=== PATIENT | male | born 1945 | race Caucasian/White ===

== ENCOUNTER → 2019-05-07 | Outpatient (CLI) | payer MEDICARE, BC ==
[2019-05-07 08:10] LABS: Anisocytosis Slight; HCT 40.2 % (39.0-53.0); HGB 11.8 gm/dL (13.0-17.5); Hypochromasia Moderate; MCH 28.2 pg (25.0-35.0); MCHC 29.4 g/dL (31.0-37.0); MCV 95.9 fL (80.0-100.0); Mean Platelet Volume 6.4; Platelet Count 294 k/uL (150-450); RDW 16.8 % (11.5-15.5)
[2019-05-07 12:12] LABS: African American GFR (CKD) 97.9 (60.0-200.0); Albumin 3.9 g/dL (3.80-4.90); Albumin/Globulin Ratio 1.63 (1.60-3.17); Anion Gap 8.8 mmol/L (4.00-12.00); BUN/Creat Ratio 15.56 Ratio (12.00-20.00); Calcium 8.6 mg/dL (8.7-10.3); Carbon Dioxide 25.2 mmol/L (21.6-31.8); Chol/HDL Ratio 5.28; Globulin 2.4 g/dL (1.6-3.3); LDL Cholesterol,Calculated 55.4 mg/dL (0.0-131.0); Potassium 3.9 mmol/L (3.5-5.5); Total Bilirubin 0.5 mg/dL (0.2-1.2); Total Protein 6.3 g/dL (6.2-8.2); VLDL Calculation 51.6 mg/dL (5.00-40.00)
== END ==
LOC: LABWHC1 07:27
PROVIDERS: ATTEND Internal Medicine Interventional Cardiology
DX: E78.2 Mixed hyperlipidemia (principal); I25.10 Atherosclerotic heart disease of native coronary artery without angina pectoris
CPT/HCPCS: 36415; 80053; 80061; 85027

== ENCOUNTER → 2019-09-04 | Outpatient (CLI) | payer MEDICARE, BC ==
[2019-09-04 17:31] LABS: African American GFR (CKD) 86.2 (60.0-200.0); Albumin 3.8 g/dL (3.80-4.90); Albumin/Globulin Ratio 1.58 (1.60-3.17); Anion Gap 9.6 mmol/L (4.00-12.00); Calcium 8.8 mg/dL (8.7-10.3); Carbon Dioxide 25.4 mmol/L (21.6-31.8); Chol/HDL Ratio 4.71; Globulin 2.4 g/dL (1.6-3.3); LDL Cholesterol,Calculated 64.6 mg/dL (0.0-131.0); Non-African American GFR(CKD) 74.3 (60.0-200.0); Potassium 4.6 mmol/L (3.5-5.5); Total Bilirubin 0.4 mg/dL (0.2-1.2); Total Protein 6.2 g/dL (6.2-8.2); VLDL Calculation 39.4 mg/dL (5.00-40.00)
== END | disposition home or self-care (01) ==
LOC: LABWHC1 07:35
PROVIDERS: ATTEND Internal Medicine Interventional Cardiology
DX: E78.2 Mixed hyperlipidemia (principal)
CPT/HCPCS: 36415; 80053; 80061

== ENCOUNTER → 2020-02-24 | Outpatient (CLI) | payer MEDICARE, BC ==
[2020-02-24 17:16] LABS: African American GFR (CKD) 97.9 (60.0-200.0); Albumin 3.7 g/dL (3.80-4.90); Albumin/Globulin Ratio 1.42 (1.60-3.17); Anion Gap 3.1 mmol/L (4.00-12.00); BUN/Creat Ratio 17.78 Ratio (12.00-20.00); Calcium 8.7 mg/dL (8.7-10.3); Carbon Dioxide 25.9 mmol/L (21.6-31.8); Chol/HDL Ratio 8.1; Globulin 2.6 g/dL (1.6-3.3); LDL Cholesterol,Calculated 152.8 mg/dL (0.0-131.0); Non-African American GFR(CKD) 84.4 (60.0-200.0); Potassium 4.4 mmol/L (3.5-5.5); Total Bilirubin 0.4 mg/dL (0.3-1.2); Total Protein 6.3 g/dL (6.2-8.2); VLDL Calculation 53.2 mg/dL (5.00-40.00)
== END ==
LOC: LABWHC1 07:30
PROVIDERS: ATTEND Internal Medicine Interventional Cardiology
DX: E78.2 Mixed hyperlipidemia (principal)
CPT/HCPCS: 36415; 80053; 80061

== ENCOUNTER → 2020-04-17 | Outpatient (CLI) | payer MEDICARE, BC ==
[2020-04-17 11:32] LABS: Chol/HDL Ratio 5.5; LDL Cholesterol,Calculated 64.2 mg/dL (0.0-131.0); VLDL Calculation 43.8 mg/dL (5.00-40.00)
== END | disposition home or self-care (01) ==
LOC: LABWHC1 07:04
PROVIDERS: ATTEND Nurse Practitioner Adult Health
DX: E78.2 Mixed hyperlipidemia (principal)
CPT/HCPCS: 36415; 80061

== ENCOUNTER → 2021-03-08 | Outpatient (CLI) | payer MEDICARE, BC ==
[2021-03-08 11:55] LABS: African American GFR (CKD) 97.2 (60.0-200.0); Albumin 3.6 g/dL (3.80-4.90); Albumin/Globulin Ratio 1.5 (1.60-3.17); Anion Gap 5.3 mmol/L (4.00-12.00); BUN/Creat Ratio 14.44 Ratio (12.00-20.00); Calcium 8.3 mg/dL (8.7-10.3); Carbon Dioxide 28.7 mmol/L (21.6-31.8); Chol/HDL Ratio 4.14; Globulin 2.4 g/dL (1.6-3.3); LDL Cholesterol,Calculated 63.6 mg/dL (0.0-131.0); Non-African American GFR(CKD) 83.8 (60.0-200.0); Total Bilirubin 0.3 mg/dL (0.3-1.2); VLDL Calculation 27.4 mg/dL (5.00-40.00)
== END | disposition home or self-care (01) ==
LOC: LABWHC1 07:00
PROVIDERS: ATTEND Nurse Practitioner Adult Health
DX: I10 Essential (primary) hypertension (principal); E78.2 Mixed hyperlipidemia
CPT/HCPCS: 36415; 80053; 80061

== ENCOUNTER → 2021-04-13 | Outpatient (CLI) | payer MEDICARE, BC ==
[2021-04-13 18:16] LABS: Anion Gap 8.5 mmol/L (4.00-12.00); Calcium 8.6 mg/dL (8.7-10.3); Carbon Dioxide 23.5 mmol/L (21.6-31.8); Non-African American GFR(CKD) 73.3 (60.0-200.0); Potassium 3.9 mmol/L (3.5-5.5)
== END | disposition home or self-care (01) ==
LOC: LABWHC1 07:13
PROVIDERS: ATTEND Nurse Practitioner Adult Health
DX: I10 Essential (primary) hypertension (principal); I25.5 Ischemic cardiomyopathy
CPT/HCPCS: 36415; 80048

== ENCOUNTER → 2021-09-30 | Outpatient (CLI) | payer MEDICARE, BC ==
[2021-09-30 10:46] LABS: ALT 39 U/L (10-49); AST 34 U/L (14-35); African American GFR (CKD) 96.5 (60.0-200.0); Albumin 3.5 g/dL (3.8-4.9); Albumin/Globulin Ratio 1.09 (1.60-3.17); Alkaline Phosphatase 105 U/L (41-126); BUN/Creat Ratio 24.33 Ratio (12.00-20.00); Blood Urea Nitrogen 21.9 mg/dL (9.0-27.0); Calcium 9.1 mg/dL (8.7-10.3); Carbon Dioxide 20.6 mmol/L (20.0-27.5); Chloride 106 mmol/L (96-109); Chol/HDL Ratio 5.11 Ratio; Globulin 3.2 g/dL (1.6-3.3); Glucose 103 mg/dL (70-110); LDL Cholesterol,Calculated 56.1 mg/dL (0.0-131.0); Non-African American GFR(CKD) 83.3 (60.0-200.0); Potassium 3.8 mmol/L (3.5-5.5); Sodium 140 mmol/L (135-145); Total Protein 6.7 g/dL (6.2-8.2)
== END | disposition home or self-care (01) ==
LOC: LABWHC1 07:03
PROVIDERS: ATTEND Nurse Practitioner Adult Health
DX: I10 Essential (primary) hypertension (principal); E78.2 Mixed hyperlipidemia
CPT/HCPCS: 36415; 80053; 80061

== ENCOUNTER 2021-12-04 13:00 | Inpatient (IN) | payer BC, MEDICARE ==
--- NOTE | 2021-12-04 13:25 | ED ---
Weakness HPI - General Chief complaint: Weakness Stated complaint: Fall Time Seen by Provider: 12/04/21 13:03 Source: patient, EMS, RN notes reviewed Mode of arrival: EMS Limitations: no limitations - History of Present Illness Initial comments: 76-year-old male in by EMS with complaints of frequent falls generalized weakness for the past 5-6 weeks he states he does have a history of atrial fibrillation he does have a defibrillator. The defibrillator has not gone off he denies any overt fevers chills or sweats just progressive weakness he states he feels like his legs would give out on him. No complaints of chest pain palpitations he does get short of breath but denies history of COPD or emphysema. No cough no phlegm production. Patient denies any head trauma or headaches MD Complaint: generalized weakness - Related Data Home Medications Medication Instructions Recorded Confirmed Bisoprolol [Zebeta] 5 mg PO BID 08/26/19 12/04/21 Cholecalciferol [Vitamin D3 (25 2,000 unit PO DAILY 08/26/19 12/04/21 Mcg = 1000 Iu)] Folic Acid 1 mg PO DAILY 08/26/19 12/04/21 Leflunomide [Arava] 20 mg PO DAILY 08/26/19 12/04/21 Rivaroxaban [Xarelto] 20 mg PO W/SUPPER 08/26/19 12/04/21 Rosuvastatin [Crestor] 20 mg PO DAILY 08/26/19 12/04/21 metHOTREXate sodium [Methotrexate] 20 mg PO WE 08/26/19 12/04/21 Omeprazole 20 mg PO DAILY 12/04/21 12/04/21 Sacubitril/Valsartan [Entresto 49 1 tab PO BID 12/04/21 12/04/21 mg-51 mg Tablet] Spironolactone [Aldactone] 25 mg PO DAILY 12/04/21 12/04/21 icosapent ethyL [Icosapent Ethyl] 2 gm PO BID 12/04/21 12/04/21 Allergies Allergy/AdvReac Type Severity Reaction Status Date / Time No Known Allergies Allergy Verified 12/04/21 14:50 Review of Systems ROS Statement: Those systems with pertinent positive or pertinent negative responses have been documented in the HPI. ROS Other: All systems not noted in ROS Statement are negative. Past Medical History Past Medical History: Atrial Flutter, Prostate Disorder, Pulmonary Embolus (PE), Rheumatoid Arthritis (RA) History of Any Multi-Drug Resistant Organisms: None Reported Past Surgical History: Appendectomy, Heart Catheterization With Stent, Joint Replacement, Pacemaker, Prostate Surgery Additional Past Surgical History / Comment(s): dg knee replaced, dg shoulder surgery,turp, neck fusion Past Anesthesia/Blood Transfusion Reactions: No Reported Reaction Date of Last Stent Placement:: 2015 Type of Cardiac Device: AICD Device Placement Date:: 2015 Past Psychological History: No Psychological Hx Reported Past Alcohol Use History: None Reported Past Drug Use History: None Reported - Past Family History Brother(s) Family Medical History: Cancer Additional Family Medical History / Comment(s): testicular cancer General Exam - General Exam Comments Initial Comments: This is a well-developed well-nourished awake alert oriented times 3 male Limitations: no limitations General appearance: alert, in no apparent distress Head exam: Present: atraumatic, normocephalic, normal inspection Eye exam: Present: normal appearance, PERRL, EOMI. Absent: scleral icterus, conjunctival injection, periorbital swelling ENT exam: Present: mucous membranes dry Neck exam: Present: normal inspection. Absent: tenderness, meningismus, lymphadenopathy Respiratory exam: Present: normal lung sounds bilaterally. Absent: respiratory distress, wheezes, rales, rhonchi, stridor Cardiovascular Exam: Present: regular rate, normal rhythm, normal heart sounds. Absent: systolic murmur, diastolic murmur, rubs, gallop, clicks GI/Abdominal exam: Present: soft, normal bowel sounds. Absent: distended, tenderness, guarding, rebound, rigid Extremities exam: Present: normal inspection, full ROM, normal capillary refill. Absent: tenderness, pedal edema, joint swelling, calf tenderness Back exam: Present: normal inspection Neurological exam: Present: alert, oriented X3, CN II-XII intact Psychiatric exam: Present: normal affect, normal mood Skin exam: Present: warm, dry, intact, normal color. Absent: rash Course Vital Signs 12/04/21 12/04/21 12/04/21 13:02 14:49 16:03 Temperature 97.3 F L Pulse Rate 88 68 82 Respiratory 18 20 18 Rate Blood Pressure 105/83 92/57 91/50 O2 Sat by Pulse 0 L 93 L 96 Oximetry 12/04/21 12/04/21 18:52 19:28 Temperature Pulse Rate 84 94 Respiratory 18 25 H Rate Blood Pressure 89/51 94/52 O2 Sat by Pulse 94 L 93 L Oximetry - Reevaluation(s) Reevaluation #1: 12/04/21 19:29 I did repeat evaluation the patient states he does not feel too much different his is present now she states she did have a low-grade temperature last night and had several hours of chills starting last night. She also believes he is dehydrated. 12/04/21 19:41 Medical Decision Making - Medical Decision Making I did discuss findings the patient and with his as well as with Dr. Roman patient states he normally has a blood pressure in the 90 systolic over perhaps 70s diastolic. Patient is not been thriving well at home he did have chills and shakes last evening with a low-grade temperature per his - Lab Data Result diagrams: 12/04/21 13:21 12/04/21 13:21 Lab Results 12/04/21 12/04/21 12/04/21 Range/Units 13:21 13:21 13:21 WBC 10.4 (3.8-10.6) k/uL RBC 3.30 L (4.30-5.90) m/uL Hgb 10.9 L (13.0-17.5) gm/dL Hct 34.4 L (39.0-53.0) % MCV 104.3 H (80.0-100.0) fL MCH 32.9 (25.0-35.0) pg MCHC 31.5 (31.0-37.0) g/dL RDW 16.4 H (11.5-15.5) % Plt Count 270 (150-450) k/uL MPV 8.2 Neutrophils % 93 % Lymphocytes % 3 % Monocytes % 1 % Eosinophils % 1 % Basophils % 1 % Neutrophils # 9.7 H (1.3-7.7) k/uL Lymphocytes # 0.3 L (1.0-4.8) k/uL Monocytes # 0.1 (0-1.0) k/uL Eosinophils # 0.1 (0-0.7) k/uL Basophils # 0.1 (0-0.2) k/uL Anisocytosis Slight Macrocytosis Moderate Sodium 134 L (137-145) mmol/L Potassium 4.3 (3.5-5.1) mmol/L Chloride 106 (98-107) mmol/L Carbon Dioxide 18 L (22-30) mmol/L Anion Gap 10 mmol/L BUN 53 H (9-20) mg/dL Creatinine 1.48 H (0.66-1.25) mg/dL Est GFR (CKD-EPI)AfAm 53 (>60 ml/min/1.73 sqM) Est GFR (CKD-EPI)NonAf 46 (>60 ml/min/1.73 sqM) Glucose 118 H (74-99) mg/dL Plasma Lactic Acid Basim 1.8 (0.7-2.0) mmol/L Calcium 8.7 (8.4-10.2) mg/dL Magnesium 1.8 (1.6-2.3) mg/dL Total Bilirubin 1.2 (0.2-1.3) mg/dL AST 51 (17-59) U/L ALT 32 (4-49) U/L Alkaline Phosphatase 144 H (38-126) U/L Creatine Kinase 59 (55-170) U/L Troponin I (0.000-0.034) ng/mL Total Protein 6.2 L (6.3-8.2) g/dL Albumin 3.1 L (3.5-5.0) g/dL Lipase 69 (23-300) U/L Urine Color Urine Appearance (Clear) Urine pH (5.0-8.0) Ur Specific [place] (1.001-1.035) Urine Protein (Negative) Urine Glucose (UA) (Negative) Urine Ketones (Negative) Urine Blood (Negative) Urine Nitrite (Negative) Urine Bilirubin (Negative) Urine Urobilinogen (<2.0) mg/dL Ur Leukocyte Esterase (Negative) Urine RBC (0-5) /hpf Urine WBC (0-5) /hpf Amorphous Sediment (None) /hpf Urine Mucus (None) /hpf Serum Alcohol <10 mg/dL 12/04/21 12/04/21 Range/Units 13:21 13:21 WBC (3.8-10.6) k/uL RBC (4.30-5.90) m/uL Hgb (13.0-17.5) gm/dL Hct (39.0-53.0) % MCV (80.0-100.0) fL MCH (25.0-35.0) pg MCHC (31.0-37.0) g/dL RDW (11.5-15.5) % Plt Count (150-450) k/uL MPV Neutrophils % % Lymphocytes % % Monocytes % % Eosinophils % % Basophils % % Neutrophils # (1.3-7.7) k/uL Lymphocytes # (1.0-4.8) k/uL Monocytes # (0-1.0) k/uL Eosinophils # (0-0.7) k/uL Basophils # (0-0.2) k/uL Anisocytosis Macrocytosis Sodium (137-145) mmol/L Potassium (3.5-5.1) mmol/L Chloride (98-107) mmol/L Carbon Dioxide (22-30) mmol/L Anion Gap mmol/L BUN (9-20) mg/dL Creatinine (0.66-1.25) mg/dL Est GFR (CKD-EPI)AfAm (>60 ml/min/1.73 sqM) Est GFR (CKD-EPI)NonAf (>60 ml/min/1.73 sqM) Glucose (74-99) mg/dL Plasma Lactic Acid Basim (0.7-2.0) mmol/L Calcium (8.4-10.2) mg/dL Magnesium (1.6-2.3) mg/dL Total Bilirubin (0.2-1.3) mg/dL AST (17-59) U/L ALT (4-49) U/L Alkaline Phosphatase (38-126) U/L Creatine Kinase (55-170) U/L Troponin I <0.012 (0.000-0.034) ng/mL Total Protein (6.3-8.2) g/dL Albumin (3.5-5.0) g/dL Lipase (23-300) U/L Urine Color Yellow Urine Appearance Clear (Clear) Urine pH 5.0 (5.0-8.0) Ur Specific [place] 1.014 (1.001-1.035) Urine Protein Negative (Negative) Urine Glucose (UA) Negative (Negative) Urine Ketones Negative (Negative) Urine Blood Small H (Negative) Urine Nitrite Negative (Negative) Urine Bilirubin Negative (Negative) Urine Urobilinogen <2.0 (<2.0) mg/dL Ur Leukocyte Esterase Negative (Negative) Urine RBC 1 (0-5) /hpf Urine WBC 1 (0-5) /hpf Amorphous Sediment Rare H (None) /hpf Urine Mucus Rare H (None) /hpf Serum Alcohol mg/dL - Radiology Data Radiology results: report reviewed (Image reviewed evidence of a typical pneumonic infiltrates), image reviewed Disposition Clinical Impression: Pneumonia, Dehydration, Failure to thrive, Renal insufficiency syndrome Disposition: ADMITTED IP TO THIS [facility] Condition: Fair Referrals: None,Stated [REFERRING] - 1-2 days
[2021-12-04 13:29] LABS: Anisocytosis Slight; Basophils # (A) 0.1 k/uL (0-0.2); Basophils % (A) 1 %; Eosinophils # (A) 0.1 k/uL (0-0.7); Eosinophils % (A) 1 %; HCT 34.4 % (39.0-53.0); HGB 10.9 gm/dL (13.0-17.5); Lymphocytes # (A) 0.3 k/uL (1.0-4.8); Lymphocytes % (A) 3 %; MCH 32.9 pg (25.0-35.0); MCHC 31.5 g/dL (31.0-37.0); MCV 104.3 fL (80.0-100.0); Macrocytosis Moderate; Mean Platelet Volume 8.2; Monocytes # (A) 0.1 k/uL (0-1.0); Monocytes % (A) 1 %; Neutrophils # (A) 9.7 k/uL (1.3-7.7); Neutrophils % (A) 93 %; Platelet Count 270 k/uL (150-450); RDW 16.4 % (11.5-15.5); WBC 10.4 k/uL (3.8-10.6)
[2021-12-04 13:39] LABS: ALT 32 U/L (4-49); AST 51 U/L (17-59); African American GFR (CKD) 53 (>60 ml/min/1.73 sqM); Albumin 3.1 g/dL (3.5-5.0); Alcohol <10 mg/dL; Alkaline Phosphatase 144 U/L (38-126); Anion Gap 10 mmol/L; Blood Urea Nitrogen 53 mg/dL (9-20); Calcium 8.7 mg/dL (8.4-10.2); Carbon Dioxide 18 mmol/L (22-30); Chloride 106 mmol/L (98-107); Creatine Kinase 59 U/L (55-170); Glucose 118 mg/dL (74-99); Lipase 69 U/L (23-300); Magnesium 1.8 mg/dL (1.6-2.3); Non-African American GFR(CKD) 46 (>60 ml/min/1.73 sqM); Potassium 4.3 mmol/L (3.5-5.1); Sodium 134 mmol/L (137-145); Total Bilirubin 1.2 mg/dL (0.2-1.3); Total Protein 6.2 g/dL (6.3-8.2)
--- NOTE | 2021-12-04 13:44 | XR ---
EXAMINATION TYPE: XR chest 2V DATE OF EXAM: 12/04/2021 COMPARISON: None HISTORY: 76-year-old male fall, weakness TECHNIQUE: AP and lateral views FINDINGS: Heart mildly enlarged. Interstitial prominence. Left anterior chest wall ICD generator with right atr ial right ventricular leads. ACDF hardware. No or pleural effusion. IMPRESSION: Mild cardiomegaly and interstitial densities. Some of the interstitial densities are patchy within th e periphery of the lungs. Unusual for CHF changes. Correlation to exclude atypical pneumonia.
--- NOTE | 2021-12-04 13:56 | CT ---
EXAMINATION TYPE: CT brain wo con DATE OF EXAM: 12/04/2021 COMPARISON: None HISTORY: 76-year-old male with pain after Frequent falls. TECHNIQUE: Examination was done in axial plane without intravenous contrast. Coronal and sagittal r econstructions performed. CT DLP: 1090.4 mGycm Automated exposure control for dose reduction was used. FINDINGS: There is no evidence of acute intracranial hemorrhage, acute ischemic changes, mass, mass-effect, or extra-axial fluid collection. There is no effacement of cerebral sulci or basal subarachnoid cister ns. There is no hydrocephalus. There is no midline shift. Rodriguez-white matter distinction is preserv ed. Mild generalized supratentorial volume loss. Mild atherosclerotic calcifications bilateral carotid si phons. Lobulated mucosal thickening left maxillary sinus. Mastoid air cells well pneumatized. Orbits and audra bes are intact. IMPRESSION: Mild age-related cerebral atrophy. No acute intracranial abnormality seen.
[2021-12-04] MEDS ORDERED: SODIUM CHLORIDE 0.9% 1,000 ML IV STA ×2 (14:43→19:10)
[2021-12-04 17:26] LABS: Amorphous Sediment,Urine Rare /hpf; Appearance,Urine Clear (Clear); Bilirubin,Urine Negative (Negative); Blood,Urine Small (Negative); Color,Urine Yellow; Glucose,Urine (UA) Negative (Negative); Ketones,Urine Negative (Negative); Leukocyte Esterase,Urine Negative (Negative); Mucus,Urine Rare /hpf; Nitrite,Urine Negative (Negative); Protein,Urine Negative (Negative); RBC,Urine 1 /hpf (0-5); Specific Gravity,Urine 1.014 (1.001-1.035); Urobilinogen,Urine <2.0 mg/dL (<2.0); WBC,Urine 1 /hpf (0-5)
[2021-12-04] MEDS ORDERED: cefTRIAXone IN SWFI 1,000 MG/10 ML SYRINGE IVP STA (19:24)
[2021-12-04] MEDS ORDERED: AZITHROMYCIN 500 MG in SODIUM CHLORIDE 0.9% 250 ML IVPB STA (20:43)
[2021-12-04] MEDS ORDERED: PNEUMONIA PROTOCOL UTILIZED 1 EACH MISC PO PRN (20:43)
--- NOTE | 2021-12-04 20:47 | ED ---
Medical Decision Making - Lab Data Result diagrams: 12/04/21 13:21 12/04/21 13:21 Lab Results 12/04/21 12/04/21 12/04/21 Range/Units 13:21 13:21 13:21 WBC 10.4 (3.8-10.6) k/uL RBC 3.30 L (4.30-5.90) m/uL Hgb 10.9 L (13.0-17.5) gm/dL Hct 34.4 L (39.0-53.0) % MCV 104.3 H (80.0-100.0) fL MCH 32.9 (25.0-35.0) pg MCHC 31.5 (31.0-37.0) g/dL RDW 16.4 H (11.5-15.5) % Plt Count 270 (150-450) k/uL MPV 8.2 Neutrophils % 93 % Lymphocytes % 3 % Monocytes % 1 % Eosinophils % 1 % Basophils % 1 % Neutrophils # 9.7 H (1.3-7.7) k/uL Lymphocytes # 0.3 L (1.0-4.8) k/uL Monocytes # 0.1 (0-1.0) k/uL Eosinophils # 0.1 (0-0.7) k/uL Basophils # 0.1 (0-0.2) k/uL Anisocytosis Slight Macrocytosis Moderate Sodium 134 L (137-145) mmol/L Potassium 4.3 (3.5-5.1) mmol/L Chloride 106 (98-107) mmol/L Carbon Dioxide 18 L (22-30) mmol/L Anion Gap 10 mmol/L BUN 53 H (9-20) mg/dL Creatinine 1.48 H (0.66-1.25) mg/dL Est GFR (CKD-EPI)AfAm 53 (>60 ml/min/1.73 sqM) Est GFR (CKD-EPI)NonAf 46 (>60 ml/min/1.73 sqM) Glucose 118 H (74-99) mg/dL Plasma Lactic Acid Basim 1.8 (0.7-2.0) mmol/L Calcium 8.7 (8.4-10.2) mg/dL Magnesium 1.8 (1.6-2.3) mg/dL Total Bilirubin 1.2 (0.2-1.3) mg/dL AST 51 (17-59) U/L ALT 32 (4-49) U/L Alkaline Phosphatase 144 H (38-126) U/L Creatine Kinase 59 (55-170) U/L Troponin I (0.000-0.034) ng/mL Total Protein 6.2 L (6.3-8.2) g/dL Albumin 3.1 L (3.5-5.0) g/dL Lipase 69 (23-300) U/L Urine Color Urine Appearance (Clear) Urine pH (5.0-8.0) Ur Specific [place] (1.001-1.035) Urine Protein (Negative) Urine Glucose (UA) (Negative) Urine Ketones (Negative) Urine Blood (Negative) Urine Nitrite (Negative) Urine Bilirubin (Negative) Urine Urobilinogen (<2.0) mg/dL Ur Leukocyte Esterase (Negative) Urine RBC (0-5) /hpf Urine WBC (0-5) /hpf Amorphous Sediment (None) /hpf Urine Mucus (None) /hpf Serum Alcohol <10 mg/dL 12/04/21 12/04/21 Range/Units 13:21 13:21 WBC (3.8-10.6) k/uL RBC (4.30-5.90) m/uL Hgb (13.0-17.5) gm/dL Hct (39.0-53.0) % MCV (80.0-100.0) fL MCH (25.0-35.0) pg MCHC (31.0-37.0) g/dL RDW (11.5-15.5) % Plt Count (150-450) k/uL MPV Neutrophils % % Lymphocytes % % Monocytes % % Eosinophils % % Basophils % % Neutrophils # (1.3-7.7) k/uL Lymphocytes # (1.0-4.8) k/uL Monocytes # (0-1.0) k/uL Eosinophils # (0-0.7) k/uL Basophils # (0-0.2) k/uL Anisocytosis Macrocytosis Sodium (137-145) mmol/L Potassium (3.5-5.1) mmol/L Chloride (98-107) mmol/L Carbon Dioxide (22-30) mmol/L Anion Gap mmol/L BUN (9-20) mg/dL Creatinine (0.66-1.25) mg/dL Est GFR (CKD-EPI)AfAm (>60 ml/min/1.73 sqM) Est GFR (CKD-EPI)NonAf (>60 ml/min/1.73 sqM) Glucose (74-99) mg/dL Plasma Lactic Acid Basim (0.7-2.0) mmol/L Calcium (8.4-10.2) mg/dL Magnesium (1.6-2.3) mg/dL Total Bilirubin (0.2-1.3) mg/dL AST (17-59) U/L ALT (4-49) U/L Alkaline Phosphatase (38-126) U/L Creatine Kinase (55-170) U/L Troponin I <0.012 (0.000-0.034) ng/mL Total Protein (6.3-8.2) g/dL Albumin (3.5-5.0) g/dL Lipase (23-300) U/L Urine Color Yellow Urine Appearance Clear (Clear) Urine pH 5.0 (5.0-8.0) Ur Specific [place] 1.014 (1.001-1.035) Urine Protein Negative (Negative) Urine Glucose (UA) Negative (Negative) Urine Ketones Negative (Negative) Urine Blood Small H (Negative) Urine Nitrite Negative (Negative) Urine Bilirubin Negative (Negative) Urine Urobilinogen <2.0 (<2.0) mg/dL Ur Leukocyte Esterase Negative (Negative) Urine RBC 1 (0-5) /hpf Urine WBC 1 (0-5) /hpf Amorphous Sediment Rare H (None) /hpf Urine Mucus Rare H (None) /hpf Serum Alcohol mg/dL Disposition Clinical Impression: Pneumonia, Dehydration, Failure to thrive, Renal insufficiency syndrome Disposition: ADMITTED IP TO THIS [facility] Condition: Fair Referrals: None,Stated [REFERRING] - 1-2 days Decision Date: 12/04/21 Decision Time: 19:00
[2021-12-04] MEDS ORDERED: SACUBITRIL/VALSARTAN 49 MG-51 MG TABLET PO SCH (21:00)
[2021-12-04] MEDS: SODIUM CHLORIDE 0.9% 1,000 ML IV SCH (22:05)
[2021-12-04] MEDS: BISOPROLOL 5 MG TAB PO SCH (23:05)
[2021-12-05] MEDS: PATIENT'S OWN (Icosapent Ethyl [Icosapent Ethyl] 1 GM Capsule) PO SCH ×3 (00:12→20:25)
[2021-12-05] MEDS ORDERED: diphenhydrAMINE 25 MG CAP PO STA (01:07)
--- NOTE | 2021-12-05 03:02 | P.HPIM ---
History of Present Illness H&P Date: 12/04/21 Chief Complaint: generalized weakness 76 year old male with afib on xarelto s/p defibrilator RA patient comes in via EMS for a fall at home , his reports 4 weeks of pro gressive generalized weakness and fatigue , today , he fell after getting up from the toilet seat, hit his head, but denies passing out, he denies any dizizness palpitations or SOB prior to the fall, but felt his legs were giving out. reports some chills, , shakes and high temp last night , but no report of coughing or other URI symptoms, no report of urinary or bowel habit changes, no chest pain or abd pain, no nausea or vomiting, he denies any recent travel or hospital stay, he spends his day resting by his dog. he has bad rheumatoid arthritis and because of that does not do much he claims to be compliant with his meds. he is concerned as he has been declining over the past month or so. and would like to get some strength back workup in the ED , was suggestive of dehydration and ISABEL, CXR showed possible atypical infilterates. , CT brain no acute pathology Review of Systems Pertinent positives as noted in HPI. All other systems were reviewed and are negative Past Medical History Past Medical History: Atrial Flutter, Prostate Disorder, Pulmonary Embolus (PE), Rheumatoid Arthritis (RA) History of Any Multi-Drug Resistant Organisms: None Reported Past Surgical History: Appendectomy, Heart Catheterization With Stent, Joint Replacement, Pacemaker, Prostate Surgery Additional Past Surgical History / Comment(s): dg knee replaced, dg shoulder surgery,turp, neck fusion Past Anesthesia/Blood Transfusion Reactions: No Reported Reaction Date of Last Stent Placement:: 2015 Type of Cardiac Device: AICD Device Placement Date:: 2015 Past Psychological History: No Psychological Hx Reported Smoking Status: Former smoker Past Alcohol Use History: None Reported Additional Past Alcohol Use History / Comment(s): smoked for 40 years 1/2ppd quit 2009 Past Drug Use History: None Reported - Past Family History Brother(s) Family Medical History: Cancer Additional Family Medical History / Comment(s): testicular cancer Medications and Allergies Home Medications Medication Instructions Recorded Confirmed Type Bisoprolol [Zebeta] 5 mg PO BID 08/26/19 12/04/21 History Cholecalciferol [Vitamin D3 (25 2,000 unit PO DAILY 08/26/19 12/04/21 History Mcg = 1000 Iu)] Folic Acid 1 mg PO DAILY 08/26/19 12/04/21 History Leflunomide [Arava] 20 mg PO DAILY 08/26/19 12/04/21 History Rivaroxaban [Xarelto] 20 mg PO W/SUPPER 08/26/19 12/04/21 History Rosuvastatin [Crestor] 20 mg PO DAILY 08/26/19 12/04/21 History metHOTREXate sodium [Methotrexate] 20 mg PO WE 08/26/19 12/04/21 History Omeprazole 20 mg PO DAILY 12/04/21 12/04/21 History Sacubitril/Valsartan [Entresto 49 1 tab PO BID 12/04/21 12/04/21 History mg-51 mg Tablet] Spironolactone [Aldactone] 25 mg PO DAILY 12/04/21 12/04/21 History icosapent ethyL [Icosapent Ethyl] 2 gm PO BID 12/04/21 12/04/21 History Allergies Allergy/AdvReac Type Severity Reaction Status Date / Time No Known Allergies Allergy Verified 12/04/21 14:50 Physical Exam Vitals: Vital Signs Temp Pulse Resp BP Pulse Ox 12/04/21 21:00 87 18 103/59 94 L 12/04/21 20:00 90 16 117/59 93 L 12/04/21 19:28 94 25 H 94/52 93 L 12/04/21 18:52 84 18 89/51 94 L 12/04/21 16:03 82 18 91/50 96 12/04/21 14:49 68 20 92/57 93 L 12/04/21 13:02 97.3 F L 88 18 105/83 0 L Intake and Output 12/04/21 12/04/21 12/05/21 14:59 22:59 06:59 Other: Weight 79.379 kg 79.379 kg Constitutional: No acute distress, conversant, pleasant Eyes: Anicteric sclerae, moist conjunctiva, Pupils equal round reactive to light ENMT: NC/AT Oropharynx clear, no erythema, or exudates Neck: Supple, no masses, or JVD No carotid bruits No thyromegaly Lungs: Clear to auscultation Clear to percussion Normal respiratory effort, no accessory muscle use Cardiovascular: Heart irregular in rate and rhythm, No murmurs, gallops, or rubs No peripheral edema Abdominal: Soft Nontender, no guarding, rebound or rigidity Abdomen moving with respiration Normoactive bowel sounds No hepatomegaly, No splenomegaly No palpable mass No abdominal wall hernia noted Skin: Normal temperature, tone, texture, turgor No induration No subcutaneous nodules No rash, lesions No ulcers Extremities: No digital cyanosis No clubbing Pedal pulses intact and symmetrical Radial pulses intact and symmetrical No calf tenderness Psychiatric: Alert and oriented to person, place and time Appropriate affect fair judgement Neuro Muscles Strength 4/5 in all 4 extremities Sensation to light touch grossly present throughout Cranial nerves II-XII grossly intact No focal sensory deficits Lymphatics: no palpable cervical or supraclavicular , or inguinal lymph nodes Results CBC & Chem 7: 12/04/21 13:21 12/04/21 13:21 Labs: Abnormal Lab Results - Last 24 Hours (Table) 12/04/21 12/04/21 12/04/21 Range/Units 13:21 13:21 13:21 RBC 3.30 L (4.30-5.90) m/uL Hgb 10.9 L (13.0-17.5) gm/dL Hct 34.4 L (39.0-53.0) % MCV 104.3 H (80.0-100.0) fL RDW 16.4 H (11.5-15.5) % Neutrophils # 9.7 H (1.3-7.7) k/uL Lymphocytes # 0.3 L (1.0-4.8) k/uL Sodium 134 L (137-145) mmol/L Carbon Dioxide 18 L (22-30) mmol/L BUN 53 H (9-20) mg/dL Creatinine 1.48 H (0.66-1.25) mg/dL Glucose 118 H (74-99) mg/dL Alkaline Phosphatase 144 H (38-126) U/L Total Protein 6.2 L (6.3-8.2) g/dL Albumin 3.1 L (3.5-5.0) g/dL Urine Blood Small H (Negative) Amorphous Sediment Rare H (None) /hpf Urine Mucus Rare H (None) /hpf Thrombosis Risk Factor Assmnt - Choose All That Apply Each Risk Factor Represents 3 Points: Age 75 years or older, History of DVT/PE Thrombosis Risk Factor Assessment Total Risk Factor Score: 6 Thrombosis Risk Factor Assessment Level: High Risk Assessment and Plan Assessment: ISABEL , dehydration hold nephrotoxic meds IVF hydration with normal saline monitor renal function and urine output atypical pneumonia initiated empirically on rocephine and azithro follow up cultures supportive care Anemia denies GI bleeding monitor Hgb Afib continue with xarelto monitor for any evidence of GI bleeding failure to thrive supportive care PT eval full code DVT PPX on xarelto for afib anticipated length of stay > 2 midnights
[2021-12-05] MEDS: AZITHROMYCIN 500 MG TAB PO SCH (08:31)
[2021-12-05] MEDS: CHOLECALCIFEROL 25 MCG (1000 IU) TABLET PO SCH (08:31)
[2021-12-05] MEDS: BISOPROLOL 5 MG TAB PO SCH ×2 (08:31→20:24)
[2021-12-05] MEDS: ATORVASTATIN 40 MG TAB PO SCH (08:31)
[2021-12-05] MEDS: PANTOPRAZOLE 40 MG TABLET PO SCH (08:31)
[2021-12-05] MEDS: SODIUM CHLORIDE 0.9% 1,000 ML IV SCH ×3 (08:31→20:24)
[2021-12-05] MEDS: FOLIC ACID 1 MG TAB PO SCH (08:31)
[2021-12-05] MEDS: LEFLUNOMIDE 20 MG TAB PO SCH (08:31)
--- NOTE | 2021-12-05 08:48 | XR ---
EXAMINATION TYPE: XR chest 2V DATE OF EXAM: 12/05/2021 COMPARISON: 12/04/2021 HISTORY: 76-year-old male pneumonia TECHNIQUE: Frontal and lateral views FINDINGS: Left anterior chest wall AICD generator with right atrial and ventricular leads. Heart mildly enlarge d. Worsening multifocal patchy opacities. No pleural effusion. Partially visualized ACDF hardware. IMPRESSION: Worsening multifocal pneumonia.
[2021-12-05] MEDS ORDERED: SPIRONOLACTONE 25 MG TAB PO SCH (09:00)
[2021-12-05 09:11] LABS: African American GFR (CKD) 75.7 (60.0-200.0); Anion Gap 11.3 mmol/L (10.00-18.00); BUN/Creat Ratio 34.09 Ratio (12.00-20.00); Blood Urea Nitrogen 37.5 mg/dL (9.0-27.0); Calcium 7.9 mg/dL (8.7-10.3); Carbon Dioxide 14.7 mmol/L (20.0-27.5); Non-African American GFR(CKD) 65.3 (60.0-200.0); Potassium 4.8 mmol/L (3.5-5.5)
[2021-12-05 09:21] LABS: Basophils # (A) 0.07 X 10*3/uL (0.00-0.10); Basophils % (A) 0.8 %; Eosinophils # (A) 0.01 X 10*3/uL (0.04-0.35); Eosinophils % (A) 0.1 %; HCT 29.9 % (39.6-50.0); HGB 9.3 g/dL (13.0-17.0); Immature Grans, Automated 0.9 %; Lymphocytes # (A) 0.21 X 10*3/uL (0.90-5.00); Lymphocytes % (A) 2.5 %; MCH 32.4 pg (27.0-32.0); MCHC 31.1 g/dL (32.0-37.0); MCV 104.2 fL (80.0-97.0); Mean Platelet Volume 10.3 fL (9.5-12.2); Monocytes # (A) 0.22 X 10*3/uL (0.20-1.00); Monocytes % (A) 2.6 %; NRBC Per 100 WBC 0 /100 WBCS (0.0-0.0); Neutrophils # (A) 7.93 X 10*3/uL (1.80-7.70); Neutrophils % (A) 93.1 %; Platelet Count 223 X 10*3/uL (140-440); RBC 2.87 X 10*6/uL (4.40-5.60); RDW 15.8 % (11.5-14.5); WBC 8.52 X 10*3/uL (4.50-10.00)
--- NOTE | 2021-12-05 12:20 | P.PN ---
Subjective Progress Note Date: 12/05/21 Principal diagnosis: Atypical pneumonia Patient was seen and examined. No acute events overnight. He is currently on 5 L nasal cannula. He reports shortness of breath especially with exertion. He reports immense generalized weakness. His is at bedside. General: [non toxic], [no distress], [appears at stated age] Derm: [warm], [dry] Head: [atraumatic], [normocephalic], [symmetric] Eyes: [EOMI], [no lid lag], [anicteric sclera] Mouth: [no lip lesion], [mucus membranes moist] Cardiovascular: [S1S2 reg], [no murmur], [positive DP pulse bilateral] Lungs: [Decreased breath sounds bilateral], [no rhonchi, no rales] , [no accessory muscle use] Abdominal: [soft], [ nontender to palpation], [no guarding], [no appreciable organomegaly] Ext: [no gross muscle atrophy], [no edema], [no contractures] Neuro: [no focal neuro deficits] Psych: [Alert], [oriented], [appropriate affect] #Acute hypoxic respiratory failure #Atypical pneumonia #Generalized weakness and debility #Macrocytic anemia #Acute kidney injury Chronic conditions: Atrial flutter, history of PE, rheumatoid arthritis, CHF with AICD and pacemaker, CAD Patient presents with worsening respiratory distress complaining of generalized weakness and debility. Chest x-ray shows multifocal pneumonia. COVID-19 negative. Flu negative. RSV negative. He has been started on Rocephin and azithromycin for concerns a community acquired pneumonia. He will be given supplemental O2 to maintain O2 saturation greater than 92%. Telemetry monitoring has been ordered. Pro-calcitonin ordered. Sputum culture ordered. Legionella antigen ordered. Pulmonology has been consulted for further management of this patient. PT and OT will be consulted to work with this patient. His renal function is improving. Acute kidney injury likely related to dehydration. Continue normal saline at 100 mL/h. Avoid nephrotoxins. Repeat BMP tomorrow morning Restart bisoprolol for rate control of A. fib. Restart Xarelto for history of PE and stroke prevention and A. fib. Restart omeprazole for history of GERD. Restart Crestor for history of dyslipidemia. Restart Leflunomide for history of RA. Restart Entresto and Aldactone for history of CHF. DVT prophylaxis: [Xarelto] Discussed with: [Patient and ] Anticipated discharge: [2-3 days] Anticipated discharge place: [Home versus [facility]] A total of [25] minutes was spent on the care of this complex patient more than 50% of the time was spent in counseling and care coordination. Objective - Vital Signs Vital signs: Vital Signs Temp 98.1 F 12/05/21 08:00 Pulse 75 12/05/21 08:00 Resp 16 12/05/21 08:00 BP 133/52 12/05/21 08:00 Pulse Ox 92 L 12/05/21 08:00 Intake & Output 12/04/21 12/05/21 12/05/21 18:59 06:59 18:59 Output Total 2200 Balance -2200 Weight 79.379 kg 79.379 kg Output: Urine 2200 Straight 1100 Other: Voiding Method Urinal # Voids 1 - Labs CBC & Chem 7: 12/05/21 04:00 12/05/21 04:00 Labs: Abnormal Lab Results - Last 24 Hours (Table) 12/04/21 12/04/21 12/04/21 Range/Units 13:21 13:21 13:21 RBC 3.30 L (4.30-5.90) m/uL Hgb 10.9 L (13.0-17.5) gm/dL Hct 34.4 L (39.0-53.0) % MCV 104.3 H (80.0-100.0) fL MCH (27.0-32.0) pg MCHC (32.0-37.0) g/dL RDW 16.4 H (11.5-15.5) % Immature Gran # (0.00-0.04) X 10*3/uL Neutrophils # 9.7 H (1.3-7.7) k/uL Lymphocytes # 0.3 L (1.0-4.8) k/uL Eosinophils # (0.04-0.35) X 10*3/uL Sodium 134 L (137-145) mmol/L Chloride (96-109) mmol/L Carbon Dioxide 18 L (22-30) mmol/L BUN 53 H (9-20) mg/dL Creatinine 1.48 H (0.66-1.25) mg/dL BUN/Creatinine Ratio (12.00-20.00) Ratio Glucose 118 H (74-99) mg/dL Calcium (8.7-10.3) mg/dL Alkaline Phosphatase 144 H (38-126) U/L Total Protein 6.2 L (6.3-8.2) g/dL Albumin 3.1 L (3.5-5.0) g/dL Urine Blood Small H (Negative) Amorphous Sediment Rare H (None) /hpf Urine Mucus Rare H (None) /hpf 12/05/21 12/05/21 Range/Units 04:00 04:00 RBC 2.87 L (4.30-5.90) m/uL Hgb 9.3 L (13.0-17.5) gm/dL Hct 29.9 L (39.0-53.0) % MCV 104.2 H (80.0-100.0) fL MCH 32.4 H (27.0-32.0) pg MCHC 31.1 L (32.0-37.0) g/dL RDW 15.8 H (11.5-15.5) % Immature Gran # 0.08 H (0.00-0.04) X 10*3/uL Neutrophils # 7.93 H (1.3-7.7) k/uL Lymphocytes # 0.21 L (1.0-4.8) k/uL Eosinophils # 0.01 L (0.04-0.35) X 10*3/uL Sodium (137-145) mmol/L Chloride 111 H (96-109) mmol/L Carbon Dioxide 14.7 L (22-30) mmol/L BUN 37.5 H (9-20) mg/dL Creatinine (0.66-1.25) mg/dL BUN/Creatinine Ratio 34.09 H (12.00-20.00) Ratio Glucose (74-99) mg/dL Calcium 7.9 L (8.7-10.3) mg/dL Alkaline Phosphatase (38-126) U/L Total Protein (6.3-8.2) g/dL Albumin (3.5-5.0) g/dL Urine Blood (Negative) Amorphous Sediment (None) /hpf Urine Mucus (None) /hpf
--- NOTE | 2021-12-05 12:47 | P.CNPUL ---
History of Present Illness Consult date: 12/05/21 Requesting physician: Sergio Bethea Reason for consult: dyspnea, cough, hypoxemia, pneumonia, abnormal CXR/CT Chief complaint: Shortness breath, cough, weakness. History of present illness: Pulmonary consult dated 12/05/2021. 76-year-old male, brought into the emergency room, on December 04, by EMS. The patient apparently had been frequently falling, has had generalized weakness, and is also had increasing shortness of breath, and cough. The patient has not been feeling well for at least 3 weeks, and maybe longer. The patient states that he is having a difficult time coughing up any phlegm although he does feel like his chest is congested. The patient denies any chest pain or chest di scomfort. There is no nausea, vomiting, or diarrhea. He was evaluated in the emergency department admitted with a diagnosis of pneumonia. We are seeing him in consultation. White count 8.52, hemoglobin 9.3, hematocrit 29.9, and platelet count 223,000. Sodium 137, potassium 4.8, chlorides 111, CO2 15, anion gap 11, BUN 38, creatinine 1.1. Glucose 98. N-terminal proBNP is 1150. Chest x-ray shows patchy bilateral infiltrates, which are worse on the subsequent chest x-ray. The patient has a history of atrial flutter, pulmonary embolism, rheumatoid arthritis, and previous prostate surgery. The patient is also had heart catheterization with stent placement. Review of Systems REVIEW OF SYSTEMS: CONSTITUTIONAL: Weakness. NEUROLOGIC: [ Negative.] HEENT: [ Negative.] CARDIAC: [Negative.] PULMONARY: Shortness of breath, cough, chest congestion, without phlegm production. GI: [Poor oral intake. : [Negative.] RHEUMATOLOGIC: [ Negative.] IMMUNOLOGIC: [ Negative.] ENDOCRINE: [Negative. ] DERMATOLOGIC: [Negative.] Past Medical History Past Medical History: Atrial Flutter, Prostate Disorder, Pulmonary Embolus (PE), Rheumatoid Arthritis (RA) History of Any Multi-Drug Resistant Organisms: None Reported Past Surgical History: Appendectomy, Heart Catheterization With Stent, Joint Replacement, Pacemaker, Prostate Surgery Additional Past Surgical History / Comment(s): dg knee replaced, dg shoulder surgery,turp, neck fusion Past Anesthesia/Blood Transfusion Reactions: No Reported Reaction Date of Last Stent Placement:: 2015 Type of Cardiac Device: AICD Device Placement Date:: 2015 Past Psychological History: No Psychological Hx Reported Smoking Status: Former smoker Past Alcohol Use History: None Reported Additional Past Alcohol Use History / Comment(s): smoked for 40 years 1/2ppd quit 2009 Past Drug Use History: None Reported - Past Family History Brother(s) Family Medical History: Cancer Additional Family Medical History / Comment(s): testicular cancer Medications and Allergies Home Medications Medication Instructions Recorded Confirmed Type Bisoprolol [Zebeta] 5 mg PO BID 08/26/19 12/04/21 History Cholecalciferol [Vitamin D3 (25 2,000 unit PO DAILY 08/26/19 12/04/21 History Mcg = 1000 Iu)] Folic Acid 1 mg PO DAILY 08/26/19 12/04/21 History Leflunomide [Arava] 20 mg PO DAILY 08/26/19 12/04/21 History Rivaroxaban [Xarelto] 20 mg PO W/SUPPER 08/26/19 12/04/21 History Rosuvastatin [Crestor] 20 mg PO DAILY 08/26/19 12/04/21 History metHOTREXate sodium [Methotrexate] 20 mg PO WE 08/26/19 12/04/21 History Omeprazole 20 mg PO DAILY 12/04/21 12/04/21 History Sacubitril/Valsartan [Entresto 49 1 tab PO BID 12/04/21 12/04/21 History mg-51 mg Tablet] Spironolactone [Aldactone] 25 mg PO DAILY 12/04/21 12/04/21 History icosapent ethyL [Icosapent Ethyl] 2 gm PO BID 12/04/21 12/04/21 History Allergies Allergy/AdvReac Type Severity Reaction Status Date / Time No Known Allergies Allergy Verified 12/04/21 14:50 Physical Exam Osteopathic Statement: *. No significant issues noted on an osteopathic structural exam other than those noted in the History and Physical/Consult. Vitals: Vital Signs Temp Pulse Pulse Resp BP BP Pulse Ox 12/05/21 08:00 98.1 F 75 16 133/52 92 L 12/05/21 01:58 97.9 F 92 19 99/52 94 L 12/04/21 21:00 87 18 103/59 94 L 12/04/21 20:00 90 16 117/59 93 L 12/04/21 19:28 94 25 H 94/52 93 L 12/04/21 18:52 84 18 89/51 94 L 12/04/21 16:03 82 18 91/50 96 12/04/21 14:49 68 20 92/57 93 L 12/04/21 13:02 97.3 F L 88 18 105/83 0 L Intake and Output 12/04/21 12/05/21 12/05/21 22:59 06:59 14:59 Output Total 2200 Balance -2200 Output: Urine 2200 Straight 1100 Other: Voiding Method Urinal # Voids 1 Weight 79.379 kg No acute distress, oriented 3. Not a particularly good historian. HEENT examination is grossly unremarkable. Neck supple. Full range of motion. No adenopathy thyromegaly or neck vein distention. Cardiovascular examination reveals regular rhythm rate. S1-S2 normal. No S3 or S4. No discernible murmur noted. Heart rate 75 bpm. Lungs reveal coarse bilateral rhonchi. Bilateral crackles appreciated. Breath sounds equal bilaterally. 4 L saturation is 94%. Abdomen soft bowel sounds are heard. No masses or tenderness. Extremities are intact. No cyanosis clubbing or edema. Skin is without rash or lesion. Neurologic examination is brief but nonfocal. Results - Laboratory Findings CBC and BMP: 12/05/21 04:00 12/05/21 04:00 Abnormal lab findings: Abnormal Labs 12/04/21 12/04/21 12/04/21 13:21 13:21 13:21 RBC 3.30 L Hgb 10.9 L Hct 34.4 L MCV 104.3 H MCH MCHC RDW 16.4 H Immature Gran # Neutrophils # 9.7 H Lymphocytes # 0.3 L Eosinophils # Sodium 134 L Chloride Carbon Dioxide 18 L BUN 53 H Creatinine 1.48 H BUN/Creatinine Ratio Glucose 118 H Calcium Alkaline Phosphatase 144 H Total Protein 6.2 L Albumin 3.1 L Urine Blood Small H Amorphous Sediment Rare H Urine Mucus Rare H 12/05/21 12/05/21 04:00 04:00 RBC 2.87 L Hgb 9.3 L Hct 29.9 L MCV 104.2 H MCH 32.4 H MCHC 31.1 L RDW 15.8 H Immature Gran # 0.08 H Neutrophils # 7.93 H Lymphocytes # 0.21 L Eosinophils # 0.01 L Sodium Chloride 111 H Carbon Dioxide 14.7 L BUN 37.5 H Creatinine BUN/Creatinine Ratio 34.09 H Glucose Calcium 7.9 L Alkaline Phosphatase Total Protein Albumin Urine Blood Amorphous Sediment Urine Mucus - Diagnostic Findings Chest x-ray: image reviewed Assessment and Plan Assessment: Shortness of breath, with hypoxemic respiratory failure, secondary to bilateral pneumonia. History of atrial flutter, status post pacemaker implantation. History of pulmonary embolism. History of rheumatoid arthritis. History of gastroesophageal reflux disease. History of hyperlipidemia. Previous history of heart catheterization with stent placement. Plan: Plan dated 12/05/2021. The patient is seen and examined, in room 463. The patient is currently on Rocephin, and Zithromax for community-acquired pneumonia. In addition, the patient is on his usual medications. We will add some updrafts to the regimen. Additional recommendations and suggestions are forthcoming. Labs, x-rays, medications are reviewed. Prognosis is guarded. We'll continue to follow the patient and make recommendations where appropriate. Time with Patient: Greater than 30
[2021-12-05] MEDS: IPRATROPIUM-ALBUTEROL 3 ML NEB INHALATION SCH ×2 (15:54→20:39)
[2021-12-05] MEDS: RIVAROXABAN 20 MG TAB PO SCH (18:13)
[2021-12-06] MEDS ORDERED: VANCOMYCIN IV PER PHARMACY 1 EACH MISC MISCELLANE PRN ×2 (02:15→08:19)
[2021-12-06] MEDS ORDERED: VANCOMYCIN 1,750 MG in SODIUM CHLORIDE 0.9% 500 ML 500 ML IVPB ONE (03:00)
[2021-12-06] MEDS: SODIUM CHLORIDE 0.9% 1,000 ML IV SCH ×2 (03:33→22:26)
[2021-12-06] MEDS: IPRATROPIUM-ALBUTEROL 3 ML NEB INHALATION SCH ×4 (07:33→20:14)
[2021-12-06] MEDS ORDERED: FUROSEMIDE 10 MG/ML 10 ML VIAL IV STA (08:20)
--- NOTE | 2021-12-06 08:44 | XR ---
EXAMINATION TYPE: XR chest 1V portable DATE OF EXAM: 12/06/2021 Comparison: 12/05/2021 Clinical History: 76 year-old male shortness of breath Findings: Left anterior chest wall AICD generator with right atrial and right ventricular leads. Heart upper li mits of normal in size. Diffuse interstitial and patchy peripheral and bibasilar densities persist wi thout significant change. Impression: Continued extensive interstitial and patchy peripheral infiltrates.
[2021-12-06] MEDS ORDERED: LORazepam 2 MG/ML INJ IV STA (09:02)
[2021-12-06 09:41] LABS: ABG Base Excess -11.5 mmol/L; ABG HCO3 14 mmol/L (21-25); ABG PCO2 24 mmHg (35-45); ABG PH 7.37 (7.35-7.45); ABG PO2 68 mmHg (83-108); ABG TCO2 15 mmol/L (19-24); Allen Test Performed? Yes
[2021-12-06 10:07] LABS: Glucose,Whole Blood 103 mg/dL (75-99)
[2021-12-06] MEDS: AZITHROMYCIN 500 MG TAB PO SCH (10:41)
[2021-12-06] MEDS: PANTOPRAZOLE 40 MG TABLET PO SCH (10:41)
[2021-12-06] MEDS: BISOPROLOL 5 MG TAB PO SCH ×3 (10:41→22:53)
[2021-12-06] MEDS: FOLIC ACID 1 MG TAB PO SCH (10:41)
[2021-12-06] MEDS: PATIENT'S OWN (Icosapent Ethyl [Icosapent Ethyl] 1 GM Capsule) PO SCH ×2 (10:41→20:09)
[2021-12-06] MEDS: LEFLUNOMIDE 20 MG TAB PO SCH (10:41)
[2021-12-06] MEDS: CHOLECALCIFEROL 25 MCG (1000 IU) TABLET PO SCH (10:41)
[2021-12-06] MEDS: ATORVASTATIN 40 MG TAB PO SCH (10:41)
[2021-12-06] MEDS ORDERED: FUROSEMIDE 10 MG/ML 4 ML VIAL IV SCH (11:00)
[2021-12-06] MEDS: PIPERACILLIN-TAZOBACTAM 3.375 GM in SODIUM CHLORIDE 0.9% 100 ML IVPB SCH ×3 (11:07→23:01)
--- NOTE | 2021-12-06 11:08 | P.PN ---
Subjective Progress Note Date: 12/06/21 Principal diagnosis: Weakness, bacteremia, acute kidney injury 76-year-old male, brought into the emergency room, on December 04, by EMS. The patient apparently had been frequently falling, has had generalized weakness, and is also had increasing shortness of breath, and cough. The patient has not been feeling well for at least 3 weeks, and maybe longer. The patient states that he is having a difficult time coughing up any phlegm although he does feel like his chest is congested. The patient denies any chest pain or chest discomfort. There is no nausea, vomiting, or diarrhea. He was evaluated in the emergency department admitted with a diagnosis of pneumonia. We are seeing him in consultation. White count 8.52, hemoglobin 9.3, hematocrit 29.9, and platelet count 223,000. Sodium 137, potassium 4.8, chlorides 111, CO2 15, anion gap 11, BUN 38, creatinine 1.1. Glucose 98. N-terminal proBNP is 1150. Chest x-ray shows patchy bilateral infiltrates, which are worse on the subsequent chest x-ray. The patient has a history of atrial flutter, pulmonary embolism, rheumatoid arthritis, and previous prostate surgery. The patient is also had heart catheterization with stent placement. On 12/06/2021 we received a phone call from the nursing staff with a concern ab out worsening hypoxia, and patient was satting only 87% on 100% nonrebreather, tachypnea, and increased work of breathing. Stat chest x-ray was obtained showing contained extensive interstitial and patchy peripheral infiltrates. Patient has been afebrile. Blood pressure is 110/64, however he is tachypneic, with a respiratory rate in the 30s. Denies any chest discomfort, denies any cough or phlegm production. Patient was found to be bacteremic, his blood cultures show gram-positive cocci in groups, he is currently on Zosyn and vancomycin for antibiotic coverage. We were unable to obtain a sputum culture. Blood gas was obtained on 100% nonrebreather showing pO2 of 68, pCO2 of 24, and pH of 7.37. Subsequently patient was placed on BiPAP support with a pressure of 15/5, and FiO2 100%. Neurologically patient is awake and alert, he is answering questions appropriately, he is oriented 3. He is achieving over 1000 mL of tidal volume on the BiPAP support. Still remains quite tachycardic, his minute ventilation is increased. Patient was given a dose of IV Lasix 60 mg times one, he has produced 1.1 L and urine output since then, we'll continue with IV diuretics, we ordered an echocardiogram which is pending at this point. His pro calcitonin level is elevated at 0.87, proBNP was 1150. Objective - Vital Signs Vital signs: Vital Signs Temp 98.4 F 12/06/21 07:41 Pulse 99 12/06/21 07:41 Resp 20 12/06/21 07:41 BP 110/64 12/06/21 07:41 Pulse Ox 90 L 12/06/21 07:41 Intake & Output 12/05/21 12/06/21 12/06/21 18:59 06:59 18:59 Intake Total 1800 Output Total 1403 1100 Balance 397 -1100 Intake: Intake, IV Titration 1750 Amount Sodium Chloride 0.9% 1, 1200 000 ml @ 100 mls/hr IV . Q10H [facility] Rx#:[id number] Vancomycin 1,750 mg In 500 Sodium Chloride 0.9% 500 ml 500 ml @ 167 mls/hr IVPB ONCE ONE Rx#: [id number] cefTRIAXone 2 gm In 50 Sodium Chloride 0.9% 50 ml @ 100 mls/hr IVPB Q24HR [facility] Rx#:[id number] Oral 50 Output: Urine 1400 1100 Stool 3 Other: Voiding Method Urinal Urinal # Voids 1 # Bowel Movements 1 - Exam GENERAL EXAM: Alert, very pleasant, 76-year-old white male, currently on BiPAP support with pressures of 15 and 5 and FiO2 100%, tachypneic and dyspneic HEAD: Normocephalic/atraumatic. EYES: Normal reaction of pupils, equal size. Conjunctiva pink, sclera white. NOSE: Clear with pink turbinates. THROAT: No erythema or exudates. NECK: No masses, no JVD, no thyroid enlargement, no adenopathy. CHEST: No chest wall deformity. Symmetrical expansion. LUNGS: Equal air entry with diffuse coarse crackles CVS: Regular rate and rhythm, normal S1 and S2, no gallops, no murmurs, no rubs ABDOMEN: Soft, nontender. No hepatosplenomegaly, normal bowel sounds, no guarding or rigidity. EXTREMITIES: No clubbing, no edema, no cyanosis, 2+ pulses and upper and lower extremities. MUSCULOSKELETAL: Muscle strength and tone normal. SPINE: No scoliosis or deformity SKIN: No rashes CENTRAL NERVOUS SYSTEM: Alert and oriented -3. No focal deficits, tone is normal in all 4 extremities. PSYCHIATRIC: Alert and oriented -3. Appropriate affect. Intact judgment and insight. - Labs CBC & Chem 7: 12/05/21 04:00 12/05/21 04:00 Labs: Abnormal Lab Results - Last 24 Hours (Table) 12/05/21 12/06/21 12/06/21 Range/Units 04:00 08:42 10:06 ABG pCO2 24 L (35-45) mmHg ABG pO2 68 L (83-108) mmHg ABG HCO3 14 L (21-25) mmol/L ABG Total CO2 15 L (19-24) mmol/L ABG O2 Saturation 92.0 L (94-97) % POC Glucose (mg/dL) 103 H (75-99) mg/dL Procalcitonin 0.87 H (0.02-0.09) ng/mL Microbiology - Last 24 Hours (Table) 12/04/21 19:40 Blood Culture Gram Stain - Preliminary Blood 12/04/21 19:40 Blood Culture - Final Blood 12/04/21 19:21 Blood Culture - Preliminary Blood No Growth after 24 hours Assessment and Plan Plan: Assessment: #1. Acute hypoxic respiratory failure related to acute exacerbation of CHF, presumably systolic based on the history of AICD placement, and possibility of pneumonia is not entirely excluded. Patient is an immunosuppressed host related to history of rheumatoid arthritis. Patient tested negative for coronary with 19, influenza A and B and RSV. Chest x-ray showing mild cardiomegaly and patchy interstitial densities, with the possibility of atypical pneumonia #2. Gram-positive cocci bacteremia, patient is covered with Zosyn and vanc omycin, follow up cultures pending #3. Weakness, falls at home, acute kidney injury, related to sepsis #4. Acute kidney injury related to ATN, improving #5. History of atrial flutter on Xarelto #6. History of pulmonary embolism on Xarelto #7. History of coronary artery disease with previous PCI and stent placement #8. Ischemic cardiomyopathy, status post AICD placement in 2016 #9. Former smoker, carries 40 years of smoking, has been in remission since 2009 #10. History of rheumatoid arthritis on Leflunomide and methotrexate #11. Chronic CHF with preserved systolic dysfunction Plan: Patient has been placed on BiPAP support Blood gas has been reviewed We'll drop the pressure 12/5, wean FiO2 to keep O2 sats ration sat 92-94% Continue with IV diuretics Lasix 40 mg every 8 hours Continue current antibiotics Hold methotrexate and leflunomide Obtain follow-up blood cultures Obtain echocardiogram Continue monitoring his clinical course in the intensive care unit We'll continue to follow I have personally seen and examined the patient, performed the documentation and the assessment and plan as written. Number of minutes spent on the visit: [10] Time with Patient: Less than 30
[2021-12-06] MEDS ORDERED: DEXMEDETOMIDINE/0.9% NACL(PMX) 400 MCG in EMPTY BAG 1 BAG IV SCH (12:30)
--- NOTE | 2021-12-06 12:31 | P.PN ---
Subjective Patient was examined at bedside today was completed shortness of breath was D satting on nonrebreather. Decision was made to transfer the patient to intensive care unit for close monitoring. Patient was examined in the ICU currently on BiPAP with a setting of 12/6 FiO2 60% saturating above 92% comfortably. Objective - Vital Signs Vital signs: Vital Signs Temp 98.4 F 12/06/21 07:41 Pulse 110 H 12/06/21 11:29 Resp 45 H 12/06/21 11:00 BP 123/82 12/06/21 11:00 Pulse Ox 95 12/06/21 11:00 Intake & Output 12/05/21 12/06/21 12/06/21 18:59 06:59 18:59 Intake Total 1800 Output Total 1403 1525 Balance 397 -1525 Intake: Intake, IV Titration 1750 Amount Sodium Chloride 0.9% 1, 1200 000 ml @ 100 mls/hr IV . Q10H [facility] Rx#:[id number] Vancomycin 1,750 mg In 500 Sodium Chloride 0.9% 500 ml 500 ml @ 167 mls/hr IVPB ONCE ONE Rx#: [id number] cefTRIAXone 2 gm In 50 Sodium Chloride 0.9% 50 ml @ 100 mls/hr IVPB Q24HR [facility] Rx#:[id number] Oral 50 Output: Urine 1400 1525 Stool 3 Other: Voiding Method Urinal Urinal Indwelling Catheter # Voids 1 # Bowel Movements 1 - Exam General: [non toxic], [no distress], [appears at stated age] currently on BiPAP Derm: [warm], [dry] Head: [atraumatic], [normocephalic], [symmetric] Eyes: [EOMI], [no lid lag], [anicteric sclera] Mouth: [no lip lesion], [mucus membranes moist] Cardiovascular: [S1S2 reg], [no murmur], [positive DP pulse bilateral] Lungs: [Decreased breath sounds bilateral], [no rhonchi, no rales] , [no access ory muscle use] Abdominal: [soft], [ nontender to palpation], [no guarding], [no appreciable organomegaly] Ext: [no gross muscle atrophy], [no edema], [no contractures] Neuro: [no focal neuro deficits] Psych: [Alert], [oriented], [appropriate affect] - Labs CBC & Chem 7: 12/05/21 04:00 12/05/21 04:00 Labs: Abnormal Lab Results - Last 24 Hours (Table) 12/05/21 12/06/21 12/06/21 Range/Units 04:00 08:42 10:06 ABG pCO2 24 L (35-45) mmHg ABG pO2 68 L (83-108) mmHg ABG HCO3 14 L (21-25) mmol/L ABG Total CO2 15 L (19-24) mmol/L ABG O2 Saturation 92.0 L (94-97) % POC Glucose (mg/dL) 103 H (75-99) mg/dL Procalcitonin 0.87 H (0.02-0.09) ng/mL Microbiology - Last 24 Hours (Table) 12/04/21 19:40 Blood Culture Gram Stain - Preliminary Blood Blood Culture - Preliminary Staphylococcus epidermidis 12/04/21 19:40 Blood Culture - Final Blood 12/04/21 19:21 Blood Culture - Preliminary Blood No Growth after 24 hours Assessment and Plan Assessment: Assessment: #Acute hypoxic respiratory failure secondary to community acquired pneumonia #Community acquired pneumonia #Generalized weakness and debility #Macrocytic anemia #Acute kidney injury resolved #Chronic conditions: Atrial flutter, history of PE, rheumatoid arthritis, CHF with AICD and pacemaker, CAD Plan: -Admit to medicine for close monitoring -Aspiration/fall precaution -Patient had episodes of desaturation in the morning. Chest x-ray showing worsening infiltrates bilaterally. -Given extensive bilateral infiltrates we'll escalate antibiotic coverage to Zosyn vancomycin and azithromycin -Obtain sputum cultures- -We'll start the patient on BiPAP 12/6 FiO2 60% -Pulmonary on board pending further recommendations -DVT prophylaxis Xaralto
[2021-12-06] MEDS ORDERED: NOREPINEPHRIN 4 MG-0.9% NS PMX 4 MG/250 ML ML IV ONE (13:45)
[2021-12-06] MEDS ORDERED: SODIUM CHLORIDE 0.9% 1,000 ML IV ONE (13:46)
[2021-12-06] MEDS: NOREPINEPHRINE 4 MG in SODIUM CHLORIDE 0.9% 250 ML IV SCH ×2 (13:52→22:21)
[2021-12-06 13:56] LABS: ABG HCO3 18 mmol/L (21-25); ABG Oxygen Saturation 97.4 % (94-97); ABG PCO2 32 mmHg (35-45); ABG PH 7.37 (7.35-7.45); ABG PO2 113 mmHg (83-108); ABG TCO2 19 mmol/L (19-24); Allen Test Performed? Yes
[2021-12-06] MEDS ORDERED: SODIUM BICARB 8.4% 50 ML SYR (1 MEQ/ML) IV STA (13:57)
[2021-12-06] MEDS ORDERED: VANCOMYCIN 1,500 MG in SODIUM CHLORIDE 0.9% 250 ML IVPB SCH (16:00)
[2021-12-06] MEDS: RIVAROXABAN 20 MG TAB PO SCH (17:51)
--- NOTE | 2021-12-06 18:11 | OP ---
OPERATIVE REPORT OPERATIVE REPORT: Placement of right femoral triple-lumen catheter. PREOPERATIVE DIAGNOSIS: Hypotension and congestive heart failure. POSTOPERATIVE DIAGNOSIS: Hypotension and congestive heart failure. ANESTHESIA USED: Two mL of 1% lidocaine. PROCEDURE DESCRIPTION: The patient was placed in supine position. The right groin was prepared in a sterile fashion and drapes were applied. The area was locally anesthetized with lidocaine. Then the right femoral vein was cannulated and a guidewire was placed. The area around the guidewire was dilated with a dilator. Then a triple-lumen catheter was inserted over the guidewire, and the guidewire was removed. Good blood flow was noted in the 3 different ports of the triple-lumen catheter. No evidence of complications. Line was secured using 3.0 silk sutures. MMODL / IJN: [id number] /
[2021-12-06] MEDS ORDERED: propofoL 100 ML IV ONE (21:07)
--- NOTE | 2021-12-06 22:07 | XR ---
EXAMINATION TYPE: XR chest 1V portable DATE OF EXAM: 12/06/2021 9:54 PM COMPARISON: Chest radiograph from same day. TECHNIQUE: XR chest 1V portable Frontal view of the chest. CLINICAL INDICATION:Male, 76 years old with history of Tube placement; FINDINGS: Lungs/Pleura: Similar multifocal airspace opacities. No evidence of pneumothorax or pleural effusion. Pulmonary vascularity: Unremarkable. Heart/mediastinum: Cardiomediastinal silhouette is unremarkable. Two lead cardiac conduction device o verlying the left hemithorax with lead tips projecting over the right ventricle and right atrium. Musculoskeletal: No acute osseous pathology. Lines/Tubes: Endotracheal tube with distal tip 4. Cm above the missy Nasogastric tube with its distal tip and side-port projecting under the diaphragm. IMPRESSION: Unchanged extensive interstitial and patchy peripheral infiltrates.
[2021-12-06 22:31] LABS: ABG Base Excess -4.5 mmol/L; ABG HCO3 23 mmol/L (21-25); ABG Oxygen Saturation 99.2 % (94-97); ABG PCO2 53 mmHg (35-45); ABG PH 7.24 (7.35-7.45); ABG PO2 379 mmHg (83-108); ABG TCO2 25 mmol/L (19-24); Allen Test Performed? Yes
[2021-12-07] MEDS: NOREPINEPHRINE 4 MG in SODIUM CHLORIDE 0.9% 250 ML IV SCH ×3 (02:56→09:46)
[2021-12-07 06:03] LABS: ABG Base Excess -3.9 mmol/L; ABG HCO3 22 mmol/L (21-25); ABG Oxygen Saturation 95.6 % (94-97); ABG PCO2 42 mmHg (35-45); ABG PH 7.33 (7.35-7.45); ABG PO2 90 mmHg (83-108); ABG TCO2 23 mmol/L (19-24); Allen Test Performed? Yes
[2021-12-07] MEDS: IPRATROPIUM-ALBUTEROL 3 ML NEB INHALATION SCH ×4 (07:29→19:27)
--- NOTE | 2021-12-07 07:38 | XR ---
EXAMINATION TYPE: XR chest 1V portable DATE OF EXAM: 12/07/2021 Comparison: 12/06/2021 Clinical History: 76-year-old male Tube placement Findings: ET tube satisfactory. NG tube courses below the diaphragm. Left anterior chest wall AICD generator wi th right atrial and ventricular leads. Heart upper limits of normal in size. Mild hyperinflation. Dif fuse interstitial change and patchy confluent peripheral groundglass is not significantly changed. Impression: Overall stable bilateral interstitial changes and groundglass infiltrates.
[2021-12-07 08:11] LABS: Anisocytosis Slight; Basophils # (A) 0.1 k/uL (0-0.2); Basophils % (A) 1 %; Eosinophils # (A) 0.3 k/uL (0-0.7); Eosinophils % (A) 2 %; HCT 32.3 % (39.0-53.0); HGB 9.9 gm/dL (13.0-17.5); Hypochromasia Slight; Lymphocytes # (A) 0.3 k/uL (1.0-4.8); Lymphocytes % (A) 3 %; MCH 32.5 pg (25.0-35.0); MCHC 30.5 g/dL (31.0-37.0); MCV 106.3 fL (80.0-100.0); Macrocytosis Moderate; Mean Platelet Volume 7.8; Monocytes # (A) 0.6 k/uL (0-1.0); Monocytes % (A) 5 %; Neutrophils # (A) 9.7 k/uL (1.3-7.7); Neutrophils % (A) 87 %; Platelet Count 223 k/uL (150-450); RBC 3.03 m/uL (4.30-5.90); RDW 16.3 % (11.5-15.5); WBC 11.2 k/uL (3.8-10.6)
[2021-12-07 08:31] LABS: ALT 23 U/L (4-49); AST 49 U/L (17-59); African American GFR (CKD) >90 (>60 ml/min/1.73 sqM); Albumin 2.5 g/dL (3.5-5.0); Alkaline Phosphatase 154 U/L (38-126); Anion Gap 8 mmol/L; Blood Urea Nitrogen 30 mg/dL (9-20); Calcium 7.9 mg/dL (8.4-10.2); Carbon Dioxide 21 mmol/L (22-30); Chloride 116 mmol/L (98-107); Glucose 121 mg/dL (74-99); Non-African American GFR(CKD) 83 (>60 ml/min/1.73 sqM); Potassium 3.6 mmol/L (3.5-5.1); Sodium 145 mmol/L (137-145); Total Bilirubin 3.2 mg/dL (0.2-1.3); Total Protein 5.4 g/dL (6.3-8.2)
[2021-12-07] MEDS ORDERED: ACETAMINOPHEN IV (For NPO) 1,000 MG in EMPTY BAG 1 BAG IVPB PRN (08:39)
[2021-12-07] MEDS ORDERED: Potassium Replacement Protocol 1 EACH MISC MISCELLANE PRN (08:40)
[2021-12-07] MEDS ORDERED: DEXTROSE 5% IN WATER 1,000 ML IV ONE (08:57)
[2021-12-07] MEDS ORDERED: FUROSEMIDE 10 MG/ML 4 ML VIAL IV SCH (09:00)
[2021-12-07] MEDS ORDERED: POTASSIUM BICARBONATE/CIT AC 20 MEQ TABLET.EFF NG-TUBE SCH (09:00)
--- NOTE | 2021-12-07 09:11 | CA ---
Transthoracic Echo Report Name: Tang Pratt Age: 76 Gender: M : 1945 Exam Date: 12/06/2021 11:42 Exam Location: [facility] Ht (in): 74 Wt (lb): 175 Ordering Physician: Yelitza Roger Attending/Referring Phys: [id number], Kana Weather Observer Yodit Gil, JENISE Procedure CPT: Indications: bacteremia Cardiac Hx: Technical Quality: Fair Contrast 1: Total Dose (mL): Contrast 2: Total Dose (mL): MEASUREMENTS (Male / Female) Normal Values 2D ECHO LV Diastolic Diameter PLAX 4.6 cm 4.2 - 5.9 / 3.9 - 5.3 cm LV Systolic Diameter PLAX 3.5 cm IVS Diastolic Thickness 1.2 cm 0.6 - 1.0 / 0.6 - 0.9 cm LVPW Diastolic Thickness 1.1 cm 0.6 - 1.0 / 0.6 - 0.9 cm LV Relative Wall Thickness 0.5 RV Internal Dim ED PLAX 2.9 cm LA Systolic Diameter LX 3.3 cm 3.0 - 4.0 / 2.7 - 3.8 cm M-MODE Aortic Root Diameter MM 3.2 cm MV E Point Septal Separation 0.3 cm AV Cusp Separation MM 2.1 cm DOPPLER AV Peak Velocity 99.8 cm/s AV Peak Gradient 4.0 mmHg MV Area PHT 7.6 cm??? Mitral E Point Velocity 44.9 cm/s Mitral A Point Velocity 67.1 cm/s Mitral E to A Ratio 0.7 MV Deceleration Time 99.5 ms MV E' Velocity 6.9 cm/s Mitral E to MV E' Ratio 6.5 TR Peak Velocity 353.3 cm/s TR Peak Gradient 49.9 mmHg Right Ventricular Systolic Press 51.5 mmHg FINDINGS Left Ventricle Left ventricular ejection fraction is estimated at 35-40 %. Left ventricular cavity size normal. Mildly increased septal wall thickness. Right Ventricle Normal right ventricular size. Moderate to severe pulmonary hypertension. Right Atrium Normal right atrial size. Left Atrium Normal left atrial size. Mitral Valve Structurally normal mitral valve. No mitral stenosis, regurgitation or prolapse. Structurally normal mitral valve. No mitral stenosis, regurgitation or prolapse. Aortic Valve Trileaflet aortic valve. Tricuspid Valve Mild tricuspid regurgitation. Pulmonic Valve Pulmonic valve not well visualized. Pericardium Normal pericardium. Aorta Normal size aortic root and proximal ascending aorta. CONCLUSIONS Technically difficult study for interpretation The ejection fraction is difficult to assess because of the heart rhythm but the EF is probably around 40% Please see above finding for more details Previewed by: Dr. Froy Alvarez MD (Electronically Signed) Final Date: 07 Dec 2021 09:10
[2021-12-07] MEDS: PATIENT'S OWN (Icosapent Ethyl [Icosapent Ethyl] 1 GM Capsule) PO SCH ×2 (09:37→22:59)
[2021-12-07] MEDS: ATORVASTATIN 40 MG TAB PO SCH (10:10)
[2021-12-07] MEDS: FOLIC ACID 1 MG TAB PO SCH (10:10)
[2021-12-07] MEDS: CHLORHEXIDINE GLUCONATE 15 ML CUP MUCOUS MEM SCH ×2 (10:10→22:58)
[2021-12-07] MEDS: CHOLECALCIFEROL 25 MCG (1000 IU) TABLET PO SCH (10:10)
[2021-12-07] MEDS: PANTOPRAZOLE 40 MG TABLET PO SCH (10:11)
[2021-12-07] MEDS: PIPERACILLIN-TAZOBACTAM 3.375 GM in SODIUM CHLORIDE 0.9% 100 ML IVPB SCH ×2 (10:30→16:45)
--- NOTE | 2021-12-07 10:59 | P.CRDCN ---
History of Present Illness History of present illness: HISTORY OF PRESENTING ILLNESS Patient is a pleasant 76-year-old male with history of atrial flutter, atrial fibrillation, pulmonary embolism on anticoagulation, rheumatoid arthritis, coronary artery disease with prior PCI, cardiomyopathy with prior AICD, anemia. Patient currently intubated and sedated and therefore history is supplied by chart. Patient had presented for 5-6 weeks of generalized fatigue and weakness. Apparently he is feeling like his legs would give out from under him. No chest pain or pressure. No history of COPD or emphysema or cough. If it stated he did have low-grade fever and some chills and believed he was dehydrated. He apparently had a number of frequent falls. He also has been having increased cough and feels congested. Chest x-ray shows patchy infiltrates bilaterally. Initial workup hemoglobin 10.9, platelets 270, sodium 134, creatinine 1.48, troponin less than 0.012, proBNP the next day 12/05 after receiving IV fluids 1100 with creatinine 1.1, pro-calcitonin 0.87, TSH 0.4, albumin 3.1 and repeat 2.5. He was found to have staph epidermidis bacteremia one of 2 blood cultures and repeat serum been obtained. He is on antibiotics. Echo shows EF 35-40% with RVSP 51 mild tricuspid regurgitation and no significant mitral disease. Patient initially was given IV fluids with improvement in creatinine from 1.5 to 1.1.9. This was however discontinued and patient placed on IV Lasix this morning, given Lasix 60 mg IV and approximately 1.1 L out. He did have increasing respiratory distress and therefore patient was intubated. Initially EKG shows normal sinus rhythm, left bundle branch block. Patient became tachycardic over the last 4-5 hours with heart rates 120s and 130s. There do appear to be P waves however irregular and likely atrial flutter with RVR. REVIEW OF SYSTEMS At the time of my exam: Unable to obtain secondary to patient being sedated and intubated PHYSICAL EXAMINATION Vital signs reviewed. CONSTITUTIONAL: No apparent distress, ill appearing, sedated and intubated HEENT: Head is normocephalic. Pupils are equal, round. Sclerae anicteric. No JVD. No carotid bruit. +ETT CHEST EXAMINATION: Diffuse rhonchi HEART EXAMINATION: Tachycardic rate and irregular rhythm. S1, S2 heard. No murmurs, gallops or rub. ABDOMEN: Soft, nontender. Positive bowel sounds. EXTREMITIES: 2+ peripheral pulses, no lower extremity edema and no calf tenderness. NEUROLOGIC EXAMINATION: Patient sedated and intubated. ASSESSMENT 1. Acute on chronic respiratory failure related to bilateral pneumonia plus component of heart failure 2. Acute on chronic systolic heart failure exacerbated by atrial flutter with RVR 3. Cardiomyopathy EF 35-40% status post AICD 4. Coronary artery disease with history of PCI, no evidence of acute coronary syndrome 5. Atrial flutter with RVR 6. Staph epidermidis bacteremia one of 2 blood cultures 7. Rheumatoid arthritis on immunosuppressants 8. Initial dehydration with acute kidney injury improved with IV fluids 9. Generalized weakness 5-6 weeks, possibly related to pneumonia versus other. 10. Septic shock on vasopressors 11. Anemia 12. Acute kidney injury improved with IV fluids initially 13. Protein calorie malnutrition albumin 2.5. PLAN Patient initially presented with weakness, fatigue, dyspnea and found to have bilateral pneumonia. Per chart it appears he may have been initially dehydrated improved with IV fluids with improvement in creatinine. Patient now however with atrial flutter with RVR and possible decompensation of heart failure additionally. Monitor response of Lasix. Check CVP and if elevated would continue diuresis. We will start amiodarone for improved rate and rhythm control. Continue with pressors as needed. Continue to monitor blood cultures as patient is immunocompromised with AICD in place. No significant vegetation noted on echo. Further recommendations to follow. Past Medical History Past Medical History: Atrial Flutter, Prostate Disorder, Pulmonary Embolus (PE), Rheumatoid Arthritis (RA) History of Any Multi-Drug Resistant Organisms: None Reported Past Surgical History: Appendectomy, Heart Catheterization With Stent, Joint Replacement, Pacemaker, Prostate Surgery Additional Past Surgical History / Comment(s): dg knee replaced, dg shoulder surgery,turp, neck fusion Past Anesthesia/Blood Transfusion Reactions: No Reported Reaction Date of Last Stent Placement:: 2015 Type of Cardiac Device: AICD Device Placement Date:: 2015 Past Psychological History: No Psychological Hx Reported Smoking Status: Former smoker Past Alcohol Use History: None Reported Additional Past Alcohol Use History / Comment(s): smoked for 40 years 1/2ppd quit 2009 Past Drug Use History: None Reported - Past Family History Brother(s) Family Medical History: Cancer Additional Family Medical History / Comment(s): testicular cancer Medications and Allergies Home Medications Medication Instructions Recorded Confirmed Type Bisoprolol [Zebeta] 5 mg PO BID 08/26/19 12/04/21 History Cholecalciferol [Vitamin D3 (25 2,000 unit PO DAILY 08/26/19 12/04/21 History Mcg = 1000 Iu)] Folic Acid 1 mg PO DAILY 08/26/19 12/04/21 History Leflunomide [Arava] 20 mg PO DAILY 08/26/19 12/04/21 History Rivaroxaban [Xarelto] 20 mg PO W/SUPPER 08/26/19 12/04/21 History Rosuvastatin [Crestor] 20 mg PO DAILY 08/26/19 12/04/21 History metHOTREXate sodium [Methotrexate] 20 mg PO WE 08/26/19 12/04/21 History Omeprazole 20 mg PO DAILY 12/04/21 12/04/21 History Sacubitril/Valsartan [Entresto 49 1 tab PO BID 12/04/21 12/04/21 History mg-51 mg Tablet] Spironolactone [Aldactone] 25 mg PO DAILY 12/04/21 12/04/21 History icosapent ethyL [Icosapent Ethyl] 2 gm PO BID 12/04/21 12/04/21 History Allergies Allergy/AdvReac Type Severity Reaction Status Date / Time No Known Allergies Allergy Verified 12/04/21 14:50 Physical Exam Vitals: Vital Signs Temp Pulse Resp BP Pulse Ox 12/07/21 09:45 128 H 27 H 98/49 93 L 12/07/21 09:30 133 H 29 H 98/54 93 L 12/07/21 09:15 128 H 29 H 106/57 92 L 12/07/21 09:00 125 H 29 H 112/54 93 L 12/07/21 08:45 123 H 29 H 104/61 96 12/07/21 08:30 131 H 28 H 109/61 96 12/07/21 08:15 121 H 28 H 103/60 95 12/07/21 08:00 100.0 F H 120 H 28 H 93/55 96 12/07/21 07:45 118 H 29 H 105/59 96 12/07/21 07:40 120 H 12/07/21 07:30 125 H 12/07/21 07:00 122 H 29 H 107/68 96 12/07/21 06:45 113 H 27 H 117/65 96 12/07/21 06:30 112 H 29 H 101/58 96 12/07/21 06:15 110 H 29 H 102/53 96 12/07/21 06:00 111 H 27 H 111/58 95 12/07/21 05:45 112 H 29 H 109/57 97 12/07/21 05:30 111 H 30 H 103/50 97 12/07/21 05:15 109 H 27 H 100/55 97 12/07/21 05:00 107 H 26 H 104/53 96 12/07/21 04:45 108 H 26 H 103/55 96 12/07/21 04:30 106 H 25 H 88/52 95 12/07/21 04:15 102 H 26 H 103/62 95 12/07/21 04:00 98.4 F 113 H 27 H 108/62 96 12/07/21 03:45 105 H 28 H 105/62 95 12/07/21 03:30 103 H 27 H 104/71 96 12/07/21 03:15 99 24 104/61 96 12/07/21 03:00 97 24 101/59 96 12/07/21 02:45 98 24 103/59 96 12/07/21 02:30 103 H 24 106/57 96 12/07/21 02:15 101 H 24 109/61 96 12/07/21 02:00 103 H 24 111/64 95 12/07/21 01:45 108 H 26 H 68/39 95 12/07/21 01:30 101 H 24 94/57 96 12/07/21 01:15 105 H 24 94/55 96 12/07/21 01:00 105 H 23 90/52 96 12/07/21 00:45 109 H 24 86/59 96 12/07/21 00:30 107 H 24 87/48 95 12/07/21 00:15 108 H 24 83/49 94 L 12/07/21 00:00 98.1 F 108 H 24 102/53 92 L 12/06/21 23:45 117 H 24 101/51 89 L 12/06/21 23:30 118 H 24 86/50 90 L 12/06/21 23:15 115 H 24 84/50 89 L 12/06/21 23:01 117 H 24 87/49 91 L 12/06/21 23:00 120 H 24 87/47 91 L 12/06/21 22:45 121 H 26 H 90/51 92 L 12/06/21 22:30 117 H 25 H 110/56 97 12/06/21 22:15 129 H 21 120/61 97 12/06/21 22:00 125 H 20 126/64 97 12/06/21 21:45 100 15 92/54 97 12/06/21 21:30 112 H 6 L 116/78 12/06/21 21:15 112 H 35 H 104/59 12/06/21 21:00 105 H 43 H 102/63 93 L 12/06/21 20:45 101 H 55 H 90/56 93 L 12/06/21 20:30 98 44 H 99/67 96 12/06/21 20:29 92 12/06/21 20:15 84 47 H 116/69 94 L 12/06/21 20:14 84 12/06/21 20:00 98.5 F 77 24 108/65 95 12/06/21 19:45 80 24 112/62 96 12/06/21 19:30 78 26 H 113/63 96 12/06/21 19:15 80 26 H 112/61 95 12/06/21 19:00 78 25 H 111/58 96 12/06/21 18:45 80 26 H 110/59 96 12/06/21 18:30 81 26 H 109/61 96 12/06/21 18:15 82 27 H 106/58 95 12/06/21 18:00 89 51 H 98/57 92 L 12/06/21 17:45 99 50 H 93/57 90 L 12/06/21 17:30 86 27 H 104/62 95 12/06/21 17:15 87 28 H 109/57 96 12/06/21 17:00 85 28 H 103/66 96 12/06/21 16:45 77 31 H 104/60 96 12/06/21 16:30 93 26 H 96/59 96 12/06/21 16:15 88 31 H 89/44 96 12/06/21 16:00 98.6 F 96 27 H 90/60 95 12/06/21 15:48 96 12/06/21 15:45 93 29 H 95/55 95 12/06/21 15:41 92 12/06/21 15:30 92 33 H 99/53 93 L 12/06/21 15:15 93 30 H 97/56 91 L 12/06/21 15:00 94 34 H 102/53 93 L 12/06/21 14:45 96 34 H 113/57 95 12/06/21 14:30 103 H 33 H 107/61 97 12/06/21 14:15 100 30 H 87/48 96 12/06/21 14:00 95 32 H 93/55 97 12/06/21 13:45 96 41 H 72/40 96 12/06/21 13:30 97 42 H 57/33 96 12/06/21 13:15 104 H 34 H 60/38 92 L 12/06/21 13:00 106 H 33 H 130/99 90 L 12/06/21 12:30 113 H 53 H 115/61 94 L 12/06/21 12:00 98.6 F 126 H 53 H 128/74 94 L 12/06/21 11:30 112 H 47 H 108/65 95 12/06/21 11:29 110 H 12/06/21 11:20 112 H 12/06/21 11:00 106 H 45 H 123/82 95 Intake and Output 12/06/21 12/07/21 12/07/21 22:59 06:59 14:59 Intake Total 380.148 717.246 383.302 Output Total 1075 415 150 Balance -694.852 302.246 233.302 Intake: IV 80 80 40 0.9 KVO 80 80 40 Intake, IV Titration 300.148 637.246 343.302 Amount Dexmedetomidine/0.9% NaCl 25.930 (Pmx) 400 mcg In Empty Bag 1 bag @ 0.2 MCG/KG/HR 3.969 mls/hr IV .Q24H [facility] Rx#:[id number] Norepinephrine 4 mg In 268.265 486.426 254 Sodium Chloride 0.9% 250 ml @ 0.05 MCG/KG/MIN 15. 122 mls/hr IV .[id number] [facility] Rx#:[id number] propofoL 1,000 mg In 5.953 150.820 89.302 Empty Bag 1 bag @ 5 MCG/ KG/MIN 2.381 mls/hr IV . Q24H [facility] Rx#:[id number] Output: Urine 1075 415 150 Other: Voiding Method Indwelling Catheter Indwelling Catheter Weight 81.6 kg ABP, PAP, CO, CI - Last 8 Hours Arterial Blood Pressure 101/43 Arterial Blood Pressure 108/43 Arterial Blood Pressure 102/41 Results 12/07/21 07:20 12/07/21 07:20 Cardiac Enzymes 12/07/21 Range/Units 07:20 AST 49 (17-59) U/L CBC 12/07/21 Range/Units 07:20 WBC 11.2 H (3.8-10.6) k/uL RBC 3.03 L (4.30-5.90) m/uL Hgb 9.9 L (13.0-17.5) gm/dL Hct 32.3 L (39.0-53.0) % Plt Count 223 (150-450) k/uL Comprehensive Metabolic Panel 12/07/21 Range/Units 07:20 Sodium 145 (137-145) mmol/L Potassium 3.6 (3.5-5.1) mmol/L Chloride 116 H (98-107) mmol/L Carbon Dioxide 21 L (22-30) mmol/L BUN 30 H (9-20) mg/dL Creatinine 0.90 (0.66-1.25) mg/dL Glucose 121 H (74-99) mg/dL Calcium 7.9 L (8.4-10.2) mg/dL AST 49 (17-59) U/L ALT 23 (4-49) U/L Alkaline Phosphatase 154 H (38-126) U/L Total Protein 5.4 L (6.3-8.2) g/dL Albumin 2.5 L (3.5-5.0) g/dL Current Medications Generic Name Dose Route Start Last Admin Trade Name Freq PRN Reason Stop Dose Admin Albuterol/Ipratropium 3 ml 12/05/21 16:00 12/07/21 07:29 Ipratropium-Albuterol 3 Ml Neb INHALATION 3 ml RT-QID [facility] Administration Atorvastatin Calcium 40 mg 12/05/21 09:00 12/07/21 10:10 Atorvastatin 40 Mg Tab PO 40 mg DAILY [facility] Administration Chlorhexidine Gluconate 15 ml 12/07/21 09:00 12/07/21 10:10 Chlorhexidine Gluconate 15 Ml Cup MUCOUS MEM 15 ml BID [facility] Administration Cholecalciferol 50 mcg 12/05/21 09:00 12/07/21 10:10 Cholecalciferol 25 Mcg (1000 Iu) Tablet PO 50 mcg DAILY [facility] Administration Folic Acid 1 mg 12/05/21 09:00 12/07/21 10:10 Folic Acid 1 Mg Tab PO 1 mg DAILY [facility] Administration Furosemide 40 mg 12/07/21 09:00 Furosemide 10 Mg/Ml 4 Ml Vial IV Q12HR [facility] Sodium Chloride 1,000 mls @ 10 mls/hr 12/04/21 20:45 12/06/21 22:26 Saline 0.9% IV Not Given .Q24H [facility] Piperacillin Sod/Tazobactam 100 mls @ 25 mls/hr 12/06/21 08:45 12/07/21 10:30 Sod 3.375 gm/ Sodium Chloride IVPB 25 mls/hr Q8HR [facility] Administration Protocol Propofol 1,000 mg/ IV Solution 100 mls @ 2.381 mls/hr 12/06/21 21:15 12/07/21 10:46 IV 50 mcg/kg/min .Q24H [facility] 23.814 mls/hr Administration Protocol 5 MCG/KG/MIN Acetaminophen 1,000 mg/ IV 100 mls @ 400 mls/hr 12/07/21 08:39 12/07/21 09:25 Solution IVPB 12/08/21 06:14 400 mls/hr Q6HR PRN Administration Fever Dextrose/Water 1,000 mls @ 20 mls/hr 12/07/21 08:57 Dextrose 5%-Water Iv Soln IV 12/08/21 08:56 .Q24H ONE Norepinephrine Bitartrate 32 250 mls @ 1.913 mls/hr 12/07/21 10:00 mg/ Sodium Chloride IV .Q24H [facility] Protocol 0.05 MCG/KG/MIN Amiodarone HCl 150 mg/ 103 mls @ 618 mls/hr 12/07/21 11:00 Dextrose/Water IV 12/07/21 11:09 .Q10M ONE Amiodarone HCl 360 mg/ 200 mls @ 33.333 mls/hr 12/07/21 11:15 Dextrose/Water IV 12/07/21 17:14 .Q6H ONE Protocol 1 MG/MIN Amiodarone HCl 450 mg/ 250 mls @ 16.667 mls/hr 12/07/21 17:15 Dextrose/Water IV 12/08/21 11:14 .Q15H [facility] Protocol 0.5 MG/MIN Miscellaneous Information 1 each 12/04/21 20:43 Pneumonia Protocol Utilized 1 Each Misc PO ONCE PRN Per Protocol Miscellaneous Information 1 each 12/07/21 08:40 Potassium Replacement Protocol 1 Each Misc MISCELLANE DAILY PRN Per Protocol Protocol Morphine Sulfate 4 mg 12/06/21 09:58 Morphine Sulfate 4 Mg/Ml Syringe IVP Q4HR PRN Pain Patient's Own ( 2 gm 12/04/21 21:00 12/07/21 09:37 Icosapent Ethyl [ PO Not Given Icosapent Ethyl] 1 BID [facility] Gm Capsule) Pantoprazole Sodium 40 mg 12/05/21 09:00 12/07/21 10:11 Pantoprazole 40 Mg Tablet PO 40 mg DAILY [facility] Administration Rivaroxaban 20 mg 12/05/21 17:30 12/06/21 17:51 Rivaroxaban 20 Mg Tab PO Not Given W/SUPPER [facility] Protocol Intake and Output 12/06/21 12/07/21 12/07/21 22:59 06:59 14:59 Intake Total 380.148 717.246 383.302 Output Total 1075 415 150 Balance -694.852 302.246 233.302 Intake: IV 80 80 40 0.9 KVO 80 80 40 Intake, IV Titration 300.148 637.246 343.302 Amount Dexmedetomidine/0.9% NaCl 25.930 (Pmx) 400 mcg In Empty Bag 1 bag @ 0.2 MCG/KG/HR 3.969 mls/hr IV .Q24H [facility] Rx#:[id number] Norepinephrine 4 mg In 268.265 486.426 254 Sodium Chloride 0.9% 250 ml @ 0.05 MCG/KG/MIN 15. 122 mls/hr IV .[id number] [facility] Rx#:[id number] propofoL 1,000 mg In 5.953 150.820 89.302 Empty Bag 1 bag @ 5 MCG/ KG/MIN 2.381 mls/hr IV . Q24H [facility] Rx#:[id number] Output: Urine 1075 415 150 Other: Voiding Method Indwelling Catheter Indwelling Catheter Weight 81.6 kg 12/07/21 07:20 12/07/21 07:20
[2021-12-07] MEDS ORDERED: DEXTROSE 5% IN WATER 100 ML with AMIODARONE 150 MG IV ONE (11:00)
[2021-12-07] MEDS: NOREPINEPHRINE 32 MG in SODIUM CHLORIDE 0.9% 218 ML IV SCH (11:04)
[2021-12-07] MEDS ORDERED: AMIODARONE 360 MG in DEXTROSE 5% IN WATER 200 ML IV ONE ×2 (11:15)
[2021-12-07 11:50] LABS: Glucose,Whole Blood 160 mg/dL (75-99)
[2021-12-07] MEDS: SODIUM CHLORIDE 0.9% 1,000 ML IV SCH ×2 (12:00→18:43)
--- NOTE | 2021-12-07 12:27 | OP ---
OPERATIVE REPORT OPERATIVE REPORT: Placement of a left radial arterial line. PREOPERATIVE DIAGNOSIS: Acute hypoxic respiratory failure and hypotension requiring norepinephrine. POSTOPERATIVE DIAGNOSIS: Acute hypoxic respiratory failure and hypotension requiring norepinephrine. ANESTHESIA USED: None deployed. PROCEDURE DESCRIPTION: The left wrist was prepared in a sterile fashion and drapes were applied. The left radial artery was palpated, cannulated easily, and a guidewire was placed. A Cook's catheter was inserted over the guidewire, and the guidewire was removed. Good blood flow and good waveform were noted. No complications. Line was secured using 3.0 silk sutures. MMODL / IJN: [id number] /
--- NOTE | 2021-12-07 13:00 | P.PN ---
Subjective Progress Note Date: 12/07/21 Principal diagnosis: Acute hypoxic respiratory failure requiring intubation and mechanical ventilation, multifactorial. 76-year-old male, brought into the emergency room, on December 04, by EMS. The patient apparently had been frequently falling, has had generalized weakness, and is also had increasing shortness of breath, and cough. The patient has not been feeling well for at least 3 weeks, and maybe longer. The patient states that he is having a difficult time coughing up any phlegm although he does feel like his chest is congested. The patient denies any chest pain or chest discomfort. There is no nausea, vomiting, or diarrhea. He was evaluated in the emergency department admitted with a diagnosis of pneumonia. We are seeing him in consultation. White count 8.52, hemoglobin 9.3, hematocrit 29.9, and platelet count 223,000. Sodium 137, potassium 4.8, chlorides 111, CO2 15, anion gap 11, BUN 38, creatinine 1.1. Glucose 98. N-terminal proBNP is 1150. Chest x-ray shows patchy bilateral infiltrates, which are worse on the subsequent chest x-ray. The patient has a history of atrial flutter, pulmonary embolism, rheumatoid arthritis, and previous prostate surgery. The patient is also had heart catheterization with stent placement. On 12/06/2021 we received a phone call from the nursing staff with a concern about worsening hypoxia, and patient was satting only 87% on 100% nonrebreather, tachypnea, and increased work of breathing. Stat chest x-ray was obtained showing contained extensive interstitial and patchy peripheral infiltrates. Patient has been afebrile. Blood pressure is 110/64, however he is tachypneic, with a respiratory rate in the 30s. Denies any chest discomfort, denies any cough or phlegm production. Patient was found to be bacteremic, his blood cultures show gram-positive cocci in groups, he is currently on Zosyn and vancom ycin for antibiotic coverage. We were unable to obtain a sputum culture. Blood gas was obtained on 100% nonrebreather showing pO2 of 68, pCO2 of 24, and pH of 7.37. Subsequently patient was placed on BiPAP support with a pressure of 15/5, and FiO2 100%. Neurologically patient is awake and alert, he is answering questions appropriately, he is oriented 3. He is achieving over 1000 mL of tidal volume on the BiPAP support. Still remains quite tachycardic, his minute ventilation is increased. Patient was given a dose of IV Lasix 60 mg times one, he has produced 1.1 L and urine output since then, we'll continue with IV diuretics, we ordered an echocardiogram which is pending at this point. His pro calcitonin level is elevated at 0.87, proBNP was 1150. Reevaluated today on 12/07/2021, patient's condition deteriorated few hours after he was admitted to the ICU yesterday, patient was getting more tachypneic, more tachycardic, and he was developing worsening respiratory distress. His re spiratory rate was up in the 50s according to the nurse will call be about the patient, and the patient was getting extremely agitated and restless, as I recommended immediate intubation and mechanical ventilation. Patient is now intubated, mechanically ventilated, he is sedated and he is on propofol. Patient is on assist control rate of 24 tidal volume 450 FiO2 60% and PEEP of 5. ABG showed a pO2 of 90 pCO2 of 42 pH of 7.33. His FiO2 was cut down. The rest of the vent settings exactly the same. Patient is on IV fluid at KVO, he is requiring norepinephrine at 0.26 mcg/kg/m, he is also on propofol at 50 mcg/kg/m. Again I cut down his FiO2 to 50%. Patient was on Lasix, we cut down the Lasix mostly because of his hypotension and requiring norepinephrine his blood cultures basically showed contamination, positive for staph epidermidis which implies contamination, not true positive blood cultures. Patient remains on Zosyn empirically, and vancomycin was discontinued. Chest x-ray continues to show bilateral interstitial infiltrates/edema and confluent groundglass opacities bilaterally. Not much of a change since admission. Patient remains on Zosyn empirically for presumptive underlying pneumonia especially with his elevated pro calcitonin level. It is not clear to me whether the patient had history of interstitial lung disease related to his rheumatoid arthritis in the past, no old x-rays for comparison to determine whether the findings are new or chronic. Nonetheless the patient remains on antibiotics and on diuretics. Amiodarone was added today by cardiology for his atrial fibrillation with RVR. Patient remains on Xarelto and he has been on Xarelto all along. His echocardiogram showed LV dysfunction with ejection fraction of 35%, and right- sided pressures seems to be elevated at 51.5. Labs today showed WBC count of 11.2 hemoglobin is 9.9. Electrolytes are normal renal profile is normal, pro calcitonin is up to 4.29 Objective - Vital Signs Vital signs: Vital Signs Temp 98.9 F 12/07/21 10:45 Pulse 138 H 12/07/21 11:23 Resp 29 H 12/07/21 11:00 BP 104/53 12/07/21 10:15 Pulse Ox 95 12/07/21 11:00 Intake & Output 12/06/21 12/07/21 12/07/21 18:59 06:59 18:59 Intake Total 0229.171 4718.394 413.371 Output Total 2875 890 190 Balance -1786.313 157.394 223.371 Weight 81.6 kg 81.6 kg Intake: IV 1070 110 50 0.9 KVO 1070 110 50 Intake, IV Titration 18.687 937.394 363.371 Amount Dexmedetomidine/0.9% NaCl 11.378 25.930 (Pmx) 400 mcg In Empty Bag 1 bag @ 0.2 MCG/KG/HR 3.969 mls/hr IV .Q24H [facility] Rx#:[id number] Norepinephrine 32 mg In 20.069 Sodium Chloride 0.9% 218 ml @ 0.05 MCG/KG/MIN 1. 913 mls/hr IV .Q24H [facility] Rx#:[id number] Norepinephrine 4 mg In 7.309 754.691 254 Sodium Chloride 0.9% 250 ml @ 0.05 MCG/KG/MIN 15. 122 mls/hr IV .[id number] [facility] Rx#:[id number] propofoL 1,000 mg In 156.773 89.302 Empty Bag 1 bag @ 5 MCG/ KG/MIN 2.381 mls/hr IV . Q24H [facility] Rx#:[id number] Output: Urine 2875 890 190 Other: Voiding Method Indwelling Catheter Indwelling Catheter Indwelling Catheter ABP, PAP, CO, CI - Last Documented Arterial Blood Pressure 106/47 - Exam Physical Exam: Revealed a 76-year-old white male intubated sedated and mechanically ventilated on propofol, calm, in no distress. Head: Atraumatic, normocephalic. Endotracheal tube and orogastric tube are intact. Dry mucous membranes noted. HEENT:[Neck is supple.] [No neck masses.] [No thyromegaly.] [No JVD.] Chest: [Symmetrical chest expansion, crackles at the bases bilaterally.] Cardiac Exam: Irregular irregular rhythm, no S3 gallop. Abdomen: [Soft, nontender, no megaly, no rebound, no guarding, normal bowel sounds.] Extremities: [No clubbing, no edema, no cyanosis.] Neurological Exam: Could not assess, patient is fully sedated. Psychiatric: Could not assess, patient is sedated. - Labs CBC & Chem 7: 12/07/21 07:20 12/07/21 07:20 Labs: Abnormal Lab Results - Last 24 Hours (Table) 12/06/21 12/06/21 12/07/21 Range/Units 13:54 22:24 05:54 WBC (3.8-10.6) k/uL RBC (4.30-5.90) m/uL Hgb (13.0-17.5) gm/dL Hct (39.0-53.0) % MCV (80.0-100.0) fL MCHC (31.0-37.0) g/dL RDW (11.5-15.5) % Neutrophils # (1.3-7.7) k/uL Lymphocytes # (1.0-4.8) k/uL ABG pH 7.24 L 7.33 L (7.35-7.45) ABG pCO2 32 L 53 H (35-45) mmHg ABG pO2 113 H 379 H (83-108) mmHg ABG HCO3 18 L (21-25) mmol/L ABG Total CO2 25 H (19-24) mmol/L ABG O2 Saturation 97.4 H 99.2 H (94-97) % Chloride (98-107) mmol/L Carbon Dioxide (22-30) mmol/L BUN (9-20) mg/dL Glucose (74-99) mg/dL POC Glucose (mg/dL) (75-99) mg/dL Calcium (8.4-10.2) mg/dL Total Bilirubin (0.2-1.3) mg/dL Alkaline Phosphatase (38-126) U/L Total Protein (6.3-8.2) g/dL Albumin (3.5-5.0) g/dL Procalcitonin (0.02-0.09) ng/mL 12/07/21 12/07/21 12/07/21 Range/Units 07:20 07:20 07:20 WBC 11.2 H (3.8-10.6) k/uL RBC 3.03 L (4.30-5.90) m/uL Hgb 9.9 L (13.0-17.5) gm/dL Hct 32.3 L (39.0-53.0) % MCV 106.3 H (80.0-100.0) fL MCHC 30.5 L (31.0-37.0) g/dL RDW 16.3 H (11.5-15.5) % Neutrophils # 9.7 H (1.3-7.7) k/uL Lymphocytes # 0.3 L (1.0-4.8) k/uL ABG pH (7.35-7.45) ABG pCO2 (35-45) mmHg ABG pO2 (83-108) mmHg ABG HCO3 (21-25) mmol/L ABG Total CO2 (19-24) mmol/L ABG O2 Saturation (94-97) % Chloride 116 H (98-107) mmol/L Carbon Dioxide 21 L (22-30) mmol/L BUN 30 H (9-20) mg/dL Glucose 121 H (74-99) mg/dL POC Glucose (mg/dL) (75-99) mg/dL Calcium 7.9 L (8.4-10.2) mg/dL Total Bilirubin 3.2 H (0.2-1.3) mg/dL Alkaline Phosphatase 154 H (38-126) U/L Total Protein 5.4 L (6.3-8.2) g/dL Albumin 2.5 L (3.5-5.0) g/dL Procalcitonin 4.29 H (0.02-0.09) ng/mL 12/07/21 Range/Units 11:49 WBC (3.8-10.6) k/uL RBC (4.30-5.90) m/uL Hgb (13.0-17.5) gm/dL Hct (39.0-53.0) % MCV (80.0-100.0) fL MCHC (31.0-37.0) g/dL RDW (11.5-15.5) % Neutrophils # (1.3-7.7) k/uL Lymphocytes # (1.0-4.8) k/uL ABG pH (7.35-7.45) ABG pCO2 (35-45) mmHg ABG pO2 (83-108) mmHg ABG HCO3 (21-25) mmol/L ABG Total CO2 (19-24) mmol/L ABG O2 Saturation (94-97) % Chloride (98-107) mmol/L Carbon Dioxide (22-30) mmol/L BUN (9-20) mg/dL Glucose (74-99) mg/dL POC Glucose (mg/dL) 160 H (75-99) mg/dL Calcium (8.4-10.2) mg/dL Total Bilirubin (0.2-1.3) mg/dL Alkaline Phosphatase (38-126) U/L Total Protein (6.3-8.2) g/dL Albumin (3.5-5.0) g/dL Procalcitonin (0.02-0.09) ng/mL Microbiology - Last 24 Hours (Table) 12/06/21 23:54 Sputum Culture - Preliminary Sputum 12/04/21 19:21 Blood Culture - Preliminary Blood No Growth after 48 hours 12/04/21 19:40 Blood Culture Gram Stain - Preliminary Blood Blood Culture - Preliminary Staphylococcus epidermidis Assessment and Plan Assessment: Impression: Acute hypoxic respiratory failure secondary to pneumonia, community-acquired, however the patient is relatively immunocompromised on methotrexate and leflunomide for underlying rheumatoid arthritis. Possibility of interstitial lung disease is not entirely ruled out. Possibility of acute on chronic systolic congestive heart failure is also in the differential. Blood cultures positive for staph epidermidis, contaminated blood cultures, we will recheck and repeat blood cultures. In the meantime continue Zosyn, but no need for vancomycin. Chronic atrial fibrillation and now the patient has atrial fibrillation with RVR. History of pulmonary embolism, on Xarelto. History of underlying coronary artery disease and previous PCI and stent placement. Ischemic cardiomyopathy and LV dysfunction previous AICD placement in 2016. Former smoker. Rheumatoid arthritis, maintained on methotrexate and leflunomide. Hypotension secondary to sepsis, septic shock, and profound LV dysfunction with ischemic cardiomyopathy. Recommendation: Continue ventilatory support. Patient was intubated on 12/06/2021 because of worsening pulmonary status. Continue antibiotics/Zosyn. Cut down Lasix to 20 mg daily. Patient clinically improved after he received Lasix yesterday, however later on in the ICU he was noted to be hypotensive and we had to give him fluid boluses. And eventually required norepinephrine. Continue to hold methotrexate and leflunomide. Repeat the blood cultures as the previous ones were contaminated with staph epidermidis. Review the results of the echocardiogram. Established a central line and arterial line in this patient since he was admitted to the ICU. No plans to address any weaning trials at this point. May consider trials of steroids considering his underlying interstitial lung disease Sputum cultures were ordered may even consider bronchoscopy on this patient. However he is unstable now to tolerate bronchoscopy being hypotensive. We will continue to follow. Prognosis is extremely poor and guarded. Critical care time is over 30 minutes, not including the time spent on procedures. Time with Patient: Greater than 30
[2021-12-07] MEDS ORDERED: HYDROCORTISONE SUCCINATE 100 MG/2 ML VIAL IV STA (13:23)
--- NOTE | 2021-12-07 14:44 | CDI ---
Documentation Clarification Form Date: 12/07/2021 01:51:26 PM From: Shelli Zamora RN CCDS Admit Date: 12/04/2021 08:43:00 PM Patient Name: Tang Pratt Visit Number: [id number] Discharge Date: ATTENTION: The Clinical Documentation Specialists (CDI) and [facility] Coding Staff appreciate your assistance in clarifying documentation. Please respond to the clarification below the line at the bottom and electronically sign. The CDI & [facility] Coding staff will review the response and follow-up if needed. Please note: Queries are made part of the Legal Health Record. If you have any questions, please contact the author of this message via ITS. Dr. Sim Stevenson Sepsis is documented 12/06, Pulmonary progress note. For each diagnosis, documentation must be clear to determine if the condition was present at the time of the patients inpatient admission or developed during the hospital stay. Additional clarification regarding the Sepsis is requested. History/Risk Factors: 76-year-old male presents to the ED with shortness of breath, cough, weakness and falls at home. reported patient had chills, shakes and high temp the evening prior to ED presentation. Medical history: RA , CHF, Atrial Flutter and Defibrillator. Clinical Indicators: Admitting diagnoses: ISABEL, dehydration and atypical pneumonia VSS: 12/04 B/P 92/57; HR 68; RR 20; SpO2 93% 3L nasal cannula LABS: 12/04 Wbc 10.4; Neutrophils 9.7; Na 134; BUN 53; CR 1.48. CXR: 12/04 Mild cardiomegaly and interstitial densities. Some of the interstitial densities are patchy within the periphery of the lungs. CXR: 12/05 Worsening multifocal patchy opacities. Pulmonary PN: 12/06 Weakness, falls at home, acute kidney injury, related to sepsis. Pulmonary PN: 12/07 Repeat the blood cultures as the previous ones were contaminated with staph epidermidis. Repeat Cultures 12/06 pending. Pulmonary PN: 12/07 Hypotension secondary to sepsis, septic shock and profound LV dysfunction with ischemic cardiomyopathy. Treatment: 12/04 0.9NS 1L bolus x 2; 12/04 Ceftriaxone 2,000mg IVP x 1; 12/04 Azithromycin 500mg IVPB x 1; 12/05 Ceftriaxone 2gm IVPB Q24HR x 4 bags; 12/06 Vancomycin 1,750mg IVPB x 1; 12/06 Zosyn 3.375gm IVPB Q8HR; 12/06 to current Norepinephrine IV ; 12/07 Acetaminophen 1,000mg IVPB Q6HR x 4 bags. Definition of Present on Admission (POA): A diagnosis present at the time the order for admission to inpatient status was written. Please clarify if the Sepsis was POA [ y] Y = Yes, the condition was present at the time of the order for inpatient admission. [ ] N = No, the condition was not present at the time of the order for inpatient admission. [ ] W = Clinically undetermined if the condition was present at the time of the order for inpatient admission. (Template Last Revised: September 2020) PAYAM
--- NOTE | 2021-12-07 16:11 | P.PN ---
Subjective Patient was examined at bedside today not complaining of any new symptoms otology. He was intubated in the ICU. Case discussed with RN present at bedside. Objective - Vital Signs Vital signs: Vital Signs Temp 98.4 F 12/07/21 12:00 Pulse 117 H 12/07/21 15:45 Resp 24 12/07/21 15:45 BP 112/58 12/07/21 15:15 Pulse Ox 95 12/07/21 15:45 Intake & Output 12/06/21 12/07/21 12/07/21 18:59 06:59 18:59 Intake Total 1789.177 5040.394 1518.038 Output Total 2875 890 380 Balance -1786.313 044.443 2808.038 Weight 81.6 kg 81.6 kg Intake: IV 0084 779 5853 0.9 KVO 1070 110 150 Sodium Chloride 0.9% 1, 1000 000 ml @ 10 mls/hr IV . Q24H [facility] Rx#:[id number] Intake, IV Titration 18.687 937.394 368.038 Amount Dexmedetomidine/0.9% NaCl 11.378 25.930 (Pmx) 400 mcg In Empty Bag 1 bag @ 0.2 MCG/KG/HR 3.969 mls/hr IV .Q24H [facility] Rx#:[id number] Norepinephrine 32 mg In 24.736 Sodium Chloride 0.9% 218 ml @ 0.05 MCG/KG/MIN 1. 913 mls/hr IV .Q24H [facility] Rx#:[id number] Norepinephrine 4 mg In 7.309 754.691 254 Sodium Chloride 0.9% 250 ml @ 0.05 MCG/KG/MIN 15. 122 mls/hr IV .[id number] [facility] Rx#:[id number] propofoL 1,000 mg In 156.773 89.302 Empty Bag 1 bag @ 5 MCG/ KG/MIN 2.381 mls/hr IV . Q24H [facility] Rx#:[id number] Output: Urine 2875 890 380 Other: Voiding Method Indwelling Catheter Indwelling Catheter Indwelling Catheter ABP, PAP, CO, CI - Last Documented Arterial Blood Pressure 109/46 - Exam General: Intubated Derm: [warm], [dry] Head: [atraumatic], [normocephalic], [symmetric] Eyes: [EOMI], [no lid lag], [anicteric sclera] Mouth: [no lip lesion], [mucus membranes moist] Cardiovascular: [S1S2 reg], [no murmur], Lungs: [Decreased breath sounds bilateral], [no rhonchi, no rales] , [no accessory muscle use] Abdominal: [soft], [ nontender to palpation], [no guarding], [no appreciable organomegaly] Ext: [no gross muscle atrophy], [no edema], [no contractures] Neuro: [no focal neuro deficits] Psych: Intubated - Labs CBC & Chem 7: 12/07/21 07:20 12/07/21 07:20 Labs: Abnormal Lab Results - Last 24 Hours (Table) 12/06/21 12/07/21 12/07/21 Range/Units 22:24 05:54 07:20 WBC (3.8-10.6) k/uL RBC (4.30-5.90) m/uL Hgb (13.0-17.5) gm/dL Hct (39.0-53.0) % MCV (80.0-100.0) fL MCHC (31.0-37.0) g/dL RDW (11.5-15.5) % Neutrophils # (1.3-7.7) k/uL Lymphocytes # (1.0-4.8) k/uL ABG pH 7.24 L 7.33 L (7.35-7.45) ABG pCO2 53 H (35-45) mmHg ABG pO2 379 H (83-108) mmHg ABG Total CO2 25 H (19-24) mmol/L ABG O2 Saturation 99.2 H (94-97) % Chloride (98-107) mmol/L Carbon Dioxide (22-30) mmol/L BUN (9-20) mg/dL Glucose (74-99) mg/dL POC Glucose (mg/dL) (75-99) mg/dL Calcium (8.4-10.2) mg/dL Total Bilirubin (0.2-1.3) mg/dL Alkaline Phosphatase (38-126) U/L Total Protein (6.3-8.2) g/dL Albumin (3.5-5.0) g/dL Procalcitonin 4.29 H (0.02-0.09) ng/mL 12/07/21 12/07/21 12/07/21 Range/Units 07:20 07:20 11:49 WBC 11.2 H (3.8-10.6) k/uL RBC 3.03 L (4.30-5.90) m/uL Hgb 9.9 L (13.0-17.5) gm/dL Hct 32.3 L (39.0-53.0) % MCV 106.3 H (80.0-100.0) fL MCHC 30.5 L (31.0-37.0) g/dL RDW 16.3 H (11.5-15.5) % Neutrophils # 9.7 H (1.3-7.7) k/uL Lymphocytes # 0.3 L (1.0-4.8) k/uL ABG pH (7.35-7.45) ABG pCO2 (35-45) mmHg ABG pO2 (83-108) mmHg ABG Total CO2 (19-24) mmol/L ABG O2 Saturation (94-97) % Chloride 116 H (98-107) mmol/L Carbon Dioxide 21 L (22-30) mmol/L BUN 30 H (9-20) mg/dL Glucose 121 H (74-99) mg/dL POC Glucose (mg/dL) 160 H (75-99) mg/dL Calcium 7.9 L (8.4-10.2) mg/dL Total Bilirubin 3.2 H (0.2-1.3) mg/dL Alkaline Phosphatase 154 H (38-126) U/L Total Protein 5.4 L (6.3-8.2) g/dL Albumin 2.5 L (3.5-5.0) g/dL Procalcitonin (0.02-0.09) ng/mL Microbiology - Last 24 Hours (Table) 12/06/21 10:25 Blood Culture - Preliminary Blood No Growth after 24 hours 12/06/21 10:31 Blood Culture - Preliminary Blood No Growth after 24 hours 12/06/21 23:54 Sputum Culture - Preliminary Sputum 12/04/21 19:21 Blood Culture - Preliminary Blood No Growth after 48 hours 12/04/21 19:40 Blood Culture Gram Stain - Preliminary Blood Blood Culture - Preliminary Staphylococcus epidermidis Assessment and Plan Assessment: Assessment: #Acute hypoxic respiratory failure secondary to community acquired pneumonia #Septic shock secondary to Community acquired pneumonia #Generalized weakness and debility #Macrocytic anemia #Acute kidney injury resolved #Chronic conditions: Atrial flutter, history of PE, rheumatoid arthritis, CHF with AICD and pacemaker, CAD Plan: -Admit to medicine for close monitoring -Aspiration/fall precaution -Intubated in the morning. Mechanical ventilation protocol as per ICU. -Antimicrobials she is to Zosyn and vancomycin. Obtain MRSA surveillance. -Obtain sputum cultures -Cardio to consult for possible arrhythmia/atrial flutter. -Pulmonary on board pending further recommendations -DVT prophylaxis Xaralto
[2021-12-07] MEDS: methylPREDNISolone SOD SUCCI 40 MG/ML 1 ML VIAL IV SCH (16:45)
[2021-12-07 17:32] LABS: Glucose,Whole Blood 152 mg/dL (75-99)
[2021-12-07] MEDS: RIVAROXABAN 20 MG TAB PO SCH (18:42)
[2021-12-07] MEDS: AMIODARONE 450 MG in DEXTROSE 5% IN WATER 250 ML IV SCH ×2 (18:42)
--- NOTE | 2021-12-07 23:01 | P.CONS ---
History of Present Illness - Reason for Consult Consult date: 12/07/21 Sepsis Requesting physician: Levy Sims - Chief Complaint Weakness and falls x few days - History of Present Illness 76-year-old male presenting to the hospital 3 days ago for evaluation of frequent falls generalized weakness in this patient symptom has been going on for 5 to 6 weeks before presentation to the hospital patient on arrival to the ER was afebrile he did have a low-grade fever 100 F this morning, patient initial work-up including a chest x-ray mild cardiomegaly and interstitial density and has been treated by pulmonary and cardiology services patient did have worsening of his respiratory status last night and the patient with a more tachycardic and tachypneic with worsening respiratory distress the patient is getting intubated however no significant purulent secretion through the ET has been reported by the nursing staff patient is currently on no pressor support in the form of Levophed however the dose is currently cut down to 36 mics patient did have mildly elevated of 11.2 today creatinine has been normal liver exams are normal urine has been negative daly influenza PCR were negative patient did have blood culture on the showing staph epidermidis patient is currently being treated with the [facility] infectious disease was consulted concerning for sepsis most information has been obtained from review the chart talking to nursing staff the patient is currently intubated on the vent and unable to provide any history Review of Systems Positive points has been mentioned in HPI complete review could not be obtained because of his underlying mental status Past Medical History Past Medical History: Atrial Flutter, Prostate Disorder, Pulmonary Embolus (PE), Rheumatoid Arthritis (RA) History of Any Multi-Drug Resistant Organisms: None Reported Past Surgical History: Appendectomy, Heart Catheterization With Stent, Joint Replacement, Pacemaker, Prostate Surgery Additional Past Surgical History / Comment(s): dg knee replaced, dg shoulder surgery,turp, neck fusion Past Anesthesia/Blood Transfusion Reactions: No Reported Reaction Date of Last Stent Placement:: 2015 Type of Cardiac Device: AICD Device Placement Date:: 2015 Past Psychological History: No Psychological Hx Reported Smoking Status: Former smoker Past Alcohol Use History: None Reported Additional Past Alcohol Use History / Comment(s): smoked for 40 years 1/2ppd quit 2009 Past Drug Use History: None Reported - Past Family History Brother(s) Family Medical History: Cancer Additional Family Medical History / Comment(s): testicular cancer Medications and Allergies Home Medications Medication Instructions Recorded Confirmed Type Bisoprolol [Zebeta] 5 mg PO BID 08/26/19 12/04/21 History Cholecalciferol [Vitamin D3 (25 2,000 unit PO DAILY 08/26/19 12/04/21 History Mcg = 1000 Iu)] Folic Acid 1 mg PO DAILY 08/26/19 12/04/21 History Leflunomide [Arava] 20 mg PO DAILY 08/26/19 12/04/21 History Rivaroxaban [Xarelto] 20 mg PO W/SUPPER 08/26/19 12/04/21 History Rosuvastatin [Crestor] 20 mg PO DAILY 08/26/19 12/04/21 History metHOTREXate sodium [Methotrexate] 20 mg PO WE 08/26/19 12/04/21 History Omeprazole 20 mg PO DAILY 12/04/21 12/04/21 History Sacubitril/Valsartan [Entresto 49 1 tab PO BID 12/04/21 12/04/21 History mg-51 mg Tablet] Spironolactone [Aldactone] 25 mg PO DAILY 12/04/21 12/04/21 History icosapent ethyL [Icosapent Ethyl] 2 gm PO BID 12/04/21 12/04/21 History Allergies Allergy/AdvReac Type Severity Reaction Status Date / Time No Known Allergies Allergy Verified 12/04/21 14:50 Physical Exam Vitals: Vital Signs Temp Pulse Resp BP Pulse Ox 12/07/21 14:00 120 H 26 H 95 12/07/21 13:45 129 H 26 H 95 12/07/21 13:30 129 H 32 H 94 L 12/07/21 13:15 123 H 29 H 101/64 94 L 12/07/21 13:00 134 H 27 H 94 L 12/07/21 12:45 129 H 29 H 94 L 12/07/21 12:30 130 H 27 H 94 L 12/07/21 12:15 130 H 27 H 115/66 94 L 12/07/21 12:00 98.4 F 128 H 30 H 94 L 12/07/21 11:45 135 H 28 H 94 L 12/07/21 11:30 161 H 27 H 94 L 12/07/21 11:23 138 H 12/07/21 11:15 135 H 26 H 106/58 95 12/07/21 11:00 135 H 29 H 95 12/07/21 10:45 98.9 F 134 H 27 H 94 L 12/07/21 10:30 131 H 26 H 94 L 12/07/21 10:15 135 H 28 H 104/53 94 L 12/07/21 10:00 124 H 26 H 99/62 93 L 12/07/21 09:45 128 H 27 H 98/49 93 L 12/07/21 09:30 133 H 29 H 98/54 93 L 12/07/21 09:15 128 H 29 H 106/57 92 L 12/07/21 09:00 125 H 29 H 112/54 93 L 12/07/21 08:45 123 H 29 H 104/61 96 12/07/21 08:30 131 H 28 H 109/61 96 12/07/21 08:15 121 H 28 H 103/60 95 12/07/21 08:00 100.0 F H 120 H 28 H 93/55 96 12/07/21 07:45 118 H 29 H 105/59 96 12/07/21 07:40 120 H 12/07/21 07:30 125 H 12/07/21 07:00 122 H 29 H 107/68 96 12/07/21 06:45 113 H 27 H 117/65 96 12/07/21 06:30 112 H 29 H 101/58 96 12/07/21 06:15 110 H 29 H 102/53 96 12/07/21 06:00 111 H 27 H 111/58 95 12/07/21 05:45 112 H 29 H 109/57 97 12/07/21 05:30 111 H 30 H 103/50 97 12/07/21 05:15 109 H 27 H 100/55 97 12/07/21 05:00 107 H 26 H 104/53 96 12/07/21 04:45 108 H 26 H 103/55 96 12/07/21 04:30 106 H 25 H 88/52 95 12/07/21 04:15 102 H 26 H 103/62 95 12/07/21 04:00 98.4 F 113 H 27 H 108/62 96 12/07/21 03:45 105 H 28 H 105/62 95 12/07/21 03:30 103 H 27 H 104/71 96 12/07/21 03:15 99 24 104/61 96 12/07/21 03:00 97 24 101/59 96 12/07/21 02:45 98 24 103/59 96 12/07/21 02:30 103 H 24 106/57 96 12/07/21 02:15 101 H 24 109/61 96 12/07/21 02:00 103 H 24 111/64 95 12/07/21 01:45 108 H 26 H 68/39 95 12/07/21 01:30 101 H 24 94/57 96 12/07/21 01:15 105 H 24 94/55 96 12/07/21 01:00 105 H 23 90/52 96 12/07/21 00:45 109 H 24 86/59 96 12/07/21 00:30 107 H 24 87/48 95 12/07/21 00:15 108 H 24 83/49 94 L 12/07/21 00:00 98.1 F 108 H 24 102/53 92 L 12/06/21 23:45 117 H 24 101/51 89 L 12/06/21 23:30 118 H 24 86/50 90 L 12/06/21 23:15 115 H 24 84/50 89 L 12/06/21 23:01 117 H 24 87/49 91 L 12/06/21 23:00 120 H 24 87/47 91 L 12/06/21 22:45 121 H 26 H 90/51 92 L 12/06/21 22:30 117 H 25 H 110/56 97 12/06/21 22:15 129 H 21 120/61 97 12/06/21 22:00 125 H 20 126/64 97 12/06/21 21:45 100 15 92/54 97 12/06/21 21:30 112 H 6 L 116/78 12/06/21 21:15 112 H 35 H 104/59 12/06/21 21:00 105 H 43 H 102/63 93 L 12/06/21 20:45 101 H 55 H 90/56 93 L 12/06/21 20:30 98 44 H 99/67 96 12/06/21 20:29 92 12/06/21 20:15 84 47 H 116/69 94 L 12/06/21 20:14 84 12/06/21 20:00 98.5 F 77 24 108/65 95 12/06/21 19:45 80 24 112/62 96 12/06/21 19:30 78 26 H 113/63 96 12/06/21 19:15 80 26 H 112/61 95 12/06/21 19:00 78 25 H 111/58 96 12/06/21 18:45 80 26 H 110/59 96 12/06/21 18:30 81 26 H 109/61 96 12/06/21 18:15 82 27 H 106/58 95 12/06/21 18:00 89 51 H 98/57 92 L 12/06/21 17:45 99 50 H 93/57 90 L 12/06/21 17:30 86 27 H 104/62 95 12/06/21 17:15 87 28 H 109/57 96 12/06/21 17:00 85 28 H 103/66 96 12/06/21 16:45 77 31 H 104/60 96 12/06/21 16:30 93 26 H 96/59 96 12/06/21 16:15 88 31 H 89/44 96 12/06/21 16:00 98.6 F 96 27 H 90/60 95 12/06/21 15:48 96 12/06/21 15:45 93 29 H 95/55 95 12/06/21 15:41 92 12/06/21 15:30 92 33 H 99/53 93 L 12/06/21 15:15 93 30 H 97/56 91 L 12/06/21 15:00 94 34 H 102/53 93 L 12/06/21 14:45 96 34 H 113/57 95 Intake and Output 12/06/21 12/07/21 12/07/21 22:59 06:59 14:59 Intake Total 380.148 717.246 478.038 Output Total 1075 415 300 Balance -694.852 302.246 178.038 Intake: IV 80 80 110 0.9 KVO 80 80 110 Intake, IV Titration 300.148 637.246 368.038 Amount Dexmedetomidine/0.9% NaCl 25.930 (Pmx) 400 mcg In Empty Bag 1 bag @ 0.2 MCG/KG/HR 3.969 mls/hr IV .Q24H [facility] Rx#:[id number] Norepinephrine 32 mg In 24.736 Sodium Chloride 0.9% 218 ml @ 0.05 MCG/KG/MIN 1. 913 mls/hr IV .Q24H [facility] Rx#:[id number] Norepinephrine 4 mg In 268.265 486.426 254 Sodium Chloride 0.9% 250 ml @ 0.05 MCG/KG/MIN 15. 122 mls/hr IV .[id number] [facility] Rx#:[id number] propofoL 1,000 mg In 5.953 150.820 89.302 Empty Bag 1 bag @ 5 MCG/ KG/MIN 2.381 mls/hr IV . Q24H [facility] Rx#:[id number] Output: Urine 1075 415 300 Other: Voiding Method Indwelling Catheter Indwelling Catheter Indwelling Catheter Weight 81.6 kg 81.6 kg ABP, PAP, CO, CI - Last 8 Hours Arterial Blood Pressure 102/45 Arterial Blood Pressure 106/47 Arterial Blood Pressure 105/49 Arterial Blood Pressure 109/46 Arterial Blood Pressure 106/48 Arterial Blood Pressure 110/49 Arterial Blood Pressure 119/52 Arterial Blood Pressure 119/53 Arterial Blood Pressure 118/53 Arterial Blood Pressure 117/51 Arterial Blood Pressure 111/49 Arterial Blood Pressure 129/56 Arterial Blood Pressure 106/47 Arterial Blood Pressure 93/44 Arterial Blood Pressure 94/43 Arterial Blood Pressure 102/45 Arterial Blood Pressure 96/43 Arterial Blood Pressure 101/43 Arterial Blood Pressure 108/43 Arterial Blood Pressure 102/41 GENERAL DESCRIPTION: Elderly male intubated on the vent. HEENT: Shows Pallor , no scleral icterus. Oral mucous membrane is dry. NECK: Trachea central, no thyromegaly. LUNGS: Unlabored breathing. Decreased breath sound at bases. No wheeze or crackle. HEART: S1, S2, regular rate and rhythm. No loud murmur ABDOMEN: Soft, no tenderness , guarding or rigidity, no organomegaly EXTREMITIES: No edema of feet. SKIN: No rash, no masses palpable. NEUROLOGICAL: The patient is sedated on the vent Results CBC & Chem 7: 12/14/21 04:55 12/14/21 12:11 Labs: Abnormal Lab Results - Last 24 Hours (Table) 12/06/21 12/07/21 12/07/21 Range/Units 22:24 05:54 07:20 WBC (3.8-10.6) k/uL RBC (4.30-5.90) m/uL Hgb (13.0-17.5) gm/dL Hct (39.0-53.0) % MCV (80.0-100.0) fL MCHC (31.0-37.0) g/dL RDW (11.5-15.5) % Neutrophils # (1.3-7.7) k/uL Lymphocytes # (1.0-4.8) k/uL ABG pH 7.24 L 7.33 L (7.35-7.45) ABG pCO2 53 H (35-45) mmHg ABG pO2 379 H (83-108) mmHg ABG Total CO2 25 H (19-24) mmol/L ABG O2 Saturation 99.2 H (94-97) % Chloride (98-107) mmol/L Carbon Dioxide (22-30) mmol/L BUN (9-20) mg/dL Glucose (74-99) mg/dL POC Glucose (mg/dL) (75-99) mg/dL Calcium (8.4-10.2) mg/dL Total Bilirubin (0.2-1.3) mg/dL Alkaline Phosphatase (38-126) U/L Total Protein (6.3-8.2) g/dL Albumin (3.5-5.0) g/dL Procalcitonin 4.29 H (0.02-0.09) ng/mL 12/07/21 12/07/21 12/07/21 Range/Units 07:20 07:20 11:49 WBC 11.2 H (3.8-10.6) k/uL RBC 3.03 L (4.30-5.90) m/uL Hgb 9.9 L (13.0-17.5) gm/dL Hct 32.3 L (39.0-53.0) % MCV 106.3 H (80.0-100.0) fL MCHC 30.5 L (31.0-37.0) g/dL RDW 16.3 H (11.5-15.5) % Neutrophils # 9.7 H (1.3-7.7) k/uL Lymphocytes # 0.3 L (1.0-4.8) k/uL ABG pH (7.35-7.45) ABG pCO2 (35-45) mmHg ABG pO2 (83-108) mmHg ABG Total CO2 (19-24) mmol/L ABG O2 Saturation (94-97) % Chloride 116 H (98-107) mmol/L Carbon Dioxide 21 L (22-30) mmol/L BUN 30 H (9-20) mg/dL Glucose 121 H (74-99) mg/dL POC Glucose (mg/dL) 160 H (75-99) mg/dL Calcium 7.9 L (8.4-10.2) mg/dL Total Bilirubin 3.2 H (0.2-1.3) mg/dL Alkaline Phosphatase 154 H (38-126) U/L Total Protein 5.4 L (6.3-8.2) g/dL Albumin 2.5 L (3.5-5.0) g/dL Procalcitonin (0.02-0.09) ng/mL Microbiology - Last 24 Hours (Table) 12/06/21 10:25 Blood Culture - Preliminary Blood No Growth after 24 hours 12/06/21 10:31 Blood Culture - Preliminary Blood No Growth after 24 hours 12/06/21 23:54 Sputum Culture - Preliminary Sputum 12/04/21 19:21 Blood Culture - Preliminary Blood No Growth after 48 hours 12/04/21 19:40 Blood Culture Gram Stain - Preliminary Blood Blood Culture - Preliminary Staphylococcus epidermidis Assessment and Plan (1) Bacteremia Status: Acute Code(s): R78.81 - BACTEREMIA SNOMED Code(s): 6532922 (2) Pneumonia Status: Acute Code(s): J18.9 - PNEUMONIA, UNSPECIFIED ORGANISM SNOMED Code(s): 046879054 Plan: 1patient with acute respiratory failure which is likely multifactorial in this patient admitted to the hospital with frequent falls and weakness now with concern for possible pneumonia and a question of aspiration etiology. 2we will try to obtain a sputum for gram stain and culture. 3check inflammatory markers. 4obtain a sputum for gram stain and culture. 5continue the patient on Zosyn 3.375 g every 8 hours We will follow on clinical condition and cultures to further adjust medication if needed Thank you for this consultation will follow this patient along with you Time with Patient: Greater than 30
[2021-12-08] MEDS: PIPERACILLIN-TAZOBACTAM 3.375 GM in SODIUM CHLORIDE 0.9% 100 ML IVPB SCH ×3 (00:22→15:47)
[2021-12-08] MEDS: methylPREDNISolone SOD SUCCI 40 MG/ML 1 ML VIAL IV SCH ×3 (00:22→15:46)
[2021-12-08] MEDS: NOREPINEPHRINE 32 MG in SODIUM CHLORIDE 0.9% 218 ML IV SCH ×2 (00:30→14:15)
[2021-12-08 05:01] LABS: Anisocytosis Slight; Basophils # (A) 0.1 k/uL (0-0.2); Basophils % (A) 1 %; Eosinophils % (A) 0 %; HGB 9.6 gm/dL (13.0-17.5); Hypochromasia Moderate; Lymphocytes # (A) 0.2 k/uL (1.0-4.8); Lymphocytes % (A) 2 %; MCH 33.4 pg (25.0-35.0); MCHC 31.2 g/dL (31.0-37.0); Macrocytosis Marked; Mean Platelet Volume 7.8; Monocytes # (A) 0.3 k/uL (0-1.0); Monocytes % (A) 3 %; Neutrophils % (A) 94 %; Platelet Count 213 k/uL (150-450); RBC 2.89 m/uL (4.30-5.90); RDW 17.4 % (11.5-15.5); WBC 10.6 k/uL (3.8-10.6)
[2021-12-08 05:18] LABS: Albumin 2.4 g/dL (3.5-5.0); Calcium 7.6 mg/dL (8.4-10.2); Potassium 3.3 mmol/L (3.5-5.1); Total Bilirubin 2.1 mg/dL (0.2-1.3); Total Protein 5.1 g/dL (6.3-8.2)
[2021-12-08 05:59] LABS: ABG Base Excess -5.3 mmol/L; ABG HCO3 21 mmol/L (21-25); ABG Oxygen Saturation 97.1 % (94-97); ABG PCO2 44 mmHg (35-45); ABG PO2 109 mmHg (83-108); ABG TCO2 23 mmol/L (19-24); Allen Test Performed? Yes
[2021-12-08 05:59] LABS: Glucose,Whole Blood 211 mg/dL (75-99)
[2021-12-08] MEDS: IPRATROPIUM-ALBUTEROL 3 ML NEB INHALATION SCH ×4 (07:41→19:19)
[2021-12-08] MEDS: ATORVASTATIN 40 MG TAB PO SCH (08:09)
[2021-12-08] MEDS: FOLIC ACID 1 MG TAB PO SCH (08:09)
[2021-12-08] MEDS: PANTOPRAZOLE 40 MG TABLET PO SCH (08:09)
[2021-12-08] MEDS: CHOLECALCIFEROL 25 MCG (1000 IU) TABLET PO SCH (08:09)
[2021-12-08] MEDS: POTASSIUM BICARBONATE/CIT AC 20 MEQ TABLET.EFF NG-TUBE SCH ×7 (08:09→22:04)
[2021-12-08] MEDS: CHLORHEXIDINE GLUCONATE 15 ML CUP MUCOUS MEM SCH ×2 (08:09→22:04)
[2021-12-08] MEDS ORDERED: INSULIN ASPART (NovoLOG) 100 UNIT/ML VIAL SQ SCH (09:15)
[2021-12-08] MEDS ORDERED: SODIUM CHLORIDE 0.9% 500 ML 500 ML IV ONE (09:37)
[2021-12-08] MEDS: DEXTROSE 5%-0.45% NACL 1,000 ML IV SCH (09:44)
[2021-12-08] MEDS: PATIENT'S OWN (Icosapent Ethyl [Icosapent Ethyl] 1 GM Capsule) PO SCH ×2 (09:50→21:38)
--- NOTE | 2021-12-08 10:06 | XR ---
EXAMINATION TYPE: XR chest 1V portable DATE OF EXAM: 12/08/2021 COMPARISON: 12/07/2021 INDICATION: Tube placement TECHNIQUE: Single frontal view of the chest is obtained. FINDINGS: The heart size is normal. The pulmonary vasculature is upper limits of normal. Mild diffuse increased lung markings are present. This is similar to comparison. Endotracheal tube tip is above the missy. Nasogastric tube transverses the thorax. Pacemaker overlie s left chest. Minimal right pleural effusion may be present. IMPRESSION: 1. Bibasilar infiltrates with minimal right pleural effusion.
--- NOTE | 2021-12-08 10:32 | P.PN ---
Subjective HISTORY OF PRESENTING ILLNESS Patient is a pleasant 76-year-old male with history of atrial flutter, atrial fibrillation, pulmonary embolism on anticoagulation, rheumatoid arthritis, coronary artery disease with prior PCI, cardiomyopathy with prior AICD, anemia. Patient currently intubated and sedated and therefore history is supplied by chart. Patient had presented for 5-6 weeks of generalized fatigue and weakness. Apparently he is feeling like his legs would give out from under him. No chest pain or pressure. No history of COPD or emphysema or cough. If it stated he did have low-grade fever and some chills and believed he was dehydrated. He apparently had a number of frequent falls. He also has been having increased cough and feels congested. Chest x-ray shows patchy infiltrates bilaterally. Initial workup hemoglobin 10.9, platelets 270, sodium 134, creatinine 1.48, troponin less than 0.012, proBNP the next day 12/05 after receiving IV fluids 1100 with creatinine 1.1, pro-calcitonin 0.87, TSH 0.4, albumin 3.1 and repeat 2 .5. He was found to have staph epidermidis bacteremia one of 2 blood cultures and repeat serum been obtained. He is on antibiotics. Echo shows EF 35-40% with RVSP 51 mild tricuspid regurgitation and no significant mitral disease. Patient initially was given IV fluids with improvement in creatinine from 1.5 to 1.1.9. This was however discontinued and patient placed on IV Lasix this morning, given Lasix 60 mg IV and approximately 1.1 L out. He did have increasing respiratory distress and therefore patient was intubated. Initially EKG shows normal sinus rhythm, left bundle branch block. Patient became tachycardic over the last 4-5 hours with heart rates 120s and 130s. There do appear to be P waves however irregular and likely atrial flutter with RVR. 12/08 Patient seen and examined. CVP reading low 1-3 however this is from the femoral approach. Lasix however were discontinued and he was given IV fluid bolus with improvement in pressure demand. Creatinine has been stable. Remains intubated and sedated. Telemetry reviewed with continued tachycardia with what appears to be P waves unclear sinus versus atrial tachycardia, atrial flutter. Repeat EKG pending. Amiodarone was started however no significant change in HR's 110- 120's. REVIEW OF SYSTEMS At the time of my exam: Unable to obtain secondary to patient being sedated and intubated PHYSICAL EXAMINATION Vital signs reviewed. CONSTITUTIONAL: No apparent distress, ill appearing, sedated and intubated HEENT: Head is normocephalic. Pupils are equal, round. Sclerae anicteric. No JVD. No carotid bruit. +ETT CHEST EXAMINATION: Diffuse rhonchi HEART EXAMINATION: Tachycardic rate and irregular rhythm. S1, S2 heard. No murmurs, gallops or rub. ABDOMEN: Soft, nontender. Positive bowel sounds. EXTREMITIES: 2+ peripheral pulses, no lower extremity edema and no calf tenderness. NEUROLOGIC EXAMINATION: Patient sedated and intubated. ASSESSMENT 1. Acute on chronic respiratory failure related to bilateral 2. Chronic systolic heart failure exacerbated by atrial flutter with RVR 3. Cardiomyopathy EF 35-40% status post AICD 4. Coronary artery disease with history of PCI, no evidence of acute coronary syndrome 5. Atrial flutter 6. Staph epidermidis bacteremia one of 2 blood cultures 7. Rheumatoid arthritis on immunosuppressants 8. Initial dehydration with acute kidney injury improved with IV fluids 9. Generalized weakness 5-6 weeks, possibly related to pneumonia versus other. 10. Septic shock on vasopressors 11. Anemia 12. Acute kidney injury improved with IV fluids initially 13. Protein calorie malnutrition albumin 2.5. 14. SVT with RVR. Unclear sinus tachycardia related to sepsis, possible dehydration versus atrial flutter, atrial tachycardia. PLAN Patient initially presented with weakness, fatigue, dyspnea and found to have bilateral pneumonia. Per chart it appears he may have been initially dehydrated improved with IV fluids with improvement in creatinine initially. Continue with amiodarone. Check repeat EKG. SVT may be sinus tachycardia with PACs related to sepsis, intubation, dehydration. If unclear we may need to interrogate AICD to further delineate if there is an atrial flutter or adenosine. Further recommendations to follow. Objective - Vital Signs Vital signs: Vital Signs Temp 98.9 F 12/08/21 04:00 Pulse 128 H 12/08/21 09:00 Resp 29 H 12/08/21 09:00 BP 110/64 12/08/21 08:00 Pulse Ox 94 L 12/08/21 09:00 Intake & Output 12/07/21 12/08/21 12/08/21 18:59 06:59 18:59 Intake Total 5334.289 9507.377 939.531 Output Total 460 760 255 Balance 1315.126 672.377 684.531 Weight 81.6 kg 84 kg Intake: IV 1190 420 140 0.9 KVO 170 10 Dextrose 5% in Water 1, 20 240 80 000 ml @ 20 mls/hr IV . Q24H [facility] Rx#:[id number] Piperacillin-Tazobactam 3 100 50 .375 gm In Sodium Chloride 0.9% 100 ml @ 25 mls/hr IVPB Q8HR [facility] Rx# :[id number] Sodium Chloride 0.9% 1, 1000 70 10 000 ml @ 10 mls/hr IV . Q24H [facility] Rx#:[id number] Intake, IV Titration 575.126 402.377 659.531 Amount Norepinephrine 32 mg In 131.824 202.377 60.703 Sodium Chloride 0.9% 218 ml @ 0.05 MCG/KG/MIN 1. 913 mls/hr IV .Q24H [facility] Rx#:[id number] Norepinephrine 4 mg In 254 Sodium Chloride 0.9% 250 ml @ 0.05 MCG/KG/MIN 15. 122 mls/hr IV .[id number] [facility] Rx#:[id number] Sodium Chloride 0.9% 500 500 ml 500 ml @ 999 mls/hr IV .Q31M [facility] Rx#:[id number] propofoL 1,000 mg In 189.302 200 98.828 Empty Bag 1 bag @ 5 MCG/ KG/MIN 2.381 mls/hr IV . Q24H [facility] Rx#:[id number] Tube Feeding 10 210 140 Other 400 Output: Urine 460 760 255 Other: Voiding Method Indwelling Catheter Indwelling Catheter ABP, PAP, CO, CI - Last Documented Arterial Blood Pressure 121/46 - Labs CBC & Chem 7: 12/08/21 04:30 12/08/21 04:30 Labs: Abnormal Lab Results - Last 24 Hours (Table) 12/07/21 12/07/21 12/07/21 Range/Units 07:20 11:49 17:30 RBC (4.30-5.90) m/uL Hgb (13.0-17.5) gm/dL Hct (39.0-53.0) % MCV (80.0-100.0) fL RDW (11.5-15.5) % Neutrophils # (1.3-7.7) k/uL Lymphocytes # (1.0-4.8) k/uL Macrocytosis ABG pH (7.35-7.45) ABG pO2 (83-108) mmHg ABG O2 Saturation (94-97) % Potassium (3.5-5.1) mmol/L Chloride (98-107) mmol/L Carbon Dioxide (22-30) mmol/L BUN (9-20) mg/dL Glucose (74-99) mg/dL POC Glucose (mg/dL) 160 H 152 H (75-99) mg/dL Calcium (8.4-10.2) mg/dL Total Bilirubin (0.2-1.3) mg/dL Alkaline Phosphatase (38-126) U/L Total Protein (6.3-8.2) g/dL Albumin (3.5-5.0) g/dL Procalcitonin 4.29 H (0.02-0.09) ng/mL 12/08/21 12/08/21 12/08/21 Range/Units 04:30 04:30 05:54 RBC 2.89 L (4.30-5.90) m/uL Hgb 9.6 L (13.0-17.5) gm/dL Hct 31.0 L (39.0-53.0) % MCV 107.0 H (80.0-100.0) fL RDW 17.4 H (11.5-15.5) % Neutrophils # 10.0 H (1.3-7.7) k/uL Lymphocytes # 0.2 L (1.0-4.8) k/uL Macrocytosis Marked A ABG pH 7.30 L (7.35-7.45) ABG pO2 109 H (83-108) mmHg ABG O2 Saturation 97.1 H (94-97) % Potassium 3.3 L (3.5-5.1) mmol/L Chloride 115 H (98-107) mmol/L Carbon Dioxide 21 L (22-30) mmol/L BUN 28 H (9-20) mg/dL Glucose 212 H (74-99) mg/dL POC Glucose (mg/dL) (75-99) mg/dL Calcium 7.6 L (8.4-10.2) mg/dL Total Bilirubin 2.1 H (0.2-1.3) mg/dL Alkaline Phosphatase 186 H (38-126) U/L Total Protein 5.1 L (6.3-8.2) g/dL Albumin 2.4 L (3.5-5.0) g/dL Procalcitonin (0.02-0.09) ng/mL 12/08/21 Range/Units 05:57 RBC (4.30-5.90) m/uL Hgb (13.0-17.5) gm/dL Hct (39.0-53.0) % MCV (80.0-100.0) fL RDW (11.5-15.5) % Neutrophils # (1.3-7.7) k/uL Lymphocytes # (1.0-4.8) k/uL Macrocytosis ABG pH (7.35-7.45) ABG pO2 (83-108) mmHg ABG O2 Saturation (94-97) % Potassium (3.5-5.1) mmol/L Chloride (98-107) mmol/L Carbon Dioxide (22-30) mmol/L BUN (9-20) mg/dL Glucose (74-99) mg/dL POC Glucose (mg/dL) 211 H (75-99) mg/dL Calcium (8.4-10.2) mg/dL Total Bilirubin (0.2-1.3) mg/dL Alkaline Phosphatase (38-126) U/L Total Protein (6.3-8.2) g/dL Albumin (3.5-5.0) g/dL Procalcitonin (0.02-0.09) ng/mL Microbiology - Last 24 Hours (Table) 12/07/21 20:16 Nasal Screen MRSA/MSSA - Preliminary Nasal Swab 12/04/21 19:21 Blood Culture - Preliminary Blood No Growth after 72 hours 12/06/21 23:54 Gram Stain - Preliminary Sputum Sputum Culture - Preliminary 12/06/21 10:25 Blood Culture - Preliminary Blood No Growth after 24 hours 12/06/21 10:31 Blood Culture - Preliminary Blood No Growth after 24 hours
[2021-12-08] MEDS: AMIODARONE 450 MG in DEXTROSE 5% IN WATER 250 ML IV SCH ×2 (11:12)
--- NOTE | 2021-12-08 11:46 | P.PN ---
Subjective Progress Note Date: 12/08/21 Principal diagnosis: Acute hypoxic respiratory failure requiring intubation and mechanical ventilation, multifactorial. 76-year-old male, brought into the emergency room, on December 04, by EMS. The patient apparently had been frequently falling, has had generalized weakness, and is also had increasing shortness of breath, and cough. The patient has not been feeling well for at least 3 weeks, and maybe longer. The patient states that he is having a difficult time coughing up any phlegm although he does feel like his chest is congested. The patient denies any chest pain or chest discomfort. There is no nausea, vomiting, or diarrhea. He was evaluated in the emergency department admitted with a diagnosis of pneumonia. We are seeing him in consultation. White count 8.52, hemoglobin 9.3, hematocrit 29.9, and platelet count 223,000. Sodium 137, potassium 4.8, chlorides 111, CO2 15, anion gap 11, BUN 38, creatinine 1.1. Glucose 98. N-terminal proBNP is 1150. Chest x-ray shows patchy bilateral infiltrates, which are worse on the subsequent chest x-ray. The patient has a history of atrial flutter, pulmonary embolism, rheumatoid arthritis, and previous prostate surgery. The patient is also had heart catheterization with stent placement. On 12/06/2021 we received a phone call from the nursing staff with a concern about worsening hypoxia, and patient was satting only 87% on 100% nonrebreather, tachypnea, and increased work of breathing. Stat chest x-ray was obtained showing contained extensive interstitial and patchy peripheral infiltrates. Patient has been afebrile. Blood pressure is 110/64, however he is tachypneic, with a respiratory rate in the 30s. Denies any chest discomfort, denies any cough or phlegm production. Patient was found to be bacteremic, his blood cultures show gram-positive cocci in groups, he is currently on Zosyn and vancom ycin for antibiotic coverage. We were unable to obtain a sputum culture. Blood gas was obtained on 100% nonrebreather showing pO2 of 68, pCO2 of 24, and pH of 7.37. Subsequently patient was placed on BiPAP support with a pressure of 15/5, and FiO2 100%. Neurologically patient is awake and alert, he is answering questions appropriately, he is oriented 3. He is achieving over 1000 mL of tidal volume on the BiPAP support. Still remains quite tachycardic, his minute ventilation is increased. Patient was given a dose of IV Lasix 60 mg times one, he has produced 1.1 L and urine output since then, we'll continue with IV diuretics, we ordered an echocardiogram which is pending at this point. His pro calcitonin level is elevated at 0.87, proBNP was 1150. Reevaluated today on 12/07/2021, patient's condition deteriorated few hours after he was admitted to the ICU yesterday, patient was getting more tachypneic, more tachycardic, and he was developing worsening respiratory distress. His re spiratory rate was up in the 50s according to the nurse will call be about the patient, and the patient was getting extremely agitated and restless, as I recommended immediate intubation and mechanical ventilation. Patient is now intubated, mechanically ventilated, he is sedated and he is on propofol. Patient is on assist control rate of 24 tidal volume 450 FiO2 60% and PEEP of 5. ABG showed a pO2 of 90 pCO2 of 42 pH of 7.33. His FiO2 was cut down. The rest of the vent settings exactly the same. Patient is on IV fluid at KVO, he is requiring norepinephrine at 0.26 mcg/kg/m, he is also on propofol at 50 mcg/kg/m. Again I cut down his FiO2 to 50%. Patient was on Lasix, we cut down the Lasix mostly because of his hypotension and requiring norepinephrine his blood cultures basically showed contamination, positive for staph epidermidis which implies contamination, not true positive blood cultures. Patient remains on Zosyn empirically, and vancomycin was discontinued. Chest x-ray continues to show bilateral interstitial infiltrates/edema and confluent groundglass opacities bilaterally. Not much of a change since admission. Patient remains on Zosyn empirically for presumptive underlying pneumonia especially with his elevated pro calcitonin level. It is not clear to me whether the patient had history of interstitial lung disease related to his rheumatoid arthritis in the past, no old x-rays for comparison to determine whether the findings are new or chronic. Nonetheless the patient remains on antibiotics and on diuretics. Amiodarone was added today by cardiology for his atrial fibrillation with RVR. Patient remains on Xarelto and he has been on Xarelto all along. His echocardiogram showed LV dysfunction with ejection fraction of 35%, and right- sided pressures seems to be elevated at 51.5. Labs today showed WBC count of 11.2 hemoglobin is 9.9. Electrolytes are normal renal profile is normal, pro calcitonin is up to 4.29 Reevaluated today on 12/08/21, patient remains in the ICU, intubated and mechanically ventilated. His norepinephrine is down to 0.38 mcg/kg/m, it was as high as 0.6 mcg/kg/m last night. Patient received fluids received fluid boluses, and his main IV fluid was increased today to 75 mL per hour. Patient remains on assist control rate of 24 tidal volume 450 FiO2 50% and PEEP of 5. Chest x-ray continues to show bilateral interstitial infiltrates. ABG showed a pO2 of 109 pCO2 44 pH of 7.30, hence I increased his rate to 26 cut down her FiO2 to 45%, and increase the flow rate to 65 L/m repeat blood cultures remain negative. His initial blood culture that admission showed contamination/staph epidermidis..In the meantime the patient remains on antibiotics empirically/Zosyn. Patient remains tachycardic, he is on amiodarone, not much change noted in heart rate, ranging anywhere between 120-130, presently 126. This morning went ahead and give another fluid bolus 500 mL, and I changed his IV fluid to D5 45, and discontinued water flushes. All labs were reviewed WBC count is 10.6 hemoglobin is 9.6. Renal profile is normal with a BUN of 28 creatinine 1.05. White carbs 21. Potassium is a bit low at 3.3. Patient remains sedated, and I have no plans to wean and extubate anytime soon a long as he seems to be hemodynamically unstable. Patient is receiving enteral feeding via orogastric tube. Objective - Vital Signs Vital signs: Vital Signs Temp 98.9 F 12/08/21 04:00 Pulse 109 H 12/08/21 11:00 Resp 25 H 12/08/21 11:00 BP 110/64 12/08/21 08:00 Pulse Ox 95 12/08/21 11:00 Intake & Output 12/07/21 12/08/21 12/08/21 18:59 06:59 18:59 Intake Total 0628.695 1198.377 1028.630 Output Total 460 760 355 Balance 1315.126 672.377 673.630 Weight 81.6 kg 84 kg Intake: IV 1190 420 120 0.9 KVO 170 10 Dextrose 5% in Water 1, 20 240 60 000 ml @ 20 mls/hr IV . Q24H [facility] Rx#:[id number] Piperacillin-Tazobactam 3 100 50 .375 gm In Sodium Chloride 0.9% 100 ml @ 25 mls/hr IVPB Q8HR [facility] Rx# :[id number] Sodium Chloride 0.9% 1, 1000 70 10 000 ml @ 10 mls/hr IV . Q24H [facility] Rx#:[id number] Intake, IV Titration 575.126 402.377 728.630 Amount Dextrose 5%-0.45% NaCl 1, 50 000 ml @ 50 mls/hr IV . Q20H [facility] Rx#:[id number] Norepinephrine 32 mg In 131.824 202.377 79.802 Sodium Chloride 0.9% 218 ml @ 0.05 MCG/KG/MIN 1. 913 mls/hr IV .Q24H [facility] Rx#:[id number] Norepinephrine 4 mg In 254 Sodium Chloride 0.9% 250 ml @ 0.05 MCG/KG/MIN 15. 122 mls/hr IV .[id number] [facility] Rx#:[id number] Sodium Chloride 0.9% 500 500 ml 500 ml @ 999 mls/hr IV .Q31M [facility] Rx#:[id number] propofoL 1,000 mg In 189.302 200 98.828 Empty Bag 1 bag @ 5 MCG/ KG/MIN 2.381 mls/hr IV . Q24H [facility] Rx#:[id number] Tube Feeding 10 210 180 Other 400 Output: Urine 460 760 355 Other: Voiding Method Indwelling Catheter Indwelling Catheter ABP, PAP, CO, CI - Last Documented Arterial Blood Pressure 121/46 - Exam Physical Exam: Revealed a 76-year-old white male intubated sedated and mechanically ventilated on propofol, not in distress Head: Atraumatic, normocephalic. Endotracheal tube and orogastric tube are intact. Dry mucous membranes noted. HEENT:[Neck is supple.] [No neck masses.] [No thyromegaly.] [No JVD.] Chest: [Symmetrical chest expansion, crackles at the bases bilaterally.] Cardiac Exam: Irregular irregular rhythm, no S3 gallop. Abdomen: [Soft, nontender, no megaly, no rebound, no guarding, normal bowel sounds.] Extremities: [No clubbing, no edema, no cyanosis.] Neurological Exam: Could not assess, patient is fully sedated. Psychiatric: Could not assess, patient is sedated. - Labs CBC & Chem 7: 12/08/21 04:30 12/08/21 04:30 Labs: Abnormal Lab Results - Last 24 Hours (Table) 12/07/21 12/07/21 12/08/21 Range/Units 11:49 17:30 04:30 RBC (4.30-5.90) m/uL Hgb (13.0-17.5) gm/dL Hct (39.0-53.0) % MCV (80.0-100.0) fL RDW (11.5-15.5) % Neutrophils # (1.3-7.7) k/uL Lymphocytes # (1.0-4.8) k/uL Macrocytosis ABG pH (7.35-7.45) ABG pO2 (83-108) mmHg ABG O2 Saturation (94-97) % Potassium (3.5-5.1) mmol/L Chloride (98-107) mmol/L Carbon Dioxide (22-30) mmol/L BUN (9-20) mg/dL Glucose (74-99) mg/dL POC Glucose (mg/dL) 160 H 152 H (75-99) mg/dL Calcium (8.4-10.2) mg/dL Total Bilirubin (0.2-1.3) mg/dL Alkaline Phosphatase (38-126) U/L Total Protein (6.3-8.2) g/dL Albumin (3.5-5.0) g/dL Procalcitonin 4.11 H (0.02-0.09) ng/mL 12/08/21 12/08/21 12/08/21 Range/Units 04:30 04:30 05:54 RBC 2.89 L (4.30-5.90) m/uL Hgb 9.6 L (13.0-17.5) gm/dL Hct 31.0 L (39.0-53.0) % MCV 107.0 H (80.0-100.0) fL RDW 17.4 H (11.5-15.5) % Neutrophils # 10.0 H (1.3-7.7) k/uL Lymphocytes # 0.2 L (1.0-4.8) k/uL Macrocytosis Marked A ABG pH 7.30 L (7.35-7.45) ABG pO2 109 H (83-108) mmHg ABG O2 Saturation 97.1 H (94-97) % Potassium 3.3 L (3.5-5.1) mmol/L Chloride 115 H (98-107) mmol/L Carbon Dioxide 21 L (22-30) mmol/L BUN 28 H (9-20) mg/dL Glucose 212 H (74-99) mg/dL POC Glucose (mg/dL) (75-99) mg/dL Calcium 7.6 L (8.4-10.2) mg/dL Total Bilirubin 2.1 H (0.2-1.3) mg/dL Alkaline Phosphatase 186 H (38-126) U/L Total Protein 5.1 L (6.3-8.2) g/dL Albumin 2.4 L (3.5-5.0) g/dL Procalcitonin (0.02-0.09) ng/mL 12/08/21 Range/Units 05:57 RBC (4.30-5.90) m/uL Hgb (13.0-17.5) gm/dL Hct (39.0-53.0) % MCV (80.0-100.0) fL RDW (11.5-15.5) % Neutrophils # (1.3-7.7) k/uL Lymphocytes # (1.0-4.8) k/uL Macrocytosis ABG pH (7.35-7.45) ABG pO2 (83-108) mmHg ABG O2 Saturation (94-97) % Potassium (3.5-5.1) mmol/L Chloride (98-107) mmol/L Carbon Dioxide (22-30) mmol/L BUN (9-20) mg/dL Glucose (74-99) mg/dL POC Glucose (mg/dL) 211 H (75-99) mg/dL Calcium (8.4-10.2) mg/dL Total Bilirubin (0.2-1.3) mg/dL Alkaline Phosphatase (38-126) U/L Total Protein (6.3-8.2) g/dL Albumin (3.5-5.0) g/dL Procalcitonin (0.02-0.09) ng/mL Microbiology - Last 24 Hours (Table) 12/07/21 20:16 Nasal Screen MRSA/MSSA - Preliminary Nasal Swab 12/04/21 19:21 Blood Culture - Preliminary Blood No Growth after 72 hours 12/06/21 23:54 Gram Stain - Preliminary Sputum Sputum Culture - Preliminary 12/06/21 10:25 Blood Culture - Preliminary Blood No Growth after 24 hours 12/06/21 10:31 Blood Culture - Preliminary Blood No Growth after 24 hours Assessment and Plan Assessment: Impression: Acute hypoxic respiratory failure secondary to pneumonia, community-acquired, however the patient is relatively immunocompromised on methotrexate and leflunomide for underlying rheumatoid arthritis. Possibility of interstitial lung disease is not entirely ruled out. Possibility of acute on chronic systolic congestive heart failure is also in the differential. Blood cultures positive for staph epidermidis, repeat blood cultures have been negative and the patient remains on Zosyn. He is off vancomycin. Chronic atrial fibrillation and now the patient has atrial fibrillation with RVR. History of pulmonary embolism, on Xarelto. History of underlying coronary artery disease and previous PCI and stent placement. Ischemic cardiomyopathy and LV dysfunction previous AICD placement in 2016. Former smoker. Rheumatoid arthritis, maintained on methotrexate and leflunomide. Hypotension secondary to sepsis, septic shock, and profound LV dysfunction with ischemic cardiomyopathy. Recommendation: Continue ventilatory support. No plans to wean today, [facility] The day after his admission Continue antibiotics/Zosyn. Continue nutritional support. Continue GI and DVT prophylaxis. Continue hemodynamic support/norepinephrine. Fluid boluses to be given intermittently and IV fluid maintenance was increased. Continue to hold diuretics for now. Continue to hold methotrexate and leflunomide. Continue to monitor blood cultures again. Results of the echocardiogram showed LV dysfunction with ejection fraction around 40% Continue Solu-Medrol Sputum cultures are pending, patient is not an ideal candidate to perform bronchoscopy at this time. But that is to be considered We will continue to follow. Prognosis is extremely poor and guarded. Critical care time is over 30 minutes Time with Patient: Greater than 30
[2021-12-08 12:20] LABS: Glucose,Whole Blood 257 mg/dL (75-99)
[2021-12-08] MEDS: INSULIN ASPART (NovoLOG) 100 UNIT/ML VIAL SQ SCH ×2 (12:29→18:34)
[2021-12-08] MEDS ORDERED: CISATRACURIUM 2 MG/ML 5 ML VIAL IV ONE (15:23)
--- NOTE | 2021-12-08 15:46 | P.PN ---
Subjective She was examined at bedside today not complaining of any new symptomatology as he continues to be intubated and on pressors. Family/ present at bedside all questions were answered. She was unfortunately very tearful I did go over assessment and Hospital course she is agreeable. We will continue to follow along. Continue management as per ICU protocol. Objective - Vital Signs Vital signs: Vital Signs Temp 97.9 F 12/08/21 15:00 Pulse 128 H 12/08/21 15:00 Resp 29 H 12/08/21 15:00 BP 107/59 12/08/21 12:00 Pulse Ox 95 12/08/21 15:00 Intake & Output 12/07/21 12/08/21 12/08/21 18:59 06:59 18:59 Intake Total 9976.107 4230.377 1528.196 Output Total 460 760 605 Balance 1315.126 672.377 923.196 Weight 81.6 kg 84 kg Intake: IV 1190 420 155 0.9 KVO 170 10 Dextrose 5% in Water 1, 20 240 60 000 ml @ 20 mls/hr IV . Q24H [facility] Rx#:[id number] Piperacillin-Tazobactam 3 100 75 .375 gm In Sodium Chloride 0.9% 100 ml @ 25 mls/hr IVPB Q8HR [facility] Rx# :[id number] Sodium Chloride 0.9% 1, 1000 70 20 000 ml @ 10 mls/hr IV . Q24H [facility] Rx#:[id number] Intake, IV Titration 575.126 997.211 5266.196 Amount Dextrose 5%-0.45% NaCl 1, 200 000 ml @ 50 mls/hr IV . Q20H [facility] Rx#:[id number] Norepinephrine 32 mg In 131.824 202.377 114.992 Sodium Chloride 0.9% 218 ml @ 0.05 MCG/KG/MIN 1. 913 mls/hr IV .Q24H [facility] Rx#:[id number] Norepinephrine 4 mg In 254 Sodium Chloride 0.9% 250 ml @ 0.05 MCG/KG/MIN 15. 122 mls/hr IV .[id number] [facility] Rx#:[id number] Sodium Chloride 0.9% 500 500 ml 500 ml @ 999 mls/hr IV .Q31M [facility] Rx#:[id number] propofoL 1,000 mg In 189.302 200 258.204 Empty Bag 1 bag @ 5 MCG/ KG/MIN 2.381 mls/hr IV . Q24H [facility] Rx#:[id number] Tube Feeding 10 210 300 Other 400 Output: Urine 460 760 605 Other: Voiding Method Indwelling Catheter Indwelling Catheter Indwelling Catheter ABP, PAP, CO, CI - Last Documented Arterial Blood Pressure 115/47 - Exam General: Intubated Derm: [warm], [dry] Head: [atraumatic], [normocephalic], [symmetric] Eyes: [EOMI], [no lid lag], [anicteric sclera] Mouth: [no lip lesion], [mucus membranes moist] Cardiovascular: [S1S2 reg], [no murmur], Lungs: [Decreased breath sounds bilateral], [no rhonchi, no rales] , [no acces agusto muscle use] Abdominal: [soft], [ nontender to palpation], [no guarding], [no appreciable organomegaly] Ext: [no gross muscle atrophy], [no edema], [no contractures] Neuro: [no focal neuro deficits] Psych: Intubated - Labs CBC & Chem 7: 12/08/21 04:30 12/08/21 12:15 Labs: Abnormal Lab Results - Last 24 Hours (Table) 12/07/21 12/08/21 12/08/21 Range/Units 17:30 04:30 04:30 RBC 2.89 L (4.30-5.90) m/uL Hgb 9.6 L (13.0-17.5) gm/dL Hct 31.0 L (39.0-53.0) % MCV 107.0 H (80.0-100.0) fL RDW 17.4 H (11.5-15.5) % Neutrophils # 10.0 H (1.3-7.7) k/uL Lymphocytes # 0.2 L (1.0-4.8) k/uL Macrocytosis Marked A ABG pH (7.35-7.45) ABG pO2 (83-108) mmHg ABG O2 Saturation (94-97) % Potassium (3.5-5.1) mmol/L Chloride (98-107) mmol/L Carbon Dioxide (22-30) mmol/L BUN (9-20) mg/dL Glucose (74-99) mg/dL POC Glucose (mg/dL) 152 H (75-99) mg/dL Calcium (8.4-10.2) mg/dL Total Bilirubin (0.2-1.3) mg/dL Alkaline Phosphatase (38-126) U/L Total Protein (6.3-8.2) g/dL Albumin (3.5-5.0) g/dL Procalcitonin 4.11 H (0.02-0.09) ng/mL 12/08/21 12/08/21 12/08/21 Range/Units 04:30 05:54 05:57 RBC (4.30-5.90) m/uL Hgb (13.0-17.5) gm/dL Hct (39.0-53.0) % MCV (80.0-100.0) fL RDW (11.5-15.5) % Neutrophils # (1.3-7.7) k/uL Lymphocytes # (1.0-4.8) k/uL Macrocytosis ABG pH 7.30 L (7.35-7.45) ABG pO2 109 H (83-108) mmHg ABG O2 Saturation 97.1 H (94-97) % Potassium 3.3 L (3.5-5.1) mmol/L Chloride 115 H (98-107) mmol/L Carbon Dioxide 21 L (22-30) mmol/L BUN 28 H (9-20) mg/dL Glucose 212 H (74-99) mg/dL POC Glucose (mg/dL) 211 H (75-99) mg/dL Calcium 7.6 L (8.4-10.2) mg/dL Total Bilirubin 2.1 H (0.2-1.3) mg/dL Alkaline Phosphatase 186 H (38-126) U/L Total Protein 5.1 L (6.3-8.2) g/dL Albumin 2.4 L (3.5-5.0) g/dL Procalcitonin (0.02-0.09) ng/mL 12/08/21 12/08/21 Range/Units 12:15 12:16 RBC (4.30-5.90) m/uL Hgb (13.0-17.5) gm/dL Hct (39.0-53.0) % MCV (80.0-100.0) fL RDW (11.5-15.5) % Neutrophils # (1.3-7.7) k/uL Lymphocytes # (1.0-4.8) k/uL Macrocytosis ABG pH (7.35-7.45) ABG pO2 (83-108) mmHg ABG O2 Saturation (94-97) % Potassium 2.9 L (3.5-5.1) mmol/L Chloride (98-107) mmol/L Carbon Dioxide (22-30) mmol/L BUN (9-20) mg/dL Glucose (74-99) mg/dL POC Glucose (mg/dL) 257 H (75-99) mg/dL Calcium (8.4-10.2) mg/dL Total Bilirubin (0.2-1.3) mg/dL Alkaline Phosphatase (38-126) U/L Total Protein (6.3-8.2) g/dL Albumin (3.5-5.0) g/dL Procalcitonin (0.02-0.09) ng/mL Microbiology - Last 24 Hours (Table) 12/04/21 19:40 Blood Culture Gram Stain - Final Blood Blood Culture - Final Staphylococcus epidermidis 12/06/21 23:54 Gram Stain - Preliminary Sputum Sputum Culture - Preliminary 12/06/21 10:31 Blood Culture - Preliminary Blood No Growth after 48 hours 12/06/21 10:25 Blood Culture - Preliminary Blood No Growth after 48 hours 12/07/21 10:30 Blood Culture - Preliminary Blood No Growth after 24 hours 12/07/21 10:30 Blood Culture - Preliminary Blood No Growth after 24 hours 12/07/21 20:16 Nasal Screen MRSA/MSSA - Preliminary Nasal Swab 12/04/21 19:21 Blood Culture - Preliminary Blood No Growth after 72 hours Assessment and Plan Assessment: Assessment: #Acute hypoxic respiratory failure secondary to community acquired pneumonia #Septic shock secondary to Community acquired pneumonia #Generalized weakness and debility #Macrocytic anemia #Acute kidney injury resolved #Chronic conditions: Atrial flutter, history of PE, rheumatoid arthritis, CHF with AICD and pacemaker, CAD Plan: -Admit to medicine for close monitoring -Aspiration/fall precaution -Intubated in the morning. Mechanical ventilation protocol as per ICU. -Antimicrobials she is to Zosyn. Obtain MRSA surveillance. -Obtain sputum cultures -Patient continues to be on amiodarone. -DVT prophylaxis Xaralto
[2021-12-08] MEDS: RIVAROXABAN 20 MG TAB PO SCH (18:26)
[2021-12-08 18:31] LABS: Glucose,Whole Blood 279 mg/dL (75-99)
[2021-12-08] MEDS: SODIUM CHLORIDE 0.9% 1,000 ML IV SCH (19:13)
[2021-12-08] MEDS ORDERED: AMIODARONE 50 MG/ML 3 ML VIAL IV ONE (19:39)
[2021-12-08] MEDS ORDERED: DEXTROSE 5% IN WATER 50 ML BAG ONE (19:39)
[2021-12-08] MEDS ORDERED: LIDOCAINE 2% SYG (PF) 100 MG/5 ML ONE (19:39)
[2021-12-08] MEDS ORDERED: POTASSIUM CHLORIDE 20 MEQ in WATER FOR INJECTION 1 100ML.BAG IVPB STA (19:49)
[2021-12-08 19:50] LABS: Glucose,Whole Blood 280 mg/dL (75-99)
[2021-12-08] MEDS ORDERED: AMIODARONE 360 MG in DEXTROSE 5% IN WATER 200 ML IV ONE ×2 (19:53)
[2021-12-08] MEDS ORDERED: SODIUM CHLORIDE 0.9% 1,000 ML IV ONE (19:55)
[2021-12-08] MEDS ORDERED: LIDOCAINE-D5W PMX 2G/250ML 2,000 MG in DEXTROSE/WATER 1 250ML.BAG IV SCH (20:00)
[2021-12-08 20:03] LABS: Phosphorus 1.7 mg/dL (2.5-4.5)
[2021-12-08 20:31] LABS: ABG HCO3 21 mmol/L (21-25); ABG Oxygen Saturation 93.8 % (94-97); ABG PCO2 39 mmHg (35-45); ABG PH 7.34 (7.35-7.45); ABG PO2 73 mmHg (83-108); ABG TCO2 22 mmol/L (19-24)
[2021-12-08] MEDS ORDERED: Phosphorus Replacement Protoco 1 EACH MISC MISCELLANE PRN (20:31)
[2021-12-08 20:33] LABS: Allen Test Performed? no
--- NOTE | 2021-12-08 21:03 | XR ---
EXAMINATION TYPE: XR chest 1V portable DATE OF EXAM: 12/08/2021 COMPARISON: Same-day HISTORY: Postcode TECHNIQUE: Single frontal view of the chest is obtained. FINDINGS: There is persistent mild interstitial prominence with superimposed hazy opacity. No pleura l effusion, or pneumothorax seen. The cardiac silhouette size and left AICD are stable. The osseou s structures are intact. Stable tubes. IMPRESSION: Mild interstitial edema with superimposed infiltrates not excluded.
[2021-12-08] MEDS: POTASSIUM PHOSPHATE 10 MMOL in SODIUM CHLORIDE 0.9% 100 ML IV SCH ×2 (21:28→23:30)
[2021-12-08] MEDS: HEPARIN SOD,PORK IN 0.45% NACL 25,000 UNIT in 0.45% NACL 1 250ML.BAG IV SCH (21:45)
[2021-12-08] MEDS ORDERED: POTASSIUM CHLORIDE 20 MEQ in WATER FOR INJECTION 1 100ML.BAG IVPB ONE (22:00)
[2021-12-08] MEDS: METOPROLOL TARTRATE 25 MG TAB PO SCH ×2 (22:05→22:27)
[2021-12-08] MEDS: MORPHINE SULFATE 4 MG/ML SYRINGE IVP PRN (22:34)
--- NOTE | 2021-12-09 00:19 | P.PN ---
Progress Note - Text Progress Note Date: 12/09/21 76 year old male admitted for septic shock 2/2 pneumonia patient went into pulseless Vtach , CODE blue activated, ACLS protocol followed , patient was shocked twice to successful ROSC then patient went into recurrent Vtachs, without losing pulse, requiring multiple cardioversions with no benefit, as he kept going into Vtachs, despite 150 mg bolus of amio patient was started on lidocaine with 80 mg bolus then started on a drip of 1 mg /min patient was stablized after this, blood pressure improved. cardiology notified,
[2021-12-09 00:23] LABS: Glucose,Whole Blood 230 mg/dL (75-99)
[2021-12-09] MEDS: METOPROLOL TARTRATE 5 MG/5 ML VIAL IVP SCH ×5 (00:34→23:41)
[2021-12-09] MEDS: methylPREDNISolone SOD SUCCI 40 MG/ML 1 ML VIAL IV SCH ×4 (00:34→23:41)
[2021-12-09] MEDS: INSULIN ASPART (NovoLOG) 100 UNIT/ML VIAL SQ SCH ×5 (00:35→23:41)
[2021-12-09] MEDS: PIPERACILLIN-TAZOBACTAM 3.375 GM in SODIUM CHLORIDE 0.9% 100 ML IVPB SCH ×4 (00:36→23:41)
[2021-12-09] MEDS ORDERED: INSULIN DETEMIR (LEVEMIR) 100 UNIT/ML SYR SQ ONE (01:26)
[2021-12-09 05:32] LABS: ABG Base Excess -2.2 mmol/L; ABG HCO3 23 mmol/L (21-25); ABG Oxygen Saturation 97.5 % (94-97); ABG PCO2 41 mmHg (35-45); ABG PH 7.36 (7.35-7.45); ABG PO2 110 mmHg (83-108); ABG TCO2 25 mmol/L (19-24)
[2021-12-09 05:33] LABS: Allen Test Performed? no
[2021-12-09 06:20] LABS: Glucose,Whole Blood 196 mg/dL (75-99)
[2021-12-09 06:46] LABS: Anisocytosis Slight; Basophils % (A) 0 %; Eosinophils # (A) 0.1 k/uL (0-0.7); Eosinophils % (A) 0 %; HCT 28.1 % (39.0-53.0); HGB 8.8 gm/dL (13.0-17.5); Hypochromasia Slight; Lymphocytes # (A) 0.4 k/uL (1.0-4.8); Lymphocytes % (A) 2 %; MCH 32.8 pg (25.0-35.0); MCHC 31.4 g/dL (31.0-37.0); MCV 104.6 fL (80.0-100.0); Macrocytosis Moderate; Mean Platelet Volume 8.2; Monocytes # (A) 1.2 k/uL (0-1.0); Monocytes % (A) 7 %; Neutrophils # (A) 14.6 k/uL (1.3-7.7); Neutrophils % (A) 89 %; Platelet Count 273 k/uL (150-450); RBC 2.68 m/uL (4.30-5.90); RDW 16.9 % (11.5-15.5); WBC 16.4 k/uL (3.8-10.6)
[2021-12-09] MEDS: DEXTROSE 5%-0.45% NACL 1,000 ML IV SCH ×2 (06:46→23:46)
[2021-12-09] MEDS ORDERED: AMIODARONE 360 MG in DEXTROSE 5% IN WATER 200 ML IV ONE ×2 (07:00)
[2021-12-09] MEDS: IPRATROPIUM-ALBUTEROL 3 ML NEB INHALATION SCH ×4 (07:21→20:04)
[2021-12-09 07:55] LABS: Albumin 2.2 g/dL (3.5-5.0); Calcium 7.5 mg/dL (8.4-10.2); Magnesium 2.1 mg/dL (1.6-2.3); Phosphorus 2.2 mg/dL (2.5-4.5); Potassium 3.5 mmol/L (3.5-5.1); Total Bilirubin 0.8 mg/dL (0.2-1.3); Total Protein 4.7 g/dL (6.3-8.2)
[2021-12-09] MEDS: POTASSIUM CHLORIDE 20 MEQ in WATER FOR INJECTION 1 100ML.BAG IVPB SCH ×2 (08:19→10:26)
[2021-12-09] MEDS: PANTOPRAZOLE 40 MG TABLET PO SCH (08:25)
[2021-12-09] MEDS: CHOLECALCIFEROL 25 MCG (1000 IU) TABLET PO SCH (08:25)
[2021-12-09] MEDS: ATORVASTATIN 40 MG TAB PO SCH (08:25)
[2021-12-09] MEDS: CHLORHEXIDINE GLUCONATE 15 ML CUP MUCOUS MEM SCH ×2 (08:25→20:00)
[2021-12-09] MEDS: FOLIC ACID 1 MG TAB PO SCH (08:25)
[2021-12-09] MEDS: PATIENT'S OWN (Icosapent Ethyl [Icosapent Ethyl] 1 GM Capsule) PO SCH ×2 (08:52→20:02)
--- NOTE | 2021-12-09 08:55 | XR ---
EXAMINATION TYPE: XR chest 1V portable DATE OF EXAM: 12/09/2021 Comparison: 12/08/2021 Clinical History: 76-year-old male tube placement Findings: ACDF hardware. ET tube satisfactory. NG tube courses below the diaphragm. Left anterior chest wall AI CD generator with right atrial and right ventricular leads. Heart upper limits of normal in size. Int erstitial densities persist with patchy mid and lower lung opacities, relatively unchanged. Possible trace pleural effusion on the right. Impression: Similar interstitial and patchy groundglass infiltrates.
--- NOTE | 2021-12-09 09:29 | CDI ---
Documentation Clarification Form Date: 12/09/2021 09:03:10 AM From: Shelli Zamora RN CCDS Admit Date: 12/04/2021 08:43:00 PM Patient Name: Tang Pratt Visit Number: [id number] Discharge Date: ATTENTION: The Clinical Documentation Specialists (CDI) and [facility] Coding Staff appreciate your assistance in clarifying documentation. Please respond to the clarification below the line at the bottom and electronically sign. The CDI & [facility] Coding staff will review the response and follow-up if needed. Please note: Queries are made part of the Legal Health Record. If you have any questions, please contact the author of this message via ITS. Dr. Shanae Winn DO. Malnutrition is documented 12/07,Cardiology progress note. Additional clarification regarding the severity of malnutrition is requested. History/Risk Factors: 76-year-old male presents to the ED with shortness of breath, cough, weakness and falls at home. reported patient had chills, shakes and high temp the evening prior to ED presentation. Medical history: RA , CHF, Atrial Flutter and Defibrillator. H&P, 12/04 Clinical Indicators: Admitting diagnoses: ISABEL, Dehydration, Sepsis and Atypical pneumonia. RD Consult Assessment: Current BMI: 23.1 Weight: 81.6kg Calculated [place] body weight: 86.183kg Estimated Protein Needs: Estimated protein range (grams/kg) 1.2-2.0. Estimated protein needs (grams/day) 103-107. Estimated Nutritional Needs in Kcals: Energy needs (Kcal) 1920 Nutrition Diagnosis Intake: Intake Energy balance: Predicted suboptimal energy intake. Diagnostic Statement Diagnosis #1 related to intubation, As evidenced by NPO. Treatment: Dietary Consult: See above TPN: Started 12/07 current. Vital High Protein with additional free water flush. Lab monitoring: Chemistry and Hematology Please clarify the type of malnutrition, if known: [ ] Mild Protein-Calorie Malnutrition [ ] Moderate Protein-Calorie Malnutrition [ ] Severe Protein-Calorie Malnutrition [ ] Other condition, please specify [ ] Unable to Determine Moderate Protein-Calorie Malnutrition (Template Last Revised: September 2020) MTDD
--- NOTE | 2021-12-09 10:25 | P.PN ---
Subjective Patient was examined at bedside today. Unfortunately had CODE BLUE last night. Patient was found to be in ventricle tachycardia ACLS protocol was followed. Case discussed with RN present at bedside, was not present today. Patient continues to be intubated, sedated and on pressors. Objective - Vital Signs Vital signs: Vital Signs Temp 98.7 F 12/09/21 08:00 Pulse 80 12/09/21 09:00 Resp 26 H 12/09/21 09:00 BP 114/68 12/09/21 08:00 Pulse Ox 95 12/09/21 09:00 Intake & Output 12/08/21 12/09/21 12/09/21 18:59 06:59 18:59 Intake Total 2189.652 2326.260 371.548 Output Total 883 1400 140 Balance 1306.652 926.260 231.548 Weight 91.8 kg Intake: IV 265 1710 180 0.9 KVO 20 30 Dextrose 5% in Water 1, 60 000 ml @ 20 mls/hr IV . Q24H [facility] Rx#:[id number] Dextrose 5%-0.45% NaCl 1, 550 150 000 ml @ 50 mls/hr IV . Q20H [facility] Rx#:[id number] Piperacillin-Tazobactam 3 175 100 .375 gm In Sodium Chloride 0.9% 100 ml @ 25 mls/hr IVPB Q8HR [facility] Rx# :[id number] Sodium Chloride 0.9% 1, 30 40 000 ml @ 10 mls/hr IV . Q24H [facility] Rx#:[id number] Sodium Chloride 0.9% 1, 1000 000 ml @ 999 mls/hr IV . Q1H1M [facility] Rx#:[id number] Intake, IV Titration 1402.652 560.260 191.548 Amount Dextrose 5%-0.45% NaCl 1, 400 50 000 ml @ 50 mls/hr IV . Q20H [facility] Rx#:[id number] Heparin Sod,Pork in 0.45% 74.088 NaCl 25,000 unit In 0.45 % NaCl 1 250ml.bag @ 12 UNITS/KG/HR 10.08 mls/hr IV .Q24H [facility] Rx#: [id number] Norepinephrine 32 mg In 134.308 136.172 30.409 Sodium Chloride 0.9% 218 ml @ 0.05 MCG/KG/MIN 1. 913 mls/hr IV .Q24H [facility] Rx#:[id number] Sodium Chloride 0.9% 500 500 ml 500 ml @ 999 mls/hr IV .Q31M [facility] Rx#:[id number] propofoL 1,000 mg In 368.344 300.000 161.139 Empty Bag 1 bag @ 5 MCG/ KG/MIN 2.381 mls/hr IV . Q24H [facility] Rx#:[id number] Tube Feeding 492 56 Other 30 Output: Gastric Drainage 650 Urine 880 750 140 Stool 3 Other: Voiding Method Indwelling Catheter Indwelling Catheter ABP, PAP, CO, CI - Last Documented Arterial Blood Pressure 121/52 - Exam General: Intubated Derm: [warm], [dry] Head: [atraumatic], [normocephalic], [symmetric] Eyes: [EOMI], [no lid lag], [anicteric sclera] Mouth: [no lip lesion], [mucus membranes moist] Cardiovascular: [S1S2 reg], [no murmur], Lungs: [Decreased breath sounds bilateral], [no rhonchi, no rales] , [no accessory muscle use] Abdominal: [soft], [ nontender to palpation], [no guarding], [no appreciable organomegaly] Ext: [no gross muscle atrophy], [no edema], [no contractures] Neuro: [no focal neuro deficits] Psych: Intubated Vasques catheter - Labs CBC & Chem 7: 12/09/21 06:20 12/09/21 06:20 Labs: Abnormal Lab Results - Last 24 Hours (Table) 12/08/21 12/08/21 12/08/21 Range/Units 04:30 12:15 12:16 WBC (3.8-10.6) k/uL RBC (4.30-5.90) m/uL Hgb (13.0-17.5) gm/dL Hct (39.0-53.0) % MCV (80.0-100.0) fL RDW (11.5-15.5) % Neutrophils # (1.3-7.7) k/uL Lymphocytes # (1.0-4.8) k/uL Monocytes # (0-1.0) k/uL APTT (22.0-30.0) sec ABG pH (7.35-7.45) ABG pO2 (83-108) mmHg ABG Total CO2 (19-24) mmol/L ABG O2 Saturation (94-97) % Potassium 2.9 L (3.5-5.1) mmol/L Chloride (98-107) mmol/L Carbon Dioxide (22-30) mmol/L BUN (9-20) mg/dL Glucose (74-99) mg/dL POC Glucose (mg/dL) 257 H (75-99) mg/dL Calcium (8.4-10.2) mg/dL Phosphorus (2.5-4.5) mg/dL Alkaline Phosphatase (38-126) U/L Troponin I (0.000-0.034) ng/mL Total Protein (6.3-8.2) g/dL Albumin (3.5-5.0) g/dL Procalcitonin 4.11 H (0.02-0.09) ng/mL 12/08/21 12/08/21 12/08/21 Range/Units 18:28 18:30 19:48 WBC (3.8-10.6) k/uL RBC (4.30-5.90) m/uL Hgb (13.0-17.5) gm/dL Hct (39.0-53.0) % MCV (80.0-100.0) fL RDW (11.5-15.5) % Neutrophils # (1.3-7.7) k/uL Lymphocytes # (1.0-4.8) k/uL Monocytes # (0-1.0) k/uL APTT (22.0-30.0) sec ABG pH (7.35-7.45) ABG pO2 (83-108) mmHg ABG Total CO2 (19-24) mmol/L ABG O2 Saturation (94-97) % Potassium 3.1 L (3.5-5.1) mmol/L Chloride (98-107) mmol/L Carbon Dioxide (22-30) mmol/L BUN (9-20) mg/dL Glucose (74-99) mg/dL POC Glucose (mg/dL) 279 H 280 H (75-99) mg/dL Calcium (8.4-10.2) mg/dL Phosphorus (2.5-4.5) mg/dL Alkaline Phosphatase (38-126) U/L Troponin I (0.000-0.034) ng/mL Total Protein (6.3-8.2) g/dL Albumin (3.5-5.0) g/dL Procalcitonin (0.02-0.09) ng/mL 12/08/21 12/08/21 12/08/21 Range/Units 19:55 19:55 20:29 WBC (3.8-10.6) k/uL RBC (4.30-5.90) m/uL Hgb (13.0-17.5) gm/dL Hct (39.0-53.0) % MCV (80.0-100.0) fL RDW (11.5-15.5) % Neutrophils # (1.3-7.7) k/uL Lymphocytes # (1.0-4.8) k/uL Monocytes # (0-1.0) k/uL APTT (22.0-30.0) sec ABG pH 7.34 L (7.35-7.45) ABG pO2 73 L (83-108) mmHg ABG Total CO2 (19-24) mmol/L ABG O2 Saturation 93.8 L (94-97) % Potassium (3.5-5.1) mmol/L Chloride (98-107) mmol/L Carbon Dioxide (22-30) mmol/L BUN (9-20) mg/dL Glucose (74-99) mg/dL POC Glucose (mg/dL) (75-99) mg/dL Calcium (8.4-10.2) mg/dL Phosphorus 1.7 L (2.5-4.5) mg/dL Alkaline Phosphatase (38-126) U/L Troponin I 0.095 H* (0.000-0.034) ng/mL Total Protein (6.3-8.2) g/dL Albumin (3.5-5.0) g/dL Procalcitonin (0.02-0.09) ng/mL 12/09/21 12/09/21 12/09/21 Range/Units 00:21 02:25 04:08 WBC (3.8-10.6) k/uL RBC (4.30-5.90) m/uL Hgb (13.0-17.5) gm/dL Hct (39.0-53.0) % MCV (80.0-100.0) fL RDW (11.5-15.5) % Neutrophils # (1.3-7.7) k/uL Lymphocytes # (1.0-4.8) k/uL Monocytes # (0-1.0) k/uL APTT 40.5 H (22.0-30.0) sec ABG pH (7.35-7.45) ABG pO2 (83-108) mmHg ABG Total CO2 (19-24) mmol/L ABG O2 Saturation (94-97) % Potassium (3.5-5.1) mmol/L Chloride (98-107) mmol/L Carbon Dioxide (22-30) mmol/L BUN (9-20) mg/dL Glucose (74-99) mg/dL POC Glucose (mg/dL) 230 H (75-99) mg/dL Calcium (8.4-10.2) mg/dL Phosphorus (2.5-4.5) mg/dL Alkaline Phosphatase (38-126) U/L Troponin I 0.223 H* (0.000-0.034) ng/mL Total Protein (6.3-8.2) g/dL Albumin (3.5-5.0) g/dL Procalcitonin (0.02-0.09) ng/mL 12/09/21 12/09/21 12/09/21 Range/Units 05:30 06:18 06:20 WBC 16.4 H (3.8-10.6) k/uL RBC 2.68 L (4.30-5.90) m/uL Hgb 8.8 L (13.0-17.5) gm/dL Hct 28.1 L (39.0-53.0) % MCV 104.6 H (80.0-100.0) fL RDW 16.9 H (11.5-15.5) % Neutrophils # 14.6 H (1.3-7.7) k/uL Lymphocytes # 0.4 L (1.0-4.8) k/uL Monocytes # 1.2 H (0-1.0) k/uL APTT (22.0-30.0) sec ABG pH (7.35-7.45) ABG pO2 110 H (83-108) mmHg ABG Total CO2 25 H (19-24) mmol/L ABG O2 Saturation 97.5 H (94-97) % Potassium (3.5-5.1) mmol/L Chloride (98-107) mmol/L Carbon Dioxide (22-30) mmol/L BUN (9-20) mg/dL Glucose (74-99) mg/dL POC Glucose (mg/dL) 196 H (75-99) mg/dL Calcium (8.4-10.2) mg/dL Phosphorus (2.5-4.5) mg/dL Alkaline Phosphatase (38-126) U/L Troponin I (0.000-0.034) ng/mL Total Protein (6.3-8.2) g/dL Albumin (3.5-5.0) g/dL Procalcitonin (0.02-0.09) ng/mL 12/09/21 12/09/21 Range/Units 06:20 08:44 WBC (3.8-10.6) k/uL RBC (4.30-5.90) m/uL Hgb (13.0-17.5) gm/dL Hct (39.0-53.0) % MCV (80.0-100.0) fL RDW (11.5-15.5) % Neutrophils # (1.3-7.7) k/uL Lymphocytes # (1.0-4.8) k/uL Monocytes # (0-1.0) k/uL APTT (22.0-30.0) sec ABG pH (7.35-7.45) ABG pO2 (83-108) mmHg ABG Total CO2 (19-24) mmol/L ABG O2 Saturation (94-97) % Potassium (3.5-5.1) mmol/L Chloride 117 H (98-107) mmol/L Carbon Dioxide 21 L (22-30) mmol/L BUN 27 H (9-20) mg/dL Glucose 172 H (74-99) mg/dL POC Glucose (mg/dL) (75-99) mg/dL Calcium 7.5 L (8.4-10.2) mg/dL Phosphorus 2.2 L (2.5-4.5) mg/dL Alkaline Phosphatase 173 H (38-126) U/L Troponin I 0.158 H* (0.000-0.034) ng/mL Total Protein 4.7 L (6.3-8.2) g/dL Albumin 2.2 L (3.5-5.0) g/dL Procalcitonin (0.02-0.09) ng/mL Microbiology - Last 24 Hours (Table) 12/06/21 23:54 Gram Stain - Final Sputum Sputum Culture - Final 12/04/21 19:40 Blood Culture Gram Stain - Final Blood Blood Culture - Final Staphylococcus epidermidis 12/04/21 19:21 Blood Culture - Preliminary Blood No Growth after 96 hours 12/06/21 10:31 Blood Culture - Preliminary Blood No Growth after 48 hours 12/06/21 10:25 Blood Culture - Preliminary Blood No Growth after 48 hours 12/07/21 10:30 Blood Culture - Preliminary Blood No Growth after 24 hours 12/07/21 10:30 Blood Culture - Preliminary Blood No Growth after 24 hours Assessment and Plan Assessment: Assessment: #Acute hypoxic respiratory failure secondary to community acquired pneumonia #Septic shock secondary to Community acquired pneumonia #Congestive heart failure with reduced ejection fraction NYHA class III stage C status post AICD #Atrial flutter versus SVT with RVR #History of PE on xaralto at home. #Rheumatoid arthritis on immunosuppressants #CAD Plan: -Admit to medicine for close monitoring -Aspiration/fall precaution -Patient continues to be intubated, on pressors. -Underwent ACLS protocol yesterday for CODE BLUE. Patient was found to be in V. tach without pulse. Was started on lidocaine drip which has been switched back to amiodarone drip today. -I personally reviewed the AICD interrogation with the intake man unlikely that this was V. tach more atrial activity noted. -Continue with IV Zosyn, follow sputum cultures. -Replace electro lites when necessary. -DVT prophylaxis heparin drip - was not present at bedside today. I did have a discussion with her yesterday regarding patient's medical course.
--- NOTE | 2021-12-09 11:11 | P.PN ---
Subjective HISTORY OF PRESENTING ILLNESS Patient is a pleasant 76-year-old male with history of atrial flutter, atrial fibrillation, pulmonary embolism on anticoagulation, rheumatoid arthritis, coronary artery disease with prior PCI, cardiomyopathy with prior AICD, anemia. Patient currently intubated and sedated and therefore history is supplied by chart. Patient had presented for 5-6 weeks of generalized fatigue and weakness. Apparently he is feeling like his legs would give out from under him. No chest pain or pressure. No history of COPD or emphysema or cough. If it stated he did have low-grade fever and some chills and believed he was dehydrated. He apparently had a number of frequent falls. He also has been having increased cough and feels congested. Chest x-ray shows patchy infiltrates bilaterally. Initial workup hemoglobin 10.9, platelets 270, sodium 134, creatinine 1.48, troponin less than 0.012, proBNP the next day 12/05 after receiving IV fluids 1100 with creatinine 1.1, pro-calcitonin 0.87, TSH 0.4, albumin 3.1 and repeat 2 .5. He was found to have staph epidermidis bacteremia one of 2 blood cultures and repeat serum been obtained. He is on antibiotics. Echo shows EF 35-40% with RVSP 51 mild tricuspid regurgitation and no significant mitral disease. Patient initially was given IV fluids with improvement in creatinine from 1.5 to 1.1.9. This was however discontinued and patient placed on IV Lasix this morning, given Lasix 60 mg IV and approximately 1.1 L out. He did have increasing respiratory distress and therefore patient was intubated. Initially EKG shows normal sinus rhythm, left bundle branch block. Patient became tachycardic over the last 4-5 hours with heart rates 120s and 130s. There do appear to be P waves however irregular and likely atrial flutter with RVR. 12/08 Patient seen and examined. CVP reading low 1-3 however this is from the femoral approach. Lasix however were discontinued and he was given IV fluid bolus with improvement in pressure demand. Creatinine has been stable. Remains intubated and sedated. Telemetry reviewed with continued tachycardia with what appears to be P waves unclear sinus versus atrial tachycardia, atrial flutter. Repeat EKG pending. Amiodarone was started however no significant change in HR's 110- 120's. 12/09 Patient seen and examined. Patient with a number of wide-complex tachycardia arrhythmias in the 190s to 200 range with drop in blood pressures down in the 50s requiring cardioversion. Initially patient placed on amiodarone however continue to have episodes and concern of possible ischemic etiology and therefore placed on lidocaine. Additionally given IV pushes of metoprolol with some improvement and also given IV fluids. His AICD was interrogated which did show a number of episodes of tachycardia most of which appeared to be A. fib and atrial flutter with very rapid conduction. One of these was attempted at ATP out of the rhythm however appeared to be AFib with RVR and therefore ATP did not succeed. Additional episodes had P wave prior to his QRS noted on intracrdiac monitors consistent with an atrial flutter/ tachycardia with rapid conduction vs VT with retrograde conduction. Given concern of more of an atrial flutter/fib with RVR he was changed back to amiodarone with the Metorpolol pushes. Current interrogation has shown clear sinus rhythm with 1:1 conduction on intracardiac recording with PAC's. He was given IVF with some improvement in tachycardia. His hypokalemia was replaced. REVIEW OF SYSTEMS At the time of my exam: Unable to obtain secondary to patient being sedated and intubated PHYSICAL EXAMINATION Vital signs reviewed. CONSTITUTIONAL: No apparent distress, ill appearing, sedated and intubated HEENT: Head is normocephalic. Pupils are equal, round. Sclerae anicteric. No JVD. No carotid bruit. +ETT CHEST EXAMINATION: Diffuse rhonchi HEART EXAMINATION: Tachycardic rate and irregular rhythm. S1, S2 heard. No murmurs, gallops or rub. ABDOMEN: Soft, nontender. Positive bowel sounds. EXTREMITIES: 2+ peripheral pulses, no lower extremity edema and no calf tendern ess. NEUROLOGIC EXAMINATION: Patient sedated and intubated. ASSESSMENT 1. Acute on chronic respiratory failure related to bilateral 2. Chronic systolic heart failure exacerbated by atrial flutter with RVR 3. Cardiomyopathy EF 35-40% status post AICD 4. Coronary artery disease with history of PCI, no evidence of acute coronary syndrome 5. Atrial flutter 6. Staph epidermidis bacteremia one of 2 blood cultures 7. Rheumatoid arthritis on immunosuppressants 8. Initial dehydration with acute kidney injury improved with IV fluids 9. Generalized weakness 5-6 weeks, possibly related to pneumonia versus other. 10. Septic shock on vasopressors 11. Anemia 12. Acute kidney injury improved with IV fluids initially 13. Protein calorie malnutrition albumin 2.5. 14. Sinus tachycardia 15. Wide complex tachycardia, some of which were Afib with RVR very fast in the 200's and others which appear to be Atrial flutter with RVR. Possible accessory pathway given high conduction. PLAN Underlying rhythm on interrogation of AICD does show sinus tachycardia with PACs with 1-1 conduction of every P wave, no underlying atrial flutter. Sinus tachycardia somewhat improved with IV fluid hydration. Unfortunately he had a number of episodes of wide-complex tachycardia overnight. Interrogation one of these appears atrial fibrillation with very fast conduction which may be concerning for possible accessory pathway. Other episodes appear 1:1 conduction of an atrial flutter vs VT with retrograde P waves. We will therefore continue amiodarone and BBlocker. May need to male adjustments to AICD programming however continue with current regimen. Replace electrolytes as needed. Continue with supportive care. Prognosis guarded. Objective - Vital Signs Vital signs: Vital Signs Temp 98.7 F 12/09/21 08:00 Pulse 91 12/09/21 10:30 Resp 26 H 12/09/21 10:30 BP 114/68 12/09/21 08:00 Pulse Ox 95 12/09/21 10:30 Intake & Output 12/08/21 12/09/21 12/09/21 18:59 06:59 18:59 Intake Total 2189.652 2326.260 673.771 Output Total 883 1400 170 Balance 1306.652 926.260 503.771 Weight 91.8 kg Intake: IV 265 1710 280 0.9 KVO 20 30 Dextrose 5% in Water 1, 60 000 ml @ 20 mls/hr IV . Q24H [facility] Rx#:[id number] Dextrose 5%-0.45% NaCl 1, 550 150 000 ml @ 50 mls/hr IV . Q20H [facility] Rx#:[id number] Piperacillin-Tazobactam 3 175 100 100 .375 gm In Sodium Chloride 0.9% 100 ml @ 25 mls/hr IVPB Q8HR [facility] Rx# :[id number] Sodium Chloride 0.9% 1, 30 40 000 ml @ 10 mls/hr IV . Q24H [facility] Rx#:[id number] Sodium Chloride 0.9% 1, 1000 000 ml @ 999 mls/hr IV . Q1H1M [facility] Rx#:[id number] Intake, IV Titration 1402.652 560.260 393.771 Amount Dextrose 5%-0.45% NaCl 1, 400 50 000 ml @ 50 mls/hr IV . Q20H [facility] Rx#:[id number] Heparin Sod,Pork in 0.45% 74.088 NaCl 25,000 unit In 0.45 % NaCl 1 250ml.bag @ 12 UNITS/KG/HR 10.08 mls/hr IV .Q24H [facility] Rx#: [id number] Norepinephrine 32 mg In 134.308 136.172 30.409 Sodium Chloride 0.9% 218 ml @ 0.05 MCG/KG/MIN 1. 913 mls/hr IV .Q24H [facility] Rx#:[id number] Potassium Chloride 20 meq 200 In Water For Injection 1 100ml.bag @ 50 mls/hr IVPB Q2H [facility] Rx#: [id number] Sodium Chloride 0.9% 500 500 ml 500 ml @ 999 mls/hr IV .Q31M [facility] Rx#:[id number] propofoL 1,000 mg In 368.344 300.000 163.362 Empty Bag 1 bag @ 5 MCG/ KG/MIN 2.381 mls/hr IV . Q24H [facility] Rx#:[id number] Tube Feeding 492 56 Other 30 Output: Gastric Drainage 650 Urine 880 750 170 Stool 3 Other: Voiding Method Indwelling Catheter Indwelling Catheter ABP, PAP, CO, CI - Last Documented Arterial Blood Pressure 103/49 - Labs CBC & Chem 7: 12/09/21 06:20 12/09/21 06:20 Labs: Abnormal Lab Results - Last 24 Hours (Table) 12/08/21 12/08/21 12/08/21 Range/Units 04:30 12:15 12:16 WBC (3.8-10.6) k/uL RBC (4.30-5.90) m/uL Hgb (13.0-17.5) gm/dL Hct (39.0-53.0) % MCV (80.0-100.0) fL RDW (11.5-15.5) % Neutrophils # (1.3-7.7) k/uL Lymphocytes # (1.0-4.8) k/uL Monocytes # (0-1.0) k/uL APTT (22.0-30.0) sec ABG pH (7.35-7.45) ABG pO2 (83-108) mmHg ABG Total CO2 (19-24) mmol/L ABG O2 Saturation (94-97) % Potassium 2.9 L (3.5-5.1) mmol/L Chloride (98-107) mmol/L Carbon Dioxide (22-30) mmol/L BUN (9-20) mg/dL Glucose (74-99) mg/dL POC Glucose (mg/dL) 257 H (75-99) mg/dL Calcium (8.4-10.2) mg/dL Phosphorus (2.5-4.5) mg/dL Alkaline Phosphatase (38-126) U/L Troponin I (0.000-0.034) ng/mL Total Protein (6.3-8.2) g/dL Albumin (3.5-5.0) g/dL Procalcitonin 4.11 H (0.02-0.09) ng/mL 12/08/21 12/08/21 12/08/21 Range/Units 18:28 18:30 19:48 WBC (3.8-10.6) k/uL RBC (4.30-5.90) m/uL Hgb (13.0-17.5) gm/dL Hct (39.0-53.0) % MCV (80.0-100.0) fL RDW (11.5-15.5) % Neutrophils # (1.3-7.7) k/uL Lymphocytes # (1.0-4.8) k/uL Monocytes # (0-1.0) k/uL APTT (22.0-30.0) sec ABG pH (7.35-7.45) ABG pO2 (83-108) mmHg ABG Total CO2 (19-24) mmol/L ABG O2 Saturation (94-97) % Potassium 3.1 L (3.5-5.1) mmol/L Chloride (98-107) mmol/L Carbon Dioxide (22-30) mmol/L BUN (9-20) mg/dL Glucose (74-99) mg/dL POC Glucose (mg/dL) 279 H 280 H (75-99) mg/dL Calcium (8.4-10.2) mg/dL Phosphorus (2.5-4.5) mg/dL Alkaline Phosphatase (38-126) U/L Troponin I (0.000-0.034) ng/mL Total Protein (6.3-8.2) g/dL Albumin (3.5-5.0) g/dL Procalcitonin (0.02-0.09) ng/mL 12/08/21 12/08/21 12/08/21 Range/Units 19:55 19:55 20:29 WBC (3.8-10.6) k/uL RBC (4.30-5.90) m/uL Hgb (13.0-17.5) gm/dL Hct (39.0-53.0) % MCV (80.0-100.0) fL RDW (11.5-15.5) % Neutrophils # (1.3-7.7) k/uL Lymphocytes # (1.0-4.8) k/uL Monocytes # (0-1.0) k/uL APTT (22.0-30.0) sec ABG pH 7.34 L (7.35-7.45) ABG pO2 73 L (83-108) mmHg ABG Total CO2 (19-24) mmol/L ABG O2 Saturation 93.8 L (94-97) % Potassium (3.5-5.1) mmol/L Chloride (98-107) mmol/L Carbon Dioxide (22-30) mmol/L BUN (9-20) mg/dL Glucose (74-99) mg/dL POC Glucose (mg/dL) (75-99) mg/dL Calcium (8.4-10.2) mg/dL Phosphorus 1.7 L (2.5-4.5) mg/dL Alkaline Phosphatase (38-126) U/L Troponin I 0.095 H* (0.000-0.034) ng/mL Total Protein (6.3-8.2) g/dL Albumin (3.5-5.0) g/dL Procalcitonin (0.02-0.09) ng/mL 12/09/21 12/09/21 12/09/21 Range/Units 00:21 02:25 04:08 WBC (3.8-10.6) k/uL RBC (4.30-5.90) m/uL Hgb (13.0-17.5) gm/dL Hct (39.0-53.0) % MCV (80.0-100.0) fL RDW (11.5-15.5) % Neutrophils # (1.3-7.7) k/uL Lymphocytes # (1.0-4.8) k/uL Monocytes # (0-1.0) k/uL APTT 40.5 H (22.0-30.0) sec ABG pH (7.35-7.45) ABG pO2 (83-108) mmHg ABG Total CO2 (19-24) mmol/L ABG O2 Saturation (94-97) % Potassium (3.5-5.1) mmol/L Chloride (98-107) mmol/L Carbon Dioxide (22-30) mmol/L BUN (9-20) mg/dL Glucose (74-99) mg/dL POC Glucose (mg/dL) 230 H (75-99) mg/dL Calcium (8.4-10.2) mg/dL Phosphorus (2.5-4.5) mg/dL Alkaline Phosphatase (38-126) U/L Troponin I 0.223 H* (0.000-0.034) ng/mL Total Protein (6.3-8.2) g/dL Albumin (3.5-5.0) g/dL Procalcitonin (0.02-0.09) ng/mL 12/09/21 12/09/21 12/09/21 Range/Units 05:30 06:18 06:20 WBC 16.4 H (3.8-10.6) k/uL RBC 2.68 L (4.30-5.90) m/uL Hgb 8.8 L (13.0-17.5) gm/dL Hct 28.1 L (39.0-53.0) % MCV 104.6 H (80.0-100.0) fL RDW 16.9 H (11.5-15.5) % Neutrophils # 14.6 H (1.3-7.7) k/uL Lymphocytes # 0.4 L (1.0-4.8) k/uL Monocytes # 1.2 H (0-1.0) k/uL APTT (22.0-30.0) sec ABG pH (7.35-7.45) ABG pO2 110 H (83-108) mmHg ABG Total CO2 25 H (19-24) mmol/L ABG O2 Saturation 97.5 H (94-97) % Potassium (3.5-5.1) mmol/L Chloride (98-107) mmol/L Carbon Dioxide (22-30) mmol/L BUN (9-20) mg/dL Glucose (74-99) mg/dL POC Glucose (mg/dL) 196 H (75-99) mg/dL Calcium (8.4-10.2) mg/dL Phosphorus (2.5-4.5) mg/dL Alkaline Phosphatase (38-126) U/L Troponin I (0.000-0.034) ng/mL Total Protein (6.3-8.2) g/dL Albumin (3.5-5.0) g/dL Procalcitonin (0.02-0.09) ng/mL 12/09/21 12/09/21 Range/Units 06:20 08:44 WBC (3.8-10.6) k/uL RBC (4.30-5.90) m/uL Hgb (13.0-17.5) gm/dL Hct (39.0-53.0) % MCV (80.0-100.0) fL RDW (11.5-15.5) % Neutrophils # (1.3-7.7) k/uL Lymphocytes # (1.0-4.8) k/uL Monocytes # (0-1.0) k/uL APTT (22.0-30.0) sec ABG pH (7.35-7.45) ABG pO2 (83-108) mmHg ABG Total CO2 (19-24) mmol/L ABG O2 Saturation (94-97) % Potassium (3.5-5.1) mmol/L Chloride 117 H (98-107) mmol/L Carbon Dioxide 21 L (22-30) mmol/L BUN 27 H (9-20) mg/dL Glucose 172 H (74-99) mg/dL POC Glucose (mg/dL) (75-99) mg/dL Calcium 7.5 L (8.4-10.2) mg/dL Phosphorus 2.2 L (2.5-4.5) mg/dL Alkaline Phosphatase 173 H (38-126) U/L Troponin I 0.158 H* (0.000-0.034) ng/mL Total Protein 4.7 L (6.3-8.2) g/dL Albumin 2.2 L (3.5-5.0) g/dL Procalcitonin (0.02-0.09) ng/mL Microbiology - Last 24 Hours (Table) 12/06/21 23:54 Gram Stain - Final Sputum Sputum Culture - Final 12/04/21 19:40 Blood Culture Gram Stain - Final Blood Blood Culture - Final Staphylococcus epidermidis 12/04/21 19:21 Blood Culture - Preliminary Blood No Growth after 96 hours 12/06/21 10:31 Blood Culture - Preliminary Blood No Growth after 48 hours 12/06/21 10:25 Blood Culture - Preliminary Blood No Growth after 48 hours 12/07/21 10:30 Blood Culture - Preliminary Blood No Growth after 24 hours 12/07/21 10:30 Blood Culture - Preliminary Blood No Growth after 24 hours
[2021-12-09 12:06] LABS: Glucose,Whole Blood 183 mg/dL (75-99)
[2021-12-09] MEDS: NOREPINEPHRINE 32 MG in SODIUM CHLORIDE 0.9% 218 ML IV SCH (12:10)
--- NOTE | 2021-12-09 12:32 | P.PN ---
Subjective Progress Note Date: 12/09/21 Principal diagnosis: Acute hypoxic respiratory failure requiring intubation and mechanical ventilation, multifactorial. 76-year-old male, brought into the emergency room, on December 04, by EMS. The patient apparently had been frequently falling, has had generalized weakness, and is also had increasing shortness of breath, and cough. The patient has not been feeling well for at least 3 weeks, and maybe longer. The patient states that he is having a difficult time coughing up any phlegm although he does feel like his chest is congested. The patient denies any chest pain or chest discomfort. There is no nausea, vomiting, or diarrhea. He was evaluated in the emergency department admitted with a diagnosis of pneumonia. We are seeing him in consultation. White count 8.52, hemoglobin 9.3, hematocrit 29.9, and platelet count 223,000. Sodium 137, potassium 4.8, chlorides 111, CO2 15, anion gap 11, BUN 38, creatinine 1.1. Glucose 98. N-terminal proBNP is 1150. Chest x-ray shows patchy bilateral infiltrates, which are worse on the subsequent chest x-ray. The patient has a history of atrial flutter, pulmonary embolism, rheumatoid arthritis, and previous prostate surgery. The patient is also had heart catheterization with stent placement. On 12/06/2021 we received a phone call from the nursing staff with a concern about worsening hypoxia, and patient was satting only 87% on 100% nonrebreather, tachypnea, and increased work of breathing. Stat chest x-ray was obtained showing contained extensive interstitial and patchy peripheral infiltrates. Patient has been afebrile. Blood pressure is 110/64, however he is tachypneic, with a respiratory rate in the 30s. Denies any chest discomfort, denies any cough or phlegm production. Patient was found to be bacteremic, his blood cultures show gram-positive cocci in groups, he is currently on Zosyn and vancom ycin for antibiotic coverage. We were unable to obtain a sputum culture. Blood gas was obtained on 100% nonrebreather showing pO2 of 68, pCO2 of 24, and pH of 7.37. Subsequently patient was placed on BiPAP support with a pressure of 15/5, and FiO2 100%. Neurologically patient is awake and alert, he is answering questions appropriately, he is oriented 3. He is achieving over 1000 mL of tidal volume on the BiPAP support. Still remains quite tachycardic, his minute ventilation is increased. Patient was given a dose of IV Lasix 60 mg times one, he has produced 1.1 L and urine output since then, we'll continue with IV diuretics, we ordered an echocardiogram which is pending at this point. His pro calcitonin level is elevated at 0.87, proBNP was 1150. Reevaluated today on 12/07/2021, patient's condition deteriorated few hours after he was admitted to the ICU yesterday, patient was getting more tachypneic, more tachycardic, and he was developing worsening respiratory distress. His re spiratory rate was up in the 50s according to the nurse will call be about the patient, and the patient was getting extremely agitated and restless, as I recommended immediate intubation and mechanical ventilation. Patient is now intubated, mechanically ventilated, he is sedated and he is on propofol. Patient is on assist control rate of 24 tidal volume 450 FiO2 60% and PEEP of 5. ABG showed a pO2 of 90 pCO2 of 42 pH of 7.33. His FiO2 was cut down. The rest of the vent settings exactly the same. Patient is on IV fluid at KVO, he is requiring norepinephrine at 0.26 mcg/kg/m, he is also on propofol at 50 mcg/kg/m. Again I cut down his FiO2 to 50%. Patient was on Lasix, we cut down the Lasix mostly because of his hypotension and requiring norepinephrine his blood cultures basically showed contamination, positive for staph epidermidis which implies contamination, not true positive blood cultures. Patient remains on Zosyn empirically, and vancomycin was discontinued. Chest x-ray continues to show bilateral interstitial infiltrates/edema and confluent groundglass opacities bilaterally. Not much of a change since admission. Patient remains on Zosyn empirically for presumptive underlying pneumonia especially with his elevated pro calcitonin level. It is not clear to me whether the patient had history of interstitial lung disease related to his rheumatoid arthritis in the past, no old x-rays for comparison to determine whether the findings are new or chronic. Nonetheless the patient remains on antibiotics and on diuretics. Amiodarone was added today by cardiology for his atrial fibrillation with RVR. Patient remains on Xarelto and he has been on Xarelto all along. His echocardiogram showed LV dysfunction with ejection fraction of 35%, and right- sided pressures seems to be elevated at 51.5. Labs today showed WBC count of 11.2 hemoglobin is 9.9. Electrolytes are normal renal profile is normal, pro calcitonin is up to 4.29 Reevaluated today on 12/08/21, patient remains in the ICU, intubated and mechanically ventilated. His norepinephrine is down to 0.38 mcg/kg/m, it was as high as 0.6 mcg/kg/m last night. Patient received fluids received fluid boluses, and his main IV fluid was increased today to 75 mL per hour. Patient remains on assist control rate of 24 tidal volume 450 FiO2 50% and PEEP of 5. Chest x-ray continues to show bilateral interstitial infiltrates. ABG showed a pO2 of 109 pCO2 44 pH of 7.30, hence I increased his rate to 26 cut down her FiO2 to 45%, and increase the flow rate to 65 L/m repeat blood cultures remain negative. His initial blood culture that admission showed contamination/staph epidermidis..In the meantime the patient remains on antibiotics empirically/Zosyn. Patient remains tachycardic, he is on amiodarone, not much change noted in heart rate, ranging anywhere between 120-130, presently 126. This morning went ahead and give another fluid bolus 500 mL, and I changed his IV fluid to D5 45, and discontinued water flushes. All labs were reviewed WBC count is 10.6 hemoglobin is 9.6. Renal profile is normal with a BUN of 28 creatinine 1.05. White carbs 21. Potassium is a bit low at 3.3. Patient remains sedated, and I have no plans to wean and extubate anytime soon a long as he seems to be hemodynamically unstable. Patient is receiving enteral feeding via orogastric tube. Reevaluated today on 12/09/2021, patient remains in the ICU, intubated and mechanically ventilated. Sedated on propofol. Patient had an episode of ventricular tachycardia yesterday, with drop in his blood pressure, required cardioversion 4. Patient was also placed on lidocaine last night after a brief course of CPR and cardioversion, 4. Potassium was noted to be low, being corrected. Patient received fluids during his episode of cardiac arrest. Apparently his AICD was interrogated, and showed a number of episodes of tachycardia mostly appeared to be A. fib and atrial flutter with a very rapid conduction. Patient was placed back on amiodarone, and his lidocaine was discontinued. His hypokalemia is being corrected. Apparently the patient had a relatively downhill course yesterday, but seems to have stabilized today. He is on assist control rate of 26, tidal volume 450 FiO2 45% PEEP of 5. ABG showed a pO2 of 110 pCO2 41 pH of 7.36. Basic metabolic profile is relatively unremarkable, potassium remains a bit low at 3.5. WBC count is 16.4 hemoglobin is 8.8, PTT is 49.4, patient is now off Xarelto and he is receiving IV heparin. Pro calcitonin remains high at 2.40. Chest x-ray continues to show evidence of bilateral interstitial infiltrates sputum cultures are nondiagnostic. Repeat blood cultures since admission have been negative while along. Objective - Vital Signs Vital signs: Vital Signs Temp 98.7 F 12/09/21 12:00 Pulse 81 12/09/21 12:00 Resp 26 H 12/09/21 12:00 BP 106/63 12/09/21 12:00 Pulse Ox 95 12/09/21 12:00 Intake & Output 12/08/21 12/09/21 12/09/21 18:59 06:59 18:59 Intake Total 2189.652 2326.260 861.016 Output Total 883 1400 260 Balance 1306.652 926.260 601.016 Weight 91.8 kg Intake: IV 265 1710 380 0.9 KVO 20 30 Dextrose 5% in Water 1, 60 000 ml @ 20 mls/hr IV . Q24H [facility] Rx#:[id number] Dextrose 5%-0.45% NaCl 1, 550 250 000 ml @ 50 mls/hr IV . Q20H [facility] Rx#:[id number] Piperacillin-Tazobactam 3 175 100 100 .375 gm In Sodium Chloride 0.9% 100 ml @ 25 mls/hr IVPB Q8HR [facility] Rx# :[id number] Sodium Chloride 0.9% 1, 30 40 000 ml @ 10 mls/hr IV . Q24H [facility] Rx#:[id number] Sodium Chloride 0.9% 1, 1000 000 ml @ 999 mls/hr IV . Q1H1M [facility] Rx#:[id number] Intake, IV Titration 1402.652 560.260 411.016 Amount Dextrose 5%-0.45% NaCl 1, 400 50 000 ml @ 50 mls/hr IV . Q20H [facility] Rx#:[id number] Heparin Sod,Pork in 0.45% 74.088 NaCl 25,000 unit In 0.45 % NaCl 1 250ml.bag @ 12 UNITS/KG/HR 10.08 mls/hr IV .Q24H [facility] Rx#: [id number] Norepinephrine 32 mg In 134.308 136.172 47.654 Sodium Chloride 0.9% 218 ml @ 0.05 MCG/KG/MIN 1. 913 mls/hr IV .Q24H [facility] Rx#:[id number] Potassium Chloride 20 meq 200 In Water For Injection 1 100ml.bag @ 50 mls/hr IVPB Q2H [facility] Rx#: [id number] Sodium Chloride 0.9% 500 500 ml 500 ml @ 999 mls/hr IV .Q31M [facility] Rx#:[id number] propofoL 1,000 mg In 368.344 300.000 163.362 Empty Bag 1 bag @ 5 MCG/ KG/MIN 2.381 mls/hr IV . Q24H [facility] Rx#:[id number] Tube Feeding 492 56 40 Other 30 30 Output: Gastric Drainage 650 Urine 880 750 260 Stool 3 Other: Voiding Method Indwelling Catheter Indwelling Catheter ABP, PAP, CO, CI - Last Documented Arterial Blood Pressure 109/49 - Exam Physical Exam: Revealed a 76-year-old white male intubated sedated and mec hanically ventilated on propofol, not in distress, is at bedside. Head: Atraumatic, normocephalic. Endotracheal tube and orogastric tube are intact. Dry mucous membranes noted. HEENT:[Neck is supple.] [No neck masses.] [No thyromegaly.] [No JVD.] Chest: [Symmetrical chest expansion, crackles at the bases bilaterally.] Cardiac Exam: Irregular irregular rhythm, no S3 gallop. Abdomen: [Soft, nontender, no megaly, no rebound, no guarding, normal bowel sounds.] Extremities: [No clubbing, no edema, no cyanosis.] Neurological Exam: Could not assess, patient is fully sedated. Psychiatric: Could not assess, patient is sedated. - Labs CBC & Chem 7: 12/09/21 06:20 12/09/21 06:20 Labs: Abnormal Lab Results - Last 24 Hours (Table) 12/08/21 12/08/21 12/08/21 Range/Units 12:15 18:28 18:30 WBC (3.8-10.6) k/uL RBC (4.30-5.90) m/uL Hgb (13.0-17.5) gm/dL Hct (39.0-53.0) % MCV (80.0-100.0) fL RDW (11.5-15.5) % Neutrophils # (1.3-7.7) k/uL Lymphocytes # (1.0-4.8) k/uL Monocytes # (0-1.0) k/uL APTT (22.0-30.0) sec ABG pH (7.35-7.45) ABG pO2 (83-108) mmHg ABG Total CO2 (19-24) mmol/L ABG O2 Saturation (94-97) % Potassium 2.9 L 3.1 L (3.5-5.1) mmol/L Chloride (98-107) mmol/L Carbon Dioxide (22-30) mmol/L BUN (9-20) mg/dL Glucose (74-99) mg/dL POC Glucose (mg/dL) 279 H (75-99) mg/dL Calcium (8.4-10.2) mg/dL Phosphorus (2.5-4.5) mg/dL Alkaline Phosphatase (38-126) U/L Troponin I (0.000-0.034) ng/mL Total Protein (6.3-8.2) g/dL Albumin (3.5-5.0) g/dL Procalcitonin (0.02-0.09) ng/mL 12/08/21 12/08/21 12/08/21 Range/Units 19:48 19:55 19:55 WBC (3.8-10.6) k/uL RBC (4.30-5.90) m/uL Hgb (13.0-17.5) gm/dL Hct (39.0-53.0) % MCV (80.0-100.0) fL RDW (11.5-15.5) % Neutrophils # (1.3-7.7) k/uL Lymphocytes # (1.0-4.8) k/uL Monocytes # (0-1.0) k/uL APTT (22.0-30.0) sec ABG pH (7.35-7.45) ABG pO2 (83-108) mmHg ABG Total CO2 (19-24) mmol/L ABG O2 Saturation (94-97) % Potassium (3.5-5.1) mmol/L Chloride (98-107) mmol/L Carbon Dioxide (22-30) mmol/L BUN (9-20) mg/dL Glucose (74-99) mg/dL POC Glucose (mg/dL) 280 H (75-99) mg/dL Calcium (8.4-10.2) mg/dL Phosphorus 1.7 L (2.5-4.5) mg/dL Alkaline Phosphatase (38-126) U/L Troponin I 0.095 H* (0.000-0.034) ng/mL Total Protein (6.3-8.2) g/dL Albumin (3.5-5.0) g/dL Procalcitonin (0.02-0.09) ng/mL 12/08/21 12/09/21 12/09/21 Range/Units 20:29 00:21 02:25 WBC (3.8-10.6) k/uL RBC (4.30-5.90) m/uL Hgb (13.0-17.5) gm/dL Hct (39.0-53.0) % MCV (80.0-100.0) fL RDW (11.5-15.5) % Neutrophils # (1.3-7.7) k/uL Lymphocytes # (1.0-4.8) k/uL Monocytes # (0-1.0) k/uL APTT (22.0-30.0) sec ABG pH 7.34 L (7.35-7.45) ABG pO2 73 L (83-108) mmHg ABG Total CO2 (19-24) mmol/L ABG O2 Saturation 93.8 L (94-97) % Potassium (3.5-5.1) mmol/L Chloride (98-107) mmol/L Carbon Dioxide (22-30) mmol/L BUN (9-20) mg/dL Glucose (74-99) mg/dL POC Glucose (mg/dL) 230 H (75-99) mg/dL Calcium (8.4-10.2) mg/dL Phosphorus (2.5-4.5) mg/dL Alkaline Phosphatase (38-126) U/L Troponin I 0.223 H* (0.000-0.034) ng/mL Total Protein (6.3-8.2) g/dL Albumin (3.5-5.0) g/dL Procalcitonin (0.02-0.09) ng/mL 12/09/21 12/09/21 12/09/21 Range/Units 04:08 05:30 06:18 WBC (3.8-10.6) k/uL RBC (4.30-5.90) m/uL Hgb (13.0-17.5) gm/dL Hct (39.0-53.0) % MCV (80.0-100.0) fL RDW (11.5-15.5) % Neutrophils # (1.3-7.7) k/uL Lymphocytes # (1.0-4.8) k/uL Monocytes # (0-1.0) k/uL APTT 40.5 H (22.0-30.0) sec ABG pH (7.35-7.45) ABG pO2 110 H (83-108) mmHg ABG Total CO2 25 H (19-24) mmol/L ABG O2 Saturation 97.5 H (94-97) % Potassium (3.5-5.1) mmol/L Chloride (98-107) mmol/L Carbon Dioxide (22-30) mmol/L BUN (9-20) mg/dL Glucose (74-99) mg/dL POC Glucose (mg/dL) 196 H (75-99) mg/dL Calcium (8.4-10.2) mg/dL Phosphorus (2.5-4.5) mg/dL Alkaline Phosphatase (38-126) U/L Troponin I (0.000-0.034) ng/mL Total Protein (6.3-8.2) g/dL Albumin (3.5-5.0) g/dL Procalcitonin (0.02-0.09) ng/mL 12/09/21 12/09/21 12/09/21 Range/Units 06:20 06:20 06:20 WBC 16.4 H (3.8-10.6) k/uL RBC 2.68 L (4.30-5.90) m/uL Hgb 8.8 L (13.0-17.5) gm/dL Hct 28.1 L (39.0-53.0) % MCV 104.6 H (80.0-100.0) fL RDW 16.9 H (11.5-15.5) % Neutrophils # 14.6 H (1.3-7.7) k/uL Lymphocytes # 0.4 L (1.0-4.8) k/uL Monocytes # 1.2 H (0-1.0) k/uL APTT (22.0-30.0) sec ABG pH (7.35-7.45) ABG pO2 (83-108) mmHg ABG Total CO2 (19-24) mmol/L ABG O2 Saturation (94-97) % Potassium (3.5-5.1) mmol/L Chloride 117 H (98-107) mmol/L Carbon Dioxide 21 L (22-30) mmol/L BUN 27 H (9-20) mg/dL Glucose 172 H (74-99) mg/dL POC Glucose (mg/dL) (75-99) mg/dL Calcium 7.5 L (8.4-10.2) mg/dL Phosphorus 2.2 L (2.5-4.5) mg/dL Alkaline Phosphatase 173 H (38-126) U/L Troponin I (0.000-0.034) ng/mL Total Protein 4.7 L (6.3-8.2) g/dL Albumin 2.2 L (3.5-5.0) g/dL Procalcitonin 2.40 H (0.02-0.09) ng/mL 12/09/21 12/09/21 12/09/21 Range/Units 08:44 11:00 12:05 WBC (3.8-10.6) k/uL RBC (4.30-5.90) m/uL Hgb (13.0-17.5) gm/dL Hct (39.0-53.0) % MCV (80.0-100.0) fL RDW (11.5-15.5) % Neutrophils # (1.3-7.7) k/uL Lymphocytes # (1.0-4.8) k/uL Monocytes # (0-1.0) k/uL APTT 49.4 H (22.0-30.0) sec ABG pH (7.35-7.45) ABG pO2 (83-108) mmHg ABG Total CO2 (19-24) mmol/L ABG O2 Saturation (94-97) % Potassium (3.5-5.1) mmol/L Chloride (98-107) mmol/L Carbon Dioxide (22-30) mmol/L BUN (9-20) mg/dL Glucose (74-99) mg/dL POC Glucose (mg/dL) 183 H (75-99) mg/dL Calcium (8.4-10.2) mg/dL Phosphorus (2.5-4.5) mg/dL Alkaline Phosphatase (38-126) U/L Troponin I 0.158 H* (0.000-0.034) ng/mL Total Protein (6.3-8.2) g/dL Albumin (3.5-5.0) g/dL Procalcitonin (0.02-0.09) ng/mL Microbiology - Last 24 Hours (Table) 12/07/21 20:16 Nasal Screen MRSA/MSSA - Final Nasal Swab 12/06/21 23:54 Gram Stain - Final Sputum Sputum Culture - Final 12/04/21 19:40 Blood Culture Gram Stain - Final Blood Blood Culture - Final Staphylococcus epidermidis 12/04/21 19:21 Blood Culture - Preliminary Blood No Growth after 96 hours 12/06/21 10:31 Blood Culture - Preliminary Blood No Growth after 48 hours 12/06/21 10:25 Blood Culture - Preliminary Blood No Growth after 48 hours 12/07/21 10:30 Blood Culture - Preliminary Blood No Growth after 24 hours 12/07/21 10:30 Blood Culture - Preliminary Blood No Growth after 24 hours Assessment and Plan Assessment: Impression: Acute hypoxic respiratory failure secondary to pneumonia, community-acquired, however the patient is relatively immunocompromised on methotrexate and leflunomide for underlying rheumatoid arthritis. Possibility of interstitial lung disease is not entirely ruled out. Possibility of acute on chronic systolic congestive heart failure is also in the differential. Clearly the presentation was a pulmonary presentation/pneumonia and sepsis., Also septic shock. Blood cultures positive for staph epidermidis, repeat blood cultures have been negative and the patient remains on Zosyn. He is off vancomycin. Chronic atrial fibrillation , paroxysmal atrial flutter with RVR History of pulmonary embolism, patient was on Xarelto now on heparin. History of underlying coronary artery disease and previous PCI and stent placement. Ischemic cardiomyopathy and LV dysfunction previous AICD placement in 2016. Former smoker. Rheumatoid arthritis, maintained on methotrexate and leflunomide. Hypotension secondary to sepsis, septic shock, and profound LV dysfunction with ischemic cardiomyopathy. Wide-complex tachycardia, requiring CPR and cardioversion 4. This was on 12/08/21 Recommendation: Discussed and updated his today at bedside on his condition, and explained to her that the patient is critically ill, but relatively stable at this point. Continue ventilatory support. Not ready for any form of weaning Continue antibiotics/Zosyn. Patient is being followed by infectious disease Continue nutritional support. Continue GI and DVT prophylaxis. Continue hemodynamic support/norepinephrine. Patient is now on 0.18 mcg/kg/m Continue amiodarone as per protocol. Patient is on amiodarone drip at present Continue IV fluids. Continue to hold methotrexate and leflunomide. Results of the echocardiogram showed LV dysfunction with ejection fraction around 40% Continue Solu-Medrol Sputum cultures have been nondiagnostic. We will continue to follow. Prognosis remains poor and guarded Critical care time is over 30 minutes Time with Patient: Greater than 30
[2021-12-09] MEDS: AMIODARONE 450 MG in DEXTROSE 5% IN WATER 250 ML IV SCH ×2 (13:51)
[2021-12-09] MEDS ORDERED: POTASSIUM CHLORIDE 20 MEQ in WATER FOR INJECTION 1 100ML.BAG IVPB ONE (16:00)
[2021-12-09] MEDS: HYDROmorphone 1 MG/ML 1 ML SYRINGE IVP PRN ×2 (16:14→22:34)
[2021-12-09 17:44] LABS: Glucose,Whole Blood 184 mg/dL (75-99)
[2021-12-09] MEDS: SODIUM CHLORIDE 0.9% 1,000 ML IV SCH (17:46)
[2021-12-09] MEDS: HEPARIN SOD,PORK IN 0.45% NACL 25,000 UNIT in 0.45% NACL 1 250ML.BAG IV SCH (17:51)
[2021-12-09 23:41] LABS: Glucose,Whole Blood 204 mg/dL (75-99)
[2021-12-10] MEDS: AMIODARONE 450 MG in DEXTROSE 5% IN WATER 250 ML IV SCH ×2 (03:55)
[2021-12-10 04:10] LABS: Anisocytosis Slight; Basophils % (A) 0 %; Eosinophils % (A) 0 %; HCT 28.8 % (39.0-53.0); HGB 9.2 gm/dL (13.0-17.5); Hypochromasia Slight; Lymphocytes # (A) 0.3 k/uL (1.0-4.8); Lymphocytes % (A) 2 %; MCH 33.4 pg (25.0-35.0); MCHC 31.8 g/dL (31.0-37.0); Macrocytosis Moderate; Mean Platelet Volume 8.8; Monocytes # (A) 1.6 k/uL (0-1.0); Monocytes % (A) 8 %; Neutrophils # (A) 16.3 k/uL (1.3-7.7); Neutrophils % (A) 88 %; Platelet Count 255 k/uL (150-450); RBC 2.75 m/uL (4.30-5.90); RDW 16.9 % (11.5-15.5); WBC 18.5 k/uL (3.8-10.6)
[2021-12-10 04:26] LABS: African American GFR (CKD) >90 (>60 ml/min/1.73 sqM); Anion Gap 3 mmol/L; Blood Urea Nitrogen 28 mg/dL (9-20); Calcium 7.3 mg/dL (8.4-10.2); Carbon Dioxide 22 mmol/L (22-30); Chloride 113 mmol/L (98-107); Glucose 214 mg/dL (74-99); Non-African American GFR(CKD) 84 (>60 ml/min/1.73 sqM); Potassium 4.2 mmol/L (3.5-5.1); Sodium 138 mmol/L (137-145)
[2021-12-10] MEDS: HYDROmorphone 1 MG/ML 1 ML SYRINGE IVP PRN ×3 (04:30→23:45)
[2021-12-10 05:17] LABS: Glucose,Whole Blood 225 mg/dL (75-99)
[2021-12-10] MEDS: METOPROLOL TARTRATE 5 MG/5 ML VIAL IVP SCH (05:18)
[2021-12-10] MEDS: INSULIN ASPART (NovoLOG) 100 UNIT/ML VIAL SQ SCH ×4 (05:18→23:45)
[2021-12-10 05:45] LABS: ABG Base Excess -3.8 mmol/L; ABG HCO3 22 mmol/L (21-25); ABG Oxygen Saturation 97.7 % (94-97); ABG PCO2 43 mmHg (35-45); ABG PH 7.33 (7.35-7.45); ABG PO2 122 mmHg (83-108); ABG TCO2 24 mmol/L (19-24)
[2021-12-10 05:48] LABS: Allen Test Performed? No
--- NOTE | 2021-12-10 07:07 | XR ---
EXAMINATION TYPE: XR chest 1V portable DATE OF EXAM: 12/10/2021 COMPARISON: 12/09/2021 HISTORY: SOB, Follow Up FINDINGS: Indwelling tubes and catheters are unchanged. Scattered reticulonodular infiltrates persist essentially unchanged. Stable appearance of the cardio-mediastinal structures at this time. IMPRESSION: 1. Stable portable chest. Clinical correlation and follow up until resolution is recommended.
[2021-12-10] MEDS: IPRATROPIUM-ALBUTEROL 3 ML NEB INHALATION SCH ×4 (08:03→19:56)
[2021-12-10] MEDS: CHLORHEXIDINE GLUCONATE 15 ML CUP MUCOUS MEM SCH ×2 (08:23→19:46)
[2021-12-10] MEDS: methylPREDNISolone SOD SUCCI 40 MG/ML 1 ML VIAL IV SCH ×3 (08:23→23:45)
[2021-12-10] MEDS: CHOLECALCIFEROL 25 MCG (1000 IU) TABLET PO SCH (08:24)
[2021-12-10] MEDS: ATORVASTATIN 40 MG TAB PO SCH (08:25)
[2021-12-10] MEDS: FOLIC ACID 1 MG TAB PO SCH (08:25)
[2021-12-10] MEDS: PANTOPRAZOLE 40 MG TABLET PO SCH (08:26)
[2021-12-10] MEDS: PIPERACILLIN-TAZOBACTAM 3.375 GM in SODIUM CHLORIDE 0.9% 100 ML IVPB SCH ×3 (08:26→23:45)
[2021-12-10] MEDS: PATIENT'S OWN (Icosapent Ethyl [Icosapent Ethyl] 1 GM Capsule) PO SCH ×2 (08:30→19:41)
[2021-12-10] MEDS: NOREPINEPHRINE 32 MG in SODIUM CHLORIDE 0.9% 218 ML IV SCH (08:33)
[2021-12-10] MEDS: AMIODARONE 200 MG TAB PO SCH ×2 (11:45→19:46)
[2021-12-10] MEDS: METOPROLOL TARTRATE 25 MG TAB PO SCH ×2 (11:45→19:46)
[2021-12-10 11:54] LABS: Glucose,Whole Blood 202 mg/dL (75-99)
--- NOTE | 2021-12-10 12:37 | P.PN ---
Subjective Progress Note Date: 12/10/21 Principal diagnosis: Acute hypoxic respiratory failure requiring intubation and mechanical ventilation, multifactorial. 76-year-old male, brought into the emergency room, on December 04, by EMS. The patient apparently had been frequently falling, has had generalized weakness, and is also had increasing shortness of breath, and cough. The patient has not been feeling well for at least 3 weeks, and maybe longer. The patient states that he is having a difficult time coughing up any phlegm although he does feel like his chest is congested. The patient denies any chest pain or chest discomfort. There is no nausea, vomiting, or diarrhea. He was evaluated in the emergency department admitted with a diagnosis of pneumonia. We are seeing him in consultation. White count 8.52, hemoglobin 9.3, hematocrit 29.9, and platelet count 223,000. Sodium 137, potassium 4.8, chlorides 111, CO2 15, anion gap 11, BUN 38, creatinine 1.1. Glucose 98. N-terminal proBNP is 1150. Chest x-ray shows patchy bilateral infiltrates, which are worse on the subsequent chest x-ray. The patient has a history of atrial flutter, pulmonary embolism, rheumatoid arthritis, and previous prostate surgery. The patient is also had heart catheterization with stent placement. On 12/06/2021 we received a phone call from the nursing staff with a concern about worsening hypoxia, and patient was satting only 87% on 100% nonrebreather, tachypnea, and increased work of breathing. Stat chest x-ray was obtained showing contained extensive interstitial and patchy peripheral infiltrates. Patient has been afebrile. Blood pressure is 110/64, however he is tachypneic, with a respiratory rate in the 30s. Denies any chest discomfort, denies any cough or phlegm production. Patient was found to be bacteremic, his blood cultures show gram-positive cocci in groups, he is currently on Zosyn and vancom ycin for antibiotic coverage. We were unable to obtain a sputum culture. Blood gas was obtained on 100% nonrebreather showing pO2 of 68, pCO2 of 24, and pH of 7.37. Subsequently patient was placed on BiPAP support with a pressure of 15/5, and FiO2 100%. Neurologically patient is awake and alert, he is answering questions appropriately, he is oriented 3. He is achieving over 1000 mL of tidal volume on the BiPAP support. Still remains quite tachycardic, his minute ventilation is increased. Patient was given a dose of IV Lasix 60 mg times one, he has produced 1.1 L and urine output since then, we'll continue with IV diuretics, we ordered an echocardiogram which is pending at this point. His pro calcitonin level is elevated at 0.87, proBNP was 1150. Reevaluated today on 12/07/2021, patient's condition deteriorated few hours after he was admitted to the ICU yesterday, patient was getting more tachypneic, more tachycardic, and he was developing worsening respiratory distress. His re spiratory rate was up in the 50s according to the nurse will call be about the patient, and the patient was getting extremely agitated and restless, as I recommended immediate intubation and mechanical ventilation. Patient is now intubated, mechanically ventilated, he is sedated and he is on propofol. Patient is on assist control rate of 24 tidal volume 450 FiO2 60% and PEEP of 5. ABG showed a pO2 of 90 pCO2 of 42 pH of 7.33. His FiO2 was cut down. The rest of the vent settings exactly the same. Patient is on IV fluid at KVO, he is requiring norepinephrine at 0.26 mcg/kg/m, he is also on propofol at 50 mcg/kg/m. Again I cut down his FiO2 to 50%. Patient was on Lasix, we cut down the Lasix mostly because of his hypotension and requiring norepinephrine his blood cultures basically showed contamination, positive for staph epidermidis which implies contamination, not true positive blood cultures. Patient remains on Zosyn empirically, and vancomycin was discontinued. Chest x-ray continues to show bilateral interstitial infiltrates/edema and confluent groundglass opacities bilaterally. Not much of a change since admission. Patient remains on Zosyn empirically for presumptive underlying pneumonia especially with his elevated pro calcitonin level. It is not clear to me whether the patient had history of interstitial lung disease related to his rheumatoid arthritis in the past, no old x-rays for comparison to determine whether the findings are new or chronic. Nonetheless the patient remains on antibiotics and on diuretics. Amiodarone was added today by cardiology for his atrial fibrillation with RVR. Patient remains on Xarelto and he has been on Xarelto all along. His echocardiogram showed LV dysfunction with ejection fraction of 35%, and right- sided pressures seems to be elevated at 51.5. Labs today showed WBC count of 11.2 hemoglobin is 9.9. Electrolytes are normal renal profile is normal, pro calcitonin is up to 4.29 Reevaluated today on 12/08/21, patient remains in the ICU, intubated and mechanically ventilated. His norepinephrine is down to 0.38 mcg/kg/m, it was as high as 0.6 mcg/kg/m last night. Patient received fluids received fluid boluses, and his main IV fluid was increased today to 75 mL per hour. Patient remains on assist control rate of 24 tidal volume 450 FiO2 50% and PEEP of 5. Chest x-ray continues to show bilateral interstitial infiltrates. ABG showed a pO2 of 109 pCO2 44 pH of 7.30, hence I increased his rate to 26 cut down her FiO2 to 45%, and increase the flow rate to 65 L/m repeat blood cultures remain negative. His initial blood culture that admission showed contamination/staph epidermidis..In the meantime the patient remains on antibiotics empirically/Zosyn. Patient remains tachycardic, he is on amiodarone, not much change noted in heart rate, ranging anywhere between 120-130, presently 126. This morning went ahead and give another fluid bolus 500 mL, and I changed his IV fluid to D5 45, and discontinued water flushes. All labs were reviewed WBC count is 10.6 hemoglobin is 9.6. Renal profile is normal with a BUN of 28 creatinine 1.05. White carbs 21. Potassium is a bit low at 3.3. Patient remains sedated, and I have no plans to wean and extubate anytime soon a long as he seems to be hemodynamically unstable. Patient is receiving enteral feeding via orogastric tube. Reevaluated today on 12/09/2021, patient remains in the ICU, intubated and mechanically ventilated. Sedated on propofol. Patient had an episode of ventricular tachycardia yesterday, with drop in his blood pressure, required cardioversion 4. Patient was also placed on lidocaine last night after a brief course of CPR and cardioversion, 4. Potassium was noted to be low, being corrected. Patient received fluids during his episode of cardiac arrest. Apparently his AICD was interrogated, and showed a number of episodes of tachycardia mostly appeared to be A. fib and atrial flutter with a very rapid conduction. Patient was placed back on amiodarone, and his lidocaine was discontinued. His hypokalemia is being corrected. Apparently the patient had a relatively downhill course yesterday, but seems to have stabilized today. He is on assist control rate of 26, tidal volume 450 FiO2 45% PEEP of 5. ABG showed a pO2 of 110 pCO2 41 pH of 7.36. Basic metabolic profile is relatively unremarkable, potassium remains a bit low at 3.5. WBC count is 16.4 hemoglobin is 8.8, PTT is 49.4, patient is now off Xarelto and he is receiving IV heparin. Pro calcitonin remains high at 2.40. Chest x-ray continues to show evidence of bilateral interstitial infiltrates sputum cultures are nondiagnostic. Repeat blood cultures since admission have been negative while along. Reevaluated today on 12/10/21 patient remains in the ICU, intubated and mechanically ventilated. Patient is on assist control rate of 26 to 07/27/1948 FiO2 45% PEEP of 5 ABG showed a pO2 of 122 pCO2 43 pH of 7.33 hence the patient FiO2 was cut down to 40%. Patient remains on norepinephrine at 0.2 mcg/kg/m, propofol at 6:00 ventricular per minute amiodarone at 0.5 mg/m patient is sedated, and today I have recommended sedation interruption, and assessment of mental status at least. Chest x-ray continues to bilateral interstitial infiltrates, clinically the patient is not ready for weaning. But I would recommend sedation interruption and assessment of mental status today. Patient is in atrial fibrillation rate is controlled about 90. No further episodes of cardiac arrest since the last episode he had 2 days ago. Remains on heparin dr ip. Patient is also on enteral feeding for nutritional support. He is on GI and DVT prophylaxis WBC count is 18.5 hemoglobin 9.2. PTT is 51. Basic metabolic profile is normal renal profile is normal. Objective - Vital Signs Vital signs: Vital Signs Temp 98.2 F 12/10/21 12:00 Pulse 115 H 12/10/21 12:00 Resp 24 12/10/21 12:00 BP 107/57 12/10/21 12:00 Pulse Ox 94 L 12/10/21 12:00 Intake & Output 12/09/21 12/10/21 12/10/21 18:59 06:59 18:59 Intake Total 3353.942 9027.592 1037.405 Output Total 705 1035 325 Balance 3460.157 4490.592 712.405 Weight 91.8 kg 93.894 kg 93.894 kg Intake: IV 780 770 260 0.9 KVO 30 Dextrose 5%-0.45% NaCl 1, 550 650 250 000 ml @ 50 mls/hr IV . Q20H [facility] Rx#:[id number] Piperacillin-Tazobactam 3 200 .375 gm In Sodium Chloride 0.9% 100 ml @ 25 mls/hr IVPB Q8HR [facility] Rx# :[id number] Sodium Chloride 0.9% 1, 120 10 000 ml @ 10 mls/hr IV . Q24H [facility] Rx#:[id number] Intake, IV Titration 900.946 719.592 587.405 Amount Amiodarone 450 mg In 234.449 129.725 Dextrose 5% in Water 250 ml @ 0.5 MG/MIN 16.667 mls/hr IV .Q15H [facility] Rx#: [id number] Heparin Sod,Pork in 0.45% 149.94 NaCl 25,000 unit In 0.45 % NaCl 1 250ml.bag @ 12 UNITS/KG/HR 10.08 mls/hr IV .Q24H [facility] Rx#: [id number] Lidocaine-D5w Pmx 2G/ 177 250Ml 2,000 mg In Dextrose/Water 1 250ml. bag @ 1 MG/MIN 7.5 mls/hr IV .Q24H [facility] Rx#: [id number] Norepinephrine 32 mg In 98.382 17.054 157.680 Sodium Chloride 0.9% 218 ml @ 0.05 MCG/KG/MIN 1. 913 mls/hr IV .Q24H [facility] Rx#:[id number] Piperacillin-Tazobactam 3 100 .375 gm In Sodium Chloride 0.9% 100 ml @ 25 mls/hr IVPB Q8HR [facility] Rx# :[id number] Potassium Chloride 20 meq 100 In Water For Injection 1 100ml.bag @ 50 mls/hr IVPB ONCE ONE Rx#: [id number] Potassium Chloride 20 meq 200 In Water For Injection 1 100ml.bag @ 50 mls/hr IVPB Q2H [facility] Rx#: [id number] propofoL 1,000 mg In 352.624 291.089 200.000 Empty Bag 1 bag @ 5 MCG/ KG/MIN 2.381 mls/hr IV . Q24H [facility] Rx#:[id number] Tube Feeding 160 476 190 Other 60 90 Output: Urine 705 1035 325 Other: Voiding Method Indwelling Catheter Indwelling Catheter Indwelling Catheter ABP, PAP, CO, CI - Last Documented Arterial Blood Pressure 130/55 - Exam Physical Exam: Revealed a 76-year-old white male intubated sedated and mechanically ventilated on propofol, in no distress patient is sedated. Head: Atraumatic, normocephalic. Endotracheal tube and orogastric tube are intact. Dry mucous membranes noted. HEENT:[Neck is supple.] [No neck masses.] [No thyromegaly.] [No JVD.] Chest: [Symmetrical chest expansion, crackles at the bases bilaterally.] Cardiac Exam: Irregular irregular rhythm, no S3 gallop. 2/6 systolic murmur thought the precordium. Abdomen: [Soft, nontender, no megaly, no rebound, no guarding, normal bowel sounds.] Extremities: [No clubbing, no edema, no cyanosis.] Neurological Exam: Could not assess, patient is fully sedated. Psychiatric: Could not assess, patient is sedated. - Labs CBC & Chem 7: 12/10/21 04:00 12/10/21 04:00 Labs: Abnormal Lab Results - Last 24 Hours (Table) 12/09/21 12/09/21 12/10/21 Range/Units 17:43 23:38 04:00 WBC 18.5 H (3.8-10.6) k/uL RBC 2.75 L (4.30-5.90) m/uL Hgb 9.2 L (13.0-17.5) gm/dL Hct 28.8 L (39.0-53.0) % MCV 105.0 H (80.0-100.0) fL RDW 16.9 H (11.5-15.5) % Neutrophils # 16.3 H (1.3-7.7) k/uL Lymphocytes # 0.3 L (1.0-4.8) k/uL Monocytes # 1.6 H (0-1.0) k/uL APTT (22.0-30.0) sec ABG pH (7.35-7.45) ABG pO2 (83-108) mmHg ABG O2 Saturation (94-97) % Chloride (98-107) mmol/L BUN (9-20) mg/dL Glucose (74-99) mg/dL POC Glucose (mg/dL) 184 H 204 H (75-99) mg/dL Calcium (8.4-10.2) mg/dL 12/10/21 12/10/21 12/10/21 Range/Units 04:00 04:00 05:16 WBC (3.8-10.6) k/uL RBC (4.30-5.90) m/uL Hgb (13.0-17.5) gm/dL Hct (39.0-53.0) % MCV (80.0-100.0) fL RDW (11.5-15.5) % Neutrophils # (1.3-7.7) k/uL Lymphocytes # (1.0-4.8) k/uL Monocytes # (0-1.0) k/uL APTT 50.6 H (22.0-30.0) sec ABG pH (7.35-7.45) ABG pO2 (83-108) mmHg ABG O2 Saturation (94-97) % Chloride 113 H (98-107) mmol/L BUN 28 H (9-20) mg/dL Glucose 214 H (74-99) mg/dL POC Glucose (mg/dL) 225 H (75-99) mg/dL Calcium 7.3 L (8.4-10.2) mg/dL 12/10/21 12/10/21 Range/Units 05:21 11:52 WBC (3.8-10.6) k/uL RBC (4.30-5.90) m/uL Hgb (13.0-17.5) gm/dL Hct (39.0-53.0) % MCV (80.0-100.0) fL RDW (11.5-15.5) % Neutrophils # (1.3-7.7) k/uL Lymphocytes # (1.0-4.8) k/uL Monocytes # (0-1.0) k/uL APTT (22.0-30.0) sec ABG pH 7.33 L (7.35-7.45) ABG pO2 122 H (83-108) mmHg ABG O2 Saturation 97.7 H (94-97) % Chloride (98-107) mmol/L BUN (9-20) mg/dL Glucose (74-99) mg/dL POC Glucose (mg/dL) 202 H (75-99) mg/dL Calcium (8.4-10.2) mg/dL Microbiology - Last 24 Hours (Table) 12/04/21 19:40 Blood Culture Gram Stain - Final Blood Blood Culture - Final Staphylococcus epidermidis 12/04/21 19:21 Blood Culture - Preliminary Blood No Growth after 120 hours 12/06/21 10:25 Blood Culture - Preliminary Blood No Growth after 72 hours 12/06/21 10:31 Blood Culture - Preliminary Blood No Growth after 72 hours 12/07/21 10:30 Blood Culture - Preliminary Blood No Growth after 48 hours 12/07/21 10:30 Blood Culture - Preliminary Blood No Growth after 48 hours 12/07/21 20:16 Nasal Screen MRSA/MSSA - Final Nasal Swab 12/06/21 23:54 Gram Stain - Final Sputum Sputum Culture - Final Assessment and Plan Assessment: Impression: Acute hypoxic respiratory failure secondary to pneumonia, community-acquired, however the patient is relatively immunocompromised on methotrexate and leflunomide for underlying rheumatoid arthritis. Possibility of interstitial lung disease is not entirely ruled out. Possibility of acute on chronic systolic congestive heart failure is also in the differential. Clearly the presentation was a pulmonary presentation/pneumonia and sepsis., Also septic shock. Blood cultures positive for staph epidermidis, repeat blood cultures have been negative and the patient remains on Zosyn. He is off vancomycin. Chronic atrial fibrillation , paroxysmal atrial flutter with RVR History of pulmonary embolism, patient was on Xarelto now on heparin. History of underlying coronary artery disease and previous PCI and stent placement. Ischemic cardiomyopathy and LV dysfunction previous AICD placement in 2016. Former smoker. Rheumatoid arthritis, maintained on methotrexate and leflunomide. Hypotension secondary to sepsis, septic shock, and profound LV dysfunction with ischemic cardiomyopathy. Patient remains on norepinephrine for Wide-complex tachycardia, requiring CPR and cardioversion 4. This was on 12/08/21 Recommendation: Continue ventilatory support. Not ready for any form of weaning however the patient would have interruption of sedation today, and assessment of mental status. Continue antibiotics/Zosyn. Patient is being followed by infectious disease cultures have been nondiagnostic. Continue nutritional support. Continue GI and DVT prophylaxis. Continue hemodynamic support/norepinephrine. Patient is now on 0.2 mcg/kg/m Continue amiodarone as per protocol. Patient is on amiodarone drip at present Continue IV fluids. Continue to hold methotrexate and leflunomide. Results of the echocardiogram showed LV dysfunction with ejection fraction around 40% Continue Solu-Medrol Sputum cultures have been nondiagnostic. We will continue to follow. Prognosis remains poor and guarded Critical care time is over 30 minutes Time with Patient: Greater than 30
--- NOTE | 2021-12-10 15:45 | P.PN ---
Subjective Progress Note Date: 12/08/21 Principal diagnosis: Sepsis Patient is 76 year old male presenting to the hospital with generalized weakness and fall symptom has been going on for a few weeks before presentation hospital patient did have a worsening of respiratory status requiring intubation Fosamax and on today's evaluation that is 12/08/2021, the patient is afebrile, the patient is hemodynamically stable, FiO2 is currently at 50%, no significant purulent secretions with 80 diarrhea or any other changes reported by the nursing staff Objective - Vital Signs Vital signs: Vital Signs Temp 98.3 F 12/08/21 12:00 Pulse 130 H 12/08/21 14:30 Resp 30 H 12/08/21 14:30 BP 107/59 12/08/21 12:00 Pulse Ox 95 12/08/21 14:30 Intake & Output 12/07/21 12/08/21 12/08/21 18:59 06:59 18:59 Intake Total 1925.055 7853.377 1468.820 Output Total 460 760 605 Balance 1315.126 672.377 863.820 Weight 81.6 kg 84 kg Intake: IV 1190 420 155 0.9 KVO 170 10 Dextrose 5% in Water 1, 20 240 60 000 ml @ 20 mls/hr IV . Q24H [facility] Rx#:[id number] Piperacillin-Tazobactam 3 100 75 .375 gm In Sodium Chloride 0.9% 100 ml @ 25 mls/hr IVPB Q8HR [facility] Rx# :[id number] Sodium Chloride 0.9% 1, 1000 70 20 000 ml @ 10 mls/hr IV . Q24H [facility] Rx#:[id number] Intake, IV Titration 575.126 690.402 1781.820 Amount Dextrose 5%-0.45% NaCl 1, 200 000 ml @ 50 mls/hr IV . Q20H [facility] Rx#:[id number] Norepinephrine 32 mg In 131.824 202.377 114.992 Sodium Chloride 0.9% 218 ml @ 0.05 MCG/KG/MIN 1. 913 mls/hr IV .Q24H [facility] Rx#:[id number] Norepinephrine 4 mg In 254 Sodium Chloride 0.9% 250 ml @ 0.05 MCG/KG/MIN 15. 122 mls/hr IV .[id number] [facility] Rx#:[id number] Sodium Chloride 0.9% 500 500 ml 500 ml @ 999 mls/hr IV .Q31M [facility] Rx#:[id number] propofoL 1,000 mg In 189.302 200 198.828 Empty Bag 1 bag @ 5 MCG/ KG/MIN 2.381 mls/hr IV . Q24H [facility] Rx#:[id number] Tube Feeding 10 210 300 Other 400 Output: Urine 460 760 605 Other: Voiding Method Indwelling Catheter Indwelling Catheter Indwelling Catheter ABP, PAP, CO, CI - Last Documented Arterial Blood Pressure 113/47 - Exam GENERAL DESCRIPTION: An elderly male intubated on the vent RESPIRATORY SYSTEM: Unlabored breathing , decreased breath sounds at bases HEART: S1 S2 regular rate and rhythm , ABDOMEN: Soft , no tenderness EXTREMITIES: No edema feet - Labs CBC & Chem 7: 12/10/21 04:00 12/10/21 04:00 Labs: Abnormal Lab Results - Last 24 Hours (Table) 12/07/21 12/08/21 12/08/21 Range/Units 17:30 04:30 04:30 RBC 2.89 L (4.30-5.90) m/uL Hgb 9.6 L (13.0-17.5) gm/dL Hct 31.0 L (39.0-53.0) % MCV 107.0 H (80.0-100.0) fL RDW 17.4 H (11.5-15.5) % Neutrophils # 10.0 H (1.3-7.7) k/uL Lymphocytes # 0.2 L (1.0-4.8) k/uL Macrocytosis Marked A ABG pH (7.35-7.45) ABG pO2 (83-108) mmHg ABG O2 Saturation (94-97) % Potassium (3.5-5.1) mmol/L Chloride (98-107) mmol/L Carbon Dioxide (22-30) mmol/L BUN (9-20) mg/dL Glucose (74-99) mg/dL POC Glucose (mg/dL) 152 H (75-99) mg/dL Calcium (8.4-10.2) mg/dL Total Bilirubin (0.2-1.3) mg/dL Alkaline Phosphatase (38-126) U/L Total Protein (6.3-8.2) g/dL Albumin (3.5-5.0) g/dL Procalcitonin 4.11 H (0.02-0.09) ng/mL 12/08/21 12/08/21 12/08/21 Range/Units 04:30 05:54 05:57 RBC (4.30-5.90) m/uL Hgb (13.0-17.5) gm/dL Hct (39.0-53.0) % MCV (80.0-100.0) fL RDW (11.5-15.5) % Neutrophils # (1.3-7.7) k/uL Lymphocytes # (1.0-4.8) k/uL Macrocytosis ABG pH 7.30 L (7.35-7.45) ABG pO2 109 H (83-108) mmHg ABG O2 Saturation 97.1 H (94-97) % Potassium 3.3 L (3.5-5.1) mmol/L Chloride 115 H (98-107) mmol/L Carbon Dioxide 21 L (22-30) mmol/L BUN 28 H (9-20) mg/dL Glucose 212 H (74-99) mg/dL POC Glucose (mg/dL) 211 H (75-99) mg/dL Calcium 7.6 L (8.4-10.2) mg/dL Total Bilirubin 2.1 H (0.2-1.3) mg/dL Alkaline Phosphatase 186 H (38-126) U/L Total Protein 5.1 L (6.3-8.2) g/dL Albumin 2.4 L (3.5-5.0) g/dL Procalcitonin (0.02-0.09) ng/mL 12/08/21 12/08/21 Range/Units 12:15 12:16 RBC (4.30-5.90) m/uL Hgb (13.0-17.5) gm/dL Hct (39.0-53.0) % MCV (80.0-100.0) fL RDW (11.5-15.5) % Neutrophils # (1.3-7.7) k/uL Lymphocytes # (1.0-4.8) k/uL Macrocytosis ABG pH (7.35-7.45) ABG pO2 (83-108) mmHg ABG O2 Saturation (94-97) % Potassium 2.9 L (3.5-5.1) mmol/L Chloride (98-107) mmol/L Carbon Dioxide (22-30) mmol/L BUN (9-20) mg/dL Glucose (74-99) mg/dL POC Glucose (mg/dL) 257 H (75-99) mg/dL Calcium (8.4-10.2) mg/dL Total Bilirubin (0.2-1.3) mg/dL Alkaline Phosphatase (38-126) U/L Total Protein (6.3-8.2) g/dL Albumin (3.5-5.0) g/dL Procalcitonin (0.02-0.09) ng/mL Microbiology - Last 24 Hours (Table) 12/04/21 19:40 Blood Culture Gram Stain - Final Blood Blood Culture - Final Staphylococcus epidermidis 12/06/21 23:54 Gram Stain - Preliminary Sputum Sputum Culture - Preliminary 12/06/21 10:31 Blood Culture - Preliminary Blood No Growth after 48 hours 12/06/21 10:25 Blood Culture - Preliminary Blood No Growth after 48 hours 12/07/21 10:30 Blood Culture - Preliminary Blood No Growth after 24 hours 12/07/21 10:30 Blood Culture - Preliminary Blood No Growth after 24 hours 12/07/21 20:16 Nasal Screen MRSA/MSSA - Preliminary Nasal Swab 12/04/21 19:21 Blood Culture - Preliminary Blood No Growth after 72 hours Assessment and Plan (1) Pneumonia Current Visit: Yes Status: Acute Code(s): J18.9 - PNEUMONIA, UNSPECIFIED ORGANISM SNOMED Code(s): 767955106 Plan: 1patient with acute respiratory failure which is likely multifactorial in this patient admitted to the hospital with frequent falls and weakness now with concern for possible pneumonia and a question of aspiration etiology. 2 sputum for gram stain and culture has been obtained and is also followed. 3positive blood culture with staph epi likely skin contamination, repeat blood culture negative so far 4obtain a sputum for gram stain and culture. 5patient to continue the patient on Zosyn 3.375 g every 8 hours Time with Patient: Less than 30
--- NOTE | 2021-12-10 15:48 | P.PN ---
Subjective Progress Note Date: 12/09/21 Principal diagnosis: Sepsis Patient is 76 year old male presenting to the hospital with generalized weakness and fall symptom has been going on for a few weeks before presentation hospital patient did have a worsening of respiratory status requiring intubation, patient did have a pulseless V. tach CODE BLUE after midnight on 12/09/2021 for the patient has received shock IV fluid on today's evaluation that is 12/09/2021, the patient remains to be afebrile, the patient is requiring pressor support, the patient FiO2 is currently stable at 50%, no significant purulent secretions through the ET or diarrhea or any other changes reported by the nursing staff Objective - Vital Signs Vital signs: Vital Signs Temp 98.7 F 12/09/21 12:00 Pulse 101 H 12/09/21 15:00 Resp 34 H 12/09/21 15:00 BP 106/63 12/09/21 12:00 Pulse Ox 95 12/09/21 15:00 Intake & Output 12/08/21 12/09/21 12/09/21 18:59 06:59 18:59 Intake Total 2189.652 2326.260 1233.995 Output Total 883 1400 510 Balance 1306.652 926.260 723.995 Weight 91.8 kg 91.8 kg Intake: IV 265 1710 530 0.9 KVO 20 30 Dextrose 5% in Water 1, 60 000 ml @ 20 mls/hr IV . Q24H [facility] Rx#:[id number] Dextrose 5%-0.45% NaCl 1, 550 400 000 ml @ 50 mls/hr IV . Q20H [facility] Rx#:[id number] Piperacillin-Tazobactam 3 175 100 100 .375 gm In Sodium Chloride 0.9% 100 ml @ 25 mls/hr IVPB Q8HR [facility] Rx# :[id number] Sodium Chloride 0.9% 1, 30 40 000 ml @ 10 mls/hr IV . Q24H [facility] Rx#:[id number] Sodium Chloride 0.9% 1, 1000 000 ml @ 999 mls/hr IV . Q1H1M [facility] Rx#:[id number] Intake, IV Titration 1402.652 560.260 573.995 Amount Dextrose 5%-0.45% NaCl 1, 400 50 000 ml @ 50 mls/hr IV . Q20H [facility] Rx#:[id number] Heparin Sod,Pork in 0.45% 74.088 NaCl 25,000 unit In 0.45 % NaCl 1 250ml.bag @ 12 UNITS/KG/HR 10.08 mls/hr IV .Q24H [facility] Rx#: [id number] Norepinephrine 32 mg In 134.308 136.172 61.361 Sodium Chloride 0.9% 218 ml @ 0.05 MCG/KG/MIN 1. 913 mls/hr IV .Q24H [facility] Rx#:[id number] Potassium Chloride 20 meq 200 In Water For Injection 1 100ml.bag @ 50 mls/hr IVPB Q2H [facility] Rx#: [id number] Sodium Chloride 0.9% 500 500 ml 500 ml @ 999 mls/hr IV .Q31M [facility] Rx#:[id number] propofoL 1,000 mg In 368.344 300.000 312.634 Empty Bag 1 bag @ 5 MCG/ KG/MIN 2.381 mls/hr IV . Q24H [facility] Rx#:[id number] Tube Feeding 492 56 100 Other 30 30 Output: Gastric Drainage 650 Urine 880 750 510 Stool 3 Other: Voiding Method Indwelling Catheter Indwelling Catheter Indwelling Catheter ABP, PAP, CO, CI - Last Documented Arterial Blood Pressure 119/51 - Exam GENERAL DESCRIPTION: An elderly male intubated on the vent RESPIRATORY SYSTEM: Unlabored breathing , decreased breath sounds at bases HEART: S1 S2 regular rate and rhythm , ABDOMEN: Soft , no tenderness EXTREMITIES: No edema feet - Labs CBC & Chem 7: 12/10/21 04:00 12/10/21 04:00 Labs: Abnormal Lab Results - Last 24 Hours (Table) 12/08/21 12/08/21 12/08/21 Range/Units 18:28 18:30 19:48 WBC (3.8-10.6) k/uL RBC (4.30-5.90) m/uL Hgb (13.0-17.5) gm/dL Hct (39.0-53.0) % MCV (80.0-100.0) fL RDW (11.5-15.5) % Neutrophils # (1.3-7.7) k/uL Lymphocytes # (1.0-4.8) k/uL Monocytes # (0-1.0) k/uL APTT (22.0-30.0) sec ABG pH (7.35-7.45) ABG pO2 (83-108) mmHg ABG Total CO2 (19-24) mmol/L ABG O2 Saturation (94-97) % Potassium 3.1 L (3.5-5.1) mmol/L Chloride (98-107) mmol/L Carbon Dioxide (22-30) mmol/L BUN (9-20) mg/dL Glucose (74-99) mg/dL POC Glucose (mg/dL) 279 H 280 H (75-99) mg/dL Calcium (8.4-10.2) mg/dL Phosphorus (2.5-4.5) mg/dL Alkaline Phosphatase (38-126) U/L Troponin I (0.000-0.034) ng/mL Total Protein (6.3-8.2) g/dL Albumin (3.5-5.0) g/dL Procalcitonin (0.02-0.09) ng/mL 12/08/21 12/08/21 12/08/21 Range/Units 19:55 19:55 20:29 WBC (3.8-10.6) k/uL RBC (4.30-5.90) m/uL Hgb (13.0-17.5) gm/dL Hct (39.0-53.0) % MCV (80.0-100.0) fL RDW (11.5-15.5) % Neutrophils # (1.3-7.7) k/uL Lymphocytes # (1.0-4.8) k/uL Monocytes # (0-1.0) k/uL APTT (22.0-30.0) sec ABG pH 7.34 L (7.35-7.45) ABG pO2 73 L (83-108) mmHg ABG Total CO2 (19-24) mmol/L ABG O2 Saturation 93.8 L (94-97) % Potassium (3.5-5.1) mmol/L Chloride (98-107) mmol/L Carbon Dioxide (22-30) mmol/L BUN (9-20) mg/dL Glucose (74-99) mg/dL POC Glucose (mg/dL) (75-99) mg/dL Calcium (8.4-10.2) mg/dL Phosphorus 1.7 L (2.5-4.5) mg/dL Alkaline Phosphatase (38-126) U/L Troponin I 0.095 H* (0.000-0.034) ng/mL Total Protein (6.3-8.2) g/dL Albumin (3.5-5.0) g/dL Procalcitonin (0.02-0.09) ng/mL 12/09/21 12/09/21 12/09/21 Range/Units 00:21 02:25 04:08 WBC (3.8-10.6) k/uL RBC (4.30-5.90) m/uL Hgb (13.0-17.5) gm/dL Hct (39.0-53.0) % MCV (80.0-100.0) fL RDW (11.5-15.5) % Neutrophils # (1.3-7.7) k/uL Lymphocytes # (1.0-4.8) k/uL Monocytes # (0-1.0) k/uL APTT 40.5 H (22.0-30.0) sec ABG pH (7.35-7.45) ABG pO2 (83-108) mmHg ABG Total CO2 (19-24) mmol/L ABG O2 Saturation (94-97) % Potassium (3.5-5.1) mmol/L Chloride (98-107) mmol/L Carbon Dioxide (22-30) mmol/L BUN (9-20) mg/dL Glucose (74-99) mg/dL POC Glucose (mg/dL) 230 H (75-99) mg/dL Calcium (8.4-10.2) mg/dL Phosphorus (2.5-4.5) mg/dL Alkaline Phosphatase (38-126) U/L Troponin I 0.223 H* (0.000-0.034) ng/mL Total Protein (6.3-8.2) g/dL Albumin (3.5-5.0) g/dL Procalcitonin (0.02-0.09) ng/mL 12/09/21 12/09/21 12/09/21 Range/Units 05:30 06:18 06:20 WBC (3.8-10.6) k/uL RBC (4.30-5.90) m/uL Hgb (13.0-17.5) gm/dL Hct (39.0-53.0) % MCV (80.0-100.0) fL RDW (11.5-15.5) % Neutrophils # (1.3-7.7) k/uL Lymphocytes # (1.0-4.8) k/uL Monocytes # (0-1.0) k/uL APTT (22.0-30.0) sec ABG pH (7.35-7.45) ABG pO2 110 H (83-108) mmHg ABG Total CO2 25 H (19-24) mmol/L ABG O2 Saturation 97.5 H (94-97) % Potassium (3.5-5.1) mmol/L Chloride (98-107) mmol/L Carbon Dioxide (22-30) mmol/L BUN (9-20) mg/dL Glucose (74-99) mg/dL POC Glucose (mg/dL) 196 H (75-99) mg/dL Calcium (8.4-10.2) mg/dL Phosphorus (2.5-4.5) mg/dL Alkaline Phosphatase (38-126) U/L Troponin I (0.000-0.034) ng/mL Total Protein (6.3-8.2) g/dL Albumin (3.5-5.0) g/dL Procalcitonin 2.40 H (0.02-0.09) ng/mL 12/09/21 12/09/21 12/09/21 Range/Units 06:20 06:20 08:44 WBC 16.4 H (3.8-10.6) k/uL RBC 2.68 L (4.30-5.90) m/uL Hgb 8.8 L (13.0-17.5) gm/dL Hct 28.1 L (39.0-53.0) % MCV 104.6 H (80.0-100.0) fL RDW 16.9 H (11.5-15.5) % Neutrophils # 14.6 H (1.3-7.7) k/uL Lymphocytes # 0.4 L (1.0-4.8) k/uL Monocytes # 1.2 H (0-1.0) k/uL APTT (22.0-30.0) sec ABG pH (7.35-7.45) ABG pO2 (83-108) mmHg ABG Total CO2 (19-24) mmol/L ABG O2 Saturation (94-97) % Potassium (3.5-5.1) mmol/L Chloride 117 H (98-107) mmol/L Carbon Dioxide 21 L (22-30) mmol/L BUN 27 H (9-20) mg/dL Glucose 172 H (74-99) mg/dL POC Glucose (mg/dL) (75-99) mg/dL Calcium 7.5 L (8.4-10.2) mg/dL Phosphorus 2.2 L (2.5-4.5) mg/dL Alkaline Phosphatase 173 H (38-126) U/L Troponin I 0.158 H* (0.000-0.034) ng/mL Total Protein 4.7 L (6.3-8.2) g/dL Albumin 2.2 L (3.5-5.0) g/dL Procalcitonin (0.02-0.09) ng/mL 12/09/21 12/09/21 Range/Units 11:00 12:05 WBC (3.8-10.6) k/uL RBC (4.30-5.90) m/uL Hgb (13.0-17.5) gm/dL Hct (39.0-53.0) % MCV (80.0-100.0) fL RDW (11.5-15.5) % Neutrophils # (1.3-7.7) k/uL Lymphocytes # (1.0-4.8) k/uL Monocytes # (0-1.0) k/uL APTT 49.4 H (22.0-30.0) sec ABG pH (7.35-7.45) ABG pO2 (83-108) mmHg ABG Total CO2 (19-24) mmol/L ABG O2 Saturation (94-97) % Potassium (3.5-5.1) mmol/L Chloride (98-107) mmol/L Carbon Dioxide (22-30) mmol/L BUN (9-20) mg/dL Glucose (74-99) mg/dL POC Glucose (mg/dL) 183 H (75-99) mg/dL Calcium (8.4-10.2) mg/dL Phosphorus (2.5-4.5) mg/dL Alkaline Phosphatase (38-126) U/L Troponin I (0.000-0.034) ng/mL Total Protein (6.3-8.2) g/dL Albumin (3.5-5.0) g/dL Procalcitonin (0.02-0.09) ng/mL Microbiology - Last 24 Hours (Table) 12/06/21 10:25 Blood Culture - Preliminary Blood No Growth after 72 hours 12/06/21 10:31 Blood Culture - Preliminary Blood No Growth after 72 hours 12/07/21 10:30 Blood Culture - Preliminary Blood No Growth after 48 hours 12/07/21 10:30 Blood Culture - Preliminary Blood No Growth after 48 hours 12/07/21 20:16 Nasal Screen MRSA/MSSA - Final Nasal Swab 12/06/21 23:54 Gram Stain - Final Sputum Sputum Culture - Final 12/04/21 19:40 Blood Culture Gram Stain - Final Blood Blood Culture - Final Staphylococcus epidermidis 12/04/21 19:21 Blood Culture - Preliminary Blood No Growth after 96 hours Assessment and Plan (1) Bacteremia Current Visit: Yes Status: Acute Code(s): R78.81 - BACTEREMIA SNOMED Code(s): 4860650 (2) Pneumonia Current Visit: Yes Status: Acute Code(s): J18.9 - PNEUMONIA, UNSPECIFIED ORGANISM SNOMED Code(s): 801038633 Plan: 1patient with acute respiratory failure which is likely multifactorial in this patient admitted to the hospital with frequent falls and weakness now with concern for possible pneumonia and a question of aspiration etiology. 2 positive blood culture with staph epi likely skin contamination, repeat blood culture negative so far 4 sputum for gram stain and culture are currently pending. 5patient to continue the patient on Zosyn 3.375 g every 8 hours and monitor clinical course closely Time with Patient: Less than 30
--- NOTE | 2021-12-10 15:49 | P.PN ---
Subjective Progress Note Date: 12/10/21 Principal diagnosis: Sepsis Patient is 76 year old male presenting to the hospital with generalized weakness and fall symptom has been going on for a few weeks before presentation hospital patient did have a worsening of respiratory status requiring intubation, patient did have a pulseless V. tach CODE BLUE after midnight on 12/09/2021 for the patient has received shock IV fluid on today's evaluation that is 12/10/2021, the patient continues to be afebrile, the patient is requiring less pressor support per the nursing staff, the patient FiO2 is down to 40 %, no significant purulent secretions through the ET or diarrhea or any other changes reported by the nursing staff Objective - Vital Signs Vital signs: Vital Signs Temp 98.2 F 12/10/21 12:00 Pulse 115 H 12/10/21 12:00 Resp 24 12/10/21 12:00 BP 107/57 12/10/21 12:00 Pulse Ox 94 L 12/10/21 12:00 Intake & Output 12/09/21 12/10/21 12/10/21 18:59 06:59 18:59 Intake Total 9471.173 1434.592 1037.405 Output Total 705 1035 325 Balance 8477.342 3776.592 712.405 Weight 91.8 kg 93.894 kg 93.894 kg Intake: IV 780 770 260 0.9 KVO 30 Dextrose 5%-0.45% NaCl 1, 550 650 250 000 ml @ 50 mls/hr IV . Q20H [facility] Rx#:[id number] Piperacillin-Tazobactam 3 200 .375 gm In Sodium Chloride 0.9% 100 ml @ 25 mls/hr IVPB Q8HR [facility] Rx# :[id number] Sodium Chloride 0.9% 1, 120 10 000 ml @ 10 mls/hr IV . Q24H [facility] Rx#:[id number] Intake, IV Titration 900.946 719.592 587.405 Amount Amiodarone 450 mg In 234.449 129.725 Dextrose 5% in Water 250 ml @ 0.5 MG/MIN 16.667 mls/hr IV .Q15H [facility] Rx#: [id number] Heparin Sod,Pork in 0.45% 149.94 NaCl 25,000 unit In 0.45 % NaCl 1 250ml.bag @ 12 UNITS/KG/HR 10.08 mls/hr IV .Q24H [facility] Rx#: [id number] Lidocaine-D5w Pmx 2G/ 177 250Ml 2,000 mg In Dextrose/Water 1 250ml. bag @ 1 MG/MIN 7.5 mls/hr IV .Q24H [facility] Rx#: [id number] Norepinephrine 32 mg In 98.382 17.054 157.680 Sodium Chloride 0.9% 218 ml @ 0.05 MCG/KG/MIN 1. 913 mls/hr IV .Q24H [facility] Rx#:[id number] Piperacillin-Tazobactam 3 100 .375 gm In Sodium Chloride 0.9% 100 ml @ 25 mls/hr IVPB Q8HR [facility] Rx# :[id number] Potassium Chloride 20 meq 100 In Water For Injection 1 100ml.bag @ 50 mls/hr IVPB ONCE [facility] Rx#: [id number] Potassium Chloride 20 meq 200 In Water For Injection 1 100ml.bag @ 50 mls/hr IVPB Q2H [facility] Rx#: [id number] propofoL 1,000 mg In 352.624 291.089 200.000 Empty Bag 1 bag @ 5 MCG/ KG/MIN 2.381 mls/hr IV . Q24H [facility] Rx#:[id number] Tube Feeding 160 476 190 Other 60 90 Output: Urine 705 1035 325 Other: Voiding Method Indwelling Catheter Indwelling Catheter Indwelling Catheter ABP, PAP, CO, CI - Last Documented Arterial Blood Pressure 130/55 - Exam GENERAL DESCRIPTION: An elderly male intubated on the vent RESPIRATORY SYSTEM: Unlabored breathing , decreased breath sounds at bases HEART: S1 S2 regular rate and rhythm , ABDOMEN: Soft , no tenderness EXTREMITIES: No edema feet - Labs CBC & Chem 7: 12/10/21 04:00 12/10/21 04:00 Labs: Abnormal Lab Results - Last 24 Hours (Table) 12/09/21 12/09/21 12/10/21 Range/Units 17:43 23:38 04:00 WBC 18.5 H (3.8-10.6) k/uL RBC 2.75 L (4.30-5.90) m/uL Hgb 9.2 L (13.0-17.5) gm/dL Hct 28.8 L (39.0-53.0) % MCV 105.0 H (80.0-100.0) fL RDW 16.9 H (11.5-15.5) % Neutrophils # 16.3 H (1.3-7.7) k/uL Lymphocytes # 0.3 L (1.0-4.8) k/uL Monocytes # 1.6 H (0-1.0) k/uL APTT (22.0-30.0) sec ABG pH (7.35-7.45) ABG pO2 (83-108) mmHg ABG O2 Saturation (94-97) % Chloride (98-107) mmol/L BUN (9-20) mg/dL Glucose (74-99) mg/dL POC Glucose (mg/dL) 184 H 204 H (75-99) mg/dL Calcium (8.4-10.2) mg/dL 12/10/21 12/10/21 12/10/21 Range/Units 04:00 04:00 05:16 WBC (3.8-10.6) k/uL RBC (4.30-5.90) m/uL Hgb (13.0-17.5) gm/dL Hct (39.0-53.0) % MCV (80.0-100.0) fL RDW (11.5-15.5) % Neutrophils # (1.3-7.7) k/uL Lymphocytes # (1.0-4.8) k/uL Monocytes # (0-1.0) k/uL APTT 50.6 H (22.0-30.0) sec ABG pH (7.35-7.45) ABG pO2 (83-108) mmHg ABG O2 Saturation (94-97) % Chloride 113 H (98-107) mmol/L BUN 28 H (9-20) mg/dL Glucose 214 H (74-99) mg/dL POC Glucose (mg/dL) 225 H (75-99) mg/dL Calcium 7.3 L (8.4-10.2) mg/dL 12/10/21 12/10/21 Range/Units 05:21 11:52 WBC (3.8-10.6) k/uL RBC (4.30-5.90) m/uL Hgb (13.0-17.5) gm/dL Hct (39.0-53.0) % MCV (80.0-100.0) fL RDW (11.5-15.5) % Neutrophils # (1.3-7.7) k/uL Lymphocytes # (1.0-4.8) k/uL Monocytes # (0-1.0) k/uL APTT (22.0-30.0) sec ABG pH 7.33 L (7.35-7.45) ABG pO2 122 H (83-108) mmHg ABG O2 Saturation 97.7 H (94-97) % Chloride (98-107) mmol/L BUN (9-20) mg/dL Glucose (74-99) mg/dL POC Glucose (mg/dL) 202 H (75-99) mg/dL Calcium (8.4-10.2) mg/dL Microbiology - Last 24 Hours (Table) 12/06/21 10:25 Blood Culture - Preliminary Blood No Growth after 96 hours 12/07/21 10:30 Blood Culture - Preliminary Blood No Growth after 72 hours 12/07/21 10:30 Blood Culture - Preliminary Blood No Growth after 72 hours 12/04/21 19:40 Blood Culture Gram Stain - Final Blood Blood Culture - Final Staphylococcus epidermidis 12/04/21 19:21 Blood Culture - Preliminary Blood No Growth after 120 hours 12/06/21 10:31 Blood Culture - Preliminary Blood No Growth after 72 hours 12/07/21 20:16 Nasal Screen MRSA/MSSA - Final Nasal Swab 12/06/21 23:54 Gram Stain - Final Sputum Sputum Culture - Final Assessment and Plan (1) Bacteremia Current Visit: Yes Status: Acute Code(s): R78.81 - BACTEREMIA SNOMED Code(s): 1039767 (2) Pneumonia Current Visit: Yes Status: Acute Code(s): J18.9 - PNEUMONIA, UNSPECIFIED ORGANISM SNOMED Code(s): 203593941 Plan: 1patient with acute respiratory failure which is likely multifactorial in this patient admitted to the hospital with frequent falls and weakness now with concern for possible pneumonia and a question of aspiration etiology. 2 positive blood culture with staph epi likely skin contamination, repeat blood culture negative 4 sputum for gram stain and culture so far negative 5patient did have some clinical improvement and will continue the patient on Zosyn 3.375 g every 8 hours, family the bedside questions were answered Time with Patient: Less than 30
--- NOTE | 2021-12-10 16:23 | P.PN ---
Subjective Progress Note Date: 12/10/21 Principal diagnosis: fatigue Patient is a 76-year-old with history of A. fib on Xarelto, rheumatoid arthritis, congestive heart failure, prior pulmonary embolism who initially presented with 4 weeks of weakness and fatigue. In the ER he underwent an extensive evaluation. He was found to have pneumonia and acute kidney injury. He was started on Rocephin and Zithromax area pulmonary was consulted. He was also discovered that he has a history of congestive heart failure in his interest and Aldactone were restarted. His O2 sat decreased and he started to require 100% nonrebreather. He was given a dose of Lasix and diuretics were continued. He was transferred to the ICU on 12/06. His respirations continued to worsen and he ultimately required BiPAP and then intubation. He then developed A. fib with RVR cardiology was consulted and started on IV amiodarone. He did have a set of blood cultures for ultimately determined to be a contaminant with staph epi. On 12/09 unit early a.m. he went into pulseless V. tach requiring multiple cardioversions and he was ultimately started on lidocaine. Cardiology was notified. He was transitioned off the lidocaine drip and back onto amiodarone and Lopressor. He continued to improve. Imaging: CXR: mild cardiomegaly, interstitial opacities CT Brain: mild age related atrophy Echo: EF 35-40% Patient seen and examined with nursing present. He is off sedation but not following commands. Levo stopped 1/2 prior General: non toxic, moderate distress, appears at stated age Derm: warm, dry Head: atraumatic, normocephalic, symmetric Eyes: EOMI, no lid lag, anicteric sclera Mouth: no lip lesion, mucus membranes moist Cardiovascular: S1S2 reg, no murmur, positive posterior tibial pulse bilateral, Lungs: Course bs bilateral, no rhonchi, no rales , + accessory muscle use Abdominal: soft, nontender to palpation, no guarding, no appreciable organomegaly Ext: no gross muscle atrophy, no edema, no contractures Neuro: Breathing over the vent, not following commands, no with drawal to pain, PER-sluggishly reactive to light Psych:unresponisve on vent Assessment/Plan: Community-acquired pneumonia Acute hypoxic respiratory failure Immunocompromized due to RA on Methotrexate and Leflunomide - pulm recs on vent - zosyn - ID recs - steroids - broncodilators Systolic cardiomyopathy with AICD A flutter/fib with RVR V tach vs A fib with abbarency arrest - amio, lopressor - statin - not on ACEI with hypotension Acute encehlaopathy- metabolic vs hypoxic - conitnue off sedation, monitor for improvement - if no improvement consult neurology Chronic: Macrocytic anemia Pulmonary embolism Rheumatoid arthritis GERD Dyslipidemia ISABEL, resolved DVT prophylaxis: heparin gtt Discussed with: nursing Anticipated discharge: undetermined Anticipated discharge place: SNF vs [facility] A total of 65 minutes was spent on the care of this complex patient more than 50% of the time was spent in counseling and care coordination. Active Medications Generic Name Dose Route Start Last Admin Trade Name Freq PRN Reason Stop Dose Admin Albuterol/Ipratropium 3 ml 12/05/21 16:00 12/10/21 16:07 Ipratropium-Albuterol 3 Ml Neb INHALATION 3 ml RT-QID [facility] Administration Amiodarone HCl 400 mg 12/10/21 11:15 12/10/21 11:45 Amiodarone 200 Mg Tab PO 400 mg BID [facility] Administration Atorvastatin Calcium 40 mg 12/05/21 09:00 12/10/21 08:25 Atorvastatin 40 Mg Tab PO 40 mg DAILY [facility] Administration Chlorhexidine Gluconate 15 ml 12/07/21 09:00 12/10/21 08:23 Chlorhexidine Gluconate 15 Ml Cup MUCOUS MEM 15 ml BID [facility] Administration Cholecalciferol 50 mcg 12/05/21 09:00 12/10/21 08:24 Cholecalciferol 25 Mcg (1000 Iu) Tablet PO 50 mcg DAILY [facility] Administration Folic Acid 1 mg 12/05/21 09:00 12/10/21 08:25 Folic Acid 1 Mg Tab PO 1 mg DAILY [facility] Administration Hydromorphone HCl 1 mg 12/09/21 16:05 12/10/21 04:30 Hydromorphone 1 Mg/Ml 1 Ml Syringe IVP 1 mg Q3H PRN Administration Pain Sodium Chloride 1,000 mls @ 10 mls/hr 12/04/21 20:45 12/09/21 17:46 Saline 0.9% IV 10 mls/hr .Q24H [facility] Administration Piperacillin Sod/Tazobactam 100 mls @ 25 mls/hr 12/06/21 08:45 12/10/21 16:00 Sod 3.375 gm/ Sodium Chloride IVPB 25 mls/hr Q8HR [facility] Administration Protocol Propofol 1,000 mg/ IV Solution 100 mls @ 2.381 mls/hr 12/06/21 21:15 12/10/21 11:41 IV Infused .Q24H [facility] Titration Protocol 5 MCG/KG/MIN Norepinephrine Bitartrate 32 250 mls @ 1.913 mls/hr 12/07/21 10:00 12/10/21 14:18 mg/ Sodium Chloride IV 0 mcg/kg/min .Q24H [facility] 0 mls/hr Titration Protocol 0.05 MCG/KG/MIN Dextrose/Sodium Chloride 1,000 mls @ 50 mls/hr 12/08/21 09:45 12/09/21 23:46 Dextrose 5%-1/2ns Iv Soln IV 50 mls/hr .Q20H [facility] Administration Heparin Sodium/Sodium Chloride 250 mls @ 10.08 mls/hr 12/08/21 21:00 12/09/21 17:51 25,000 unit/ Sodium Chloride IV 14 units/kg/hr .Q24H [facility] 11.76 mls/hr Administration Protocol 12 UNITS/KG/HR Insulin Aspart 0 unit 12/08/21 12:00 12/10/21 11:53 Insulin Aspart (Novolog) 100 Unit/Ml Vial SQ 100 unit Q6H [facility] Administration Protocol Methylprednisolone Sodium Succinate 40 mg 12/07/21 16:00 12/10/21 16:00 Methylprednisolone Sod Succi 40 Mg/Ml 1 Ml Vial IV 40 mg Q8HR [facility] Administration Metoprolol Tartrate 25 mg 12/10/21 11:15 12/10/21 11:45 Metoprolol Tartrate 25 Mg Tab PO 25 mg BID [facility] Administration Miscellaneous Information 1 each 12/04/21 20:43 Pneumonia Protocol Utilized 1 Each Misc PO ONCE PRN Per Protocol Miscellaneous Information 1 each 12/07/21 08:40 Potassium Replacement Protocol 1 Each Misc MISCELLANE DAILY PRN Per Protocol Protocol Miscellaneous Information 1 each 12/08/21 20:31 Phosphorus Replacement Protoco 1 Each Misc MISCELLANE DAILY PRN Per Protocol Protocol Morphine Sulfate 4 mg 12/06/21 09:58 12/08/21 22:34 Morphine Sulfate 4 Mg/Ml Syringe IVP 4 mg Q4HR PRN Administration Pain Patient's Own ( 2 gm 12/04/21 21:00 12/10/21 08:30 Icosapent Ethyl [ PO Not Given Icosapent Ethyl] 1 BID [facility] Gm Capsule) Pantoprazole Sodium 40 mg 12/05/21 09:00 12/10/21 08:26 Pantoprazole 40 Mg Tablet PO 40 mg DAILY [facility] Administration Objective - Vital Signs Vital signs: Vital Signs Temp 98.7 F 12/10/21 16:00 Pulse 102 H 12/10/21 16:09 Resp 30 H 12/10/21 16:00 BP 107/57 12/10/21 16:00 Pulse Ox 92 L 12/10/21 16:00 Intake & Output 12/09/21 12/10/21 12/10/21 18:59 06:59 18:59 Intake Total 7687.385 8952.592 1492.619 Output Total 705 1035 535 Balance 4735.378 0495.592 957.619 Weight 91.8 kg 93.894 kg 93.894 kg Intake: IV 780 770 560 0.9 KVO 30 Dextrose 5%-0.45% NaCl 1, 550 650 450 000 ml @ 50 mls/hr IV . Q20H [facility] Rx#:[id number] Piperacillin-Tazobactam 3 200 100 .375 gm In Sodium Chloride 0.9% 100 ml @ 25 mls/hr IVPB Q8HR [facility] Rx# :[id number] Sodium Chloride 0.9% 1, 120 10 000 ml @ 10 mls/hr IV . Q24H [facility] Rx#:[id number] Intake, IV Titration 900.946 719.592 590.619 Amount Amiodarone 450 mg In 234.449 129.725 Dextrose 5% in Water 250 ml @ 0.5 MG/MIN 16.667 mls/hr IV .Q15H [facility] Rx#: [id number] Heparin Sod,Pork in 0.45% 149.94 NaCl 25,000 unit In 0.45 % NaCl 1 250ml.bag @ 12 UNITS/KG/HR 10.08 mls/hr IV .Q24H [facility] Rx#: [id number] Lidocaine-D5w Pmx 2G/ 177 250Ml 2,000 mg In Dextrose/Water 1 250ml. bag @ 1 MG/MIN 7.5 mls/hr IV .Q24H [facility] Rx#: [id number] Norepinephrine 32 mg In 98.382 17.054 160.894 Sodium Chloride 0.9% 218 ml @ 0.05 MCG/KG/MIN 1. 913 mls/hr IV .Q24H [facility] Rx#:[id number] Piperacillin-Tazobactam 3 100 .375 gm In Sodium Chloride 0.9% 100 ml @ 25 mls/hr IVPB Q8HR [facility] Rx# :[id number] Potassium Chloride 20 meq 100 In Water For Injection 1 100ml.bag @ 50 mls/hr IVPB ONCE ONE Rx#: [id number] Potassium Chloride 20 meq 200 In Water For Injection 1 100ml.bag @ 50 mls/hr IVPB Q2H [facility] Rx#: [id number] propofoL 1,000 mg In 352.624 291.089 200.000 Empty Bag 1 bag @ 5 MCG/ KG/MIN 2.381 mls/hr IV . Q24H [facility] Rx#:[id number] Tube Feeding 160 476 342 Other 60 90 Output: Urine 705 1035 535 Other: Voiding Method Indwelling Catheter Indwelling Catheter Indwelling Catheter ABP, PAP, CO, CI - Last Documented Arterial Blood Pressure 119/46 - Labs CBC & Chem 7: 12/10/21 04:00 12/10/21 04:00 Labs: Abnormal Lab Results - Last 24 Hours (Table) 12/09/21 12/09/21 12/10/21 Range/Units 17:43 23:38 04:00 WBC 18.5 H (3.8-10.6) k/uL RBC 2.75 L (4.30-5.90) m/uL Hgb 9.2 L (13.0-17.5) gm/dL Hct 28.8 L (39.0-53.0) % MCV 105.0 H (80.0-100.0) fL RDW 16.9 H (11.5-15.5) % Neutrophils # 16.3 H (1.3-7.7) k/uL Lymphocytes # 0.3 L (1.0-4.8) k/uL Monocytes # 1.6 H (0-1.0) k/uL APTT (22.0-30.0) sec ABG pH (7.35-7.45) ABG pO2 (83-108) mmHg ABG O2 Saturation (94-97) % Chloride (98-107) mmol/L BUN (9-20) mg/dL Glucose (74-99) mg/dL POC Glucose (mg/dL) 184 H 204 H (75-99) mg/dL Calcium (8.4-10.2) mg/dL 12/10/21 12/10/21 12/10/21 Range/Units 04:00 04:00 05:16 WBC (3.8-10.6) k/uL RBC (4.30-5.90) m/uL Hgb (13.0-17.5) gm/dL Hct (39.0-53.0) % MCV (80.0-100.0) fL RDW (11.5-15.5) % Neutrophils # (1.3-7.7) k/uL Lymphocytes # (1.0-4.8) k/uL Monocytes # (0-1.0) k/uL APTT 50.6 H (22.0-30.0) sec ABG pH (7.35-7.45) ABG pO2 (83-108) mmHg ABG O2 Saturation (94-97) % Chloride 113 H (98-107) mmol/L BUN 28 H (9-20) mg/dL Glucose 214 H (74-99) mg/dL POC Glucose (mg/dL) 225 H (75-99) mg/dL Calcium 7.3 L (8.4-10.2) mg/dL 12/10/21 12/10/21 Range/Units 05:21 11:52 WBC (3.8-10.6) k/uL RBC (4.30-5.90) m/uL Hgb (13.0-17.5) gm/dL Hct (39.0-53.0) % MCV (80.0-100.0) fL RDW (11.5-15.5) % Neutrophils # (1.3-7.7) k/uL Lymphocytes # (1.0-4.8) k/uL Monocytes # (0-1.0) k/uL APTT (22.0-30.0) sec ABG pH 7.33 L (7.35-7.45) ABG pO2 122 H (83-108) mmHg ABG O2 Saturation 97.7 H (94-97) % Chloride (98-107) mmol/L BUN (9-20) mg/dL Glucose (74-99) mg/dL POC Glucose (mg/dL) 202 H (75-99) mg/dL Calcium (8.4-10.2) mg/dL Microbiology - Last 24 Hours (Table) 12/06/21 10:31 Blood Culture - Preliminary Blood No Growth after 96 hours 12/06/21 10:25 Blood Culture - Preliminary Blood No Growth after 96 hours 12/07/21 10:30 Blood Culture - Preliminary Blood No Growth after 72 hours 12/07/21 10:30 Blood Culture - Preliminary Blood No Growth after 72 hours 12/04/21 19:40 Blood Culture Gram Stain - Final Blood Blood Culture - Final Staphylococcus epidermidis 12/04/21 19:21 Blood Culture - Preliminary Blood No Growth after 120 hours
--- NOTE | 2021-12-10 17:59 | P.PN ---
Subjective HISTORY OF PRESENTING ILLNESS Patient is a pleasant 76-year-old male with history of atrial flutter, atrial fibrillation, pulmonary embolism on anticoagulation, rheumatoid arthritis, coronary artery disease with prior PCI, cardiomyopathy with prior AICD, anemia. Patient currently intubated and sedated and therefore history is supplied by chart. Patient had presented for 5-6 weeks of generalized fatigue and weakness. Apparently he is feeling like his legs would give out from under him. No chest pain or pressure. No history of COPD or emphysema or cough. If it stated he did have low-grade fever and some chills and believed he was dehydrated. He apparently had a number of frequent falls. He also has been having increased cough and feels congested. Chest x-ray shows patchy infiltrates bilaterally. Initial workup hemoglobin 10.9, platelets 270, sodium 134, creatinine 1.48, troponin less than 0.012, proBNP the next day 12/05 after receiving IV fluids 1100 with creatinine 1.1, pro-calcitonin 0.87, TSH 0.4, albumin 3.1 and repeat 2 .5. He was found to have staph epidermidis bacteremia one of 2 blood cultures and repeat serum been obtained. He is on antibiotics. Echo shows EF 35-40% with RVSP 51 mild tricuspid regurgitation and no significant mitral disease. Patient initially was given IV fluids with improvement in creatinine from 1.5 to 1.1.9. This was however discontinued and patient placed on IV Lasix this morning, given Lasix 60 mg IV and approximately 1.1 L out. He did have increasing respiratory distress and therefore patient was intubated. Initially EKG shows normal sinus rhythm, left bundle branch block. Patient became tachycardic over the last 4-5 hours with heart rates 120s and 130s. There do appear to be P waves however irregular and likely atrial flutter with RVR. 12/08 Patient seen and examined. CVP reading low 1-3 however this is from the femoral approach. Lasix however were discontinued and he was given IV fluid bolus with improvement in pressure demand. Creatinine has been stable. Remains intubated and sedated. Telemetry reviewed with continued tachycardia with what appears to be P waves unclear sinus versus atrial tachycardia, atrial flutter. Repeat EKG pending. Amiodarone was started however no significant change in HR's 110- 120's. 12/09 Patient seen and examined. Patient with a number of wide-complex tachycardia arrhythmias in the 190s to 200 range with drop in blood pressures down in the 50s requiring cardioversion. Initially patient placed on amiodarone however continue to have episodes and concern of possible ischemic etiology and therefore placed on lidocaine. Additionally given IV pushes of metoprolol with some improvement and also given IV fluids. His AICD was interrogated which did show a number of episodes of tachycardia most of which appeared to be A. fib and atrial flutter with very rapid conduction. One of these was attempted at ATP out of the rhythm however appeared to be AFib with RVR and therefore ATP did not succeed. Additional episodes had P wave prior to his QRS noted on intracrdiac monitors consistent with an atrial flutter/ tachycardia with rapid conduction vs VT with retrograde conduction. Given concern of more of an atrial flutter/fib with RVR he was changed back to amiodarone with the Metorpolol pushes. Current interrogation has shown clear sinus rhythm with 1:1 conduction on intracardiac recording with PAC's. He was given IVF with some improvement in tachycardia. His hypokalemia was replaced. 12/10 patient seen and examined. Discussed patient's progress with at bedside. He remains intubated and sedated although on sedation holiday and has been somewhat more tachycardic now the sedation has been weaned. Have been able to decrease vasopressor requirements. no further episodes of tachycardia, atrial fibrillation. REVIEW OF SYSTEMS At the time of my exam: Unable to obtain secondary to patient being sedated and intubated PHYSICAL EXAMINATION Vital signs reviewed. CONSTITUTIONAL: No apparent distress, ill appearing, sedated and intubated HEENT: Head is normocephalic. Pupils are equal, round. Sclerae anicteric. No JVD. No carotid bruit. +ETT CHEST EXAMINATION: Diffuse rhonchi HEART EXAMINATION: Tachycardic rate and regular rhythm. S1, S2 heard. No murmurs, gallops or rub. ABDOMEN: Soft, nontender. Positive bowel sounds. EXTREMITIES: 2+ peripheral pulses, no lower extremity edema and no calf tenderness. NEUROLOGIC EXAMINATION: Patient sedated and intubated. ASSESSMENT 1. Acute on chronic respiratory failure related to bilateral pneumonia 2. Chronic systolic heart failure exacerbated by atrial flutter with RVR 3. Cardiomyopathy EF 35-40% status post AICD 4. Coronary artery disease with history of PCI, no evidence of acute coronary syndrome 5. Atrial flutter 6. Staph epidermidis bacteremia one of 2 blood cultures 7. Rheumatoid arthritis on immunosuppressants 8. Initial dehydration with acute kidney injury improved with IV fluids 9. Generalized weakness 5-6 weeks, possibly related to pneumonia versus other. 10. Septic shock on vasopressors 11. Anemia 12. Acute kidney injury improved with IV fluids initially 13. Protein calorie malnutrition albumin 2.5. 14. Sinus tachycardia 15. Wide complex tachycardia, some of which were Afib with RVR very fast in the 200's and others which appear to be Atrial flutter with RVR. Possible accessory pathway given high conduction. PLAN Underlying rhythm on interrogation of AICD does show sinus tachycardia with PACs with 1-1 conduction of every P wave, no underlying atrial flutter. Episodes of wide-complex tachycardia overnight 12/08 with interrogation showing 1 atrial fibrillation with very fast conduction which may be concerning for possible accessory pathway. Other episodes appear 1:1 conduction of an atrial flutter vs VT with retrograde P waves. Continue amiodarone and BBlocker. May need to male adjustments to AICD programming however continue with current regimen. Replace electrolytes as needed. Continue with supportive care. Prognosis guarded. Objective - Vital Signs Vital signs: Vital Signs Temp 98.7 F 12/10/21 16:00 Pulse 100 12/10/21 16:22 Resp 30 H 12/10/21 16:00 BP 107/57 12/10/21 16:00 Pulse Ox 92 L 12/10/21 16:00 Intake & Output 12/09/21 12/10/21 12/10/21 18:59 06:59 18:59 Intake Total 8874.727 4330.592 1492.619 Output Total 705 1035 535 Balance 3780.610 4798.592 957.619 Weight 91.8 kg 93.894 kg 93.894 kg Intake: IV 780 770 560 0.9 KVO 30 Dextrose 5%-0.45% NaCl 1, 550 650 450 000 ml @ 50 mls/hr IV . Q20H [facility] Rx#:[id number] Piperacillin-Tazobactam 3 200 100 .375 gm In Sodium Chloride 0.9% 100 ml @ 25 mls/hr IVPB Q8HR [facility] Rx# :[id number] Sodium Chloride 0.9% 1, 120 10 000 ml @ 10 mls/hr IV . Q24H [facility] Rx#:[id number] Intake, IV Titration 900.946 719.592 590.619 Amount Amiodarone 450 mg In 234.449 129.725 Dextrose 5% in Water 250 ml @ 0.5 MG/MIN 16.667 mls/hr IV .Q15H [facility] Rx#: [id number] Heparin Sod,Pork in 0.45% 149.94 NaCl 25,000 unit In 0.45 % NaCl 1 250ml.bag @ 12 UNITS/KG/HR 10.08 mls/hr IV .Q24H [facility] Rx#: [id number] Lidocaine-D5w Pmx 2G/ 177 250Ml 2,000 mg In Dextrose/Water 1 250ml. bag @ 1 MG/MIN 7.5 mls/hr IV .Q24H [facility] Rx#: [id number] Norepinephrine 32 mg In 98.382 17.054 160.894 Sodium Chloride 0.9% 218 ml @ 0.05 MCG/KG/MIN 1. 913 mls/hr IV .Q24H [facility] Rx#:[id number] Piperacillin-Tazobactam 3 100 .375 gm In Sodium Chloride 0.9% 100 ml @ 25 mls/hr IVPB Q8HR [facility] Rx# :[id number] Potassium Chloride 20 meq 100 In Water For Injection 1 100ml.bag @ 50 mls/hr IVPB ONCE ONE Rx#: [id number] Potassium Chloride 20 meq 200 In Water For Injection 1 100ml.bag @ 50 mls/hr IVPB Q2H [facility] Rx#: [id number] propofoL 1,000 mg In 352.624 291.089 200.000 Empty Bag 1 bag @ 5 MCG/ KG/MIN 2.381 mls/hr IV . Q24H [facility] Rx#:[id number] Tube Feeding 160 476 342 Other 60 90 Output: Urine 705 1035 535 Other: Voiding Method Indwelling Catheter Indwelling Catheter Indwelling Catheter ABP, PAP, CO, CI - Last Documented Arterial Blood Pressure 119/46 - Labs CBC & Chem 7: 12/10/21 04:00 12/10/21 04:00 Labs: Abnormal Lab Results - Last 24 Hours (Table) 12/09/21 12/10/21 12/10/21 Range/Units 23:38 04:00 04:00 WBC 18.5 H (3.8-10.6) k/uL RBC 2.75 L (4.30-5.90) m/uL Hgb 9.2 L (13.0-17.5) gm/dL Hct 28.8 L (39.0-53.0) % MCV 105.0 H (80.0-100.0) fL RDW 16.9 H (11.5-15.5) % Neutrophils # 16.3 H (1.3-7.7) k/uL Lymphocytes # 0.3 L (1.0-4.8) k/uL Monocytes # 1.6 H (0-1.0) k/uL APTT (22.0-30.0) sec ABG pH (7.35-7.45) ABG pO2 (83-108) mmHg ABG O2 Saturation (94-97) % Chloride 113 H (98-107) mmol/L BUN 28 H (9-20) mg/dL Glucose 214 H (74-99) mg/dL POC Glucose (mg/dL) 204 H (75-99) mg/dL Calcium 7.3 L (8.4-10.2) mg/dL 12/10/21 12/10/21 12/10/21 Range/Units 04:00 05:16 05:21 WBC (3.8-10.6) k/uL RBC (4.30-5.90) m/uL Hgb (13.0-17.5) gm/dL Hct (39.0-53.0) % MCV (80.0-100.0) fL RDW (11.5-15.5) % Neutrophils # (1.3-7.7) k/uL Lymphocytes # (1.0-4.8) k/uL Monocytes # (0-1.0) k/uL APTT 50.6 H (22.0-30.0) sec ABG pH 7.33 L (7.35-7.45) ABG pO2 122 H (83-108) mmHg ABG O2 Saturation 97.7 H (94-97) % Chloride (98-107) mmol/L BUN (9-20) mg/dL Glucose (74-99) mg/dL POC Glucose (mg/dL) 225 H (75-99) mg/dL Calcium (8.4-10.2) mg/dL 12/10/21 Range/Units 11:52 WBC (3.8-10.6) k/uL RBC (4.30-5.90) m/uL Hgb (13.0-17.5) gm/dL Hct (39.0-53.0) % MCV (80.0-100.0) fL RDW (11.5-15.5) % Neutrophils # (1.3-7.7) k/uL Lymphocytes # (1.0-4.8) k/uL Monocytes # (0-1.0) k/uL APTT (22.0-30.0) sec ABG pH (7.35-7.45) ABG pO2 (83-108) mmHg ABG O2 Saturation (94-97) % Chloride (98-107) mmol/L BUN (9-20) mg/dL Glucose (74-99) mg/dL POC Glucose (mg/dL) 202 H (75-99) mg/dL Calcium (8.4-10.2) mg/dL Microbiology - Last 24 Hours (Table) 12/06/21 10:31 Blood Culture - Preliminary Blood No Growth after 96 hours 12/06/21 10:25 Blood Culture - Preliminary Blood No Growth after 96 hours 12/07/21 10:30 Blood Culture - Preliminary Blood No Growth after 72 hours 12/07/21 10:30 Blood Culture - Preliminary Blood No Growth after 72 hours 12/04/21 19:40 Blood Culture Gram Stain - Final Blood Blood Culture - Final Staphylococcus epidermidis 12/04/21 19:21 Blood Culture - Preliminary Blood No Growth after 120 hours
[2021-12-10 18:05] LABS: Glucose,Whole Blood 155 mg/dL (75-99)
[2021-12-10] MEDS: SODIUM CHLORIDE 0.9% 1,000 ML IV SCH (18:06)
[2021-12-10] MEDS: NOREPINEPHRINE 8 MG in SODIUM CHLORIDE 0.9% 250 ML IV SCH (19:41)
[2021-12-10] MEDS: HEPARIN SOD,PORK IN 0.45% NACL 25,000 UNIT in 0.45% NACL 1 250ML.BAG IV SCH (19:43)
[2021-12-10] MEDS: DEXTROSE 5%-0.45% NACL 1,000 ML IV SCH (19:46)
[2021-12-10 23:40] LABS: Glucose,Whole Blood 196 mg/dL (75-99)
[2021-12-11] MEDS: HYDROmorphone 1 MG/ML 1 ML SYRINGE IVP PRN ×4 (04:39→21:49)
[2021-12-11 04:53] LABS: Anisocytosis Slight; HCT 29.6 % (39.0-53.0); HGB 9.1 gm/dL (13.0-17.5); Hypochromasia Slight; MCH 31.9 pg (25.0-35.0); MCHC 30.6 g/dL (31.0-37.0); MCV 104.3 fL (80.0-100.0); Macrocytosis Moderate; Mean Platelet Volume 9.5; Platelet Count 198 k/uL (150-450); RBC 2.84 m/uL (4.30-5.90); WBC 13.2 k/uL (3.8-10.6)
[2021-12-11 05:06] LABS: African American GFR (CKD) >90 (>60 ml/min/1.73 sqM); Anion Gap 1 mmol/L; Blood Urea Nitrogen 39 mg/dL (9-20); Calcium 7.6 mg/dL (8.4-10.2); Carbon Dioxide 24 mmol/L (22-30); Chloride 113 mmol/L (98-107); Glucose 178 mg/dL (74-99); Non-African American GFR(CKD) 84 (>60 ml/min/1.73 sqM); Potassium 4.4 mmol/L (3.5-5.1); Sodium 138 mmol/L (137-145)
[2021-12-11 05:53] LABS: ABG Base Excess -0.2 mmol/L; ABG HCO3 24 mmol/L (21-25); ABG Oxygen Saturation 97.5 % (94-97); ABG PCO2 39 mmHg (35-45); ABG PH 7.41 (7.35-7.45); ABG PO2 110 mmHg (83-108); ABG TCO2 26 mmol/L (19-24); Allen Test Performed? Yes
[2021-12-11 06:03] LABS: Glucose,Whole Blood 196 mg/dL (75-99)
[2021-12-11] MEDS: INSULIN ASPART (NovoLOG) 100 UNIT/ML VIAL SQ SCH ×4 (06:04→23:21)
--- NOTE | 2021-12-11 06:23 | XR ---
EXAMINATION TYPE: XR chest 1V portable DATE OF EXAM: 12/11/2021 CLINICAL HISTORY: Difficulty breathing progress study. TECHNIQUE: Single AP portable semiupright view of the chest is obtained. COMPARISON: Chest x-ray from one day earlier and older studies. FINDINGS: Stable endotracheal and orogastric tubes. Persistent cardiomegaly with dual lead pacemaker/AICD. Reticular increased opacities bilaterally abilio in present greatest in the periphery and in the lower lungs. Osseous structures are demineralized. IMPRESSION: Cardiomegaly with mid to lower lung reticular infiltrates and/or edema redemonstrated. N o significant change from one day earlier. Correlate for possible atypical infection.
[2021-12-11] MEDS: IPRATROPIUM-ALBUTEROL 3 ML NEB INHALATION SCH ×4 (07:38→19:52)
[2021-12-11] MEDS: CHLORHEXIDINE GLUCONATE 15 ML CUP MUCOUS MEM SCH ×2 (08:16→19:36)
[2021-12-11] MEDS: ATORVASTATIN 40 MG TAB PO SCH (08:17)
[2021-12-11] MEDS: CHOLECALCIFEROL 25 MCG (1000 IU) TABLET PO SCH (08:17)
[2021-12-11] MEDS: METOPROLOL TARTRATE 25 MG TAB PO SCH ×2 (08:17→19:36)
[2021-12-11] MEDS: PIPERACILLIN-TAZOBACTAM 3.375 GM in SODIUM CHLORIDE 0.9% 100 ML IVPB SCH ×3 (08:17→23:20)
[2021-12-11] MEDS: AMIODARONE 200 MG TAB PO SCH ×2 (08:17→19:36)
[2021-12-11] MEDS: FOLIC ACID 1 MG TAB PO SCH (08:17)
[2021-12-11] MEDS: methylPREDNISolone SOD SUCCI 40 MG/ML 1 ML VIAL IV SCH ×3 (08:17→23:20)
[2021-12-11] MEDS: PANTOPRAZOLE 40 MG TABLET PO SCH (08:17)
[2021-12-11] MEDS: PATIENT'S OWN (Icosapent Ethyl [Icosapent Ethyl] 1 GM Capsule) PO SCH ×2 (08:18→19:31)
--- NOTE | 2021-12-11 09:10 | PN ---
PROGRESS NOTE This is a 76-year-old gentleman with what seems to be a history of atrial fibrillation and previous history of pulmonary embolism. He also has ischemic cardiomyopathy with a prior ICD. He came into the hospital with some low-grade fever, chills and had frequent falls. He seems to have a history of atrial fibrillation; however, after arriving here he did have what seemed to be like a ventricular tachycardia, for which he was shocked, and now he is on amiodarone through the NG tube. He is maintaining sinus rhythm, although last night he had an episode of atrial fibrillation. He has bilateral pneumonia, congestive heart failure, episodic atrial flutter and fibrillation. He is currently intubated, sedated; probably will have a sedation holiday today. I am recommending that we will continue the beta bushra as well as the amiodarone for now. His electrolytes are acceptable. Renal function seems to be normal at this time. His liver function tests are also unremarkable. Since he is on amiodarone, we will do a free T4, TSH and AST, ALT as well as a baseline. Vital signs are stable. He is being weaned off the Levophed. S1, S2 heard normally. Short systolic murmur noted. Lungs reveal ventilator-assisted breath sounds. Abdomen is soft. Lower extremities reveal diminished pulses. Central nervous system exam was not performed. MMODL / IJN: [id number] /
[2021-12-11] MEDS: HEPARIN SOD,PORK IN 0.45% NACL 25,000 UNIT in 0.45% NACL 1 250ML.BAG IV SCH (10:11)
--- NOTE | 2021-12-11 10:37 | P.PN ---
Subjective Progress Note Date: 12/11/21 Principal diagnosis: Acute hypoxic respiratory failure requiring intubation and mechanical ventilation, multifactorial. 76-year-old male, brought into the emergency room, on December 04, by EMS. The patient apparently had been frequently falling, has had generalized weakness, and is also had increasing shortness of breath, and cough. The patient has not been feeling well for at least 3 weeks, and maybe longer. The patient states that he is having a difficult time coughing up any phlegm although he does feel like his chest is congested. The patient denies any chest pain or chest discomfort. There is no nausea, vomiting, or diarrhea. He was evaluated in the emergency department admitted with a diagnosis of pneumonia. We are seeing him in consultation. White count 8.52, hemoglobin 9.3, hematocrit 29.9, and platelet count 223,000. Sodium 137, potassium 4.8, chlorides 111, CO2 15, anion gap 11, BUN 38, creatinine 1.1. Glucose 98. N-terminal proBNP is 1150. Chest x-ray shows patchy bilateral infiltrates, which are worse on the subsequent chest x-ray. The patient has a history of atrial flutter, pulmonary embolism, rheumatoid arthritis, and previous prostate surgery. The patient is also had heart catheterization with stent placement. On 12/06/2021 we received a phone call from the nursing staff with a concern about worsening hypoxia, and patient was satting only 87% on 100% nonrebreather, tachypnea, and increased work of breathing. Stat chest x-ray was obtained showing contained extensive interstitial and patchy peripheral infiltrates. Patient has been afebrile. Blood pressure is 110/64, however he is tachypneic, with a respiratory rate in the 30s. Denies any chest discomfort, denies any cough or phlegm production. Patient was found to be bacteremic, his blood cultures show gram-positive cocci in groups, he is currently on Zosyn and vancom ycin for antibiotic coverage. We were unable to obtain a sputum culture. Blood gas was obtained on 100% nonrebreather showing pO2 of 68, pCO2 of 24, and pH of 7.37. Subsequently patient was placed on BiPAP support with a pressure of 15/5, and FiO2 100%. Neurologically patient is awake and alert, he is answering questions appropriately, he is oriented 3. He is achieving over 1000 mL of tidal volume on the BiPAP support. Still remains quite tachycardic, his minute ventilation is increased. Patient was given a dose of IV Lasix 60 mg times one, he has produced 1.1 L and urine output since then, we'll continue with IV diuretics, we ordered an echocardiogram which is pending at this point. His pro calcitonin level is elevated at 0.87, proBNP was 1150. Reevaluated today on 12/07/2021, patient's condition deteriorated few hours after he was admitted to the ICU yesterday, patient was getting more tachypneic, more tachycardic, and he was developing worsening respiratory distress. His re spiratory rate was up in the 50s according to the nurse will call be about the patient, and the patient was getting extremely agitated and restless, as I recommended immediate intubation and mechanical ventilation. Patient is now intubated, mechanically ventilated, he is sedated and he is on propofol. Patient is on assist control rate of 24 tidal volume 450 FiO2 60% and PEEP of 5. ABG showed a pO2 of 90 pCO2 of 42 pH of 7.33. His FiO2 was cut down. The rest of the vent settings exactly the same. Patient is on IV fluid at KVO, he is requiring norepinephrine at 0.26 mcg/kg/m, he is also on propofol at 50 mcg/kg/m. Again I cut down his FiO2 to 50%. Patient was on Lasix, we cut down the Lasix mostly because of his hypotension and requiring norepinephrine his blood cultures basically showed contamination, positive for staph epidermidis which implies contamination, not true positive blood cultures. Patient remains on Zosyn empirically, and vancomycin was discontinued. Chest x-ray continues to show bilateral interstitial infiltrates/edema and confluent groundglass opacities bilaterally. Not much of a change since admission. Patient remains on Zosyn empirically for presumptive underlying pneumonia especially with his elevated pro calcitonin level. It is not clear to me whether the patient had history of interstitial lung disease related to his rheumatoid arthritis in the past, no old x-rays for comparison to determine whether the findings are new or chronic. Nonetheless the patient remains on antibiotics and on diuretics. Amiodarone was added today by cardiology for his atrial fibrillation with RVR. Patient remains on Xarelto and he has been on Xarelto all along. His echocardiogram showed LV dysfunction with ejection fraction of 35%, and right- sided pressures seems to be elevated at 51.5. Labs today showed WBC count of 11.2 hemoglobin is 9.9. Electrolytes are normal renal profile is normal, pro calcitonin is up to 4.29 Reevaluated today on 12/08/21, patient remains in the ICU, intubated and mechanically ventilated. His norepinephrine is down to 0.38 mcg/kg/m, it was as high as 0.6 mcg/kg/m last night. Patient received fluids received fluid boluses, and his main IV fluid was increased today to 75 mL per hour. Patient remains on assist control rate of 24 tidal volume 450 FiO2 50% and PEEP of 5. Chest x-ray continues to show bilateral interstitial infiltrates. ABG showed a pO2 of 109 pCO2 44 pH of 7.30, hence I increased his rate to 26 cut down her FiO2 to 45%, and increase the flow rate to 65 L/m repeat blood cultures remain negative. His initial blood culture that admission showed contamination/staph epidermidis..In the meantime the patient remains on antibiotics empirically/Zosyn. Patient remains tachycardic, he is on amiodarone, not much change noted in heart rate, ranging anywhere between 120-130, presently 126. This morning went ahead and give another fluid bolus 500 mL, and I changed his IV fluid to D5 45, and discontinued water flushes. All labs were reviewed WBC count is 10.6 hemoglobin is 9.6. Renal profile is normal with a BUN of 28 creatinine 1.05. White carbs 21. Potassium is a bit low at 3.3. Patient remains sedated, and I have no plans to wean and extubate anytime soon a long as he seems to be hemodynamically unstable. Patient is receiving enteral feeding via orogastric tube. Reevaluated today on 12/09/2021, patient remains in the ICU, intubated and mechanically ventilated. Sedated on propofol. Patient had an episode of ventricular tachycardia yesterday, with drop in his blood pressure, required cardioversion 4. Patient was also placed on lidocaine last night after a brief course of CPR and cardioversion, 4. Potassium was noted to be low, being corrected. Patient received fluids during his episode of cardiac arrest. Apparently his AICD was interrogated, and showed a number of episodes of tachycardia mostly appeared to be A. fib and atrial flutter with a very rapid conduction. Patient was placed back on amiodarone, and his lidocaine was discontinued. His hypokalemia is being corrected. Apparently the patient had a relatively downhill course yesterday, but seems to have stabilized today. He is on assist control rate of 26, tidal volume 450 FiO2 45% PEEP of 5. ABG showed a pO2 of 110 pCO2 41 pH of 7.36. Basic metabolic profile is relatively unremarkable, potassium remains a bit low at 3.5. WBC count is 16.4 hemoglobin is 8.8, PTT is 49.4, patient is now off Xarelto and he is receiving IV heparin. Pro calcitonin remains high at 2.40. Chest x-ray continues to show evidence of bilateral interstitial infiltrates sputum cultures are nondiagnostic. Repeat blood cultures since admission have been negative while along. Reevaluated today on 12/10/21 patient remains in the ICU, intubated and mechanically ventilated. Patient is on assist control rate of 26 to 07/27/1948 FiO2 45% PEEP of 5 ABG showed a pO2 of 122 pCO2 43 pH of 7.33 hence the patient FiO2 was cut down to 40%. Patient remains on norepinephrine at 0.2 mcg/kg/m, propofol at 6:00 ventricular per minute amiodarone at 0.5 mg/m patient is sedated, and today I have recommended sedation interruption, and assessment of mental status at least. Chest x-ray continues to bilateral interstitial infiltrates, clinically the patient is not ready for weaning. But I would recommend sedation interruption and assessment of mental status today. Patient is in atrial fibrillation rate is controlled about 90. No further episodes of cardiac arrest since the last episode he had 2 days ago. Remains on heparin dr ip. Patient is also on enteral feeding for nutritional support. He is on GI and DVT prophylaxis WBC count is 18.5 hemoglobin 9.2. PTT is 51. Basic metabolic profile is normal renal profile is normal. reevaluated today on 12/11/21, patient remains in the ICU, intubated and mechanically ventilated. Chest x-ray continues to show bilateral infiltrates, not much of a change compared to admission chest x-ray. Patient remains on assist control rate of 26, tidal volume 450, FiO2 40%, PEEP is 5. ABG showed a pO2 of 110 pCO2 of 39 pH of 7.41, hence I cut down his FiO2 down to 35%. Patient remains on propofol presently 20 mcg/kg/m, he is on a very minimal dose of norepinephrine earlier and his norepinephrine has been turned off earlier today, he was on 0.02 mcg/kg/m, remains on heparin, remains on D5 45 at 50 mL per hour, he is on vital HPI 38 mL per hour.WBC count is 13.2 hemoglobin is 9.1. Electrode was are normal renal profile is normal. PTT is therapeutic at 53.8. Objective - Vital Signs Vital signs: Vital Signs Temp 97.9 F 12/11/21 08:00 Pulse 93 12/11/21 10:00 Resp 36 H 12/11/21 10:00 BP 107/57 12/11/21 01:00 Pulse Ox 92 L 12/11/21 10:00 Intake & Output 12/10/21 12/11/21 12/11/21 18:59 06:59 18:59 Intake Total 2006.619 1466.809 688.912 Output Total 735 830 235 Balance 1271.619 636.809 453.912 Weight 93.894 kg 91.9 kg Intake: IV 710 770 300 Dextrose 5%-0.45% NaCl 1, 600 550 200 000 ml @ 50 mls/hr IV . Q20H [facility] Rx#:[id number] Piperacillin-Tazobactam 3 100 100 100 .375 gm In Sodium Chloride 0.9% 100 ml @ 25 mls/hr IVPB Q8HR [facility] Rx# :[id number] Sodium Chloride 0.9% 1, 10 120 000 ml @ 10 mls/hr IV . Q24H [facility] Rx#:[id number] Intake, IV Titration 840.619 188.809 206.912 Amount Amiodarone 450 mg In 129.725 Dextrose 5% in Water 250 ml @ 0.5 MG/MIN 16.667 mls/hr IV .Q15H [facility] Rx#: [id number] Heparin Sod,Pork in 0.45% 250 170.128 NaCl 25,000 unit In 0.45 % NaCl 1 250ml.bag @ 12 UNITS/KG/HR 10.08 mls/hr IV .Q24H [facility] Rx#: [id number] Norepinephrine 32 mg In 160.894 Sodium Chloride 0.9% 218 ml @ 0.05 MCG/KG/MIN 1. 913 mls/hr IV .Q24H [facility] Rx#:[id number] Norepinephrine 8 mg In 111.735 4.875 Sodium Chloride 0.9% 250 ml @ 0.05 MCG/KG/MIN 9. 084 mls/hr IV .Q24H [facility] Rx#:[id number] Piperacillin-Tazobactam 3 100 .375 gm In Sodium Chloride 0.9% 100 ml @ 25 mls/hr IVPB Q8HR [facility] Rx# :[id number] propofoL 1,000 mg In 200.000 77.074 31.909 Empty Bag 1 bag @ 5 MCG/ KG/MIN 2.381 mls/hr IV . Q24H [facility] Rx#:[id number] Tube Feeding 456 418 152 Other 90 30 Output: Urine 735 830 235 Other: Voiding Method Indwelling Catheter Indwelling Catheter # Bowel Movements 1 ABP, PAP, CO, CI - Last Documented Arterial Blood Pressure 146/52 - Exam Physical Exam: Revealed a 76-year-old white male intubated sedated and mechanically ventilated on propofol, in no distress patient is sedated. Head: Atraumatic, normocephalic. Endotracheal tube and orogastric tube are intact. Dry mucous membranes noted. HEENT:[Neck is supple.] [No neck masses.] [No thyromegaly.] [No JVD.] Chest: [Symmetrical chest expansion, crackles at the bases bilaterally.] Cardiac Exam: Irregular irregular rhythm, no S3 gallop. 2/6 systolic murmur thought the precordium. Abdomen: [Soft, nontender, no megaly, no rebound, no guarding, normal bowel sounds.] Extremities: [No clubbing, no edema, no cyanosis.] Neurological Exam: Could not assess, patient is fully sedated. Psychiatric: Could not assess, patient is sedated. - Labs CBC & Chem 7: 12/11/21 04:45 12/11/21 04:45 Labs: Abnormal Lab Results - Last 24 Hours (Table) 12/10/21 12/10/21 12/10/21 Range/Units 11:52 18:03 23:39 WBC (3.8-10.6) k/uL RBC (4.30-5.90) m/uL Hgb (13.0-17.5) gm/dL Hct (39.0-53.0) % MCV (80.0-100.0) fL MCHC (31.0-37.0) g/dL RDW (11.5-15.5) % APTT (22.0-30.0) sec ABG pO2 (83-108) mmHg ABG Total CO2 (19-24) mmol/L ABG O2 Saturation (94-97) % Chloride (98-107) mmol/L BUN (9-20) mg/dL Glucose (74-99) mg/dL POC Glucose (mg/dL) 202 H 155 H 196 H (75-99) mg/dL Calcium (8.4-10.2) mg/dL 12/11/21 12/11/21 12/11/21 Range/Units 04:45 04:45 04:45 WBC 13.2 H (3.8-10.6) k/uL RBC 2.84 L (4.30-5.90) m/uL Hgb 9.1 L (13.0-17.5) gm/dL Hct 29.6 L (39.0-53.0) % MCV 104.3 H (80.0-100.0) fL MCHC 30.6 L (31.0-37.0) g/dL RDW 17.0 H (11.5-15.5) % APTT 53.8 H (22.0-30.0) sec ABG pO2 (83-108) mmHg ABG Total CO2 (19-24) mmol/L ABG O2 Saturation (94-97) % Chloride 113 H (98-107) mmol/L BUN 39 H (9-20) mg/dL Glucose 178 H (74-99) mg/dL POC Glucose (mg/dL) (75-99) mg/dL Calcium 7.6 L (8.4-10.2) mg/dL 12/11/21 12/11/21 Range/Units 05:45 06:02 WBC (3.8-10.6) k/uL RBC (4.30-5.90) m/uL Hgb (13.0-17.5) gm/dL Hct (39.0-53.0) % MCV (80.0-100.0) fL MCHC (31.0-37.0) g/dL RDW (11.5-15.5) % APTT (22.0-30.0) sec ABG pO2 110 H (83-108) mmHg ABG Total CO2 26 H (19-24) mmol/L ABG O2 Saturation 97.5 H (94-97) % Chloride (98-107) mmol/L BUN (9-20) mg/dL Glucose (74-99) mg/dL POC Glucose (mg/dL) 196 H (75-99) mg/dL Calcium (8.4-10.2) mg/dL Microbiology - Last 24 Hours (Table) 12/04/21 19:21 Blood Culture - Final Blood No Growth after 144 hours 12/06/21 10:31 Blood Culture - Preliminary Blood No Growth after 96 hours 12/06/21 10:25 Blood Culture - Preliminary Blood No Growth after 96 hours 12/07/21 10:30 Blood Culture - Preliminary Blood No Growth after 72 hours 12/07/21 10:30 Blood Culture - Preliminary Blood No Growth after 72 hours 12/04/21 19:40 Blood Culture Gram Stain - Final Blood Blood Culture - Final Staphylococcus epidermidis Assessment and Plan Assessment: Impression: Acute hypoxic respiratory failure secondary to pneumonia, community-acquired, however the patient is relatively immunocompromised on methotrexate and leflunomide for underlying rheumatoid arthritis. Possibility of interstitial lung disease is not entirely ruled out. Possibility of acute on chronic systolic congestive heart failure is also in the differential. Clearly the presentation was a pulmonary presentation/pneumonia and sepsis., Also septic shock. Blood cultures positive for staph epidermidis, repeat blood cultures have been negative and the patient remains on Zosyn. He is off vancomycin. Chronic atrial fibrillation , paroxysmal atrial flutter with RVR History of pulmonary embolism, patient was on Xarelto now on heparin. History of underlying coronary artery disease and previous PCI and stent placement. Ischemic cardiomyopathy and LV dysfunction previous AICD placement in 2016. Former smoker. Rheumatoid arthritis, maintained on methotrexate and leflunomide. Hypotension secondary to sepsis, septic shock, and profound LV dysfunction with ischemic cardiomyopathy. Patient remains on norepinephrine for Wide-complex tachycardia, requiring CPR and cardioversion 4. This was on 12/08/21 Recommendation: Continue ventilatory support. Not ready for any form of weaning may cut down sedation and assess mental status today. Continue antibiotics/Zosyn. empirically for pneumonia. Continue GI and DVT prophylaxis. continue nutritional support, patient is on enteral feeding. patient is off norepinephrine today. Continue IV fluids. Continue to hold methotrexate and leflunomide. Continue Solu-Medrol Sputum cultures have been nondiagnostic.empirically on Zosyn. We will continue to follow. Prognosis remains poor and guarded Critical care time is over 30 minutes Time with Patient: Greater than 30
[2021-12-11 12:03] LABS: Glucose,Whole Blood 167 mg/dL (75-99)
--- NOTE | 2021-12-11 13:55 | P.PN ---
Subjective Progress Note Date: 12/11/21 Principal diagnosis: fatigue Patient is a 76-year-old with history of A. fib on Xarelto, rheumatoid arthritis, congestive heart failure, prior pulmonary embolism who initially presented with 4 weeks of weakness and fatigue. In the ER he underwent an extensive evaluation. He was found to have pneumonia and acute kidney injury. He was started on Rocephin and Zithromax area pulmonary was consulted. He was also discovered that he has a history of congestive heart failure in his interest and Aldactone were restarted. His O2 sat decreased and he started to require 100% nonrebreather. He was given a dose of Lasix and diuretics were continued. He was transferred to the ICU on 12/06. His respirations continued to worsen and he ultimately required BiPAP and then intubation. He then developed A. fib with RVR cardiology was consulted and started on IV amiodarone. He did have a set of blood cultures for ultimately determined to be a contaminant with staph epi. On 12/09 unit early a.m. he went into pulseless V. tach requiring multiple cardioversions and he was ultimately started on lidocaine. Cardiology was notified. He was transitioned off the lidocaine drip and back onto amiodarone and Lopressor. He continued to improve. He was transitioned off levo on 12/10. Imaging: CXR: mild cardiomegaly, interstitial opacities CT Brain: mild age related atrophy Echo: EF 35-40% Patient seen and examined with nursing present. Per nursing he work up and followed commands last evening, but became tachypnic and requried propofol to be restarted. Unable to preform weaning trial today due to increased respiratory rate and desatting with sedation holiday. present at bedside. No questions at this time. General: non toxic, no distress, appears at stated age Derm: warm, dry Head: atraumatic, normocephalic, symmetric Eyes: EOMI, no lid lag, anicteric sclera Mouth: no lip lesion, mucus membranes moist Cardiovascular: S1S2 reg, no murmur, positive posterior tibial pulse bilateral, Lungs: Course bs bilateral, no rhonchi, no rales , no accessory muscle use Abdominal: soft, nontender to palpation, no guarding, no appreciable organomegaly Ext: no gross muscle atrophy, no edema, no contractures Neuro: Breathing over the vent, no with drawal to pain, PER-sluggishly reactive to light Psych:unresponisve on vent with sedation Assessment/Plan: Community-acquired pneumonia Acute hypoxic respiratory failure Immunocompromized due to RA on Methotrexate and Leflunomide Septic shock - pulm recs on vent - zosyn - ID recs - steroids - broncodilators 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% A flutter/fib with RVR Wide complex tachycaria requiring cardioversion X 4 - amio, lopressor - statin - not on ACEI with hypotension Acute emetabolic encephalopathy- metabolic vs hypoxic - was following commands during sedation holiday - supportive care Protein Calorie Malnutrition - tube feedings - dietitian recs Chronic: Macrocytic anemia Pulmonary embolism Rheumatoid arthritis GERD Dyslipidemia ISABEL, resolved Generalized weakness DVT prophylaxis: heparin gtt Discussed with: nursing Anticipated discharge: undetermined Anticipated discharge place: SNF vs [facility] A total of 65 minutes was spent on the care of this complex patient more than 50% of the time was spent in counseling and care coordination. Active Medications Generic Name Dose Route Start Last Admin Trade Name Freq PRN Reason Stop Dose Admin Albuterol/Ipratropium 3 ml 12/05/21 16:00 12/11/21 11:22 Ipratropium-Albuterol 3 Ml Neb INHALATION 3 ml RT-QID MIHIR Administration Amiodarone HCl 400 mg 12/10/21 11:15 12/11/21 08:17 Amiodarone 200 Mg Tab PO 400 mg BID MIHIR Administration Atorvastatin Calcium 40 mg 12/05/21 09:00 12/11/21 08:17 Atorvastatin 40 Mg Tab PO 40 mg DAILY MIHIR Administration Chlorhexidine Gluconate 15 ml 12/07/21 09:00 12/11/21 08:16 Chlorhexidine Gluconate 15 Ml Cup MUCOUS MEM 15 ml BID MIHIR Administration Cholecalciferol 50 mcg 12/05/21 09:00 12/11/21 08:17 Cholecalciferol 25 Mcg (1000 Iu) Tablet PO 50 mcg DAILY MIHIR Administration Folic Acid 1 mg 12/05/21 09:00 12/11/21 08:17 Folic Acid 1 Mg Tab PO 1 mg DAILY MIHIR Administration Hydromorphone HCl 1 mg 12/09/21 16:05 12/11/21 11:16 Hydromorphone 1 Mg/Ml 1 Ml Syringe IVP 1 mg Q3H PRN Administration Pain Sodium Chloride 1,000 mls @ 10 mls/hr 12/04/21 20:45 12/10/21 18:06 Saline 0.9% IV 10 mls/hr .Q24H MIHIR Administration Piperacillin Sod/Tazobactam 100 mls @ 25 mls/hr 12/06/21 08:45 12/11/21 08:17 Sod 3.375 gm/ Sodium Chloride IVPB 25 mls/hr Q8HR MIHIR Administration Protocol Propofol 1,000 mg/ IV Solution 100 mls @ 2.381 mls/hr 12/06/21 21:15 12/11/21 12:38 IV 20 mcg/kg/min .Q24H MIHIR 9.525 mls/hr Administration Protocol 5 MCG/KG/MIN Dextrose/Sodium Chloride 1,000 mls @ 50 mls/hr 12/08/21 09:45 12/10/21 19:46 Dextrose 5%-1/2ns Iv Soln IV 50 mls/hr .Q20H MIHIR Administration Heparin Sodium/Sodium Chloride 250 mls @ 10.08 mls/hr 12/08/21 21:00 12/11/21 10:11 25,000 unit/ Sodium Chloride IV 14 units/kg/hr .Q24H MIHIR 11.76 mls/hr Administration Protocol 12 UNITS/KG/HR Norepinephrine Bitartrate 8 mg 258 mls @ 9.084 mls/hr 12/10/21 19:30 12/11/21 12:12 / Sodium Chloride IV 0 mcg/kg/min .Q24H MIHIR 0 mls/hr Titration Protocol 0.05 MCG/KG/MIN Insulin Aspart 0 unit 12/08/21 12:00 12/11/21 12:07 Insulin Aspart (Novolog) 100 Unit/Ml Vial SQ 3 unit Q6H MIHIR Administration Protocol Methylprednisolone Sodium Succinate 40 mg 12/07/21 16:00 12/11/21 08:17 Methylprednisolone Sod Succi 40 Mg/Ml 1 Ml Vial IV 40 mg Q8HR MIHIR Administration Metoprolol Tartrate 25 mg 12/10/21 11:15 12/11/21 08:17 Metoprolol Tartrate 25 Mg Tab PO 25 mg BID MIHIR Administration Miscellaneous Information 1 each 12/04/21 20:43 Pneumonia Protocol Utilized 1 Each Misc PO ONCE PRN Per Protocol Miscellaneous Information 1 each 12/07/21 08:40 Potassium Replacement Protocol 1 Each [facility] MISCELLANE DAILY PRN Per Protocol Protocol Miscellaneous Information 1 each 12/08/21 20:31 Phosphorus Replacement Protoco 1 Each Mis MISCELLANE DAILY PRN Per Protocol Protocol Morphine Sulfate 4 mg 12/06/21 09:58 12/08/21 22:34 Morphine Sulfate 4 Mg/Ml Syringe IVP 4 mg Q4HR PRN Administration Pain Patient's Own ( 2 gm 12/04/21 21:00 12/11/21 08:18 Icosapent Ethyl [ PO Not Given Icosapent Ethyl] 1 BID MIHIR Gm Capsule) Pantoprazole Sodium 40 mg 12/05/21 09:00 12/11/21 08:17 Pantoprazole 40 Mg Tablet PO 40 mg DAILY MIHIR Administration Objective - Vital Signs Vital signs: Vital Signs Temp 97.8 F 12/11/21 12:00 Pulse 89 12/11/21 13:00 Resp 30 H 12/11/21 13:00 BP 107/57 12/11/21 01:00 Pulse Ox 96 12/11/21 13:00 Intake & Output 12/10/21 12/11/21 12/11/21 18:59 06:59 18:59 Intake Total 2006.619 8993.686 3393.651 Output Total 735 830 385 Balance 1271.619 636.809 629.651 Weight 93.894 kg 91.9 kg Intake: IV 710 770 450 Dextrose 5%-0.45% NaCl 1, 600 550 350 000 ml @ 50 mls/hr IV . Q20H MIHIR Rx#:[id number] Piperacillin-Tazobactam 3 100 100 100 .375 gm In Sodium Chloride 0.9% 100 ml @ 25 mls/hr IVPB Q8HR MIHIR Rx# :[id number] Sodium Chloride 0.9% 1, 10 120 000 ml @ 10 mls/hr IV . Q24H MIHIR Rx#:[id number] Intake, IV Titration 840.619 188.809 238.651 Amount Amiodarone 450 mg In 129.725 Dextrose 5% in Water 250 ml @ 0.5 MG/MIN 16.667 mls/hr IV .Q15H MIHIR Rx#: [id number] Heparin Sod,Pork in 0.45% 250 170.128 NaCl 25,000 unit In 0.45 % NaCl 1 250ml.bag @ 12 UNITS/KG/HR 10.08 mls/hr IV .Q24H MIHIR Rx#: [id number] Norepinephrine 32 mg In 160.894 Sodium Chloride 0.9% 218 ml @ 0.05 MCG/KG/MIN 1. 913 mls/hr IV .Q24H MIHIR Rx#:[id number] Norepinephrine 8 mg In 111.735 10.022 Sodium Chloride 0.9% 250 ml @ 0.05 MCG/KG/MIN 9. 084 mls/hr IV .Q24H MIHIR Rx#:[id number] Piperacillin-Tazobactam 3 100 .375 gm In Sodium Chloride 0.9% 100 ml @ 25 mls/hr IVPB Q8HR MIHIR Rx# :[id number] propofoL 1,000 mg In 200.000 77.074 58.501 Empty Bag 1 bag @ 5 MCG/ KG/MIN 2.381 mls/hr IV . Q24H MIHIR Rx#:[id number] Tube Feeding 456 418 266 Other 90 60 Output: Urine 735 830 385 Other: Voiding Method Indwelling Catheter Indwelling Catheter Indwelling Catheter # Bowel Movements 1 ABP, PAP, CO, CI - Last Documented Arterial Blood Pressure 127/47 - Labs CBC & Chem 7: 12/11/21 04:45 12/11/21 04:45 Labs: Abnormal Lab Results - Last 24 Hours (Table) 12/10/21 12/10/21 12/11/21 Range/Units 18:03 23:39 04:45 WBC 13.2 H (3.8-10.6) k/uL RBC 2.84 L (4.30-5.90) m/uL Hgb 9.1 L (13.0-17.5) gm/dL Hct 29.6 L (39.0-53.0) % MCV 104.3 H (80.0-100.0) fL MCHC 30.6 L (31.0-37.0) g/dL RDW 17.0 H (11.5-15.5) % APTT (22.0-30.0) sec ABG pO2 (83-108) mmHg ABG Total CO2 (19-24) mmol/L ABG O2 Saturation (94-97) % Chloride (98-107) mmol/L BUN (9-20) mg/dL Glucose (74-99) mg/dL POC Glucose (mg/dL) 155 H 196 H (75-99) mg/dL Calcium (8.4-10.2) mg/dL 12/11/21 12/11/21 12/11/21 Range/Units 04:45 04:45 05:45 WBC (3.8-10.6) k/uL RBC (4.30-5.90) m/uL Hgb (13.0-17.5) gm/dL Hct (39.0-53.0) % MCV (80.0-100.0) fL MCHC (31.0-37.0) g/dL RDW (11.5-15.5) % APTT 53.8 H (22.0-30.0) sec ABG pO2 110 H (83-108) mmHg ABG Total CO2 26 H (19-24) mmol/L ABG O2 Saturation 97.5 H (94-97) % Chloride 113 H (98-107) mmol/L BUN 39 H (9-20) mg/dL Glucose 178 H (74-99) mg/dL POC Glucose (mg/dL) (75-99) mg/dL Calcium 7.6 L (8.4-10.2) mg/dL 12/11/21 12/11/21 Range/Units 06:02 12:01 WBC (3.8-10.6) k/uL RBC (4.30-5.90) m/uL Hgb (13.0-17.5) gm/dL Hct (39.0-53.0) % MCV (80.0-100.0) fL MCHC (31.0-37.0) g/dL RDW (11.5-15.5) % APTT (22.0-30.0) sec ABG pO2 (83-108) mmHg ABG Total CO2 (19-24) mmol/L ABG O2 Saturation (94-97) % Chloride (98-107) mmol/L BUN (9-20) mg/dL Glucose (74-99) mg/dL POC Glucose (mg/dL) 196 H 167 H (75-99) mg/dL Calcium (8.4-10.2) mg/dL Microbiology - Last 24 Hours (Table) 12/06/21 10:25 Blood Culture - Preliminary Blood No Growth after 120 hours 12/06/21 10:31 Blood Culture - Preliminary Blood No Growth after 120 hours 12/07/21 10:30 Blood Culture - Preliminary Blood No Growth after 96 hours 12/07/21 10:30 Blood Culture - Preliminary Blood No Growth after 96 hours 12/04/21 19:21 Blood Culture - Final Blood No Growth after 144 hours
[2021-12-11 14:01] LABS: ALT 33 U/L (4-49); AST 48 U/L (17-59); Albumin 2.3 g/dL (3.5-5.0); Alkaline Phosphatase 133 U/L (38-126); Total Bilirubin 0.8 mg/dL (0.2-1.3); Total Protein 4.7 g/dL (6.3-8.2)
[2021-12-11 14:18] LABS: T4, Free (Free Thyroxine) 2.99 ng/dL (0.78-2.19)
[2021-12-11] MEDS: MORPHINE SULFATE 4 MG/ML SYRINGE IVP PRN (16:12)
[2021-12-11 17:44] LABS: Glucose,Whole Blood 160 mg/dL (75-99)
[2021-12-11] MEDS: NOREPINEPHRINE 8 MG in SODIUM CHLORIDE 0.9% 250 ML IV SCH (19:29)
[2021-12-11] MEDS: DEXTROSE 5%-0.45% NACL 1,000 ML IV SCH (19:29)
[2021-12-11] MEDS: SODIUM CHLORIDE 0.9% 1,000 ML IV SCH (19:30)
[2021-12-11 23:13] LABS: Glucose,Whole Blood 181 mg/dL (75-99)
--- NOTE | 2021-12-11 23:30 | P.PN ---
Subjective Progress Note Date: 12/11/21 Principal diagnosis: Sepsis Patient is 76 year old male presenting to the hospital with generalized weakness and fall symptom has been going on for a few weeks before presentation hospital patient did have a worsening of respiratory status requiring intubation, patient did have a pulseless V. tach CODE BLUE after midnight on 12/09/2021 for the patient has received shock IV fluid on today's evaluation that is 12/11/2021, the patient remains to be afebrile, the patient remains to be intubated on the vent and FiO2 is stable at 40 %, no significant purulent secretions through the ET or diarrhea or any other changes reported by the nursing staff Objective - Vital Signs Vital signs: Vital Signs Temp 98.0 F 12/11/21 16:00 Pulse 83 12/11/21 20:03 Resp 26 H 12/11/21 18:00 BP 107/57 12/11/21 01:00 Pulse Ox 93 L 12/11/21 18:00 Intake & Output 12/11/21 12/11/21 12/12/21 06:59 18:59 06:59 Intake Total 8350.491 0252.070 20.711 Output Total 830 605 Balance 692.204 8491.070 20.711 Weight 91.9 kg Intake: IV 770 860 0.9 KVO 60 Dextrose 5%-0.45% NaCl 1, 550 600 000 ml @ 50 mls/hr IV . Q20H MIHIR Rx#:[id number] Piperacillin-Tazobactam 3 100 200 .375 gm In Sodium Chloride 0.9% 100 ml @ 25 mls/hr IVPB Q8HR MIHIR Rx# :[id number] Sodium Chloride 0.9% 1, 120 000 ml @ 10 mls/hr IV . Q24H MIHIR Rx#:[id number] Intake, IV Titration 188.809 293.070 20.711 Amount Heparin Sod,Pork in 0.45% 170.128 NaCl 25,000 unit In 0.45 % NaCl 1 250ml.bag @ 12 UNITS/KG/HR 10.08 mls/hr IV .Q24H MIHIR Rx#: [id number] Norepinephrine 8 mg In 111.735 13.323 20.711 Sodium Chloride 0.9% 250 ml @ 0.05 MCG/KG/MIN 9. 084 mls/hr IV .Q24H MIHIR Rx#:[id number] propofoL 1,000 mg In 77.074 109.619 Empty Bag 1 bag @ 5 MCG/ KG/MIN 2.381 mls/hr IV . Q24H MIHIR Rx#:[id number] Tube Feeding 418 456 Other 90 90 Output: Urine 830 605 Other: Voiding Method Indwelling Catheter Indwelling Catheter Indwelling Catheter # Bowel Movements 1 ABP, PAP, CO, CI - Last Documented Arterial Blood Pressure 108/44 - Exam GENERAL DESCRIPTION: An elderly male intubated on the vent RESPIRATORY SYSTEM: Unlabored breathing , decreased breath sounds at bases HEART: S1 S2 regular rate and rhythm , ABDOMEN: Soft , no tenderness EXTREMITIES: No edema feet - Labs CBC & Chem 7: 12/11/21 04:45 12/11/21 04:45 Labs: Abnormal Lab Results - Last 24 Hours (Table) 12/10/21 12/11/21 12/11/21 Range/Units 23:39 04:45 04:45 WBC 13.2 H (3.8-10.6) k/uL RBC 2.84 L (4.30-5.90) m/uL Hgb 9.1 L (13.0-17.5) gm/dL Hct 29.6 L (39.0-53.0) % MCV 104.3 H (80.0-100.0) fL MCHC 30.6 L (31.0-37.0) g/dL RDW 17.0 H (11.5-15.5) % APTT (22.0-30.0) sec ABG pO2 (83-108) mmHg ABG Total CO2 (19-24) mmol/L ABG O2 Saturation (94-97) % Chloride 113 H (98-107) mmol/L BUN 39 H (9-20) mg/dL Glucose 178 H (74-99) mg/dL POC Glucose (mg/dL) 196 H (75-99) mg/dL Calcium 7.6 L (8.4-10.2) mg/dL Alkaline Phosphatase 133 H (38-126) U/L Total Protein 4.7 L (6.3-8.2) g/dL Albumin 2.3 L (3.5-5.0) g/dL TSH 0.041 L (0.465-4.680) mIU/L Free T4 2.99 H (0.78-2.19) ng/dL 12/11/21 12/11/21 12/11/21 Range/Units 04:45 05:45 06:02 WBC (3.8-10.6) k/uL RBC (4.30-5.90) m/uL Hgb (13.0-17.5) gm/dL Hct (39.0-53.0) % MCV (80.0-100.0) fL MCHC (31.0-37.0) g/dL RDW (11.5-15.5) % APTT 53.8 H (22.0-30.0) sec ABG pO2 110 H (83-108) mmHg ABG Total CO2 26 H (19-24) mmol/L ABG O2 Saturation 97.5 H (94-97) % Chloride (98-107) mmol/L BUN (9-20) mg/dL Glucose (74-99) mg/dL POC Glucose (mg/dL) 196 H (75-99) mg/dL Calcium (8.4-10.2) mg/dL Alkaline Phosphatase (38-126) U/L Total Protein (6.3-8.2) g/dL Albumin (3.5-5.0) g/dL TSH (0.465-4.680) mIU/L Free T4 (0.78-2.19) ng/dL 12/11/21 12/11/21 Range/Units 12:01 17:42 WBC (3.8-10.6) k/uL RBC (4.30-5.90) m/uL Hgb (13.0-17.5) gm/dL Hct (39.0-53.0) % MCV (80.0-100.0) fL MCHC (31.0-37.0) g/dL RDW (11.5-15.5) % APTT (22.0-30.0) sec ABG pO2 (83-108) mmHg ABG Total CO2 (19-24) mmol/L ABG O2 Saturation (94-97) % Chloride (98-107) mmol/L BUN (9-20) mg/dL Glucose (74-99) mg/dL POC Glucose (mg/dL) 167 H 160 H (75-99) mg/dL Calcium (8.4-10.2) mg/dL Alkaline Phosphatase (38-126) U/L Total Protein (6.3-8.2) g/dL Albumin (3.5-5.0) g/dL TSH (0.465-4.680) mIU/L Free T4 (0.78-2.19) ng/dL Microbiology - Last 24 Hours (Table) 12/06/21 10:25 Blood Culture - Preliminary Blood No Growth after 120 hours 12/06/21 10:31 Blood Culture - Preliminary Blood No Growth after 120 hours 12/07/21 10:30 Blood Culture - Preliminary Blood No Growth after 96 hours 12/07/21 10:30 Blood Culture - Preliminary Blood No Growth after 96 hours 12/04/21 19:21 Blood Culture - Final Blood No Growth after 144 hours Assessment and Plan (1) Bacteremia Current Visit: Yes Status: Acute Code(s): R78.81 - BACTEREMIA SNOMED Code(s): 9018712 (2) Pneumonia Current Visit: Yes Status: Acute Code(s): J18.9 - PNEUMONIA, UNSPECIFIED ORGANISM SNOMED Code(s): 856898201 Plan: 1patient with acute respiratory failure which is likely multifactorial in this patient admitted to the hospital with frequent falls and weakness now with concern for possible pneumonia and a question of aspiration etiology. 2 positive blood culture with staph epi likely skin contamination, repeat blood culture remains to be negative 4 sputum for gram stain and culture so far negative 5patient condition stable and will continue the patient on Zosyn 3.375 g every 8 hours, and monitor clinical course closely Time with Patient: Less than 30
[2021-12-12 05:10] LABS: Glucose,Whole Blood 204 mg/dL (75-99)
[2021-12-12] MEDS: HYDROmorphone 1 MG/ML 1 ML SYRINGE IVP PRN ×3 (05:16→19:47)
[2021-12-12] MEDS: INSULIN ASPART (NovoLOG) 100 UNIT/ML VIAL SQ SCH ×4 (05:16→23:43)
[2021-12-12 05:21] LABS: Anisocytosis Slight; Basophils # (A) 0.1 k/uL (0-0.2); Basophils % (A) 0 %; Eosinophils % (A) 0 %; HCT 29.9 % (39.0-53.0); HGB 9.4 gm/dL (13.0-17.5); Hypochromasia Slight; Lymphocytes # (A) 0.3 k/uL (1.0-4.8); Lymphocytes % (A) 2 %; MCH 32.6 pg (25.0-35.0); MCHC 31.4 g/dL (31.0-37.0); MCV 103.6 fL (80.0-100.0); Macrocytosis Moderate; Mean Platelet Volume 9.5; Monocytes # (A) 1.1 k/uL (0-1.0); Monocytes % (A) 7 %; Neutrophils # (A) 13.5 k/uL (1.3-7.7); Neutrophils % (A) 88 %; Platelet Count 274 k/uL (150-450); RBC 2.89 m/uL (4.30-5.90); RDW 16.9 % (11.5-15.5); WBC 15.4 k/uL (3.8-10.6)
[2021-12-12 05:53] LABS: ABG HCO3 24 mmol/L (21-25); ABG Oxygen Saturation 95.1 % (94-97); ABG PCO2 37 mmHg (35-45); ABG PH 7.41 (7.35-7.45); ABG PO2 80 mmHg (83-108); ABG TCO2 25 mmol/L (19-24); Allen Test Performed? Yes
[2021-12-12 06:56] LABS: ALT 30 U/L (4-49); AST 38 U/L (17-59); African American GFR (CKD) >90 (>60 ml/min/1.73 sqM); Albumin 2.2 g/dL (3.5-5.0); Alkaline Phosphatase 126 U/L (38-126); Anion Gap 2 mmol/L; Blood Urea Nitrogen 43 mg/dL (9-20); Calcium 8.6 mg/dL (8.4-10.2); Carbon Dioxide 21 mmol/L (22-30); Chloride 117 mmol/L (98-107); Glucose 210 mg/dL (74-99); Non-African American GFR(CKD) 85 (>60 ml/min/1.73 sqM); Potassium 4.2 mmol/L (3.5-5.1); Sodium 140 mmol/L (137-145); Total Bilirubin 0.8 mg/dL (0.2-1.3); Total Protein 4.7 g/dL (6.3-8.2)
--- NOTE | 2021-12-12 06:56 | XR ---
EXAMINATION TYPE: XR chest 1V portable DATE OF EXAM: 12/12/2021 CLINICAL HISTORY: Difficulty breathing progress study. TECHNIQUE: Single AP portable semiupright view of the chest is obtained. COMPARISON: Chest x-ray from one day earlier and older studies FINDINGS: Stable endotracheal and orogastric tubes. Persistent cardiomegaly with dual lead pacemaker/AICD. Reticular increased opacities bilaterally abilio in present greatest in the periphery and in the lower lungs. Osseous structures are demineralized. IMPRESSION: Cardiomegaly with mid to lower lung reticular infiltrates and/or edema redemonstrated. N o significant change from one day earlier. Correlate for possible atypical (Covid) infection.
[2021-12-12] MEDS: methylPREDNISolone SOD SUCCI 40 MG/ML 1 ML VIAL IV SCH ×3 (08:54→23:43)
[2021-12-12] MEDS: CHLORHEXIDINE GLUCONATE 15 ML CUP MUCOUS MEM SCH ×2 (08:55→19:43)
[2021-12-12] MEDS: IPRATROPIUM-ALBUTEROL 3 ML NEB INHALATION SCH ×4 (08:59→20:00)
[2021-12-12] MEDS: FOLIC ACID 1 MG TAB PO SCH (09:03)
[2021-12-12] MEDS: AMIODARONE 200 MG TAB PO SCH ×2 (09:03→19:43)
[2021-12-12] MEDS: CHOLECALCIFEROL 25 MCG (1000 IU) TABLET PO SCH (09:03)
[2021-12-12] MEDS: ATORVASTATIN 40 MG TAB PO SCH (09:03)
[2021-12-12] MEDS: METOPROLOL TARTRATE 25 MG TAB PO SCH ×2 (09:03→19:43)
[2021-12-12] MEDS: HEPARIN SOD,PORK IN 0.45% NACL 25,000 UNIT in 0.45% NACL 1 250ML.BAG IV SCH (09:04)
[2021-12-12] MEDS ORDERED: FUROSEMIDE 10 MG/ML 2 ML VIAL IV ONE (09:19)
[2021-12-12] MEDS: PIPERACILLIN-TAZOBACTAM 3.375 GM in SODIUM CHLORIDE 0.9% 100 ML IVPB SCH ×3 (09:25→23:43)
[2021-12-12] MEDS: PANTOPRAZOLE SODIUM 40 MG GRANULE PKT PO SCH (09:26)
[2021-12-12] MEDS: PATIENT'S OWN (Icosapent Ethyl [Icosapent Ethyl] 1 GM Capsule) PO SCH ×2 (09:27→19:32)
--- NOTE | 2021-12-12 11:19 | PN ---
PROGRESS NOTE Mr. Pratt remains intubated. He had a sedation holiday, did not make much progress. He is in sinus rhythm. Hemodynamically stable on a small dose of Levophed which is being weaned off. He is currently in sinus rhythm. Plan is to continue current medical regimen, and continue supportive care. No aggressive intervention. He is currently on amiodarone 400 mg b.i.d. that was started on the twentieth. We can reduce it to 200 mg b.i.d. after 4 more days. All other medications will be continued. The patient has what seems to be a history of ischemic cardiomyopathy and with ICD. He has paroxysmal atrial fibrillation, now he is in sinus rhythm. Vital signs stable. Blood pressure is acceptable. Pressure is over 130 systolic. S1, S2 heard normally, short systolic murmur noted at the base. Lungs reveal ventilator assisted breath sounds. Abdomen: Soft. Lower extremities reveal diminished pulses. Central nervous system exam not performed. MMODL / IJN: [id number] /
[2021-12-12 11:36] LABS: Glucose,Whole Blood 172 mg/dL (75-99)
[2021-12-12] MEDS: SODIUM CHLORIDE 0.45% 1,000 ML IV SCH (11:48)
--- NOTE | 2021-12-12 12:19 | P.PN ---
Subjective Progress Note Date: 12/12/21 Principal diagnosis: Acute hypoxic respiratory failure requiring intubation and mechanical ventilation, multifactorial. 76-year-old male, brought into the emergency room, on December 04, by EMS. The patient apparently had been frequently falling, has had generalized weakness, and is also had increasing shortness of breath, and cough. The patient has not been feeling well for at least 3 weeks, and maybe longer. The patient states that he is having a difficult time coughing up any phlegm although he does feel like his chest is congested. The patient denies any chest pain or chest discomfort. There is no nausea, vomiting, or diarrhea. He was evaluated in the emergency department admitted with a diagnosis of pneumonia. We are seeing him in consultation. White count 8.52, hemoglobin 9.3, hematocrit 29.9, and platelet count 223,000. Sodium 137, potassium 4.8, chlorides 111, CO2 15, anion gap 11, BUN 38, creatinine 1.1. Glucose 98. N-terminal proBNP is 1150. Chest x-ray shows patchy bilateral infiltrates, which are worse on the subsequent chest x-ray. The patient has a history of atrial flutter, pulmonary embolism, rheumatoid arthritis, and previous prostate surgery. The patient is also had heart catheterization with stent placement. On 12/06/2021 we received a phone call from the nursing staff with a concern about worsening hypoxia, and patient was satting only 87% on 100% nonrebreather, tachypnea, and increased work of breathing. Stat chest x-ray was obtained showing contained extensive interstitial and patchy peripheral infiltrates. Patient has been afebrile. Blood pressure is 110/64, however he is tachypneic, with a respiratory rate in the 30s. Denies any chest discomfort, denies any cough or phlegm production. Patient was found to be bacteremic, his blood cultures show gram-positive cocci in groups, he is currently on Zosyn and vancom ycin for antibiotic coverage. We were unable to obtain a sputum culture. Blood gas was obtained on 100% nonrebreather showing pO2 of 68, pCO2 of 24, and pH of 7.37. Subsequently patient was placed on BiPAP support with a pressure of 15/5, and FiO2 100%. Neurologically patient is awake and alert, he is answering questions appropriately, he is oriented 3. He is achieving over 1000 mL of tidal volume on the BiPAP support. Still remains quite tachycardic, his minute ventilation is increased. Patient was given a dose of IV Lasix 60 mg times one, he has produced 1.1 L and urine output since then, we'll continue with IV diuretics, we ordered an echocardiogram which is pending at this point. His pro calcitonin level is elevated at 0.87, proBNP was 1150. Reevaluated today on 12/07/2021, patient's condition deteriorated few hours after he was admitted to the ICU yesterday, patient was getting more tachypneic, more tachycardic, and he was developing worsening respiratory distress. His re spiratory rate was up in the 50s according to the nurse will call be about the patient, and the patient was getting extremely agitated and restless, as I recommended immediate intubation and mechanical ventilation. Patient is now intubated, mechanically ventilated, he is sedated and he is on propofol. Patient is on assist control rate of 24 tidal volume 450 FiO2 60% and PEEP of 5. ABG showed a pO2 of 90 pCO2 of 42 pH of 7.33. His FiO2 was cut down. The rest of the vent settings exactly the same. Patient is on IV fluid at KVO, he is requiring norepinephrine at 0.26 mcg/kg/m, he is also on propofol at 50 mcg/kg/m. Again I cut down his FiO2 to 50%. Patient was on Lasix, we cut down the Lasix mostly because of his hypotension and requiring norepinephrine his blood cultures basically showed contamination, positive for staph epidermidis which implies contamination, not true positive blood cultures. Patient remains on Zosyn empirically, and vancomycin was discontinued. Chest x-ray continues to show bilateral interstitial infiltrates/edema and confluent groundglass opacities bilaterally. Not much of a change since admission. Patient remains on Zosyn empirically for presumptive underlying pneumonia especially with his elevated pro calcitonin level. It is not clear to me whether the patient had history of interstitial lung disease related to his rheumatoid arthritis in the past, no old x-rays for comparison to determine whether the findings are new or chronic. Nonetheless the patient remains on antibiotics and on diuretics. Amiodarone was added today by cardiology for his atrial fibrillation with RVR. Patient remains on Xarelto and he has been on Xarelto all along. His echocardiogram showed LV dysfunction with ejection fraction of 35%, and right- sided pressures seems to be elevated at 51.5. Labs today showed WBC count of 11.2 hemoglobin is 9.9. Electrolytes are normal renal profile is normal, pro calcitonin is up to 4.29 Reevaluated today on 12/08/21, patient remains in the ICU, intubated and mechanically ventilated. His norepinephrine is down to 0.38 mcg/kg/m, it was as high as 0.6 mcg/kg/m last night. Patient received fluids received fluid boluses, and his main IV fluid was increased today to 75 mL per hour. Patient remains on assist control rate of 24 tidal volume 450 FiO2 50% and PEEP of 5. Chest x-ray continues to show bilateral interstitial infiltrates. ABG showed a pO2 of 109 pCO2 44 pH of 7.30, hence I increased his rate to 26 cut down her FiO2 to 45%, and increase the flow rate to 65 L/m repeat blood cultures remain negative. His initial blood culture that admission showed contamination/staph epidermidis..In the meantime the patient remains on antibiotics empirically/Zosyn. Patient remains tachycardic, he is on amiodarone, not much change noted in heart rate, ranging anywhere between 120-130, presently 126. This morning went ahead and give another fluid bolus 500 mL, and I changed his IV fluid to D5 45, and discontinued water flushes. All labs were reviewed WBC count is 10.6 hemoglobin is 9.6. Renal profile is normal with a BUN of 28 creatinine 1.05. White carbs 21. Potassium is a bit low at 3.3. Patient remains sedated, and I have no plans to wean and extubate anytime soon a long as he seems to be hemodynamically unstable. Patient is receiving enteral feeding via orogastric tube. Reevaluated today on 12/09/2021, patient remains in the ICU, intubated and mechanically ventilated. Sedated on propofol. Patient had an episode of ventricular tachycardia yesterday, with drop in his blood pressure, required cardioversion 4. Patient was also placed on lidocaine last night after a brief course of CPR and cardioversion, 4. Potassium was noted to be low, being corrected. Patient received fluids during his episode of cardiac arrest. Apparently his AICD was interrogated, and showed a number of episodes of tachycardia mostly appeared to be A. fib and atrial flutter with a very rapid conduction. Patient was placed back on amiodarone, and his lidocaine was discontinued. His hypokalemia is being corrected. Apparently the patient had a relatively downhill course yesterday, but seems to have stabilized today. He is on assist control rate of 26, tidal volume 450 FiO2 45% PEEP of 5. ABG showed a pO2 of 110 pCO2 41 pH of 7.36. Basic metabolic profile is relatively unremarkable, potassium remains a bit low at 3.5. WBC count is 16.4 hemoglobin is 8.8, PTT is 49.4, patient is now off Xarelto and he is receiving IV heparin. Pro calcitonin remains high at 2.40. Chest x-ray continues to show evidence of bilateral interstitial infiltrates sputum cultures are nondiagnostic. Repeat blood cultures since admission have been negative while along. Reevaluated today on 12/10/21 patient remains in the ICU, intubated and mechanically ventilated. Patient is on assist control rate of 26 to 07/27/1948 FiO2 45% PEEP of 5 ABG showed a pO2 of 122 pCO2 43 pH of 7.33 hence the patient FiO2 was cut down to 40%. Patient remains on norepinephrine at 0.2 mcg/kg/m, propofol at 6:00 ventricular per minute amiodarone at 0.5 mg/m patient is sedated, and today I have recommended sedation interruption, and assessment of mental status at least. Chest x-ray continues to bilateral interstitial infiltrates, clinically the patient is not ready for weaning. But I would recommend sedation interruption and assessment of mental status today. Patient is in atrial fibrillation rate is controlled about 90. No further episodes of cardiac arrest since the last episode he had 2 days ago. Remains on heparin dr ip. Patient is also on enteral feeding for nutritional support. He is on GI and DVT prophylaxis WBC count is 18.5 hemoglobin 9.2. PTT is 51. Basic metabolic profile is normal renal profile is normal. reevaluated today on 12/11/21, patient remains in the ICU, intubated and mechanically ventilated. Chest x-ray continues to show bilateral infiltrates, not much of a change compared to admission chest x-ray. Patient remains on assist control rate of 26, tidal volume 450, FiO2 40%, PEEP is 5. ABG showed a pO2 of 110 pCO2 of 39 pH of 7.41, hence I cut down his FiO2 down to 35%. Patient remains on propofol presently 20 mcg/kg/m, he is on a very minimal dose of norepinephrine earlier and his norepinephrine has been turned off earlier today, he was on 0.02 mcg/kg/m, remains on heparin, remains on D5 45 at 50 mL per hour, he is on vital HPI 38 mL per hour.WBC count is 13.2 hemoglobin is 9.1. Electrode was are normal renal profile is normal. PTT is therapeutic at 53.8. Reevaluated today on 12/12/21, patient remains in the ICU, remains intubated and mechanically ventilated. Presently on assist control rate of 26, tidal volume 450, FiO2 40% and PEEP of 5. Chest x-ray today showed slight worsening of interstitial infiltrates/suspect some component of pulmonary edema. Patient remains on propofol at 30 mcg/kg/m, he is on norepinephrine at 0.06 mcg/kg/m vital HPI 38 mL/h. ABG showed a pO2 of 80 pCO2 37 pH of 7.41, hence no changes were made in the vent settings. I did give the patient 1 dose of Lasix 20 mg IV push 1. And I have recommended that we give the patient a trial off sedation,/sedation holiday, and assess mental status at least today. Clearly the patient is not ready to be weaned or extubated, but at least we could assess his mental status off sedation today possibly. WBC count today is 15.4 hemoglobin is 9.4. PTT is therapeutic at 52. Basic metabolic profile is basically unremarkable, BUN is 43 creatinine 0.86. Blood cultures in the last few days have been nondiagnostic/negative. Upon admission the patient had a positive blood culture but that was staph epidermidis/contamination related. Objective - Vital Signs Vital signs: Vital Signs Temp 97.9 F 12/12/21 08:00 Pulse 85 12/12/21 12:01 Resp 19 12/12/21 11:00 BP 107/57 12/12/21 11:00 Pulse Ox 93 L 12/12/21 11:00 Intake & Output 12/11/21 12/12/21 12/12/21 18:59 06:59 18:59 Intake Total 1215.408 0370.673 792.389 Output Total 605 755 800 Balance 1094.070 684.673 -7.611 Weight 95.4 kg Intake: IV 860 720 300 0.9 KVO 60 120 50 Dextrose 5%-0.45% NaCl 1, 600 600 250 000 ml @ 50 mls/hr IV . Q20H [facility] Rx#:[id number] Piperacillin-Tazobactam 3 200 .375 gm In Sodium Chloride 0.9% 100 ml @ 25 mls/hr IVPB Q8HR [facility] Rx# :[id number] Intake, IV Titration 293.070 173.673 302.389 Amount Heparin Sod,Pork in 0.45% 170.128 250 NaCl 25,000 unit In 0.45 % NaCl 1 250ml.bag @ 12 UNITS/KG/HR 10.08 mls/hr IV .Q24H [facility] Rx#: [id number] Norepinephrine 8 mg In 13.323 20.711 Sodium Chloride 0.9% 250 ml @ 0.05 MCG/KG/MIN 9. 084 mls/hr IV .Q24H [facility] Rx#:[id number] propofoL 1,000 mg In 109.619 152.962 52.389 Empty Bag 1 bag @ 5 MCG/ KG/MIN 2.381 mls/hr IV . Q24H [facility] Rx#:[id number] Tube Feeding 456 456 190 Other 90 90 Output: Urine 605 755 800 Other: Voiding Method Indwelling Catheter Indwelling Catheter Indwelling Catheter # Bowel Movements 1 ABP, PAP, CO, CI - Last Documented Arterial Blood Pressure 129/47 - Exam Physical Exam: Revealed a 76-year-old white male intubated sedated and mechanically ventilated on propofol, Head: Atraumatic, normocephalic. Endotracheal tube and orogastric tube are intact. Moist mucous membranes. HEENT:[Neck is supple.] [No neck masses.] [No thyromegaly.] [No JVD.] Chest: [Symmetrical chest expansion, crackles at the bases bilaterally.] Cardiac Exam: Irregular irregular rhythm, no S3 gallop. 2/6 systolic murmur th ought the precordium. Abdomen: [Soft, nontender, no megaly, no rebound, no guarding, normal bowel s ounds.] Extremities: [No clubbing, no edema, no cyanosis.] Neurological Exam: Could not assess, patient is fully sedated. Psychiatric: Could not assess, patient is sedated. - Labs CBC & Chem 7: 12/12/21 05:07 12/12/21 05:07 Labs: Abnormal Lab Results - Last 24 Hours (Table) 12/11/21 12/11/21 12/11/21 Range/Units 04:45 17:42 23:11 WBC (3.8-10.6) k/uL RBC (4.30-5.90) m/uL Hgb (13.0-17.5) gm/dL Hct (39.0-53.0) % MCV (80.0-100.0) fL RDW (11.5-15.5) % Neutrophils # (1.3-7.7) k/uL Lymphocytes # (1.0-4.8) k/uL Monocytes # (0-1.0) k/uL APTT (22.0-30.0) sec ABG pO2 (83-108) mmHg ABG Total CO2 (19-24) mmol/L Chloride (98-107) mmol/L Carbon Dioxide (22-30) mmol/L BUN (9-20) mg/dL Glucose (74-99) mg/dL POC Glucose (mg/dL) 160 H 181 H (75-99) mg/dL Alkaline Phosphatase 133 H (38-126) U/L Total Protein 4.7 L (6.3-8.2) g/dL Albumin 2.3 L (3.5-5.0) g/dL TSH 0.041 L (0.465-4.680) mIU/L Free T4 2.99 H (0.78-2.19) ng/dL 12/12/21 12/12/21 12/12/21 Range/Units 05:07 05:07 05:07 WBC 15.4 H (3.8-10.6) k/uL RBC 2.89 L (4.30-5.90) m/uL Hgb 9.4 L (13.0-17.5) gm/dL Hct 29.9 L (39.0-53.0) % MCV 103.6 H (80.0-100.0) fL RDW 16.9 H (11.5-15.5) % Neutrophils # 13.5 H (1.3-7.7) k/uL Lymphocytes # 0.3 L (1.0-4.8) k/uL Monocytes # 1.1 H (0-1.0) k/uL APTT 52.1 H (22.0-30.0) sec ABG pO2 (83-108) mmHg ABG Total CO2 (19-24) mmol/L Chloride 117 H (98-107) mmol/L Carbon Dioxide 21 L (22-30) mmol/L BUN 43 H (9-20) mg/dL Glucose 210 H (74-99) mg/dL POC Glucose (mg/dL) (75-99) mg/dL Alkaline Phosphatase (38-126) U/L Total Protein 4.7 L (6.3-8.2) g/dL Albumin 2.2 L (3.5-5.0) g/dL TSH (0.465-4.680) mIU/L Free T4 (0.78-2.19) ng/dL 12/12/21 12/12/21 12/12/21 Range/Units 05:08 05:47 11:35 WBC (3.8-10.6) k/uL RBC (4.30-5.90) m/uL Hgb (13.0-17.5) gm/dL Hct (39.0-53.0) % MCV (80.0-100.0) fL RDW (11.5-15.5) % Neutrophils # (1.3-7.7) k/uL Lymphocytes # (1.0-4.8) k/uL Monocytes # (0-1.0) k/uL APTT (22.0-30.0) sec ABG pO2 80 L (83-108) mmHg ABG Total CO2 25 H (19-24) mmol/L Chloride (98-107) mmol/L Carbon Dioxide (22-30) mmol/L BUN (9-20) mg/dL Glucose (74-99) mg/dL POC Glucose (mg/dL) 204 H 172 H (75-99) mg/dL Alkaline Phosphatase (38-126) U/L Total Protein (6.3-8.2) g/dL Albumin (3.5-5.0) g/dL TSH (0.465-4.680) mIU/L Free T4 (0.78-2.19) ng/dL Microbiology - Last 24 Hours (Table) 12/06/21 10:25 Blood Culture - Preliminary Blood No Growth after 120 hours 12/06/21 10:31 Blood Culture - Preliminary Blood No Growth after 120 hours 12/07/21 10:30 Blood Culture - Preliminary Blood No Growth after 96 hours 12/07/21 10:30 Blood Culture - Preliminary Blood No Growth after 96 hours Assessment and Plan Assessment: Impression: Acute hypoxic respiratory failure secondary to pneumonia, community-acquired, however the patient is relatively immunocompromised on methotrexate and leflunomide for underlying rheumatoid arthritis. Possibility of interstitial lung disease is not entirely ruled out. Possibility of acute on chronic systolic congestive heart failure is also in the differential. Clearly the presentation was a pulmonary presentation/pneumonia and sepsis/septic shock. Blood cultures positive for staph epidermidis, repeat blood cultures have been negative and the patient remains on Zosyn. He is off vancomycin. Chronic atrial fibrillation , paroxysmal atrial flutter with RVR History of pulmonary embolism, patient was on Xarelto now on heparin. History of underlying coronary artery disease and previous PCI and stent placement. Ischemic cardiomyopathy and LV dysfunction previous AICD placement in 2015. Echocardiogram on this admission showed ejection fraction of 35-40%. Former smoker. Rheumatoid arthritis, maintained on methotrexate and leflunomide. Both are presently on hold. Hypotension secondary to sepsis, septic shock, and profound LV dysfunction with ischemic cardiomyopathy. Patient remains on norepinephrine , however the dose has been significantly cut down over the last few days. Today he is on 0.06 mcg/kg/m Wide-complex tachycardia, requiring CPR and cardioversion 4. This was on 12/08/21, no reoccurrence since then. Recommendation: Continue ventilatory support. Sedation interruption and assessment of mental status at least today, although the patient is not ready to wean or extubated Continue antibiotics/Zosyn. empirically for pneumonia. Continue GI and DVT prophylaxis. Patient is on heparin is also on pantoprazole. continue nutritional support, patient is on enteral feeding. Continue to titrate the norepinephrine as needed. Continue to hold methotrexate and leflunomide. Continue Solu-Medrol Sputum cultures have been nondiagnostic.empirically on Zosyn. We will continue to follow. Prognosis remains poor and guarded Critical care time is over 30 minutes Time with Patient: Greater than 30
--- NOTE | 2021-12-12 14:43 | P.PN ---
Subjective Progress Note Date: 12/12/21 (delayed charting seen at 1115) Principal diagnosis: fatigue Patient is a 76-year-old with history of A. fib on Xarelto, rheumatoid arthritis, congestive heart failure, prior pulmonary embolism who initially presented with 4 weeks of weakness and fatigue. In the ER he underwent an extensive evaluation. He was found to have pneumonia and acute kidney injury. He was started on Rocephin and Zithromax area pulmonary was consulted. He was also discovered that he has a history of congestive heart failure in his interest and Aldactone were restarted. His O2 sat decreased and he started to require 100% nonrebreather. He was given a dose of Lasix and diuretics were continued. He was transferred to the ICU on 12/06. His respirations continued to worsen and he ultimately required BiPAP and then intubation. He then developed A. fib with RVR cardiology was consulted and started on IV amiodarone. He did have a set of blood cultures for ultimately determined to be a contaminant with staph epi. On 12/09 unit early a.m. he went into pulseless V. tach requiring multiple cardioversions and he was ultimately started on lidocaine. Cardiology was notified. He was transitioned off the lidocaine drip and back onto amiodarone and Lopressor. He continued to improve. He was transitioned off levo on 12/10. Imaging: CXR: mild cardiomegaly, interstitial opacities CT Brain: mild age related atrophy Echo: EF 35-40% Patient seen and examined with nursing present. No acute events overnight, going to attempt sedation holiday today present at bedside. Questions answered General: non toxic, no distress, appears at stated age Derm: warm, dry Head: atraumatic, normocephalic, symmetric Eyes: EOMI, no lid lag, anicteric sclera Mouth: no lip lesion, mucus membranes moist Cardiovascular: S1S2 reg, no murmur, positive posterior tibial pulse bilateral, Lungs: Course bs bilateral, no rhonchi, no rales , no accessory muscle use Abdominal: soft, nontender to palpation, no guarding, no appreciable organomegaly Ext: no gross muscle atrophy, no edema, no contractures Neuro: Breathing over the vent, no with drawal to pain, PER-sluggishly reactive to light Psych:unresponisve on vent with sedation Assessment/Plan: Community-acquired pneumonia Acute hypoxic respiratory failure Immunocompromized due to RA on Methotrexate and Leflunomide Septic shock - pulm recs on vent - zosyn - ID recs - steroids - broncodilators 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 Patient is on BB which would help to suppress symptoms - recommend repeat TSH for confirmation - consider Methamizole if confirmed hyperthyroidism. Chronic: Macrocytic anemia Pulmonary embolism Rheumatoid arthritis GERD Dyslipidemia ISABEL, resolved Generalized weakness DVT prophylaxis: heparin gtt Discussed with: nursing Anticipated discharge: undetermined Anticipated discharge place: SNF vs [facility] A total of 32 minutes was spent on the care of this complex patient more than 50% of the time was spent in counseling and care coordination. Active Medications Generic Name Dose Route Start Last Admin Trade Name Freq PRN Reason Stop Dose Admin Albuterol/Ipratropium 3 ml 12/05/21 16:00 12/12/21 11:53 Ipratropium-Albuterol 3 Ml Neb INHALATION 3 ml RT-QID MIHIR Administration Amiodarone HCl 400 mg 12/10/21 11:15 12/12/21 09:03 Amiodarone 200 Mg Tab PO 400 mg BID MIHIR Administration Atorvastatin Calcium 40 mg 12/05/21 09:00 12/12/21 09:03 Atorvastatin 40 Mg Tab PO 40 mg DAILY MIHIR Administration Chlorhexidine Gluconate 15 ml 12/07/21 09:00 12/12/21 08:55 Chlorhexidine Gluconate 15 Ml Cup MUCOUS MEM 15 ml BID MIHIR Administration Cholecalciferol 50 mcg 12/05/21 09:00 12/12/21 09:03 Cholecalciferol 25 Mcg (1000 Iu) Tablet PO 50 mcg DAILY MIHIR Administration Folic Acid 1 mg 12/05/21 09:00 12/12/21 09:03 Folic Acid 1 Mg Tab PO 1 mg DAILY MIHIR Administration Hydromorphone HCl 1 mg 12/09/21 16:05 12/12/21 05:16 Hydromorphone 1 Mg/Ml 1 Ml Syringe IVP 1 mg Q3H PRN Administration Pain Sodium Chloride 1,000 mls @ 10 mls/hr 12/04/21 20:45 12/11/21 19:30 Saline 0.9% IV 10 mls/hr .Q24H MIHIR Administration Piperacillin Sod/Tazobactam 100 mls @ 25 mls/hr 12/06/21 08:45 12/12/21 09:25 Sod 3.375 gm/ Sodium Chloride IVPB 25 mls/hr Q8HR MIHIR Administration Protocol Propofol 1,000 mg/ IV Solution 100 mls @ 2.381 mls/hr 12/06/21 21:15 12/12/21 14:25 IV 15 mcg/kg/min .Q24H MIHIR 7.144 mls/hr Titration Protocol 5 MCG/KG/MIN Heparin Sodium/Sodium Chloride 250 mls @ 10.08 mls/hr 12/08/21 21:00 12/12/21 09:04 25,000 unit/ Sodium Chloride IV 14 units/kg/hr .Q24H MIHIR 11.76 mls/hr Administration Protocol 12 UNITS/KG/HR Norepinephrine Bitartrate 8 mg 258 mls @ 9.084 mls/hr 12/10/21 19:30 12/11/21 19:29 / Sodium Chloride IV 0.04 mcg/kg/min .Q24H MIHIR 7.267 mls/hr Administration Protocol 0.05 MCG/KG/MIN Sodium Chloride 1,000 mls @ 50 mls/hr 12/12/21 11:30 12/12/21 11:48 Saline 0.45% IV 50 mls/hr .Q20H MIHIR Administration Insulin Aspart 0 unit 12/08/21 12:00 12/12/21 11:48 Insulin Aspart (Novolog) 100 Unit/Ml Vial SQ 4 unit Q6H MIHIR Administration Protocol Methylprednisolone Sodium Succinate 40 mg 12/07/21 16:00 12/12/21 08:54 Methylprednisolone Sod Succi 40 Mg/Ml 1 Ml Vial IV 40 mg Q8HR MIHIR Administration Metoprolol Tartrate 25 mg 12/10/21 11:15 12/12/21 09:03 Metoprolol Tartrate 25 Mg Tab PO 25 mg BID MIHIR Administration Miscellaneous Information 1 each 12/04/21 20:43 Pneumonia Protocol Utilized 1 Each Misc PO ONCE PRN Per Protocol Miscellaneous Information 1 each 12/07/21 08:40 Potassium Replacement Protocol 1 Each [facility] [place] PRN Per Protocol Protocol Miscellaneous Information 1 each 12/08/21 20:31 Phosphorus Replacement Protoco 1 Each [facility] [place] PRN Per Protocol Protocol Morphine Sulfate 4 mg 12/06/21 09:58 12/11/21 16:12 Morphine Sulfate 4 Mg/Ml Syringe IVP 4 mg Q4HR PRN Administration Pain Patient's Own ( 2 gm 12/04/21 21:00 12/12/21 09:27 Icosapent Ethyl [ PO Not Given Icosapent Ethyl] 1 BID MIHIR Gm Capsule) Pantoprazole Sodium 40 mg 12/12/21 09:30 12/12/21 09:26 Pantoprazole Sodium 40 Mg Granule Pkt PO 40 mg DAILY MIHIR Administration Objective - Vital Signs Vital signs: Vital Signs Temp 97.7 F 12/12/21 12:00 Pulse 93 12/12/21 14:00 Resp 18 12/12/21 14:00 BP 107/57 12/12/21 14:00 Pulse Ox 92 L 12/12/21 14:00 Intake & Output 12/11/21 12/12/21 12/12/21 18:59 06:59 18:59 Intake Total 3348.483 3296.673 1191.799 Output Total 984 484 5242 Balance 1094.070 684.673 91.799 Weight 95.4 kg Intake: IV 860 720 480 0.9 KVO 60 120 80 Dextrose 5%-0.45% NaCl 1, 600 600 250 000 ml @ 50 mls/hr IV . Q20H MIHIR Rx#:[id number] Piperacillin-Tazobactam 3 200 .375 gm In Sodium Chloride 0.9% 100 ml @ 25 mls/hr IVPB Q8HR MIHIR Rx# :[id number] Sodium Chloride 0.45% 1, 150 000 ml @ 50 mls/hr IV . Q20H MIHIR Rx#:[id number] Intake, IV Titration 293.070 173.673 377.799 Amount Heparin Sod,Pork in 0.45% 170.128 250 NaCl 25,000 unit In 0.45 % NaCl 1 250ml.bag @ 12 UNITS/KG/HR 10.08 mls/hr IV .Q24H MIHIR Rx#: [id number] Norepinephrine 8 mg In 13.323 20.711 Sodium Chloride 0.9% 250 ml @ 0.05 MCG/KG/MIN 9. 084 mls/hr IV .Q24H MIHIR Rx#:[id number] propofoL 1,000 mg In 109.619 152.962 127.799 Empty Bag 1 bag @ 5 MCG/ KG/MIN 2.381 mls/hr IV . Q24H MIHIR Rx#:[id number] Tube Feeding 456 456 304 Other 90 90 30 Output: Urine 120 023 5172 Other: Voiding Method Indwelling Catheter Indwelling Catheter Indwelling Catheter # Bowel Movements 1 ABP, PAP, CO, CI - Last Documented Arterial Blood Pressure 123/45 - Labs CBC & Chem 7: 12/12/21 05:07 12/12/21 05:07 Labs: Abnormal Lab Results - Last 24 Hours (Table) 12/11/21 12/11/21 12/12/21 Range/Units 17:42 23:11 05:07 WBC 15.4 H (3.8-10.6) k/uL RBC 2.89 L (4.30-5.90) m/uL Hgb 9.4 L (13.0-17.5) gm/dL Hct 29.9 L (39.0-53.0) % MCV 103.6 H (80.0-100.0) fL RDW 16.9 H (11.5-15.5) % Neutrophils # 13.5 H (1.3-7.7) k/uL Lymphocytes # 0.3 L (1.0-4.8) k/uL Monocytes # 1.1 H (0-1.0) k/uL APTT (22.0-30.0) sec ABG pO2 (83-108) mmHg ABG Total CO2 (19-24) mmol/L Chloride (98-107) mmol/L Carbon Dioxide (22-30) mmol/L BUN (9-20) mg/dL Glucose (74-99) mg/dL POC Glucose (mg/dL) 160 H 181 H (75-99) mg/dL Total Protein (6.3-8.2) g/dL Albumin (3.5-5.0) g/dL 12/12/21 12/12/21 12/12/21 Range/Units 05:07 05:07 05:08 WBC (3.8-10.6) k/uL RBC (4.30-5.90) m/uL Hgb (13.0-17.5) gm/dL Hct (39.0-53.0) % MCV (80.0-100.0) fL RDW (11.5-15.5) % Neutrophils # (1.3-7.7) k/uL Lymphocytes # (1.0-4.8) k/uL Monocytes # (0-1.0) k/uL APTT 52.1 H (22.0-30.0) sec ABG pO2 (83-108) mmHg ABG Total CO2 (19-24) mmol/L Chloride 117 H (98-107) mmol/L Carbon Dioxide 21 L (22-30) mmol/L BUN 43 H (9-20) mg/dL Glucose 210 H (74-99) mg/dL POC Glucose (mg/dL) 204 H (75-99) mg/dL Total Protein 4.7 L (6.3-8.2) g/dL Albumin 2.2 L (3.5-5.0) g/dL 12/12/21 12/12/21 Range/Units 05:47 11:35 WBC (3.8-10.6) k/uL RBC (4.30-5.90) m/uL Hgb (13.0-17.5) gm/dL Hct (39.0-53.0) % MCV (80.0-100.0) fL RDW (11.5-15.5) % Neutrophils # (1.3-7.7) k/uL Lymphocytes # (1.0-4.8) k/uL Monocytes # (0-1.0) k/uL APTT (22.0-30.0) sec ABG pO2 80 L (83-108) mmHg ABG Total CO2 25 H (19-24) mmol/L Chloride (98-107) mmol/L Carbon Dioxide (22-30) mmol/L BUN (9-20) mg/dL Glucose (74-99) mg/dL POC Glucose (mg/dL) 172 H (75-99) mg/dL Total Protein (6.3-8.2) g/dL Albumin (3.5-5.0) g/dL Microbiology - Last 24 Hours (Table) 12/06/21 10:25 Blood Culture - Final Blood No Growth after 144 hours 12/06/21 10:31 Blood Culture - Final Blood No Growth after 144 hours 12/07/21 10:30 Blood Culture - Preliminary Blood No Growth after 120 hours 12/07/21 10:30 Blood Culture - Preliminary Blood No Growth after 120 hours
--- NOTE | 2021-12-12 17:40 | P.PN ---
Subjective Progress Note Date: 12/12/21 Principal diagnosis: Sepsis Patient is 76 year old male presenting to the hospital with generalized weakness and fall symptom has been going on for a few weeks before presentation hospital patient did have a worsening of respiratory status requiring intubation, patient did have a pulseless V. tach CODE BLUE after midnight on 12/09/2021 for the patient has received shock IV fluid on today's evaluation that is 12/12/2021, the patient continues to be afebrile, the patient remains to be intubated on the vent and FiO2 is stable at 40 %, no significant purulent secretions through the ET or diarrhea has been reported by nurses to patient currently on a low-dose pressor support, patient is tolerating his tube feeds Objective - Vital Signs Vital signs: Vital Signs Temp 97.7 F 12/12/21 12:00 Pulse 101 H 12/12/21 15:00 Resp 21 12/12/21 15:00 BP 124/69 12/12/21 15:00 Pulse Ox 93 L 12/12/21 15:00 Intake & Output 12/11/21 12/12/21 12/12/21 18:59 06:59 18:59 Intake Total 4340.980 5563.673 1289.799 Output Total 985 813 4159 Balance 1094.070 684.673 139.799 Weight 95.4 kg Intake: IV 860 720 540 0.9 KVO 60 120 90 Dextrose 5%-0.45% NaCl 1, 600 600 250 000 ml @ 50 mls/hr IV . Q20H MIHIR Rx#:[id number] Piperacillin-Tazobactam 3 200 .375 gm In Sodium Chloride 0.9% 100 ml @ 25 mls/hr IVPB Q8HR MIHIR Rx# :[id number] Sodium Chloride 0.45% 1, 200 000 ml @ 50 mls/hr IV . Q20H MIHIR Rx#:[id number] Intake, IV Titration 293.070 173.673 377.799 Amount Heparin Sod,Pork in 0.45% 170.128 250 NaCl 25,000 unit In 0.45 % NaCl 1 250ml.bag @ 12 UNITS/KG/HR 10.08 mls/hr IV .Q24H MIHIR Rx#: [id number] Norepinephrine 8 mg In 13.323 20.711 Sodium Chloride 0.9% 250 ml @ 0.05 MCG/KG/MIN 9. 084 mls/hr IV .Q24H MIHIR Rx#:[id number] propofoL 1,000 mg In 109.619 152.962 127.799 Empty Bag 1 bag @ 5 MCG/ KG/MIN 2.381 mls/hr IV . Q24H MIHIR Rx#:[id number] Tube Feeding 456 456 342 Other 90 90 30 Output: Urine 149 879 2356 Other: Voiding Method Indwelling Catheter Indwelling Catheter Indwelling Catheter # Bowel Movements 1 ABP, PAP, CO, CI - Last Documented Arterial Blood Pressure 143/61 - Exam GENERAL DESCRIPTION: An elderly male intubated on the vent RESPIRATORY SYSTEM: Unlabored breathing , decreased breath sounds at bases HEART: S1 S2 regular rate and rhythm , ABDOMEN: Soft , no tenderness EXTREMITIES: No edema feet - Labs CBC & Chem 7: 12/12/21 05:07 12/12/21 05:07 Labs: Abnormal Lab Results - Last 24 Hours (Table) 12/11/21 12/11/21 12/12/21 Range/Units 17:42 23:11 05:07 WBC 15.4 H (3.8-10.6) k/uL RBC 2.89 L (4.30-5.90) m/uL Hgb 9.4 L (13.0-17.5) gm/dL Hct 29.9 L (39.0-53.0) % MCV 103.6 H (80.0-100.0) fL RDW 16.9 H (11.5-15.5) % Neutrophils # 13.5 H (1.3-7.7) k/uL Lymphocytes # 0.3 L (1.0-4.8) k/uL Monocytes # 1.1 H (0-1.0) k/uL APTT (22.0-30.0) sec ABG pO2 (83-108) mmHg ABG Total CO2 (19-24) mmol/L Chloride (98-107) mmol/L Carbon Dioxide (22-30) mmol/L BUN (9-20) mg/dL Glucose (74-99) mg/dL POC Glucose (mg/dL) 160 H 181 H (75-99) mg/dL Total Protein (6.3-8.2) g/dL Albumin (3.5-5.0) g/dL 12/12/21 12/12/21 12/12/21 Range/Units 05:07 05:07 05:08 WBC (3.8-10.6) k/uL RBC (4.30-5.90) m/uL Hgb (13.0-17.5) gm/dL Hct (39.0-53.0) % MCV (80.0-100.0) fL RDW (11.5-15.5) % Neutrophils # (1.3-7.7) k/uL Lymphocytes # (1.0-4.8) k/uL Monocytes # (0-1.0) k/uL APTT 52.1 H (22.0-30.0) sec ABG pO2 (83-108) mmHg ABG Total CO2 (19-24) mmol/L Chloride 117 H (98-107) mmol/L Carbon Dioxide 21 L (22-30) mmol/L BUN 43 H (9-20) mg/dL Glucose 210 H (74-99) mg/dL POC Glucose (mg/dL) 204 H (75-99) mg/dL Total Protein 4.7 L (6.3-8.2) g/dL Albumin 2.2 L (3.5-5.0) g/dL 12/12/21 12/12/21 Range/Units 05:47 11:35 WBC (3.8-10.6) k/uL RBC (4.30-5.90) m/uL Hgb (13.0-17.5) gm/dL Hct (39.0-53.0) % MCV (80.0-100.0) fL RDW (11.5-15.5) % Neutrophils # (1.3-7.7) k/uL Lymphocytes # (1.0-4.8) k/uL Monocytes # (0-1.0) k/uL APTT (22.0-30.0) sec ABG pO2 80 L (83-108) mmHg ABG Total CO2 25 H (19-24) mmol/L Chloride (98-107) mmol/L Carbon Dioxide (22-30) mmol/L BUN (9-20) mg/dL Glucose (74-99) mg/dL POC Glucose (mg/dL) 172 H (75-99) mg/dL Total Protein (6.3-8.2) g/dL Albumin (3.5-5.0) g/dL Microbiology - Last 24 Hours (Table) 12/06/21 10:25 Blood Culture - Final Blood No Growth after 144 hours 12/06/21 10:31 Blood Culture - Final Blood No Growth after 144 hours 12/07/21 10:30 Blood Culture - Preliminary Blood No Growth after 120 hours 12/07/21 10:30 Blood Culture - Preliminary Blood No Growth after 120 hours Assessment and Plan (1) Bacteremia Current Visit: Yes Status: Acute Code(s): R78.81 - BACTEREMIA SNOMED Code(s): 1798204 (2) Pneumonia Current Visit: Yes Status: Acute Code(s): J18.9 - PNEUMONIA, UNSPECIFIED ORGANISM SNOMED Code(s): 036887883 Plan: 1patient with acute respiratory failure which is likely multifactorial in this patient admitted to the hospital with frequent falls and weakness now with concern for possible pneumonia and a question of aspiration etiology. 2 positive blood culture with staph epi likely skin contamination, repeat blood culture remains to be negative 4 sputum for gram stain and culture so far negative 5patient condition remains to be critical however no worsening noticed, patient to continue the patient on Zosyn 3.375 g every 8 hours, and monitor clinical course closely Time with Patient: Less than 30
[2021-12-12 17:49] LABS: Glucose,Whole Blood 154 mg/dL (75-99)
[2021-12-12] MEDS: NOREPINEPHRINE 8 MG in SODIUM CHLORIDE 0.9% 250 ML IV SCH (19:41)
[2021-12-12] MEDS: SODIUM CHLORIDE 0.9% 1,000 ML IV SCH (19:44)
[2021-12-12 23:41] LABS: Glucose,Whole Blood 178 mg/dL (75-99)
[2021-12-13] MEDS: HYDROmorphone 1 MG/ML 1 ML SYRINGE IVP PRN ×5 (01:17→22:57)
[2021-12-13 04:59] LABS: Anisocytosis Slight; Hypochromasia Slight; MCH 32.2 pg (25.0-35.0); MCHC 30.5 g/dL (31.0-37.0); MCV 105.3 fL (80.0-100.0); Macrocytosis Moderate; Platelet Count 252 k/uL (150-450); RBC 2.47 m/uL (4.30-5.90); WBC 14.2 k/uL (3.8-10.6)
[2021-12-13 05:02] LABS: African American GFR (CKD) >90 (>60 ml/min/1.73 sqM); Anion Gap -2 mmol/L; Blood Urea Nitrogen 49 mg/dL (9-20); Calcium 7.3 mg/dL (8.4-10.2); Carbon Dioxide 25 mmol/L (22-30); Chloride 115 mmol/L (98-107); Glucose 119 mg/dL (74-99); Non-African American GFR(CKD) 86 (>60 ml/min/1.73 sqM); Potassium 3.8 mmol/L (3.5-5.1); Sodium 138 mmol/L (137-145)
[2021-12-13 05:29] LABS: ABG Base Excess 0.4 mmol/L; ABG HCO3 24 mmol/L (21-25); ABG Oxygen Saturation 94.5 % (94-97); ABG PCO2 35 mmHg (35-45); ABG PH 7.46 (7.35-7.45); ABG PO2 73 mmHg (83-108); ABG TCO2 25 mmol/L (19-24); Allen Test Performed? Yes
[2021-12-13] MEDS: INSULIN ASPART (NovoLOG) 100 UNIT/ML VIAL SQ SCH ×4 (05:56→23:53)
[2021-12-13] MEDS: SODIUM CHLORIDE 0.45% 1,000 ML IV SCH (06:02)
--- NOTE | 2021-12-13 06:31 | XR ---
EXAMINATION TYPE: XR chest 1V portable DATE OF EXAM: 12/13/2021 CLINICAL HISTORY: Difficulty breathing progress study. TECHNIQUE: Single AP portable supine view of the chest is obtained. COMPARISON: Chest x-ray from one day earlier and older studies FINDINGS: Stable endotracheal and orogastric tubes. Persistent cardiomegaly with dual lead pacemaker/AICD. Reticular increased opacities bilaterally abilio in present greatest in the periphery and in the lower lungs. Surgical change to the lower cervical sp ine is redemonstrated. IMPRESSION: Cardiomegaly with mid to lower lung reticular infiltrates and/or edema redemonstrated. N o significant change from one day earlier. Correlate for possible atypical (Covid) infection.
[2021-12-13 07:06] LABS: HGB 7.9 gm/dL (13.0-17.5)
[2021-12-13] MEDS: HEPARIN SOD,PORK IN 0.45% NACL 25,000 UNIT in 0.45% NACL 1 250ML.BAG IV SCH (07:42)
--- NOTE | 2021-12-13 08:17 | P.PN ---
Subjective Progress Note Date: 12/13/21 Acute hypoxic respiratory failure requiring intubation and mechanical ventilati on, multifactorial. 76-year-old male, brought into the emergency room, on December 04, by EMS. The tyson ent apparently had been frequently falling, has had generalized weakness, and is also had increasing shortness of breath, and cough. The patient has not been feeling well for at least 3 weeks, and maybe longer. The patient states that he is having a difficult time coughing up any phlegm although he does feel like his chest is congested. The patient denies any chest pain or chest discomfort. Th ere is no nausea, vomiting, or diarrhea. He was evaluated in the emergency department admitted with a diagnosis of pneumonia. We are seeing him in consultation. White count 8.52, hemoglobin 9.3, hematocrit 29.9, and platelet count 223,000. Sodium 137, potassium 4.8, chlorides 111, CO2 15, anion gap 11, BUN 38, creatinine 1.1. Glucose 98. N-terminal proBNP is 1150. Chest x-ray shows patchy bilateral infiltrates, which are worse on the subsequent chest x- ray. The patient has a history of atrial flutter, pulmonary embolism, rheumatoid arthritis, and previous prostate surgery. The patient is also had heart catheterization with stent placement. On 12/06/2021 we received a phone call from the nursing staff with a concern about worsening hypoxia, and patient was satting only 87% on 100% nonrebreather, tachypnea, and increased work of breathing. Stat chest x-ray was obtained showing contained extensive interstitial and patchy peripheral infiltrates. Patient has been afebrile. Blood pressure is 110/64, however he is tachypneic, with a respiratory rate in the 30s. Denies any chest discomfort, denies any cough or phlegm production. Patient was found to be bacteremic, his blood cultures show gram-positive cocci in groups, he is currently on Zosyn and vancomycin for antibiotic coverage. We were unable to obtain a sputum culture. Blood gas was obtained on 100% nonrebreather showing pO2 of 68, pCO2 of 24, and pH of 7.37. Subsequently patient was placed on BiPAP support with a pressure of 15/5, and FiO2 100%. Neurologically patient is awake and alert, he is answering questions appropriately, he is oriented 3. He is achieving over 1000 mL of tidal volume on the BiPAP support. Still remains quite tachycardic, his minute ventilation is increased. Patient was given a dose of IV Lasix 60 mg times one, he has produced 1.1 L and urine output since then, we'll continue with IV diuretics, we ordered an echocardiogram which is pending at this point. His pro calcitonin level is elevated at 0.87, proBNP was 1150. Reevaluated today on 12/07/2021, patient's condition deteriorated few hours after he was admitted to the ICU yesterday, patient was getting more tachypneic, more tachycardic, and he was developing worsening respiratory distress. His respiratory rate was up in the 50s according to the nurse will call be about the patient, and the patient was getting extremely agitated and restless, as I recommended immediate intubation and mechanical ventilation. Patient is now intubated, mechanically ventilated, he is sedated and he is on propofol. Patient is on assist control rate of 24 tidal volume 450 FiO2 60% and PEEP of 5. ABG showed a pO2 of 90 pCO2 of 42 pH of 7.33. His FiO2 was cut down. The rest of the vent settings exactly the same. Patient is on IV fluid at KVO, he is requiring norepinephrine at 0.26 mcg/kg/m, he is also on propofol at 50 mcg/ kg/m. Again I cut down his FiO2 to 50%. Patient was on Lasix, we cut down the Lasix mostly because of his hypotension and requiring norepinephrine his blood cultures basically showed contamination, positive for staph epidermidis which implies contamination, not true positive blood cultures. Patient remains on Zosyn empirically, and vancomycin was discontinued. Chest x-ray continues to show bilateral interstitial infiltrates/edema and confluent groundglass opacities bilaterally. Not much of a change since admission. Patient remains on Zosyn empirically for presumptive underlying pneumonia especially with his elevated pro calcitonin level. It is not clear to me whether the patient had h istory of interstitial lung disease related to his rheumatoid arthritis in the past, no old x-rays for comparison to determine whether the findings are new or chronic. Nonetheless the patient remains on antibiotics and on diuretics. Amiodarone was added today by cardiology for his atrial fibrillation with RVR. Patient remains on Xarelto and he has been on Xarelto all along. His echocardiogram showed LV dysfunction with ejection fraction of 35%, and right- sided pressures seems to be elevated at 51.5. Labs today showed WBC count of 11.2 hemoglobin is 9.9. Electrolytes are normal renal profile is normal, pro calcitonin is up to 4.29 Reevaluated today on 12/08/21, patient remains in the ICU, intubated and mechanically ventilated. His norepinephrine is down to 0.38 mcg/kg/m, it was as high as 0.6 mcg/kg/m last night. Patient received fluids received fluid boluses, and his main IV fluid was increased today to 75 mL per hour. Patient remains on assist control rate of 24 tidal volume 450 FiO2 50% and PEEP of 5. Chest x-ray continues to show bilateral interstitial infiltrates. ABG showed a pO2 of 109 pCO2 44 pH of 7.30, hence I increased his rate to 26 cut down her FiO2 to 45%, and increase the flow rate to 65 L/m repeat blood cultures remain negative. His initial blood culture that admission showed contamination/staph epidermidis..In the meantime the patient remains on antibiotics empirically/Zosyn. Patient remains tachycardic, he is on amiodarone, not much change noted in heart rate, ranging anywhere between 120-130, presently 126. This morning went ahead and give another fluid bolus 500 mL, and I changed his IV fluid to D5 45, and discontinued water flushes. All labs were reviewed WBC count is 10.6 hemoglobin is 9.6. Renal profile is normal with a BUN of 28 cr eatinine 1.05. White carbs 21. Potassium is a bit low at 3.3. Patient remains sedated, and I have no plans to wean and extubate anytime soon a long as he seems to be hemodynamically unstable. Patient is receiving enteral feeding via orogastric tube. Reevaluated today on 12/09/2021, patient remains in the ICU, intubated and mechanically ventilated. Sedated on propofol. Patient had an episode of ventricular tachycardia yesterday, with drop in his blood pressure, required cardioversion 4. Patient was also placed on lidocaine last night after a brief course of CPR and cardioversion, 4. Potassium was noted to be low, being corrected. Patient received fluids during his episode of cardiac arrest. Apparently his AICD was interrogated, and showed a number of episodes of tachycardia mostly appeared to be A. fib and atrial flutter with a very rapid conduction. Patient was placed back on amiodarone, and his lidocaine was discontinued. His hypokalemia is being corrected. Apparently the patient had a relatively downhill course yesterday, but seems to have stabilized today. He is on assist control rate of 26, tidal volume 450 FiO2 45% PEEP of 5. ABG showed a pO2 of 110 pCO2 41 pH of 7.36. Basic metabolic profile is relatively unremarkable, potassium remains a bit low at 3.5. WBC count is 16.4 hemoglobin is 8.8, PTT is 49.4, patient is now off Xarelto and he is receiving IV heparin. Pro calcitonin remains high at 2.40. Chest x-ray continues to show evidence of bilateral interstitial infiltrates sputum cultures are nondiagnostic. Repeat blood cultures since admission have been negative while along. Reevaluated today on 12/10/21 patient remains in the ICU, intubated and mechanically ventilated. Patient is on assist control rate of 26 to 07/27/1948 FiO2 45% PEEP of 5 ABG showed a pO2 of 122 pCO2 43 pH of 7.33 hence the patient FiO2 was cut down to 40%. Patient remains on norepinephrine at 0.2 mcg/kg/m, propofol at 6:00 ventricular per minute amiodarone at 0.5 mg/m patient is sedated, and today I have recommended sedation interruption, and assessment of mental status at least. Chest x-ray continues to bilateral interstitial infiltrates, clinically the patient is not ready for weaning. But I would recommend sedation interruption and assessment of mental status today. Patient is in atrial fibrillation rate is controlled about 90. No further episodes of cardiac arrest since the last episode he had 2 days ago. Remains on heparin drip. Patient is also on enteral feeding for nutritional support. He is on GI and DVT prophylaxis WBC count is 18.5 hemoglobin 9.2. PTT is 51. Basic metabolic profile is normal renal profile is normal. reevaluated today on 12/11/21, patient remains in the ICU, intubated and mechanically ventilated. Chest x-ray continues to show bilateral infiltrates, not much of a change compared to admission chest x-ray. Patient remains on assist control rate of 26, tidal volume 450, FiO2 40%, PEEP is 5. ABG showed a pO2 of 110 pCO2 of 39 pH of 7.41, hence I cut down his FiO2 down to 35%. Patient remains on propofol presently 20 mcg/kg/m, he is on a very minimal dose of norepinephrine earlier and his norepinephrine has been turned off earlier today, he was on 0.02 mcg/kg/m, remains on heparin, remains on D5 45 at 50 mL per hour, he is on vital HPI 38 mL per hour.WBC count is 13.2 hemoglobin is 9.1. Electrode was are normal renal profile is normal. PTT is therapeutic at 53.8. Reevaluated today on 12/12/21, patient remains in the ICU, remains intubated and mechanically ventilated. Presently on assist control rate of 26, tidal volume 450, FiO2 40% and PEEP of 5. Chest x-ray today showed slight worsening of int erstitial infiltrates/suspect some component of pulmonary edema. Patient remains on propofol at 30 mcg/kg/m, he is on norepinephrine at 0.06 mcg/kg/m vital HPI 38 mL/h. ABG showed a pO2 of 80 pCO2 37 pH of 7.41, hence no changes were made in the vent settings. I did give the patient 1 dose of Lasix 20 mg IV push 1. And I have recommended that we give the patient a trial off sedation,/sedation holiday, and assess mental status at least today. Clearly the patient is not ready to be weaned or extubated, but at least we could assess his mental status off sedation today possibly. WBC count today is 15.4 hemoglobin is 9.4. PTT is therapeutic at 52. Basic metabolic profile is basically unremarkable, BUN is 43 creatinine 0.86. Blood cultures in the last few days have been nondiagnostic/negative. Upon admission the patient had a positive blood culture but that was staph epidermidis/contamination related. 12/13/2021, the patient remains intubated on a mechanical ventilator. This mor german, he is on propofol running at 35 mcg/kg per minute and the patient despite that. Is a high minute ventilation of 16.2 L per minute. He is on assist- control mode of mechanical ventilation at the rate of 26 with a tidal volume of 450 and FiO2 of 35% with a PEEP of 5. Morning blood gases showed a pH of 7.46 with a pCO2 of 35 and pO2 73. I do not see any significant improvement in his chest x-ray findings and there is still diffuse groundglass breath and pulmonary infiltrates. Overall fluid balance on this patient was positive and the patient is been more than 10 kg positive since his admission. As such, the patient's respiratory failure was probably multifactorial. Probably had a pneumonia in addition to that he had a component of CHF. He was profoundly septic at the time of admission and he was given IV fluids and he is in a positive fluid balance. Fortunately, he is on a low dose of norepinephrine infusion for now and the patient will be taken off the pressors. The white cell count is at 14.2 with a hemoglobin of 7.9. Renal function is stable at creatinine of 0.8. He is afebrile for now. Is currently off the medicine resident agents. The patient is also on IV Zosyn. He is having paroxysmal atrial fibrillation. This morning, his cardiac rhythm is sinus. He is receiving enteral feeding for nutritional support and the patient is currently on vital high protein at the rate of 38 mL an hour. The patient is also on IV heparin per protocol regarding his atrial fibrillation. PTT from this morning's at 61. Platelet count is at 252. No other significant events otherwise for now. Objective - Vital Signs Vital signs: Vital Signs Temp 98.1 F 12/13/21 04:00 Pulse 93 12/13/21 07:00 Resp 19 12/13/21 07:00 BP 131/66 12/13/21 07:00 Pulse Ox 96 12/13/21 07:00 FiO2 35 12/13/21 07:38 Intake & Output 12/12/21 12/13/21 12/13/21 18:59 06:59 18:59 Intake Total 3341.570 1604 45.603 Output Total 1525 755 Balance 278.955 761 45.603 Intake: IV 720 720 0.9 KVO 120 120 Dextrose 5%-0.45% NaCl 1, 250 000 ml @ 50 mls/hr IV . Q20H [facility] Rx#:[id number] Sodium Chloride 0.45% 1, 350 600 000 ml @ 50 mls/hr IV . Q20H [facility] Rx#:[id number] Intake, IV Titration 567.955 250 45.603 Amount Heparin Sod,Pork in 0.45% 250 250 NaCl 25,000 unit In 0.45 % NaCl 1 250ml.bag @ 12 UNITS/KG/HR 10.08 mls/hr IV .Q24H [facility] Rx#: [id number] Norepinephrine 8 mg In 165.566 0 Sodium Chloride 0.9% 250 ml @ 0.05 MCG/KG/MIN 9. 084 mls/hr IV .Q24H [facility] Rx#:[id number] propofoL 1,000 mg In 152.389 45.603 Empty Bag 1 bag @ 5 MCG/ KG/MIN 2.381 mls/hr IV . Q24H [facility] Rx#:[id number] Tube Feeding 456 456 Other 60 90 Output: Urine 1525 755 Other: Voiding Method Indwelling Catheter Indwelling Catheter # Bowel Movements 1 ABP, PAP, CO, CI - Last Documented Arterial Blood Pressure 157/53 - Exam General: non toxic, no distress, appears at stated age, intubated, on the mechanical ventilator and the patient is well sedated and he is calm and comfortable Derm: warm, dry Head: atraumatic, normocephalic, symmetric Eyes: EOMI, no lid lag, anicteric sclera Mouth: no lip lesion, mucus membranes moist Cardiovascular: S1S2 reg, no murmur, positive posterior tibial pulse bilateral, Lungs: Course bs bilateral, no rhonchi, no rales , no accessory muscle use nevertheless, despite being on sedation, the patient continues to be quite tachypneic and his respiratory rate is above 30 at this point in time. Abdominal: soft, nontender to palpation, no guarding, no appreciable organomegaly Ext: no gross muscle atrophy, some trace edema in lower extremities and upper extremities bilaterally more so in the upper extremities and more so on the left. The patient has a left radial arterial line catheter in place., no contractures Neuro: Breathing over the vent, no with drawal to pain, PER-sluggishly reactive to light Psych:unresponisve on vent with sedation - Labs CBC & Chem 7: 12/13/21 03:08 12/13/21 03:08 Labs: Abnormal Lab Results - Last 24 Hours (Table) 12/12/21 12/12/21 12/12/21 Range/Units 11:35 17:47 23:39 WBC (3.8-10.6) k/uL RBC (4.30-5.90) m/uL Hgb (13.0-17.5) gm/dL Hct (39.0-53.0) % MCV (80.0-100.0) fL MCHC (31.0-37.0) g/dL RDW (11.5-15.5) % APTT (22.0-30.0) sec ABG pH (7.35-7.45) ABG pO2 (83-108) mmHg ABG Total CO2 (19-24) mmol/L Chloride (98-107) mmol/L BUN (9-20) mg/dL Glucose (74-99) mg/dL POC Glucose (mg/dL) 172 H 154 H 178 H (75-99) mg/dL Calcium (8.4-10.2) mg/dL 12/13/21 12/13/21 12/13/21 Range/Units 03:08 03:08 03:08 WBC 14.2 H (3.8-10.6) k/uL RBC 2.47 L (4.30-5.90) m/uL Hgb 7.9 L D (13.0-17.5) gm/dL Hct 26.0 L (39.0-53.0) % MCV 105.3 H (80.0-100.0) fL MCHC 30.5 L (31.0-37.0) g/dL RDW 17.0 H (11.5-15.5) % APTT 61.3 H (22.0-30.0) sec ABG pH (7.35-7.45) ABG pO2 (83-108) mmHg ABG Total CO2 (19-24) mmol/L Chloride 115 H (98-107) mmol/L BUN 49 H (9-20) mg/dL Glucose 119 H (74-99) mg/dL POC Glucose (mg/dL) (75-99) mg/dL Calcium 7.3 L (8.4-10.2) mg/dL 12/13/21 Range/Units 05:25 WBC (3.8-10.6) k/uL RBC (4.30-5.90) m/uL Hgb (13.0-17.5) gm/dL Hct (39.0-53.0) % MCV (80.0-100.0) fL MCHC (31.0-37.0) g/dL RDW (11.5-15.5) % APTT (22.0-30.0) sec ABG pH 7.46 H (7.35-7.45) ABG pO2 73 L (83-108) mmHg ABG Total CO2 25 H (19-24) mmol/L Chloride (98-107) mmol/L BUN (9-20) mg/dL Glucose (74-99) mg/dL POC Glucose (mg/dL) (75-99) mg/dL Calcium (8.4-10.2) mg/dL Microbiology - Last 24 Hours (Table) 12/06/21 10:25 Blood Culture - Final Blood No Growth after 144 hours 12/06/21 10:31 Blood Culture - Final Blood No Growth after 144 hours 12/07/21 10:30 Blood Culture - Preliminary Blood No Growth after 120 hours 12/07/21 10:30 Blood Culture - Preliminary Blood No Growth after 120 hours Assessment and Plan Plan: Impression: Acute hypoxic respiratory failure secondary to pneumonia, community-acquired, however the patient is relatively immunocompromised on methotrexate and leflunomide for underlying rheumatoid arthritis. Possibility of interstitial lung disease is not entirely ruled out. Possibility of acute on chronic sys tolic congestive heart failure is also in the differential. Clearly the presentation was a pulmonary presentation/pneumonia and sepsis/septic shock. Procal max was 4.29 levels have been dropping. The chest x-ray findings are stable and the patient's oxygenation is also stable. Not ready for weaning as the patient is becoming quite tachypneic once taken off sedation. Blood cultures positive for staph epidermidis, repeat blood cultures have been negative and the patient remains on Zosyn. He is off vancomycin. Chronic atrial fibrillation , paroxysmal atrial flutter with RVR,rate controlled for now on Amiodarone orally and the patient's current cardiac rhythm is sinus. History of pulmonary embolism, patient was on Xarelto now on heparin. History of underlying coronary artery disease and previous PCI and stent placement. Ischemic cardiomyopathy and LV dysfunction previous AICD placement in 2016. Echocardiogram on this admission showed ejection fraction of 35-40%. Former smoker. Rheumatoid arthritis, maintained on methotrexate and leflunomide. Both are presently on hold. Hypotension secondary to sepsis, septic shock, and profound LV dysfunction with ischemic cardiomyopathy. Patient remains on norepinephrine , however the dose has been significantly cut down over the last few days. Today he is on 0.03 mcg/kg/m Wide-complex tachycardia, requiring CPR and cardioversion 4. This was on . 2Patient had an episode of ventricular tachycardia with drop in his blood pressure, required cardioversion 4. Patient was also placed on lidocaine last night after a brief course of CPR and cardioversion, 4. Potassium was noted to be low, being corrected. Patient received fluids during his episode of cardiac arrest. Apparently his AICD was interrogated, and showed a number of episodes of tachycardia mostly appeared to be A. fib and atrial flutter with a very rapid conduction. Patient was placed back on amiodarone, and his lidocaine was discontinued. Recommendation: Continue ventilatory support. Discontinue the IV pressors Start the patient on Lasix 40 mg IV every 12 hours Switched IV fluids to KVO I believe the patient's respiratory failure is due to a combination of pneumonia and CHF. Pro-calcitonin was quite elevated supporting infection/pneumonia. The same time the patient was septic requiring significant amount of pressors and currently the patient is in a positive fluid balance. Unable to wean off the mechanical ventilator time being. Sedation interruption and assessment of mental status at least today Continue antibiotics/Zosyn. empirically for pneumonia. Continue GI and DVT prophylaxis. Patient is on heparin and this will be discontinued and the patient will be placed back on Xarelto 20 mg by mouth daily. continue nutritional support, patient is on enteral feeding. Continue to hold methotrexate and leflunomide. [facility] Sputum cultures have been nondiagnostic, empirically on Zosyn. We will continue to follow. Prognosis remains poor and guarded Critical care time is over 30 minutes Time with Patient: Greater than 30 Time with Patient: Greater than 30
[2021-12-13] MEDS: IPRATROPIUM-ALBUTEROL 3 ML NEB INHALATION SCH ×4 (08:25→19:43)
[2021-12-13] MEDS: PIPERACILLIN-TAZOBACTAM 3.375 GM in SODIUM CHLORIDE 0.9% 100 ML IVPB SCH (08:32)
[2021-12-13] MEDS ORDERED: FUROSEMIDE 10 MG/ML 4 ML VIAL IV SCH (09:00)
[2021-12-13] MEDS: CHOLECALCIFEROL 25 MCG (1000 IU) TABLET PO SCH (09:00)
[2021-12-13] MEDS: FUROSEMIDE 10 MG/ML 4 ML VIAL IV SCH ×2 (09:53→19:51)
[2021-12-13] MEDS: CHLORHEXIDINE GLUCONATE 15 ML CUP MUCOUS MEM SCH ×2 (09:53→19:50)
[2021-12-13] MEDS: PANTOPRAZOLE SODIUM 40 MG GRANULE PKT PO SCH (09:55)
[2021-12-13] MEDS: METOPROLOL TARTRATE 25 MG TAB PO SCH ×3 (10:07→22:39)
[2021-12-13] MEDS: FOLIC ACID 1 MG TAB PO SCH (10:07)
[2021-12-13] MEDS: AMIODARONE 200 MG TAB PO SCH ×2 (10:07→19:51)
[2021-12-13] MEDS: ATORVASTATIN 40 MG TAB PO SCH (10:07)
[2021-12-13] MEDS: PATIENT'S OWN (Icosapent Ethyl [Icosapent Ethyl] 1 GM Capsule) PO SCH ×2 (10:32→22:33)
--- NOTE | 2021-12-13 11:04 | P.PN ---
Subjective Progress Note Date: 12/13/21 This is a 76-year-old gentleman with history of cardiomyopathy, AICD implantation was admitted to the hospital with sepsis and hypotension. Patient received IV fluids and pressors. Patient also had bouts of atrial fibrillation. There was question of possible V. tach with retrograde P waves. Patient is currently on amiodarone 400 mg by mouth twice a day. He seemed to be maintaining sinus rhythm at this time. Chest x-ray shows bilateral infiltrates, plus or minus CHF. Patient is being initiated on IV Lasix. He is also on heparin which is being switched to oral anticoagulation isn't. Patient is still intubated. No significant improvement since yesterday. Continue current medical therapy. We'll plan to reduce the dose of amiodarone off the Fortovase. Prognosis is guarded Objective - Vital Signs Vital signs: Vital Signs Temp 98.1 F 12/13/21 08:00 Pulse 82 12/13/21 10:00 Resp 28 H 12/13/21 10:00 BP 108/57 12/13/21 09:00 Pulse Ox 97 12/13/21 10:00 FiO2 35 12/13/21 10:00 Intake & Output 12/12/21 12/13/21 12/13/21 18:59 06:59 18:59 Intake Total 1193.341 0675 597.047 Output Total 1525 755 315 Balance 278.955 761 282.047 Intake: IV 720 720 300 0.9 KVO 120 120 40 Dextrose 5%-0.45% NaCl 1, 250 000 ml @ 50 mls/hr IV . Q20H [facility] Rx#:[id number] Piperacillin-Tazobactam 3 100 .375 gm In Sodium Chloride 0.9% 100 ml @ 25 mls/hr IVPB Q8HR [facility] Rx# :[id number] Sodium Chloride 0.45% 1, 350 600 160 000 ml @ 50 mls/hr IV . Q20H [facility] Rx#:[id number] Intake, IV Titration 567.955 250 145.047 Amount Heparin Sod,Pork in 0.45% 250 250 13.916 NaCl 25,000 unit In 0.45 % NaCl 1 250ml.bag @ 12 UNITS/KG/HR 10.08 mls/hr IV .Q24H [facility] Rx#: [id number] Norepinephrine 8 mg In 165.566 0 64.413 Sodium Chloride 0.9% 250 ml @ 0.05 MCG/KG/MIN 9. 084 mls/hr IV .Q24H [facility] Rx#:[id number] propofoL 1,000 mg In 152.389 66.718 Empty Bag 1 bag @ 5 MCG/ KG/MIN 2.381 mls/hr IV . Q24H [facility] Rx#:[id number] Tube Feeding 456 456 152 Other 60 90 Output: Urine 1525 755 315 Other: Voiding Method Indwelling Catheter Indwelling Catheter Indwelling Catheter # Bowel Movements 1 ABP, PAP, CO, CI - Last Documented Arterial Blood Pressure 116/39 - Exam GENERAL EXAM: Patient is sedated and intubated HEENT: Normocephalic. N CHEST: No chest wall deformity. LUNGS: Equal air entry with no crackles or wheeze. HEART: S1 and S2 normal ABDOMEN: Soft SKIN: No rashes CENTRAL NERVOUS SYSTEM: Patient is intubated and sedated EXTREMITIES: No cyanosis, clubbing or edema. - Labs CBC & Chem 7: 12/13/21 03:08 12/13/21 03:08 Labs: Abnormal Lab Results - Last 24 Hours (Table) 12/12/21 12/12/21 12/12/21 Range/Units 11:35 17:47 23:39 WBC (3.8-10.6) k/uL RBC (4.30-5.90) m/uL Hgb (13.0-17.5) gm/dL Hct (39.0-53.0) % MCV (80.0-100.0) fL MCHC (31.0-37.0) g/dL RDW (11.5-15.5) % APTT (22.0-30.0) sec ABG pH (7.35-7.45) ABG pO2 (83-108) mmHg ABG Total CO2 (19-24) mmol/L Chloride (98-107) mmol/L BUN (9-20) mg/dL Glucose (74-99) mg/dL POC Glucose (mg/dL) 172 H 154 H 178 H (75-99) mg/dL Calcium (8.4-10.2) mg/dL 12/13/21 12/13/21 12/13/21 Range/Units 03:08 03:08 03:08 WBC 14.2 H (3.8-10.6) k/uL RBC 2.47 L (4.30-5.90) m/uL Hgb 7.9 L D (13.0-17.5) gm/dL Hct 26.0 L (39.0-53.0) % MCV 105.3 H (80.0-100.0) fL MCHC 30.5 L (31.0-37.0) g/dL RDW 17.0 H (11.5-15.5) % APTT 61.3 H (22.0-30.0) sec ABG pH (7.35-7.45) ABG pO2 (83-108) mmHg ABG Total CO2 (19-24) mmol/L Chloride 115 H (98-107) mmol/L BUN 49 H (9-20) mg/dL Glucose 119 H (74-99) mg/dL POC Glucose (mg/dL) (75-99) mg/dL Calcium 7.3 L (8.4-10.2) mg/dL 12/13/21 Range/Units 05:25 WBC (3.8-10.6) k/uL RBC (4.30-5.90) m/uL Hgb (13.0-17.5) gm/dL Hct (39.0-53.0) % MCV (80.0-100.0) fL MCHC (31.0-37.0) g/dL RDW (11.5-15.5) % APTT (22.0-30.0) sec ABG pH 7.46 H (7.35-7.45) ABG pO2 73 L (83-108) mmHg ABG Total CO2 25 H (19-24) mmol/L Chloride (98-107) mmol/L BUN (9-20) mg/dL Glucose (74-99) mg/dL POC Glucose (mg/dL) (75-99) mg/dL Calcium (8.4-10.2) mg/dL Microbiology - Last 24 Hours (Table) 12/06/21 10:25 Blood Culture - Final Blood No Growth after 144 hours 12/06/21 10:31 Blood Culture - Final Blood No Growth after 144 hours 12/07/21 10:30 Blood Culture - Preliminary Blood No Growth after 120 hours 12/07/21 10:30 Blood Culture - Preliminary Blood No Growth after 120 hours Assessment and Plan (1) Sepsis Current Visit: Yes Status: Acute Code(s): A41.9 - SEPSIS, UNSPECIFIED ORGANISM SNOMED Code(s): 98573602 (2) 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 Current Visit: Yes Status: Acute Code(s): I50.40 - UNSP COMBINED SYSTOLIC AND DIASTOLIC (CONGESTIVE) HRT FAIL; I38 - ENDOCARDITIS, VALVE UNSPECIFIED SNOMED Code(s): 109916731 (3) Combined systolic and diastolic congestive heart failure Current Visit: Yes Status: Acute Code(s): I50.40 - UNSP COMBINED SYSTOLIC AND DIASTOLIC (CONGESTIVE) HRT FAIL SNOMED Code(s): 13051902 (4) Pneumonia Current Visit: Yes Status: Acute Code(s): J18.9 - PNEUMONIA, UNSPECIFIED ORGANISM SNOMED Code(s): 441339065 (5) Atrial fibrillation with RVR Current Visit: Yes Status: Acute Code(s): I48.91 - UNSPECIFIED ATRIAL FIBRILLATION SNOMED Code(s): 738420469438201 (6) Cardiomyopathy Current Visit: Yes Status: Acute Code(s): I42.9 - CARDIOMYOPATHY, UNSPECIFIED SNOMED Code(s): 47602538 Plan: Continue current medical therapy. He'll continue using diuretics. We will continue amiodarone cut back the dose in 3 to 4 days. Prognosis is guarded
[2021-12-13] MEDS ORDERED: POTASSIUM BICARBONATE/CIT AC 20 MEQ TABLET.EFF NG-TUBE SCH (12:00)
[2021-12-13 12:04] LABS: Glucose,Whole Blood 103 mg/dL (75-99)
[2021-12-13] MEDS: RIVAROXABAN 20 MG TAB PO SCH (12:18)
[2021-12-13 12:51] VITALS: BMI 27.0
--- NOTE | 2021-12-13 16:33 | P.PN ---
Subjective Progress Note Date: 12/13/21 (delayed charting seen at 1125) Principal diagnosis: fatigue Patient is a 76-year-old with history of A. fib on Xarelto, rheumatoid arthritis, congestive heart failure, prior pulmonary embolism who initially presented with 4 weeks of weakness and fatigue. In the ER he underwent an extensive evaluation. He was found to have pneumonia and acute kidney injury. He was started on Rocephin and Zithromax area pulmonary was consulted. He was also discovered that he has a history of congestive heart failure in his interest and Aldactone were restarted. His O2 sat decreased and he started to require 100% nonrebreather. He was given a dose of Lasix and diuretics were continued. He was transferred to the ICU on 12/06. His respirations continued to worsen and he ultimately required BiPAP and then intubation. He then developed A. fib with RVR cardiology was consulted and started on IV amiodarone. He did have a set of blood cultures for ultimately determined to be a contaminant with staph epi. On 12/09 unit early a.m. he went into pulseless V. tach requiring multiple cardioversions and he was ultimately started on lidocaine. Cardiology was notified. He was transitioned off the lidocaine drip and back onto amiodarone and Lopressor. He continued to improve. He was transitioned off levo on 12/10. Imaging: CXR: mild cardiomegaly, interstitial opacities CT Brain: mild age related atrophy Echo: EF 35-40% Patient seen and examined. No acute events overnight. present at bedside. Questions answered General: non toxic, no distress, appears at stated age Derm: warm, dry Head: atraumatic, normocephalic, symmetric Eyes: EOMI, no lid lag, anicteric sclera Mouth: no lip lesion, mucus membranes moist Cardiovascular: S1S2 reg, no murmur, positive posterior tibial pulse bilateral, Lungs: Course bs bilateral, no rhonchi, no rales , no accessory muscle use Abdominal: soft, nontender to palpation, no guarding, no appreciable organomegaly Ext: no gross muscle atrophy, no edema, no contractures Neuro: Breathing over the vent, PER-sluggishly reactive to light Psych:unresponisve on vent with sedation Assessment/Plan: Community-acquired pneumonia Acute hypoxic respiratory failure Immunocompromized due to RA on Methotrexate and Leflunomide Septic shock - pulm recs on vent - zosyn completed - ID recs - steroids - broncodilators 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 Patient is on BB which would help to suppress symptoms - recommend repeat TSH for confirmation - consider Methamizole if confirmed hyperthyroidism. Chronic: Macrocytic anemia Pulmonary embolism Rheumatoid arthritis GERD Dyslipidemia ISABEL, resolved Generalized weakness DVT prophylaxis: Xarelto Discussed with: nursing Anticipated discharge: undetermined Anticipated discharge place: SNF vs LTACH A total of 32 minutes was spent on the care of this complex patient more than 50% of the time was spent in counseling and care coordination. Active Medications Generic Name Dose Route Start Last Admin Trade Name Giovanniq PRN Reason Stop Dose Admin Albuterol/Ipratropium 3 ml 12/05/21 16:00 12/13/21 15:59 Ipratropium-Albuterol 3 Ml Neb INHALATION 3 ml RT-QID [facility] Administration Amiodarone HCl 400 mg 12/10/21 11:15 12/13/21 10:07 Amiodarone 200 Mg Tab PO 400 mg BID [facility] Administration Atorvastatin Calcium 40 mg 12/05/21 09:00 12/13/21 10:07 Atorvastatin 40 Mg Tab PO 40 mg DAILY [facility] Administration Chlorhexidine Gluconate 15 ml 12/07/21 09:00 12/13/21 09:53 Chlorhexidine Gluconate 15 Ml Cup MUCOUS MEM 15 ml BID [facility] Administration Cholecalciferol 50 mcg 12/05/21 09:00 12/13/21 09:00 Cholecalciferol 25 Mcg (1000 Iu) Tablet PO 50 mcg DAILY [facility] Administration Folic Acid 1 mg 12/05/21 09:00 12/13/21 10:07 Folic Acid 1 Mg Tab PO 1 mg DAILY [facility] Administration Furosemide 40 mg 12/13/21 09:00 12/13/21 09:53 Furosemide 10 Mg/Ml 4 Ml Vial IV 40 mg Q12HR [facility] Administration Hydromorphone HCl 1 mg 12/09/21 16:05 12/13/21 11:39 Hydromorphone 1 Mg/Ml 1 Ml Syringe IVP 1 mg Q3H PRN Administration Pain Sodium Chloride 1,000 mls @ 10 mls/hr 12/04/21 20:45 12/12/21 19:44 Saline 0.9% IV 10 mls/hr .Q24H [facility] Administration Propofol 1,000 mg/ IV Solution 100 mls @ 2.381 mls/hr 12/06/21 21:15 12/13/21 16:03 IV 45 mcg/kg/min .Q24H [facility] 21.432 mls/hr Administration Protocol 5 MCG/KG/MIN Norepinephrine Bitartrate 8 mg 258 mls @ 9.084 mls/hr 12/10/21 19:30 12/13/21 15:16 / Sodium Chloride IV 0 mcg/kg/min .Q24H [facility] 0 mls/hr Titration Protocol 0.05 MCG/KG/MIN Insulin Aspart 0 unit 12/08/21 12:00 12/13/21 12:13 Insulin Aspart (Novolog) 100 Unit/Ml Vial SQ Not Given Q6H [facility] Protocol Metoprolol Tartrate 25 mg 12/10/21 11:15 12/13/21 10:07 Metoprolol Tartrate 25 Mg Tab PO 25 mg BID [facility] Administration Miscellaneous Information 1 each 12/04/21 20:43 Pneumonia Protocol Utilized 1 Each Misc PO ONCE PRN Per Protocol Miscellaneous Information 1 each 12/07/21 08:40 Potassium Replacement Protocol 1 Each Misc MISCELLANE DAILY PRN Per Protocol Protocol Miscellaneous Information 1 each 12/08/21 20:31 Phosphorus Replacement Protoco 1 Each Misc MISCELLANE DAILY PRN Per Protocol Protocol Morphine Sulfate 4 mg 12/06/21 09:58 12/11/21 16:12 Morphine Sulfate 4 Mg/Ml Syringe IVP 4 mg Q4HR PRN Administration Pain Patient's Own ( 2 gm 12/04/21 21:00 12/13/21 10:32 Icosapent Ethyl [ PO Not Given Icosapent Ethyl] 1 BID [facility] Gm Capsule) Pantoprazole Sodium 40 mg 12/12/21 09:30 12/13/21 09:55 Pantoprazole Sodium 40 Mg Granule Pkt PO 40 mg DAILY [facility] Administration Rivaroxaban 20 mg 12/13/21 12:00 12/13/21 12:18 Rivaroxaban 20 Mg Tab PO 20 mg W/SUPPER [facility] Administration Protocol Objective - Vital Signs Vital signs: Vital Signs Temp 98.1 F 12/13/21 16:00 Pulse 90 12/13/21 16:11 Resp 31 H 12/13/21 16:00 BP 81/54 12/13/21 16:00 Pulse Ox 96 12/13/21 16:00 FiO2 35 12/13/21 16:00 Intake & Output 12/12/21 12/13/21 12/13/21 18:59 06:59 18:59 Intake Total 9885.457 1517 1108.692 Output Total 5841 010 0314 Balance 278.955 761 -411.308 Weight 95.4 kg Intake: IV 720 720 420 0.9 KVO 120 120 100 Dextrose 5%-0.45% NaCl 1, 250 000 ml @ 50 mls/hr IV . Q20H [facility] Rx#:[id number] Piperacillin-Tazobactam 3 100 .375 gm In Sodium Chloride 0.9% 100 ml @ 25 mls/hr IVPB Q8HR [facility] Rx# :[id number] Sodium Chloride 0.45% 1, 350 600 220 000 ml @ 50 mls/hr IV . Q20H [facility] Rx#:[id number] Intake, IV Titration 567.955 250 308.692 Amount Heparin Sod,Pork in 0.45% 250 250 13.916 NaCl 25,000 unit In 0.45 % NaCl 1 250ml.bag @ 12 UNITS/KG/HR 10.08 mls/hr IV .Q24H [facility] Rx#: [id number] Norepinephrine 8 mg In 165.566 0 75.890 Sodium Chloride 0.9% 250 ml @ 0.05 MCG/KG/MIN 9. 084 mls/hr IV .Q24H [facility] Rx#:[id number] propofoL 1,000 mg In 152.389 218.886 Empty Bag 1 bag @ 5 MCG/ KG/MIN 2.381 mls/hr IV . Q24H [facility] Rx#:[id number] Tube Feeding 456 456 380 Other 60 90 Output: Urine 6404 860 3458 Other: Voiding Method Indwelling Catheter Indwelling Catheter Indwelling Catheter # Bowel Movements 1 1 ABP, PAP, CO, CI - Last Documented Arterial Blood Pressure 118/36 - Labs CBC & Chem 7: 12/13/21 03:08 12/13/21 03:08 Labs: Abnormal Lab Results - Last 24 Hours (Table) 12/12/21 12/12/21 12/13/21 Range/Units 17:47 23:39 03:08 WBC 14.2 H (3.8-10.6) k/uL RBC 2.47 L (4.30-5.90) m/uL Hgb 7.9 L D (13.0-17.5) gm/dL Hct 26.0 L (39.0-53.0) % MCV 105.3 H (80.0-100.0) fL MCHC 30.5 L (31.0-37.0) g/dL RDW 17.0 H (11.5-15.5) % APTT (22.0-30.0) sec ABG pH (7.35-7.45) ABG pO2 (83-108) mmHg ABG Total CO2 (19-24) mmol/L Chloride (98-107) mmol/L BUN (9-20) mg/dL Glucose (74-99) mg/dL POC Glucose (mg/dL) 154 H 178 H (75-99) mg/dL Calcium (8.4-10.2) mg/dL Procalcitonin (0.02-0.09) ng/mL 12/13/21 12/13/21 12/13/21 Range/Units 03:08 03:08 03:08 WBC (3.8-10.6) k/uL RBC (4.30-5.90) m/uL Hgb (13.0-17.5) gm/dL Hct (39.0-53.0) % MCV (80.0-100.0) fL MCHC (31.0-37.0) g/dL RDW (11.5-15.5) % APTT 61.3 H (22.0-30.0) sec ABG pH (7.35-7.45) ABG pO2 (83-108) mmHg ABG Total CO2 (19-24) mmol/L Chloride 115 H (98-107) mmol/L BUN 49 H (9-20) mg/dL Glucose 119 H (74-99) mg/dL POC Glucose (mg/dL) (75-99) mg/dL Calcium 7.3 L (8.4-10.2) mg/dL Procalcitonin 0.52 H (0.02-0.09) ng/mL 12/13/21 12/13/21 Range/Units 05:25 12:03 WBC (3.8-10.6) k/uL RBC (4.30-5.90) m/uL Hgb (13.0-17.5) gm/dL Hct (39.0-53.0) % MCV (80.0-100.0) fL MCHC (31.0-37.0) g/dL RDW (11.5-15.5) % APTT (22.0-30.0) sec ABG pH 7.46 H (7.35-7.45) ABG pO2 73 L (83-108) mmHg ABG Total CO2 25 H (19-24) mmol/L Chloride (98-107) mmol/L BUN (9-20) mg/dL Glucose (74-99) mg/dL POC Glucose (mg/dL) 103 H (75-99) mg/dL Calcium (8.4-10.2) mg/dL Procalcitonin (0.02-0.09) ng/mL Microbiology - Last 24 Hours (Table) 12/07/21 10:30 Blood Culture - Final Blood No Growth after 144 hours 12/07/21 10:30 Blood Culture - Final Blood No Growth after 144 hours 12/06/21 10:25 Blood Culture - Final Blood No Growth after 144 hours 12/06/21 10:31 Blood Culture - Final Blood No Growth after 144 hours
[2021-12-13] MEDS ORDERED: RIVAROXABAN 20 MG TAB PO SCH (17:30)
[2021-12-13 18:03] LABS: Glucose,Whole Blood 103 mg/dL (75-99)
[2021-12-13] MEDS: SODIUM CHLORIDE 0.9% 1,000 ML IV SCH (20:05)
[2021-12-13] MEDS: NOREPINEPHRINE 8 MG in SODIUM CHLORIDE 0.9% 250 ML IV SCH (20:06)
[2021-12-13 23:02] LABS: Glucose,Whole Blood 121 mg/dL (75-99)
[2021-12-14] MEDS: HYDROmorphone 1 MG/ML 1 ML SYRINGE IVP PRN (03:47)
[2021-12-14 04:57] LABS: Glucose,Whole Blood 121 mg/dL (75-99)
[2021-12-14 05:10] LABS: Anisocytosis Slight; Basophils # (A) 0.1 k/uL (0-0.2); Basophils % (A) 1 %; Eosinophils # (A) 0.7 k/uL (0-0.7); Eosinophils % (A) 5 %; HCT 26.2 % (39.0-53.0); HGB 8.3 gm/dL (13.0-17.5); Hypochromasia Slight; Lymphocytes # (A) 0.9 k/uL (1.0-4.8); Lymphocytes % (A) 6 %; MCHC 31.6 g/dL (31.0-37.0); MCV 104.4 fL (80.0-100.0); Macrocytosis Moderate; Mean Platelet Volume 10.2; Monocytes # (A) 0.9 k/uL (0-1.0); Monocytes % (A) 6 %; Neutrophils # (A) 12.1 k/uL (1.3-7.7); Neutrophils % (A) 80 %; Platelet Count 275 k/uL (150-450); RBC 2.51 m/uL (4.30-5.90); WBC 15.1 k/uL (3.8-10.6)
[2021-12-14 05:21] LABS: ABG Base Excess 1.5 mmol/L; ABG HCO3 26 mmol/L (21-25); ABG Oxygen Saturation 94.6 % (94-97); ABG PCO2 39 mmHg (35-45); ABG PH 7.43 (7.35-7.45); ABG PO2 77 mmHg (83-108); ABG TCO2 27 mmol/L (19-24); Allen Test Performed? Yes
[2021-12-14 05:50] LABS: ALT 35 U/L (4-49); AST 42 U/L (17-59); African American GFR (CKD) >90 (>60 ml/min/1.73 sqM); Albumin 1.9 g/dL (3.5-5.0); Alkaline Phosphatase 111 U/L (38-126); Anion Gap 1 mmol/L; Blood Urea Nitrogen 53 mg/dL (9-20); Calcium 7.5 mg/dL (8.4-10.2); Carbon Dioxide 26 mmol/L (22-30); Chloride 111 mmol/L (98-107); Glucose 118 mg/dL (74-99); Non-African American GFR(CKD) 84 (>60 ml/min/1.73 sqM); Potassium 3.5 mmol/L (3.5-5.1); Sodium 138 mmol/L (137-145); Total Bilirubin 0.5 mg/dL (0.2-1.3); Total Protein 4.1 g/dL (6.3-8.2)
[2021-12-14] MEDS: INSULIN ASPART (NovoLOG) 100 UNIT/ML VIAL SQ SCH ×2 (06:26→12:39)
--- NOTE | 2021-12-14 06:45 | P.PN ---
Subjective Progress Note Date: 12/13/21 Principal diagnosis: Sepsis Patient is 76 year old male presenting to the hospital with generalized weakness and fall symptom has been going on for a few weeks before presentation hospital patient did have a worsening of respiratory status requiring intubation, patient did have a pulseless V. tach CODE BLUE after midnight on 12/09/2021 for the patient has received shock IV fluid on today's evaluation that is 12/13/2021, the patient remains to be afebrile, the patient is intubated on the vent and FiO2 is down to 35 %, no significant purulent secretions through the ET has been reported by nurses staff, the patient currently on a low-dose pressor support, patient is tolerating his tube feeds and no diarrhea has been reported Objective - Vital Signs Vital signs: Vital Signs Temp 97.7 F 12/13/21 12:00 Pulse 72 12/13/21 12:01 Resp 26 H 12/13/21 12:00 BP 96/51 12/13/21 12:00 Pulse Ox 100 12/13/21 12:00 FiO2 35 12/13/21 12:00 Intake & Output 12/12/21 12/13/21 12/13/21 18:59 06:59 18:59 Intake Total 3904.501 8919 778.415 Output Total 7173 117 3755 Balance 278.955 761 -221.585 Intake: IV 720 720 340 0.9 KVO 120 120 60 Dextrose 5%-0.45% NaCl 1, 250 000 ml @ 50 mls/hr IV . Q20H [facility] Rx#:[id number] Piperacillin-Tazobactam 3 100 .375 gm In Sodium Chloride 0.9% 100 ml @ 25 mls/hr IVPB Q8HR [facility] Rx# :[id number] Sodium Chloride 0.45% 1, 350 600 180 000 ml @ 50 mls/hr IV . Q20H [facility] Rx#:[id number] Intake, IV Titration 567.955 250 210.415 Amount Heparin Sod,Pork in 0.45% 250 250 13.916 NaCl 25,000 unit In 0.45 % NaCl 1 250ml.bag @ 12 UNITS/KG/HR 10.08 mls/hr IV .Q24H [facility] Rx#: [id number] Norepinephrine 8 mg In 165.566 0 64.413 Sodium Chloride 0.9% 250 ml @ 0.05 MCG/KG/MIN 9. 084 mls/hr IV .Q24H [facility] Rx#:[id number] propofoL 1,000 mg In 152.389 132.086 Empty Bag 1 bag @ 5 MCG/ KG/MIN 2.381 mls/hr IV . Q24H [facility] Rx#:[id number] Tube Feeding 456 456 228 Other 60 90 Output: Urine 7506 165 2869 Other: Voiding Method Indwelling Catheter Indwelling Catheter Indwelling Catheter # Bowel Movements 1 ABP, PAP, CO, CI - Last Documented Arterial Blood Pressure 128/45 - Exam GENERAL DESCRIPTION: An elderly male intubated on the vent RESPIRATORY SYSTEM: Unlabored breathing , decreased breath sounds at bases HEART: S1 S2 regular rate and rhythm , ABDOMEN: Soft , no tenderness EXTREMITIES: No edema feet - Labs CBC & Chem 7: 12/14/21 04:55 12/14/21 04:55 Labs: Abnormal Lab Results - Last 24 Hours (Table) 12/12/21 12/12/21 12/13/21 Range/Units 17:47 23:39 03:08 WBC 14.2 H (3.8-10.6) k/uL RBC 2.47 L (4.30-5.90) m/uL Hgb 7.9 L D (13.0-17.5) gm/dL Hct 26.0 L (39.0-53.0) % MCV 105.3 H (80.0-100.0) fL MCHC 30.5 L (31.0-37.0) g/dL RDW 17.0 H (11.5-15.5) % APTT (22.0-30.0) sec ABG pH (7.35-7.45) ABG pO2 (83-108) mmHg ABG Total CO2 (19-24) mmol/L Chloride (98-107) mmol/L BUN (9-20) mg/dL Glucose (74-99) mg/dL POC Glucose (mg/dL) 154 H 178 H (75-99) mg/dL Calcium (8.4-10.2) mg/dL Procalcitonin (0.02-0.09) ng/mL 12/13/21 12/13/21 12/13/21 Range/Units 03:08 03:08 03:08 WBC (3.8-10.6) k/uL RBC (4.30-5.90) m/uL Hgb (13.0-17.5) gm/dL Hct (39.0-53.0) % MCV (80.0-100.0) fL MCHC (31.0-37.0) g/dL RDW (11.5-15.5) % APTT 61.3 H (22.0-30.0) sec ABG pH (7.35-7.45) ABG pO2 (83-108) mmHg ABG Total CO2 (19-24) mmol/L Chloride 115 H (98-107) mmol/L BUN 49 H (9-20) mg/dL Glucose 119 H (74-99) mg/dL POC Glucose (mg/dL) (75-99) mg/dL Calcium 7.3 L (8.4-10.2) mg/dL Procalcitonin 0.52 H (0.02-0.09) ng/mL 12/13/21 12/13/21 Range/Units 05:25 12:03 WBC (3.8-10.6) k/uL RBC (4.30-5.90) m/uL Hgb (13.0-17.5) gm/dL Hct (39.0-53.0) % MCV (80.0-100.0) fL MCHC (31.0-37.0) g/dL RDW (11.5-15.5) % APTT (22.0-30.0) sec ABG pH 7.46 H (7.35-7.45) ABG pO2 73 L (83-108) mmHg ABG Total CO2 25 H (19-24) mmol/L Chloride (98-107) mmol/L BUN (9-20) mg/dL Glucose (74-99) mg/dL POC Glucose (mg/dL) 103 H (75-99) mg/dL Calcium (8.4-10.2) mg/dL Procalcitonin (0.02-0.09) ng/mL Microbiology - Last 24 Hours (Table) 12/06/21 10:25 Blood Culture - Final Blood No Growth after 144 hours 12/06/21 10:31 Blood Culture - Final Blood No Growth after 144 hours 12/07/21 10:30 Blood Culture - Preliminary Blood No Growth after 120 hours 12/07/21 10:30 Blood Culture - Preliminary Blood No Growth after 120 hours Assessment and Plan (1) Bacteremia Current Visit: Yes Status: Acute Code(s): R78.81 - BACTEREMIA SNOMED Code(s): 5694755 (2) Pneumonia Current Visit: Yes Status: Acute Code(s): J18.9 - PNEUMONIA, UNSPECIFIED ORGANISM SNOMED Code(s): 343183081 Plan: 1patient with acute respiratory failure which is likely multifactorial in this patient admitted to the hospital with frequent falls and weakness now with concern for possible pneumonia and a question of aspiration etiology. 2 positive blood culture with staph epi likely skin contamination, repeat blood culture remains to be negative 4 sputum for gram stain and culture so far negative 5patient condition remains to be critical however no worsening of respiratory status has been noticed, patient is currently covered with Zosyn 3.375 g every 8 hours, and monitor clinical course closely
[2021-12-14] MEDS ORDERED: PIPERACILLIN-TAZOBACTAM 3.375 GM in SODIUM CHLORIDE 0.9% 100 ML IVPB SCH (08:00)
[2021-12-14] MEDS: IPRATROPIUM-ALBUTEROL 3 ML NEB INHALATION SCH ×3 (08:14→15:31)
[2021-12-14] MEDS: NOREPINEPHRINE 8 MG in SODIUM CHLORIDE 0.9% 250 ML IV SCH (08:36)
--- NOTE | 2021-12-14 08:38 | P.PN ---
Subjective Progress Note Date: 12/14/21 Acute hypoxic respiratory failure requiring intubation and mechanical ventilati on, multifactorial. 76-year-old male, brought into the emergency room, on December 04, by EMS. The tyson ent apparently had been frequently falling, has had generalized weakness, and is also had increasing shortness of breath, and cough. The patient has not been feeling well for at least 3 weeks, and maybe longer. The patient states that he is having a difficult time coughing up any phlegm although he does feel like his chest is congested. The patient denies any chest pain or chest discomfort. Th ere is no nausea, vomiting, or diarrhea. He was evaluated in the emergency department admitted with a diagnosis of pneumonia. We are seeing him in consultation. White count 8.52, hemoglobin 9.3, hematocrit 29.9, and platelet count 223,000. Sodium 137, potassium 4.8, chlorides 111, CO2 15, anion gap 11, BUN 38, creatinine 1.1. Glucose 98. N-terminal proBNP is 1150. Chest x-ray shows patchy bilateral infiltrates, which are worse on the subsequent chest x- ray. The patient has a history of atrial flutter, pulmonary embolism, rheumatoid arthritis, and previous prostate surgery. The patient is also had heart catheterization with stent placement. On 12/06/2021 we received a phone call from the nursing staff with a concern about worsening hypoxia, and patient was satting only 87% on 100% nonrebreather, tachypnea, and increased work of breathing. Stat chest x-ray was obtained showing contained extensive interstitial and patchy peripheral infiltrates. Patient has been afebrile. Blood pressure is 110/64, however he is tachypneic, with a respiratory rate in the 30s. Denies any chest discomfort, denies any cough or phlegm production. Patient was found to be bacteremic, his blood cultures show gram-positive cocci in groups, he is currently on Zosyn and vancomycin for antibiotic coverage. We were unable to obtain a sputum culture. Blood gas was obtained on 100% nonrebreather showing pO2 of 68, pCO2 of 24, and pH of 7.37. Subsequently patient was placed on BiPAP support with a pressure of 15/5, and FiO2 100%. Neurologically patient is awake and alert, he is answering questions appropriately, he is oriented 3. He is achieving over 1000 mL of tidal volume on the BiPAP support. Still remains quite tachycardic, his minute ventilation is increased. Patient was given a dose of IV Lasix 60 mg times one, he has produced 1.1 L and urine output since then, we'll continue with IV diuretics, we ordered an echocardiogram which is pending at this point. His pro calcitonin level is elevated at 0.87, proBNP was 1150. Reevaluated today on 12/07/2021, patient's condition deteriorated few hours after he was admitted to the ICU yesterday, patient was getting more tachypneic, more tachycardic, and he was developing worsening respiratory distress. His respiratory rate was up in the 50s according to the nurse will call be about the patient, and the patient was getting extremely agitated and restless, as I recommended immediate intubation and mechanical ventilation. Patient is now intubated, mechanically ventilated, he is sedated and he is on propofol. Patient is on assist control rate of 24 tidal volume 450 FiO2 60% and PEEP of 5. ABG showed a pO2 of 90 pCO2 of 42 pH of 7.33. His FiO2 was cut down. The rest of the vent settings exactly the same. Patient is on IV fluid at KVO, he is requiring norepinephrine at 0.26 mcg/kg/m, he is also on propofol at 50 mcg/ kg/m. Again I cut down his FiO2 to 50%. Patient was on Lasix, we cut down the Lasix mostly because of his hypotension and requiring norepinephrine his blood cultures basically showed contamination, positive for staph epidermidis which implies contamination, not true positive blood cultures. Patient remains on Zosyn empirically, and vancomycin was discontinued. Chest x-ray continues to show bilateral interstitial infiltrates/edema and confluent groundglass opacities bilaterally. Not much of a change since admission. Patient remains on Zosyn empirically for presumptive underlying pneumonia especially with his elevated pro calcitonin level. It is not clear to me whether the patient had h istory of interstitial lung disease related to his rheumatoid arthritis in the past, no old x-rays for comparison to determine whether the findings are new or chronic. Nonetheless the patient remains on antibiotics and on diuretics. Amiodarone was added today by cardiology for his atrial fibrillation with RVR. Patient remains on Xarelto and he has been on Xarelto all along. His echocardiogram showed LV dysfunction with ejection fraction of 35%, and right- sided pressures seems to be elevated at 51.5. Labs today showed WBC count of 11.2 hemoglobin is 9.9. Electrolytes are normal renal profile is normal, pro calcitonin is up to 4.29 Reevaluated today on 12/08/21, patient remains in the ICU, intubated and mechanically ventilated. His norepinephrine is down to 0.38 mcg/kg/m, it was as high as 0.6 mcg/kg/m last night. Patient received fluids received fluid boluses, and his main IV fluid was increased today to 75 mL per hour. Patient remains on assist control rate of 24 tidal volume 450 FiO2 50% and PEEP of 5. Chest x-ray continues to show bilateral interstitial infiltrates. ABG showed a pO2 of 109 pCO2 44 pH of 7.30, hence I increased his rate to 26 cut down her FiO2 to 45%, and increase the flow rate to 65 L/m repeat blood cultures remain negative. His initial blood culture that admission showed contamination/staph epidermidis..In the meantime the patient remains on antibiotics empirically/Zosyn. Patient remains tachycardic, he is on amiodarone, not much change noted in heart rate, ranging anywhere between 120-130, presently 126. This morning went ahead and give another fluid bolus 500 mL, and I changed his IV fluid to D5 45, and discontinued water flushes. All labs were reviewed WBC count is 10.6 hemoglobin is 9.6. Renal profile is normal with a BUN of 28 cr eatinine 1.05. White carbs 21. Potassium is a bit low at 3.3. Patient remains sedated, and I have no plans to wean and extubate anytime soon a long as he seems to be hemodynamically unstable. Patient is receiving enteral feeding via orogastric tube. Reevaluated today on 12/09/2021, patient remains in the ICU, intubated and mechanically ventilated. Sedated on propofol. Patient had an episode of ventricular tachycardia yesterday, with drop in his blood pressure, required cardioversion 4. Patient was also placed on lidocaine last night after a brief course of CPR and cardioversion, 4. Potassium was noted to be low, being corrected. Patient received fluids during his episode of cardiac arrest. Apparently his AICD was interrogated, and showed a number of episodes of tachycardia mostly appeared to be A. fib and atrial flutter with a very rapid conduction. Patient was placed back on amiodarone, and his lidocaine was discontinued. His hypokalemia is being corrected. Apparently the patient had a relatively downhill course yesterday, but seems to have stabilized today. He is on assist control rate of 26, tidal volume 450 FiO2 45% PEEP of 5. ABG showed a pO2 of 110 pCO2 41 pH of 7.36. Basic metabolic profile is relatively unremarkable, potassium remains a bit low at 3.5. WBC count is 16.4 hemoglobin is 8.8, PTT is 49.4, patient is now off Xarelto and he is receiving IV heparin. Pro calcitonin remains high at 2.40. Chest x-ray continues to show evidence of bilateral interstitial infiltrates sputum cultures are nondiagnostic. Repeat blood cultures since admission have been negative while along. Reevaluated today on 12/10/21 patient remains in the ICU, intubated and mechanically ventilated. Patient is on assist control rate of 26 to 07/27/1948 FiO2 45% PEEP of 5 ABG showed a pO2 of 122 pCO2 43 pH of 7.33 hence the patient FiO2 was cut down to 40%. Patient remains on norepinephrine at 0.2 mcg/kg/m, propofol at 6:00 ventricular per minute amiodarone at 0.5 mg/m patient is sedated, and today I have recommended sedation interruption, and assessment of mental status at least. Chest x-ray continues to bilateral interstitial infiltrates, clinically the patient is not ready for weaning. But I would recommend sedation interruption and assessment of mental status today. Patient is in atrial fibrillation rate is controlled about 90. No further episodes of cardiac arrest since the last episode he had 2 days ago. Remains on heparin drip. Patient is also on enteral feeding for nutritional support. He is on GI and DVT prophylaxis WBC count is 18.5 hemoglobin 9.2. PTT is 51. Basic metabolic profile is normal renal profile is normal. reevaluated today on 12/11/21, patient remains in the ICU, intubated and mechanically ventilated. Chest x-ray continues to show bilateral infiltrates, not much of a change compared to admission chest x-ray. Patient remains on assist control rate of 26, tidal volume 450, FiO2 40%, PEEP is 5. ABG showed a pO2 of 110 pCO2 of 39 pH of 7.41, hence I cut down his FiO2 down to 35%. Patient remains on propofol presently 20 mcg/kg/m, he is on a very minimal dose of norepinephrine earlier and his norepinephrine has been turned off earlier today, he was on 0.02 mcg/kg/m, remains on heparin, remains on D5 45 at 50 mL per hour, he is on vital HPI 38 mL per hour.WBC count is 13.2 hemoglobin is 9.1. Electrode was are normal renal profile is normal. PTT is therapeutic at 53.8. Reevaluated today on 12/12/21, patient remains in the ICU, remains intubated and mechanically ventilated. Presently on assist control rate of 26, tidal volume 450, FiO2 40% and PEEP of 5. Chest x-ray today showed slight worsening of int erstitial infiltrates/suspect some component of pulmonary edema. Patient remains on propofol at 30 mcg/kg/m, he is on norepinephrine at 0.06 mcg/kg/m vital HPI 38 mL/h. ABG showed a pO2 of 80 pCO2 37 pH of 7.41, hence no changes were made in the vent settings. I did give the patient 1 dose of Lasix 20 mg IV push 1. And I have recommended that we give the patient a trial off sedation,/sedation holiday, and assess mental status at least today. Clearly the patient is not ready to be weaned or extubated, but at least we could assess his mental status off sedation today possibly. WBC count today is 15.4 hemoglobin is 9.4. PTT is therapeutic at 52. Basic metabolic profile is basically unremarkable, BUN is 43 creatinine 0.86. Blood cultures in the last few days have been nondiagnostic/negative. Upon admission the patient had a positive blood culture but that was staph epidermidis/contamination related. 12/13/2021, the patient remains intubated on a mechanical ventilator. This mor german, he is on propofol running at 35 mcg/kg per minute and the patient despite that. Is a high minute ventilation of 16.2 L per minute. He is on assist- control mode of mechanical ventilation at the rate of 26 with a tidal volume of 450 and FiO2 of 35% with a PEEP of 5. Morning blood gases showed a pH of 7.46 with a pCO2 of 35 and pO2 73. I do not see any significant improvement in his chest x-ray findings and there is still diffuse groundglass breath and pulmonary infiltrates. Overall fluid balance on this patient was positive and the patient is been more than 10 kg positive since his admission. As such, the patient's respiratory failure was probably multifactorial. Probably had a pneumonia in addition to that he had a component of CHF. He was profoundly septic at the time of admission and he was given IV fluids and he is in a positive fluid balance. Fortunately, he is on a low dose of norepinephrine infusion for now and the patient will be taken off the pressors. The white cell count is at 14.2 with a hemoglobin of 7.9. Renal function is stable at creatinine of 0.8. He is afebrile for now. Is currently off the medicine resident agents. The patient is also on IV Zosyn. He is having paroxysmal atrial fibrillation. This morning, his cardiac rhythm is sinus. He is receiving enteral feeding for nutritional support and the patient is currently on vital high protein at the rate of 38 mL an hour. The patient is also on IV heparin per protocol regarding his atrial fibrillation. PTT from this morning's at 61. Platelet count is at 252. No other significant events otherwise for now. 24 2021, the patient remains intubated on a mechanical ventilator. This mornin g, the patient is on propofol running at 45 mcg/kg per minute. The patient is calm and comfortable and symptoms on a mechanical ventilator. He remained on assist control mode of mechanical ventilation. He is at the rate of 26 with a tidal volume of 450 and FiO2 of 35% with a PEEP of 5. Blood gases show a pH of 7.43 with a pCO2 of 39 and pO2 of 77. His minute ventilation is around 14.6 L. His chest x-ray from today is showing diffuse breath and pulmonary infiltrates with groundglass changes, essentially unchanged compared to yesterday. The patient has a defibrillator over the left anterior chest area and ET tube is in a good location. No significant orotracheal secretions. In terms of fever, the patient is afebrile. The patient was started on diuretics yesterday the patient is receiving Lasix 100 mg IV every 24 hours and overall fluid balance has been - 751 mL over the past 24 hours. In terms of the renal function and electrolytes, the patient has a BUN of 53 with a creatinine of 0.8 and the sodium level of 138 and a serum bicarb of 26. The white cell count is at 15.1 with a hemoglobin of 8.3. No new cultures are available. The patient hemodynamically is doing well and he is on minimal dose of norepinephrine infusion at 0.06 mcg/kg per minute. He is receiving enteral feeding for nutritional support and currently he is on vital AF at the rate of 58 mL an hour. I had a discussion with the patient's family yesterday and I was informed that the patient has excessive rheumatoid arthritis and his baseline performance and functional status is an extremely poor and he had crippling arthritis. He was essentially sedentary. The family opted to switch his CODE STATUS to DO NOT RESUSCITATE. Objective - Vital Signs Vital signs: Vital Signs Temp 98.2 F 12/14/21 04:00 Pulse 88 12/14/21 08:25 Resp 30 H 12/14/21 04:00 BP 113/64 12/14/21 01:00 Pulse Ox 96 12/14/21 04:00 FiO2 35 12/14/21 07:16 Intake & Output 12/13/21 12/14/21 12/14/21 18:59 06:59 18:59 Intake Total 0341.496 3359.293 198 Output Total 1810 1530 250 Balance -565.308 -185.707 -52 Weight 95.4 kg 94 kg Intake: IV 460 306 52 0.9 KVO 140 240 40 Piperacillin-Tazobactam 3 100 .375 gm In Sodium Chloride 0.9% 100 ml @ 25 mls/hr IVPB Q8HR [facility] Rx# :[id number] Pressure bag 66 12 Sodium Chloride 0.45% 1, 220 000 ml @ 50 mls/hr IV . Q20H [facility] Rx#:[id number] Intake, IV Titration 308.692 332.293 Amount Heparin Sod,Pork in 0.45% 13.916 NaCl 25,000 unit In 0.45 % NaCl 1 250ml.bag @ 12 UNITS/KG/HR 10.08 mls/hr IV .Q24H [facility] Rx#: [id number] Norepinephrine 8 mg In 75.890 16.544 Sodium Chloride 0.9% 250 ml @ 0.05 MCG/KG/MIN 9. 084 mls/hr IV .Q24H [facility] Rx#:[id number] propofoL 1,000 mg In 218.886 315.749 Empty Bag 1 bag @ 5 MCG/ KG/MIN 2.381 mls/hr IV . Q24H [facility] Rx#:[id number] Tube Feeding 476 616 116 Other 90 30 Output: Urine 1810 1530 250 Other: Voiding Method Indwelling Catheter Indwelling Catheter # Bowel Movements 1 1 ABP, PAP, CO, CI - Last Documented Arterial Blood Pressure 123/40 - Exam General: non toxic, no distress, appears at stated age, intubated, on the mechanical ventilator and the patient is well sedated and he is calm and comfortable Derm: warm, dry Head: atraumatic, normocephalic, symmetric Eyes: EOMI, no lid lag, anicteric sclera Mouth: no lip lesion, mucus membranes moist Cardiovascular: S1S2 reg, no murmur, positive posterior tibial pulse bilateral, Lungs: Course bs bilateral, no rhonchi, no rales , no accessory muscle use nevertheless, despite being on sedation, the patient continues to be quite tachypneic and his respiratory rate is above 30 at this point in time. Abdominal: soft, nontender to palpation, no guarding, no appreciable organomegaly Ext: no gross muscle atrophy, some trace edema in lower extremities and upper extremities bilaterally more so in the upper extremities and more so on the left. The patient has a left radial arterial line catheter in place., no contractures Neuro: Breathing over the vent, no with drawal to pain, PER-sluggishly reactive to light Psych:unresponisve on vent with sedation - Labs CBC & Chem 7: 12/14/21 04:55 12/14/21 04:55 Labs: Abnormal Lab Results - Last 24 Hours (Table) 12/13/21 12/13/21 12/13/21 Range/Units 03:08 12:03 18:01 WBC (3.8-10.6) k/uL RBC (4.30-5.90) m/uL Hgb (13.0-17.5) gm/dL Hct (39.0-53.0) % MCV (80.0-100.0) fL RDW (11.5-15.5) % Neutrophils # (1.3-7.7) k/uL Lymphocytes # (1.0-4.8) k/uL ABG pO2 (83-108) mmHg ABG HCO3 (21-25) mmol/L ABG Total CO2 (19-24) mmol/L Chloride (98-107) mmol/L BUN (9-20) mg/dL Glucose (74-99) mg/dL POC Glucose (mg/dL) 103 H 103 H (75-99) mg/dL Calcium (8.4-10.2) mg/dL Total Protein (6.3-8.2) g/dL Albumin (3.5-5.0) g/dL Procalcitonin 0.52 H (0.02-0.09) ng/mL 12/13/21 12/14/21 12/14/21 Range/Units 23:00 04:55 04:55 WBC 15.1 H (3.8-10.6) k/uL RBC 2.51 L (4.30-5.90) m/uL Hgb 8.3 L (13.0-17.5) gm/dL Hct 26.2 L (39.0-53.0) % MCV 104.4 H (80.0-100.0) fL RDW 18.0 H (11.5-15.5) % Neutrophils # 12.1 H (1.3-7.7) k/uL Lymphocytes # 0.9 L (1.0-4.8) k/uL ABG pO2 (83-108) mmHg ABG HCO3 (21-25) mmol/L ABG Total CO2 (19-24) mmol/L Chloride 111 H (98-107) mmol/L BUN 53 H (9-20) mg/dL Glucose 118 H (74-99) mg/dL POC Glucose (mg/dL) 121 H (75-99) mg/dL Calcium 7.5 L (8.4-10.2) mg/dL Total Protein 4.1 L (6.3-8.2) g/dL Albumin 1.9 L (3.5-5.0) g/dL Procalcitonin (0.02-0.09) ng/mL 12/14/21 12/14/21 Range/Units 04:55 05:18 WBC (3.8-10.6) k/uL RBC (4.30-5.90) m/uL Hgb (13.0-17.5) gm/dL Hct (39.0-53.0) % MCV (80.0-100.0) fL RDW (11.5-15.5) % Neutrophils # (1.3-7.7) k/uL Lymphocytes # (1.0-4.8) k/uL ABG pO2 77 L (83-108) mmHg ABG HCO3 26 H (21-25) mmol/L ABG Total CO2 27 H (19-24) mmol/L Chloride (98-107) mmol/L BUN (9-20) mg/dL Glucose (74-99) mg/dL POC Glucose (mg/dL) 121 H (75-99) mg/dL Calcium (8.4-10.2) mg/dL Total Protein (6.3-8.2) g/dL Albumin (3.5-5.0) g/dL Procalcitonin (0.02-0.09) ng/mL Microbiology - Last 24 Hours (Table) 12/07/21 10:30 Blood Culture - Final Blood No Growth after 144 hours 12/07/21 10:30 Blood Culture - Final Blood No Growth after 144 hours Assessment and Plan Plan: Impression: Acute hypoxic respiratory failure secondary to pneumonia, community-acquired, however the patient is relatively immunocompromised on methotrexate and leflunomide for underlying rheumatoid arthritis. Possibility of interstitial lung disease is not entirely ruled out. Possibility of acute on chronic systolic congestive heart failure is also in the differential. Clearly the presentation was a pulmonary presentation/pneumonia and sepsis/septic shock. Procal max was 4.29 levels have been dropping. The chest x-ray findings are stable and the patient's oxygenation is also stable. for now, the patient is being diuresed with IV Lasix and the patient has been negative fluid balance. He is on a minimal dose of pressors for now. He remains on IV Zosyn.the pro- calcitonin level is improving and is currently down to 0.52. Blood cultures positive for staph epidermidis, repeat blood cultures have been negative and the patient remains on Zosyn. He is off vancomycin. Chronic atrial fibrillation , paroxysmal atrial flutter with RVR,rate controlled for now on Amiodarone orally and the patient's current cardiac rhythm is sinus. History of pulmonary embolism, patient was on Xarelto now History of underlying coronary artery disease and previous PCI and stent placement. Ischemic cardiomyopathy and LV dysfunction previous AICD placement in 2016. Echocardiogram on this admission showed ejection fraction of 35-40%. Former smoker. Rheumatoid arthritis, maintained on methotrexate and leflunomide. Both are presently on hold. Hypotension secondary to sepsis, septic shock, and profound LV dysfunction with ischemic cardiomyopathy. Patient remains on norepinephrine , however the dose has been significantly cut down over the last few days. Today he is on 0.03 mcg/kg/m Wide-complex tachycardia, requiring CPR and cardioversion 4. This was on . 2Patient had an episode of ventricular tachycardia with drop in his blood pressure, required cardioversion 4. Patient was also placed on lidocaine last night after a brief course of CPR and cardioversion, 4. Potassium was noted to be low, being corrected. Patient received fluids during his episode of cardiac arrest. Apparently his AICD was interrogated, and showed a number of episodes of tachycardia mostly appeared to be A. fib and atrial flutter with a very rapid conduction. Patient was placed back on amiodarone, and his lidocaine was discontinued. Recommendation: Continue ventilatory support. Discontinue the IV pressors Increase Lasix 40 mg IV every 8 hours IV fluids to KVO I believe the patient's respiratory failure is due to a combination of pneumonia and CHF. Pro-calcitonin was quite elevated supporting infection/pneumonia. The same time the patient was septic requiring significant amount of pressors and currently the patient is in a positive fluid balance. Sedation interruption and assessment of mental status at least today Continue antibiotics/Zosyn. empirically for pneumonia. Continue GI and DVT prophylaxis. Patient is on Xarelto 20 mg by mouth daily. continue nutritional support, patient is on enteral feeding. Continue to hold methotrexate and leflunomide. DC Solu-Medrol Sputum cultures have been nondiagnostic, empirically on Zosyn. We will continue to follow. Prognosis remains poor and guarded, discussed the case with the family yesterday and I had a lengthy discussion with the daughter and . Apparently the patient's baseline performance and functional status been extremely poor. He hasn't followed up with rheumatology. Has been placed on immunosuppression. They opted to proceed with a DNR/DNI status. Critical care time is over 30 minutes Time with Patient: Greater than 30 Time with Patient: Greater than 30
[2021-12-14] MEDS: CHOLECALCIFEROL 25 MCG (1000 IU) TABLET PO SCH (08:43)
[2021-12-14] MEDS: CHLORHEXIDINE GLUCONATE 15 ML CUP MUCOUS MEM SCH (08:44)
[2021-12-14] MEDS: FOLIC ACID 1 MG TAB PO SCH (08:44)
[2021-12-14] MEDS: POTASSIUM BICARBONATE/CIT AC 20 MEQ TABLET.EFF NG-TUBE SCH ×2 (08:44→09:46)
[2021-12-14] MEDS: METOPROLOL TARTRATE 25 MG TAB PO SCH (08:44)
[2021-12-14] MEDS: ATORVASTATIN 40 MG TAB PO SCH (08:44)
[2021-12-14] MEDS: AMIODARONE 200 MG TAB PO SCH (08:44)
--- NOTE | 2021-12-14 09:05 | XR ---
EXAMINATION TYPE: XR chest 1V portable DATE OF EXAM: 12/14/2021 Comparison: 12/13/2021 Clinical History: 76-year-old male shortness of breath Findings: Left anterior chest wall ICD generator with right atrial and right ventricular leads. NG tube courses below the diaphragm. ET tube satisfactory. Heart upper limits of normal in size. Interstitial promin ence and peripheral basilar groundglass opacities persist without significant change. Impression: Similar bilateral interstitial changes with peripheral and basilar groundglass densities.
[2021-12-14] MEDS: PATIENT'S OWN (Icosapent Ethyl [Icosapent Ethyl] 1 GM Capsule) PO SCH (09:43)
[2021-12-14] MEDS: FUROSEMIDE 10 MG/ML 4 ML VIAL IV SCH ×2 (09:56→18:02)
[2021-12-14] MEDS: PANTOPRAZOLE SODIUM 40 MG GRANULE PKT PO SCH (12:04)
--- NOTE | 2021-12-14 12:12 | P.PN ---
Subjective Progress Note Date: 12/14/21 This is a 76-year-old gentleman with history of cardiomyopathy, AICD implantation was admitted to the hospital with sepsis and hypotension. Patient received IV fluids and pressors. Patient also had bouts of atrial fibrillation. There was question of possible V. tach with retrograde P waves. Patient is currently on amiodarone 400 mg by mouth twice a day. He seemed to be maintaining sinus rhythm at this time. Chest x-ray shows bilateral infiltrates, plus or minus CHF. Patient is being initiated on IV Lasix. He is also on heparin which is being switched to oral anticoagulation isn't. Patient is still intubated. No significant improvement since yesterday. Continue current medical therapy. We'll plan to reduce the dose of amiodarone off the Fortovase. Prognosis is guarded. 12/14/2021: This patient's critical status hasn't improved that much. Patient is still intubated and on ventilator sedation. Patient's baseline function was limited because of severe arthritis. He is a recent blood cultures are negative. Is a small dose of vasopressin or. His maintaining sinus rhythm without recurrence of V. tach is on amiodarone, which will be continued until the and cut back the dose to 200 mg by mouth twice a day. Family has decided to make no CODE STATUS. We will continue current medical therapy. Prognosis is guarded Objective - Vital Signs Vital signs: Vital Signs Temp 98.2 F 12/14/21 04:00 Pulse 88 12/14/21 08:25 Resp 30 H 12/14/21 04:00 BP 111/58 12/14/21 03:00 Pulse Ox 96 12/14/21 04:00 FiO2 35 12/14/21 10:45 Intake & Output 12/13/21 12/14/21 12/14/21 18:59 06:59 18:59 Intake Total 8547.268 4627.293 540.284 Output Total 1810 1530 800 Balance -565.308 -185.707 -259.716 Weight 95.4 kg 94 kg Intake: IV 460 306 130 0.9 KVO 140 240 100 Piperacillin-Tazobactam 3 100 .375 gm In Sodium Chloride 0.9% 100 ml @ 25 mls/hr IVPB Q8HR [facility] Rx# :[id number] Pressure bag 66 30 Sodium Chloride 0.45% 1, 220 000 ml @ 50 mls/hr IV . Q20H [facility] Rx#:[id number] Intake, IV Titration 308.692 332.293 70.284 Amount Heparin Sod,Pork in 0.45% 13.916 NaCl 25,000 unit In 0.45 % NaCl 1 250ml.bag @ 12 UNITS/KG/HR 10.08 mls/hr IV .Q24H [facility] Rx#: [id number] Norepinephrine 8 mg In 75.890 16.544 9.084 Sodium Chloride 0.9% 250 ml @ 0.05 MCG/KG/MIN 9. 084 mls/hr IV .Q24H [facility] Rx#:[id number] propofoL 1,000 mg In 218.886 315.749 61.200 Empty Bag 1 bag @ 5 MCG/ KG/MIN 2.381 mls/hr IV . Q24H [facility] Rx#:[id number] Tube Feeding 476 616 310 Other 90 30 Output: Urine 1810 1530 800 Other: Voiding Method Indwelling Catheter Indwelling Catheter # Bowel Movements 1 1 ABP, PAP, CO, CI - Last Documented Arterial Blood Pressure 123/40 - Exam GENERAL EXAM: Patient is sedated and intubated HEENT: Normocephalic. N CHEST: No chest wall deformity. LUNGS: Equal air entry with no crackles or wheeze. HEART: S1 and S2 normal ABDOMEN: Soft SKIN: No rashes CENTRAL NERVOUS SYSTEM: Patient is intubated and sedated EXTREMITIES: No cyanosis, clubbing or edema. - Labs CBC & Chem 7: 12/14/21 04:55 12/14/21 04:55 Labs: Abnormal Lab Results - Last 24 Hours (Table) 12/13/21 12/13/21 12/14/21 Range/Units 18:01 23:00 04:55 WBC 15.1 H (3.8-10.6) k/uL RBC 2.51 L (4.30-5.90) m/uL Hgb 8.3 L (13.0-17.5) gm/dL Hct 26.2 L (39.0-53.0) % MCV 104.4 H (80.0-100.0) fL RDW 18.0 H (11.5-15.5) % Neutrophils # 12.1 H (1.3-7.7) k/uL Lymphocytes # 0.9 L (1.0-4.8) k/uL ABG pO2 (83-108) mmHg ABG HCO3 (21-25) mmol/L ABG Total CO2 (19-24) mmol/L Chloride (98-107) mmol/L BUN (9-20) mg/dL Glucose (74-99) mg/dL POC Glucose (mg/dL) 103 H 121 H (75-99) mg/dL Calcium (8.4-10.2) mg/dL Total Protein (6.3-8.2) g/dL Albumin (3.5-5.0) g/dL 12/14/21 12/14/21 12/14/21 Range/Units 04:55 04:55 05:18 WBC (3.8-10.6) k/uL RBC (4.30-5.90) m/uL Hgb (13.0-17.5) gm/dL Hct (39.0-53.0) % MCV (80.0-100.0) fL RDW (11.5-15.5) % Neutrophils # (1.3-7.7) k/uL Lymphocytes # (1.0-4.8) k/uL ABG pO2 77 L (83-108) mmHg ABG HCO3 26 H (21-25) mmol/L ABG Total CO2 27 H (19-24) mmol/L Chloride 111 H (98-107) mmol/L BUN 53 H (9-20) mg/dL Glucose 118 H (74-99) mg/dL POC Glucose (mg/dL) 121 H (75-99) mg/dL Calcium 7.5 L (8.4-10.2) mg/dL Total Protein 4.1 L (6.3-8.2) g/dL Albumin 1.9 L (3.5-5.0) g/dL Microbiology - Last 24 Hours (Table) 12/07/21 10:30 Blood Culture - Final Blood No Growth after 144 hours 12/07/21 10:30 Blood Culture - Final Blood No Growth after 144 hours Assessment and Plan (1) Sepsis Current Visit: Yes Status: Acute Code(s): A41.9 - SEPSIS, UNSPECIFIED ORGANISM SNOMED Code(s): 76900719 (2) 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 Current Visit: Yes Status: Acute Code(s): I50.40 - UNSP COMBINED SYSTOLIC A ND DIASTOLIC (CONGESTIVE) HRT FAIL; I38 - ENDOCARDITIS, VALVE UNSPECIFIED SNOMED Code(s): 321482142 (3) Combined systolic and diastolic congestive heart failure Current Visit: Yes Status: Acute Code(s): I50.40 - UNSP COMBINED SYSTOLIC AND DIASTOLIC (CONGESTIVE) HRT FAIL SNOMED Code(s): 02447474 (4) Pneumonia Current Visit: Yes Status: Acute Code(s): J18.9 - PNEUMONIA, UNSPECIFIED ORGANISM SNOMED Code(s): 167618549 (5) Atrial fibrillation with RVR Current Visit: Yes Status: Acute Code(s): I48.91 - UNSPECIFIED ATRIAL FIBRILLATION SNOMED Code(s): 221918671544238 (6) Cardiomyopathy Current Visit: Yes Status: Acute Code(s): I42.9 - CARDIOMYOPATHY, UNSPECIFIED SNOMED Code(s): 14522605 Plan: No significant change in the clinical status. Remains on amiodarone and small dose of vasopressor and antibiotics. Patient is intubated and medical arlene tilator ,continue current medical therapy. Prognosis is poor
[2021-12-14 12:25] LABS: Glucose,Whole Blood 135 mg/dL (75-99)
[2021-12-14] MEDS ORDERED: POTASSIUM BICARBONATE/CIT AC 20 MEQ TABLET.EFF NG-TUBE SCH (13:00)
--- NOTE | 2021-12-14 14:40 | P.PN ---
Subjective Progress Note Date: 12/14/21 Principal diagnosis: fatigue Patient is a 76-year-old with history of A. fib on Xarelto, rheumatoid arthritis, congestive heart failure, prior pulmonary embolism who initially presented with 4 weeks of weakness and fatigue. In the ER he underwent an extensive evaluation. He was found to have pneumonia and acute kidney injury. He was started on Rocephin and Zithromax area pulmonary was consulted. He was also discovered that he has a history of congestive heart failure in his interest and Aldactone were restarted. His O2 sat decreased and he started to require 100% nonrebreather. He was given a dose of Lasix and diuretics were continued. He was transferred to the ICU on 12/06. His respirations continued to worsen and he ultimately required BiPAP and then intubation. He then developed A. fib with RVR cardiology was consulted and started on IV amiodarone. He did have a set of blood cultures for ultimately determined to be a contaminant with staph epi. On 12/09 unit early a.m. he went into pulseless V. tach requiring multiple cardioversions and he was ultimately started on lidocaine. Cardiology was notified. He was transitioned off the lidocaine drip and back onto amiodarone and Lopressor. He continued to improve. He continued to require levo intermittent. He failed multiple sedation holidays due to agitation. Imaging: CXR: mild cardiomegaly, interstitial opacities CT Brain: mild age related atrophy Echo: EF 35-40% Patient seen and examined. No acute events overnight. present at bedside. Questions answered General: non toxic, no distress, appears at stated age Derm: warm, dry Head: atraumatic, normocephalic, symmetric Eyes: EOMI, no lid lag, anicteric sclera Mouth: no lip lesion, mucus membranes moist Cardiovascular: S1S2 reg, no murmur, positive posterior tibial pulse bilateral, Lungs: Course bs bilateral, no rhonchi, no rales , no accessory muscle use Abdominal: soft, nontender to palpation, no guarding, no appreciable organomegaly Ext: no gross muscle atrophy, diffuse anasarca edema, no contractures Neuro: Breathing over the vent, Psych:unresponisve on vent Assessment/Plan: Community-acquired pneumonia Acute hypoxic respiratory failure Immunocompromized due to RA on Methotrexate and Leflunomide Septic shock - pulm recs on vent - zosyn completed - ID recs - steroids - broncodilators 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% A flutter/fib with RVR Wide complex tachycardia requiring cardioversion X 4 - amio, lopressor - statin - not on ACEI with hypotension Acute metabolic encephalopathy- metabolic vs hypoxic - supportive care Moderate Protein Calorie Malnutrition - tube feedings - dietitian recs Depressed TSH - with consideration for acute illness may be inaccurate results. Patient is on BB which would help to suppress symptoms - recommend repeat TSH for confirmation - consider Methamizole if confirmed hyperthyroidism. Chronic: Macrocytic anemia Pulmonary embolism Rheumatoid arthritis GERD Dyslipidemia ISABEL, resolved Generalized weakness Discussed with who is thinking about hospice/comfort care. I provided support and consulted palliative care. DVT prophylaxis: Lui Discussed with: nursing Anticipated discharge: undetermined Anticipated discharge place: SNF vs LTACH A total of 32 minutes was spent on the care of this complex patient more than 50% of the time was spent in counseling. Active Medications Generic Name Dose Route Start Last Admin Trade Name Freq PRN Reason Stop Dose Admin Albuterol/Ipratropium 3 ml 12/05/21 16:00 12/14/21 11:45 Ipratropium-Albuterol 3 Ml Neb INHALATION Not Given RT-QID [facility] Amiodarone HCl 400 mg 12/10/21 11:15 12/14/21 08:44 Amiodarone 200 Mg Tab PO 12/14/21 21:00 400 mg BID [facility] Administration Amiodarone HCl 200 mg 12/15/21 09:00 Amiodarone 200 Mg Tab PO BID [facility] Atorvastatin Calcium 40 mg 12/05/21 09:00 12/14/21 08:44 Atorvastatin 40 Mg Tab PO 40 mg DAILY [facility] Administration Chlorhexidine Gluconate 15 ml 12/07/21 09:00 12/14/21 08:44 Chlorhexidine Gluconate 15 Ml Cup MUCOUS MEM 15 ml BID [facility] Administration Cholecalciferol 50 mcg 12/05/21 09:00 12/14/21 08:43 Cholecalciferol 25 Mcg (1000 Iu) Tablet PO 50 mcg DAILY [facility] Administration Folic Acid 1 mg 12/05/21 09:00 12/14/21 08:44 Folic Acid 1 Mg Tab PO 1 mg DAILY [facility] Administration Furosemide 40 mg 12/14/21 09:00 12/14/21 09:56 Furosemide 10 Mg/Ml 4 Ml Vial IV 40 mg Q8H [facility] Administration Sodium Chloride 1,000 mls @ 10 mls/hr 12/04/21 20:45 12/13/21 20:05 Saline 0.9% IV Not Given .Q24H [facility] Propofol 1,000 mg/ IV Solution 100 mls @ 2.381 mls/hr 12/06/21 21:15 12/14/21 09:42 IV 0 mcg/kg/min .Q24H [facility] 0 mls/hr Titration Protocol 5 MCG/KG/MIN Norepinephrine Bitartrate 8 mg 258 mls @ 9.084 mls/hr 12/10/21 19:30 12/14/21 09:51 / Sodium Chloride IV 0 mcg/kg/min .Q24H [facility] 0 mls/hr Titration Protocol 0.05 MCG/KG/MIN Piperacillin Sod/Tazobactam 100 mls @ 25 mls/hr 12/14/21 08:00 12/14/21 09:33 Sod 3.375 gm/ Sodium Chloride IVPB 25 mls/hr Q8HR [facility] Administration Protocol Insulin Aspart 0 unit 12/08/21 12:00 12/14/21 12:39 Insulin Aspart (Novolog) 100 Unit/Ml Vial SQ 1 unit Q6H [facility] Administration Protocol Metoprolol Tartrate 25 mg 12/10/21 11:15 12/14/21 08:44 Metoprolol Tartrate 25 Mg Tab PO 25 mg BID [facility] Administration Miscellaneous Information 1 each 12/04/21 20:43 Pneumonia Protocol Utilized 1 Each Misc PO ONCE PRN Per Protocol Miscellaneous Information 1 each 12/07/21 08:40 Potassium Replacement Protocol 1 Each Misc MISCELLANE DAILY PRN Per Protocol Protocol Miscellaneous Information 1 each 12/08/21 20:31 Phosphorus Replacement Protoco 1 Each Misc MISCELLANE DAILY PRN Per Protocol Protocol Morphine Sulfate 4 mg 12/06/21 09:58 12/11/21 16:12 Morphine Sulfate 4 Mg/Ml Syringe IVP 4 mg Q4HR PRN Administration Pain Patient's Own ( 2 gm 12/04/21 21:00 12/14/21 09:43 Icosapent Ethyl [ PO Not Given Icosapent Ethyl] 1 BID [facility] Gm Capsule) Pantoprazole Sodium 40 mg 12/12/21 09:30 12/14/21 12:04 Pantoprazole Sodium 40 Mg Granule Pkt PO 40 mg DAILY [facility] Administration Rivaroxaban 20 mg 12/13/21 12:00 12/13/21 12:18 Rivaroxaban 20 Mg Tab PO 20 mg W/SUPPER [facility] Administration Protocol Objective - Vital Signs Vital signs: Vital Signs Temp 98.2 F 12/14/21 04:00 Pulse 88 12/14/21 08:25 Resp 30 H 12/14/21 04:00 BP 111/58 12/14/21 03:00 Pulse Ox 96 12/14/21 04:00 FiO2 35 12/14/21 10:45 Intake & Output 12/13/21 12/14/21 12/14/21 18:59 06:59 18:59 Intake Total 4648.161 6101.293 627.284 Output Total 1810 1530 2150 Balance -565.308 -185.707 -1522.716 Weight 95.4 kg 94 kg Intake: IV 460 306 156 0.9 KVO 140 240 120 Piperacillin-Tazobactam 3 100 .375 gm In Sodium Chloride 0.9% 100 ml @ 25 mls/hr IVPB Q8HR [facility] Rx# :[id number] Pressure bag 66 36 Sodium Chloride 0.45% 1, 220 000 ml @ 50 mls/hr IV . Q20H [facility] Rx#:[id number] Intake, IV Titration 308.692 332.293 70.284 Amount Heparin Sod,Pork in 0.45% 13.916 NaCl 25,000 unit In 0.45 % NaCl 1 250ml.bag @ 12 UNITS/KG/HR 10.08 mls/hr IV .Q24H [facility] Rx#: [id number] Norepinephrine 8 mg In 75.890 16.544 9.084 Sodium Chloride 0.9% 250 ml @ 0.05 MCG/KG/MIN 9. 084 mls/hr IV .Q24H [facility] Rx#:[id number] propofoL 1,000 mg In 218.886 315.749 61.200 Empty Bag 1 bag @ 5 MCG/ KG/MIN 2.381 mls/hr IV . Q24H [facility] Rx#:[id number] Tube Feeding 476 616 371 Other 90 30 Output: Urine 1810 1530 2150 Other: Voiding Method Indwelling Catheter Indwelling Catheter # Bowel Movements 1 1 ABP, PAP, CO, CI - Last Documented Arterial Blood Pressure 123/40 - Labs CBC & Chem 7: 12/14/21 04:55 12/14/21 12:11 Labs: Abnormal Lab Results - Last 24 Hours (Table) 12/13/21 12/13/21 12/14/21 Range/Units 18:01 23:00 04:55 WBC 15.1 H (3.8-10.6) k/uL RBC 2.51 L (4.30-5.90) m/uL Hgb 8.3 L (13.0-17.5) gm/dL Hct 26.2 L (39.0-53.0) % MCV 104.4 H (80.0-100.0) fL RDW 18.0 H (11.5-15.5) % Neutrophils # 12.1 H (1.3-7.7) k/uL Lymphocytes # 0.9 L (1.0-4.8) k/uL ABG pO2 (83-108) mmHg ABG HCO3 (21-25) mmol/L ABG Total CO2 (19-24) mmol/L Chloride (98-107) mmol/L BUN (9-20) mg/dL Glucose (74-99) mg/dL POC Glucose (mg/dL) 103 H 121 H (75-99) mg/dL Calcium (8.4-10.2) mg/dL Total Protein (6.3-8.2) g/dL Albumin (3.5-5.0) g/dL 12/14/21 12/14/21 12/14/21 Range/Units 04:55 04:55 05:18 WBC (3.8-10.6) k/uL RBC (4.30-5.90) m/uL Hgb (13.0-17.5) gm/dL Hct (39.0-53.0) % MCV (80.0-100.0) fL RDW (11.5-15.5) % Neutrophils # (1.3-7.7) k/uL Lymphocytes # (1.0-4.8) k/uL ABG pO2 77 L (83-108) mmHg ABG HCO3 26 H (21-25) mmol/L ABG Total CO2 27 H (19-24) mmol/L Chloride 111 H (98-107) mmol/L BUN 53 H (9-20) mg/dL Glucose 118 H (74-99) mg/dL POC Glucose (mg/dL) 121 H (75-99) mg/dL Calcium 7.5 L (8.4-10.2) mg/dL Total Protein 4.1 L (6.3-8.2) g/dL Albumin 1.9 L (3.5-5.0) g/dL 12/14/21 Range/Units 12:13 WBC (3.8-10.6) k/uL RBC (4.30-5.90) m/uL Hgb (13.0-17.5) gm/dL Hct (39.0-53.0) % MCV (80.0-100.0) fL RDW (11.5-15.5) % Neutrophils # (1.3-7.7) k/uL Lymphocytes # (1.0-4.8) k/uL ABG pO2 (83-108) mmHg ABG HCO3 (21-25) mmol/L ABG Total CO2 (19-24) mmol/L Chloride (98-107) mmol/L BUN (9-20) mg/dL Glucose (74-99) mg/dL POC Glucose (mg/dL) 135 H (75-99) mg/dL Calcium (8.4-10.2) mg/dL Total Protein (6.3-8.2) g/dL Albumin (3.5-5.0) g/dL Microbiology - Last 24 Hours (Table) 12/07/21 10:30 Blood Culture - Final Blood No Growth after 144 hours 12/07/21 10:30 Blood Culture - Final Blood No Growth after 144 hours
[2021-12-14] MEDS ORDERED: ATROPINE OPHTH SOLN 1% 5ML BTL SUBLINGUAL PRN (14:47)
[2021-12-14] MEDS ORDERED: LORazepam 2 MG/ML INJ IV PRN (14:47)
[2021-12-14] MEDS ORDERED: ONDANSETRON 4 MG/2 ML VIAL IVP PRN (14:47)
[2021-12-14] MEDS ORDERED: MORPHINE SULFATE 2 MG/ML SYRINGE IVP ONE (14:47)
[2021-12-14] MEDS ORDERED: ACETAMINOPHEN SUPPOSITORY 650 MG SUPP RECTAL PRN (14:47)
[2021-12-14] MEDS ORDERED: HALOPERIDOL LACTATE 5 MG/ML 1 ML VIAL IM PRN (14:47)
[2021-12-14] MEDS ORDERED: ARTIFICIAL TEARS-HYPROMELLOSE DROPS 15 ML BTL BOTH EYES PRN (14:47)
[2021-12-14] MEDS ORDERED: DRY MOUTH SPRAY 44.3 SPRAY/44.3 ML SPRAY MUCOUS MEM PRN (14:47)
[2021-12-14] MEDS ORDERED: MORPHINE SULFATE 4 MG/ML SYRINGE IVP PRN (14:49)
[2021-12-14 14:56] VITALS: TEMP 97.5
[2021-12-14] MEDS ORDERED: MORPHINE SULFATE 2 MG/ML SYRINGE IV PRN (15:51)
[2021-12-14] MEDS ORDERED: GLYCOPYRROLATE 0.2 MG/ML 2 ML VIAL IVP PRN (15:51)
[2021-12-14] MEDS: MORPHINE SULFATE (100 MG/2 ML) 100 MG in SODIUM CHLORIDE 0.9% 100 ML IV SCH ×3 (16:13→22:42)
--- NOTE | 2021-12-14 17:03 | P.CONS ---
History of Present Illness - Reason for Consult Consult date: 12/14/21 goals of care Requesting physician: Shanae Winn - Chief Complaint Generalized weakness, falls, sob and cough - History of Present Illness Patient is a 76-year-old with history of A. fib on Xarelto, rheumatoid arthritis, congestive heart failure, prior pulmonary embolism who initially presented with 4 weeks of weakness and fatigue. In the ER he underwent an extensive evaluation. He was found to have pneumonia and acute kidney injury. He was started on Rocephin and Zithromax area pulmonary was consulted. He was also discovered that he has a history of congestive heart failure in his interest and Aldactone were restarted. His O2 sat decreased and he started to require 100% nonrebreather. He was given a dose of Lasix and diuretics were continued. He was transferred to the ICU on 12/06. His respirations continued to worsen and he ultimately required BiPAP and then intubation. He then developed A. fib with RVR cardiology was consulted and started on IV amiodarone. He did have a set of blood cultures for ultimately determined to be a contaminant with staph epi. On 12/09 unit early a.m. he went into pulseless V. tach requiring multiple cardioversions and he was ultimately started on lidocaine. Cardiology was notified. He was transitioned off the lidocaine drip and back onto amiodarone and Lopressor. He continued to improve. He was transitioned off levo on 12/10. Review of Systems ROS unobtainable: due to endotracheal tube, due to mental status Past Medical History Past Medical History: Atrial Flutter, Prostate Disorder, Pulmonary Embolus (PE), Rheumatoid Arthritis (RA) History of Any Multi-Drug Resistant Organisms: None Reported Past Surgical History: Appendectomy, Heart Catheterization With Stent, Joint Replacement, Pacemaker, Prostate Surgery Additional Past Surgical History / Comment(s): dg knee replaced, dg shoulder surgery,turp, neck fusion Past Anesthesia/Blood Transfusion Reactions: No Reported Reaction Date of Last Stent Placement:: 2015 Type of Cardiac Device: AICD Device Placement Date:: 2015 Past Psychological History: No Psychological Hx Reported Smoking Status: Former smoker Past Alcohol Use History: None Reported Additional Past Alcohol Use History / Comment(s): smoked for 40 years 1/2ppd quit 2009 Past Drug Use History: None Reported - Past Family History Brother(s) Family Medical History: Cancer Additional Family Medical History / Comment(s): testicular cancer Medications and Allergies Home Medications Medication Instructions Recorded Confirmed Type Bisoprolol [Zebeta] 5 mg PO BID 08/26/19 12/04/21 History Cholecalciferol [Vitamin D3 (25 2,000 unit PO DAILY 08/26/19 12/04/21 History Mcg = 1000 Iu)] Folic Acid 1 mg PO DAILY 08/26/19 12/04/21 History Leflunomide [Arava] 20 mg PO DAILY 08/26/19 12/04/21 History Rivaroxaban [Xarelto] 20 mg PO W/SUPPER 08/26/19 12/04/21 History Rosuvastatin [Crestor] 20 mg PO DAILY 08/26/19 12/04/21 History metHOTREXate sodium [Methotrexate] 20 mg PO WE 08/26/19 12/04/21 History Omeprazole 20 mg PO DAILY 12/04/21 12/04/21 History Sacubitril/Valsartan [Entresto 49 1 tab PO BID 12/04/21 12/04/21 History mg-51 mg Tablet] Spironolactone [Aldactone] 25 mg PO DAILY 12/04/21 12/04/21 History icosapent ethyL [Icosapent Ethyl] 2 gm PO BID 12/04/21 12/04/21 History Allergies Allergy/AdvReac Type Severity Reaction Status Date / Time No Known Allergies Allergy Verified 12/04/21 14:50 Physical Exam Vitals: Vital Signs Temp Pulse Pulse Pulse Resp BP BP 12/14/21 16:00 110 H 29 H 111/52 12/14/21 15:29 12/14/21 14:00 109 H 12/14/21 13:00 109 H 28 H 125/62 12/14/21 12:00 97.5 F L 106 H 28 H 138/58 12/14/21 11:00 101 H 26 H 141/59 12/14/21 10:45 12/14/21 10:00 95 30 H 145/59 12/14/21 09:00 102 H 29 H 136/51 12/14/21 08:25 88 12/14/21 08:16 89 12/14/21 08:00 97.4 F L 89 109 H 28 H 121/40 12/14/21 07:16 12/14/21 04:26 86 27 H 95/58 12/14/21 04:00 98.2 F 89 30 H 12/14/21 03:43 12/14/21 03:15 12/14/21 03:00 93 33 H 111/58 12/14/21 02:00 91 20 113/64 12/14/21 01:00 85 30 H 113/64 12/14/21 00:00 98.0 F 85 87 29 H 12/13/21 23:56 12/13/21 23:00 99 34 H 12/13/21 22:00 101 H 30 H 12/13/21 21:17 98 26 H 12/13/21 21:00 98 24 12/13/21 20:00 98.2 F 92 90 26 H 12/13/21 19:58 86 12/13/21 19:44 84 12/13/21 19:30 12/13/21 19:00 90 23 12/13/21 18:00 100 29 H 12/13/21 17:00 92 17 95/47 Pulse Ox FiO2 12/14/21 16:00 93 L 12/14/21 15:29 35 12/14/21 14:00 12/14/21 13:00 93 L 12/14/21 12:00 92 L 35 12/14/21 11:00 94 L 12/14/21 10:45 35 12/14/21 10:00 95 12/14/21 09:00 92 L 12/14/21 08:25 12/14/21 08:16 12/14/21 08:00 94 L 35 12/14/21 07:16 35 12/14/21 04:26 95 12/14/21 04:00 96 35 12/14/21 03:43 35 12/14/21 03:15 35 12/14/21 03:00 96 12/14/21 02:00 96 12/14/21 01:00 97 12/14/21 00:00 97 35 12/13/21 23:56 35 12/13/21 23:00 95 12/13/21 22:00 96 12/13/21 21:17 96 12/13/21 21:00 95 12/13/21 20:00 96 35 12/13/21 19:58 12/13/21 19:44 12/13/21 19:30 35 12/13/21 19:00 95 12/13/21 18:00 92 L 12/13/21 17:00 94 L Intake and Output 12/14/21 12/14/21 12/14/21 06:59 14:59 22:59 Intake Total 942.293 801.284 Output Total 865 2700 Balance 77.293 -1898.716 Intake: IV 226 208 0.9 KVO 160 160 Pressure bag 66 48 Intake, IV Titration 232.293 70.284 Amount Norepinephrine 8 mg In 16.544 9.084 Sodium Chloride 0.9% 250 ml @ 0.05 MCG/KG/MIN 9. 084 mls/hr IV .Q24H [facility] Rx#:[id number] propofoL 1,000 mg In 215.749 61.200 Empty Bag 1 bag @ 5 MCG/ KG/MIN 2.381 mls/hr IV . Q24H [facility] Rx#:[id number] Tube Feeding 424 493 Other 60 30 Output: Urine 865 2700 Other: Voiding Method Indwelling Catheter Indwelling Catheter # Bowel Movements 1 Weight 94 kg General: appears comfortable, sedated HEENT: Head is atraumatic, normocephalic Sclerae are clear. Pupils equal, round and reactive to light bilaterally. ETT present CV: Heart regular in rate and rhythm positive S1 and S2. Peripheral pulses equal. 2/4 Lungs: Scattered rhonci throughout. Respirations even. + labored with accessory muscle use. No intercostal retractions. Abdomen/GI: Soft. Bowel sounds present in all 4 quadrants. Bowel sounds normoactive. : Vasques with clear yellow urine Vascular: Radial pulses equal. 2/4. no peripheral edema Skin: Warm and dryNo rash. Neurologic: Sedated and on vent Psychiatric: Unable to assess Results CBC & Chem 7: 12/14/21 04:55 12/14/21 12:11 Labs: Abnormal Lab Results - Last 24 Hours (Table) 12/13/21 12/13/21 12/14/21 Range/Units 18:01 23:00 04:55 WBC 15.1 H (3.8-10.6) k/uL RBC 2.51 L (4.30-5.90) m/uL Hgb 8.3 L (13.0-17.5) gm/dL Hct 26.2 L (39.0-53.0) % MCV 104.4 H (80.0-100.0) fL RDW 18.0 H (11.5-15.5) % Neutrophils # 12.1 H (1.3-7.7) k/uL Lymphocytes # 0.9 L (1.0-4.8) k/uL ABG pO2 (83-108) mmHg ABG HCO3 (21-25) mmol/L ABG Total CO2 (19-24) mmol/L Chloride (98-107) mmol/L BUN (9-20) mg/dL Glucose (74-99) mg/dL POC Glucose (mg/dL) 103 H 121 H (75-99) mg/dL Calcium (8.4-10.2) mg/dL Total Protein (6.3-8.2) g/dL Albumin (3.5-5.0) g/dL 12/14/21 12/14/21 12/14/21 Range/Units 04:55 04:55 05:18 WBC (3.8-10.6) k/uL RBC (4.30-5.90) m/uL Hgb (13.0-17.5) gm/dL Hct (39.0-53.0) % MCV (80.0-100.0) fL RDW (11.5-15.5) % Neutrophils # (1.3-7.7) k/uL Lymphocytes # (1.0-4.8) k/uL ABG pO2 77 L (83-108) mmHg ABG HCO3 26 H (21-25) mmol/L ABG Total CO2 27 H (19-24) mmol/L Chloride 111 H (98-107) mmol/L BUN 53 H (9-20) mg/dL Glucose 118 H (74-99) mg/dL POC Glucose (mg/dL) 121 H (75-99) mg/dL Calcium 7.5 L (8.4-10.2) mg/dL Total Protein 4.1 L (6.3-8.2) g/dL Albumin 1.9 L (3.5-5.0) g/dL 12/14/21 Range/Units 12:13 WBC (3.8-10.6) k/uL RBC (4.30-5.90) m/uL Hgb (13.0-17.5) gm/dL Hct (39.0-53.0) % MCV (80.0-100.0) fL RDW (11.5-15.5) % Neutrophils # (1.3-7.7) k/uL Lymphocytes # (1.0-4.8) k/uL ABG pO2 (83-108) mmHg ABG HCO3 (21-25) mmol/L ABG Total CO2 (19-24) mmol/L Chloride (98-107) mmol/L BUN (9-20) mg/dL Glucose (74-99) mg/dL POC Glucose (mg/dL) 135 H (75-99) mg/dL Calcium (8.4-10.2) mg/dL Total Protein (6.3-8.2) g/dL Albumin (3.5-5.0) g/dL Microbiology - Last 24 Hours (Table) 12/07/21 10:30 Blood Culture - Final Blood No Growth after 144 hours 12/07/21 10:30 Blood Culture - Final Blood No Growth after 144 hours Chest x-ray: report reviewed Assessment and Plan Assessment: Reason for consult - Goals of care Social * Occupation - retired * Marital status - for 18 years * Children/grandchildren - 2 daughters and 1 son * Residence - house * Who do you reside with - * ETOH - no * Tobacco - no * Illicit drugs - no Functional Assessment - TERMINAL SUPERVISOR per * Able to walk independently - yes short distances, but patient was very sedentary * Assistive devices - no * Able to use the bathroom independently - yes * Continent - yes * Require assistance bathing- no * Able to feed self - yes * Who prepares meals - * How many meals a day eaten - 2-3 * What percentage of meals eaten daily - 60% * Able to clean house/do laundry - no * Transportation - * Able to shop -no * Who manages medications - * Who manages finances - PPS score - 40% Plan: Summary/Goals - Patient's daughter and are at the bedside. Education was provided regarding the patient's current condition. All questions answered. The patient has excessive rheumatoid arthritis and his baseline performance and functional status is an extremely poor and he had crippling arthritis. He was essentially sedentary. The , Amanda, states that she has had several conversations with the patient in the past regarding his wishes. She expressed that he would not want to be on life support, especially for this long. Education was provided regarding withdrawal of care. They both agreed that is what the patient would want. The RN, Dr. Gavin, and Dr. Santiago notified. Recommendations - Withdraw care/compassionate extubation Advanced Directives - No Code Status - DNR Thank you for this consult Ree Sim [facility]- Palliative Care [facility] [id number] Email: [email or web address] Time with Patient: Greater than 30
[2021-12-14] MEDS: SODIUM CHLORIDE 0.9% 1,000 ML IV SCH (20:56)
[2021-12-15 00:04] VITALS: BP 67/36; PULSE 89; RESP 14
[2021-12-15] MEDS: MORPHINE SULFATE (100 MG/2 ML) 100 MG in SODIUM CHLORIDE 0.9% 100 ML IV SCH ×2 (00:40→02:52)
[2021-12-15] MEDS: RIVAROXABAN 20 MG TAB PO SCH (01:05)
[2021-12-15] MEDS: INSULIN ASPART (NovoLOG) 100 UNIT/ML VIAL SQ SCH (01:05)
[2021-12-15] MEDS: methylPREDNISolone SOD SUCCI 40 MG/ML 1 ML VIAL IV SCH (01:12)
[2021-12-15] MEDS ORDERED: AMIODARONE 200 MG TAB PO SCH (09:00)
--- NOTE | 2021-12-15 15:05 | P.DS ---
Providers Date of admission: 12/04/21 20:43 Expected date of discharge: 12/15/21 Attending physician: Sergio Bethea MD Consults: 12/05/21 09:40 Consult Physician Routine Consulting Provider: Tang Sosa Consult Reason/Comments: PNA Do you want consulting provider notified?: Yes 12/07/21 09:03 Consult Physician Urgent Consulting Provider: Froy Alvarez Consult Reason/Comments: chf/cadiomyopathy Do you want consulting provider notified?: Yes 12/07/21 09:08 Consult Physician Urgent Consulting Provider: Froy Alvarez Consult Reason/Comments: acute CHF, bacteremia Do you want consulting provider notified?: Yes 12/07/21 13:24 Consult Physician Routine Consulting Provider: Andreina Briscoe Consult Reason/Comments: sepsis Do you want consulting provider notified?: Yes 12/14/21 11:40 Consult to Palliative Care Routine Consulting Provider: Ree Sim Consult Reason/Comments: end of life Do you want consulting provider notified?: Yes Primary care physician: Estevan Jena Hospital Course: Discharge Diagnosis: Community-acquired pneumonia Acute hypoxic respiratory failure Immunocompromized due to RA on Methotrexate and Leflunomide Septic shock 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 fib on Xarelto, rheumatoid arthritis, congestive heart failure, prior pulmonary embolism who initially presented with 4 weeks of weakness and fatigue. In the ER he underwent an extensive evaluation. He was found to have pneumonia and acute kidney injury. He was started on Rocephin and Zithromax area pulmonary was consulted. He was also discovered that he has a history of congestive heart failure in his interest and Aldactone were restarted. His O2 sat decreased and he started to require 100% nonrebreather. He was given a dose of Lasix and diuretics were continued. He was transferred to the ICU on 12/06. His respirations continued to worsen and he ultimately required BiPAP and then intubation. He then developed A. fib with RVR cardiology was consulted and started on IV amiodarone. He did have a set of blood cultures for ultimately determined to be a contaminant with staph epi. On 12/09 early a.m. he went into pulseless V. tach requiring multiple cardioversions and he was ultimately started on lidocaine. Cardiology was notified. He was transitioned off the lidocaine drip and back onto amiodarone and Lopressor. He continued to require levo intermittent. He failed multiple sedation holidays due to agitation. As he was not progressing his life decided to transition him to comfort measures. He had spoken with her about not wanting long-term life support. Patient was subsequently extubated and transitioned to him for measures. He on 12/15 at 0308 A total of 25 minutes of time were spent preparing this complex discharge summary . Patient Condition at Discharge: Fair Plan - Discharge Summary New Discharge Prescriptions: No Action Cholecalciferol [Vitamin D3 (25 Mcg = 1000 Iu)] 2,000 unit PO DAILY Bisoprolol [Zebeta] 5 mg PO BID Rosuvastatin [Crestor] 20 mg PO DAILY Rivaroxaban [Xarelto] 20 mg PO W/SUPPER metHOTREXate sodium [Methotrexate] 20 mg PO WE Leflunomide [Arava] 20 mg PO DAILY Folic Acid 1 mg PO DAILY icosapent ethyL [Icosapent Ethyl] 2 gm PO BID Sacubitril/Valsartan [Entresto 49 mg-51 mg Tablet] 1 tab PO BID Spironolactone [Aldactone] 25 mg PO DAILY Omeprazole 20 mg PO DAILY Discharge Medication List Bisoprolol [Zebeta] 5 mg PO BID 08/26/19 [History] Cholecalciferol [Vitamin D3 (25 Mcg = 1000 Iu)] 2,000 unit PO DAILY 08/26/19 [History] Folic Acid 1 mg PO DAILY 08/26/19 [History] Leflunomide [Arava] 20 mg PO DAILY 08/26/19 [History] Rivaroxaban [Xarelto] 20 mg PO W/SUPPER 08/26/19 [History] Rosuvastatin [Crestor] 20 mg PO DAILY 08/26/19 [History] metHOTREXate sodium [Methotrexate] 20 mg PO WE 08/26/19 [History] Omeprazole 20 mg PO DAILY 12/04/21 [History] Sacubitril/Valsartan [Entresto 49 mg-51 mg Tablet] 1 tab PO BID 12/04/21 [History] Spironolactone [Aldactone] 25 mg PO DAILY 12/04/21 [History] icosapent ethyL [Icosapent Ethyl] 2 gm PO BID 12/04/21 [History] Follow up Appointment(s)/Referral(s): None,Stated [REFERRING] - 1-2 days Discharge Disposition: - Preliminary Cause of Preliminary Cause of : CHf
--- NOTE | 2021-12-22 22:20 | P.PN ---
Subjective Progress Note Date: 12/14/21 Principal diagnosis: Sepsis Patient is 76 year old male presenting to the hospital with generalized weakness and fall symptom has been going on for a few weeks before presentation hospital patient did have a worsening of respiratory status requiring intubation, patient did have a pulseless V. tach CODE BLUE after midnight on 12/09/2021 for the patient has received shock IV fluid on today's evaluation that is 12/14/2021, the patient is afebrile, the patient remains to be intubated on the vent and FiO2 is stable at 35 %, no significant purulent secretions through the ET has been reported by nurses staff, the patient is requiring a low-dose pressor support, patient is tolerating his tube feeds and no diarrhea has been reported Objective - Vital Signs Vital signs: Vital Signs Temp 98.2 F 12/14/21 04:00 Pulse 88 12/14/21 08:25 Resp 30 H 12/14/21 04:00 BP 111/58 12/14/21 03:00 Pulse Ox 96 12/14/21 04:00 FiO2 35 12/14/21 10:45 Intake & Output 12/13/21 12/14/21 12/14/21 18:59 06:59 18:59 Intake Total 6735.636 7929.293 540.284 Output Total 1810 1530 800 Balance -565.308 -185.707 -259.716 Weight 95.4 kg 94 kg Intake: IV 460 306 130 0.9 KVO 140 240 100 Piperacillin-Tazobactam 3 100 .375 gm In Sodium Chloride 0.9% 100 ml @ 25 mls/hr IVPB Q8HR [facility] Rx# :[id number] Pressure bag 66 30 Sodium Chloride 0.45% 1, 220 000 ml @ 50 mls/hr IV . Q20H [facility] Rx#:[id number] Intake, IV Titration 308.692 332.293 70.284 Amount Heparin Sod,Pork in 0.45% 13.916 NaCl 25,000 unit In 0.45 % NaCl 1 250ml.bag @ 12 UNITS/KG/HR 10.08 mls/hr IV .Q24H [facility] Rx#: [id number] Norepinephrine 8 mg In 75.890 16.544 9.084 Sodium Chloride 0.9% 250 ml @ 0.05 MCG/KG/MIN 9. 084 mls/hr IV .Q24H [facility] Rx#:[id number] propofoL 1,000 mg In 218.886 315.749 61.200 Empty Bag 1 bag @ 5 MCG/ KG/MIN 2.381 mls/hr IV . Q24H [facility] Rx#:[id number] Tube Feeding 476 616 310 Other 90 30 Output: Urine 1810 1530 800 Other: Voiding Method Indwelling Catheter Indwelling Catheter # Bowel Movements 1 1 ABP, PAP, CO, CI - Last Documented Arterial Blood Pressure 123/40 - Exam GENERAL DESCRIPTION: An elderly male intubated on the vent RESPIRATORY SYSTEM: Unlabored breathing , decreased breath sounds at bases HEART: S1 S2 regular rate and rhythm , ABDOMEN: Soft , no tenderness EXTREMITIES: No edema feet - Labs CBC & Chem 7: 12/14/21 04:55 12/14/21 12:11 Labs: Abnormal Lab Results - Last 24 Hours (Table) 12/13/21 12/13/21 12/13/21 Range/Units 12:03 18:01 23:00 WBC (3.8-10.6) k/uL RBC (4.30-5.90) m/uL Hgb (13.0-17.5) gm/dL Hct (39.0-53.0) % MCV (80.0-100.0) fL RDW (11.5-15.5) % Neutrophils # (1.3-7.7) k/uL Lymphocytes # (1.0-4.8) k/uL ABG pO2 (83-108) mmHg ABG HCO3 (21-25) mmol/L ABG Total CO2 (19-24) mmol/L Chloride (98-107) mmol/L BUN (9-20) mg/dL Glucose (74-99) mg/dL POC Glucose (mg/dL) 103 H 103 H 121 H (75-99) mg/dL Calcium (8.4-10.2) mg/dL Total Protein (6.3-8.2) g/dL Albumin (3.5-5.0) g/dL 12/14/21 12/14/21 12/14/21 Range/Units 04:55 04:55 04:55 WBC 15.1 H (3.8-10.6) k/uL RBC 2.51 L (4.30-5.90) m/uL Hgb 8.3 L (13.0-17.5) gm/dL Hct 26.2 L (39.0-53.0) % MCV 104.4 H (80.0-100.0) fL RDW 18.0 H (11.5-15.5) % Neutrophils # 12.1 H (1.3-7.7) k/uL Lymphocytes # 0.9 L (1.0-4.8) k/uL ABG pO2 (83-108) mmHg ABG HCO3 (21-25) mmol/L ABG Total CO2 (19-24) mmol/L Chloride 111 H (98-107) mmol/L BUN 53 H (9-20) mg/dL Glucose 118 H (74-99) mg/dL POC Glucose (mg/dL) 121 H (75-99) mg/dL Calcium 7.5 L (8.4-10.2) mg/dL Total Protein 4.1 L (6.3-8.2) g/dL Albumin 1.9 L (3.5-5.0) g/dL 12/14/21 Range/Units 05:18 WBC (3.8-10.6) k/uL RBC (4.30-5.90) m/uL Hgb (13.0-17.5) gm/dL Hct (39.0-53.0) % MCV (80.0-100.0) fL RDW (11.5-15.5) % Neutrophils # (1.3-7.7) k/uL Lymphocytes # (1.0-4.8) k/uL ABG pO2 77 L (83-108) mmHg ABG HCO3 26 H (21-25) mmol/L ABG Total CO2 27 H (19-24) mmol/L Chloride (98-107) mmol/L BUN (9-20) mg/dL Glucose (74-99) mg/dL POC Glucose (mg/dL) (75-99) mg/dL Calcium (8.4-10.2) mg/dL Total Protein (6.3-8.2) g/dL Albumin (3.5-5.0) g/dL Microbiology - Last 24 Hours (Table) 12/07/21 10:30 Blood Culture - Final Blood No Growth after 144 hours 12/07/21 10:30 Blood Culture - Final Blood No Growth after 144 hours Assessment and Plan (1) Bacteremia Status: Acute Code(s): R78.81 - BACTEREMIA SNOMED Code(s): 9751409 (2) Pneumonia Status: Acute Code(s): J18.9 - PNEUMONIA, UNSPECIFIED ORGANISM SNOMED Code(s): 335536161 Plan: 1patient with acute respiratory failure which is likely multifactorial in this patient admitted to the hospital with frequent falls and weakness now with concern for possible pneumonia and a question of aspiration etiology. 2 positive blood culture with staph epi likely skin contamination, repeat blood culture remains to be negative 4 sputum for gram stain and culture so far negative 5patient condition remains to be critical however no worsening of respiratory status has been noticed by the family may be leaning towards hospice oriented care which may be appropriate, patient is currently covered with Zosyn 3.375 g every 8 hours which can be discontinued and switched to hospice, and continue supportive care
== END 2021-12-15 04:00 | disposition expired | DRG 870 ==
LOC: EC 13:00 → 4SSUR 20:43 → 2SICU 12-06 10:15 → 5NMEDONC 12-15 00:37
PROVIDERS: ADMIT Internal Medicine; ATTEND Internal Medicine
PROC: 3E033XZ Introduction of Vasopressor into Peripheral Vein, Percutaneous Approach (ICD-10-PCS; 2021-12-07)
PROC: 03HY32Z Insertion of Monitoring Device into Upper Artery, Percutaneous Approach (ICD-10-PCS; 2021-12-07)
PROC: 4A133B1 Monitoring of Arterial Pressure, Peripheral, Percutaneous Approach (ICD-10-PCS; 2021-12-07)
PROC: 4A133J1 Monitoring of Arterial Pulse, Peripheral, Percutaneous Approach (ICD-10-PCS; 2021-12-07)
PROC: 5A1955Z Respiratory Ventilation, Greater than 96 Consecutive Hours (ICD-10-PCS; principal; 2021-12-10)
PROC: 0BH17EZ Insertion of Endotracheal Airway into Trachea, Via Natural or Artificial Opening (ICD-10-PCS; 2021-12-10)
DX: A41.9 Sepsis, unspecified organism (principal); J18.9 Pneumonia, unspecified organism; G93.41 Metabolic encephalopathy; R65.21 Severe sepsis with septic shock; J96.21 Acute and chronic respiratory failure with hypoxia; N17.0 Acute kidney failure with tubular necrosis; I26.99 Other pulmonary embolism without acute cor pulmonale; I48.92 Unspecified atrial flutter; E44.0 Moderate protein-calorie malnutrition; G93.1 Anoxic brain damage, not elsewhere classified; N17.9 Acute kidney failure, unspecified; I48.20 Chronic atrial fibrillation, unspecified; I47.2 Ventricular tachycardia; I47.1 Supraventricular tachycardia; E86.0 Dehydration; R62.7 Adult failure to thrive; R29.6 Repeated falls; E78.5 Hyperlipidemia, unspecified; F32.A Depression, unspecified; Z20.822 Contact with and (suspected) exposure to COVID-19; Z96.653 Presence of artificial knee joint, bilateral; D53.9 Nutritional anemia, unspecified; Z51.5 Encounter for palliative care; Z66 Do not resuscitate; I46.9 Cardiac arrest, cause unspecified; M19.90 Unspecified osteoarthritis, unspecified site; M06.9 Rheumatoid arthritis, unspecified; K21.9 Gastro-esophageal reflux disease without esophagitis; W18.39XA Other fall on same level, initial encounter; E87.6 Hypokalemia; I25.10 Atherosclerotic heart disease of native coronary artery without angina pectoris; I25.5 Ischemic cardiomyopathy; I44.7 Left bundle-branch block, unspecified; Z98.1 Arthrodesis status; Z95.810 Presence of automatic (implantable) cardiac defibrillator; Z95.5 Presence of coronary angioplasty implant and graft; Z90.49 Acquired absence of other specified parts of digestive tract; Z79.01 Long term (current) use of anticoagulants; Z79.899 Other long term (current) drug therapy; Z68.23 Body mass index [BMI] 23.0-23.9, adult; Y92.009 Unspecified place in unspecified non-institutional (private) residence as the place of occurrence of the external cause; Z86.711 Personal history of pulmonary embolism; Z87.891 Personal history of nicotine dependence; Z80.43 Family history of malignant neoplasm of testis
CPT/HCPCS: 36415; 36600; 70450; 71045; 71046; 80048; 80053; 80320; 81001; 82550; 82607; 82746; 82805; 83605; 83690; 83735; 83880; 84100; 84132; 84145; 84439; 84443; 84484; 85025; 85027; 85730; 87040; 87070; 87205; 87324; 87449; 87502; 87634; 87635; 93005; 93306; 94002; 94003; 94640; 96361; 96365; 96375; 99285